=== PATIENT | female | born 1930 | race Caucasian/White ===

== ENCOUNTER 2017-02-24 21:35 | Inpatient (IN) | payer MEDICARE, OTHER ==
[2017-02-24] MEDS ORDERED: Sodium Chloride 0.9% 1,000 ML IV ONE (21:58)
[2017-02-24] MEDS ORDERED: Acetaminophen 325 MG Tab PO ONE (22:17)
--- NOTE | 2017-02-24 22:18 | EDM.PDOC ---
ED HPI GENERAL MEDICAL PROBLEM - General Chief Complaint: Gastrointestinal Problem Stated Complaint: by ambulance Time Seen by Provider: 02/24/17 22:14 Source of Information: Reports: Patient, EMS History Limitations: Reports: No Limitations - History of Present Illness INITIAL COMMENTS - FREE TEXT/NARRATIVE: pt states ate too many cherries ~ 10 yesterday and started diarrhoea but x 1 today. EMS states Pt's spouse called for Pt's diarrhoea but Pt declined coming then called again for pt to be taken here. - Related Data Allergies Allergy/AdvReac Type Severity Reaction Status Date / Time aspirin Allergy Nose Bleeds Verified 02/24/17 21:52 codeine Allergy Airway Verified 02/24/17 21:52 Tightness zolpidem tartrate Allergy Other Verified 02/24/17 21:52 [From Anupama] Home Meds: Home Meds Acetaminophen [Tylenol] 650 mg PO Q6HR PRN 10/01/15 [History] Alendronate Sodium [Fosamax] 70 mg PO BID 10/01/15 [History] Allopurinol [Zyloprim] 150 mg PO DAILY 10/01/15 [History] Calcitriol [Rocaltrol] 0.25 mcg PO DAILY 10/01/15 [History] Cholecalciferol (Vitamin D3) [Cholecalciferol] 500 units PO DAILY 10/01/15 [ History] Cyanocobalamin (Vitamin B-12) [B-12 Dots] 500 mcg PO BEDTIME 10/01/15 [History] Diltiazem HCl [Cardizem Cd] 360 mg PO DAILY 10/01/15 [History] Furosemide [Lasix] 40 mg PO DAILY 10/01/15 [History] Metoprolol Succinate [Toprol XL 50mg] 75 mg PO DAILY 10/01/15 [History] Multivitamin/Iron/Folic Acid [Centrum Complete Multivit] 1 tab PO DAILY [History] Simvastatin [Zocor] 10 mg PO BEDTIME 10/01/15 [History] Spironolactone [Aldactone] 25 mg PO DAILY 10/01/15 [History] PARoxetine [Paxil] 30 mg PO DAILY #30 tablet 11/09/15 [Rx] Pantoprazole [ProTONIX] 40 mg PO ACBREAKFAST #30 tab.cr 11/09/15 [Rx] [place]-3 Fatty Acids/Fish Oil [[place]-3 Fish Oil 1,000 mg Sfgl] 1 each PO BID [History] Warfarin [Coumadin] 5 mg PO .TUESTHURSSUN 06/06/16 [History] Warfarin [Coumadin] 7.5 mg PO .MONWEDFRISAT 06/06/16 [History] Acetaminophen/Diphenhydramine [Tylenol Pm Ex-Strength Caplet] 1 each PO BEDTIME PRN 06/07/16 [History] Docusate Sodium/Sennosides [Senna Plus] 1 tab PO DAILY tablet 06/12/16 [Rx] Levofloxacin 500 mg PO DAILY #10 tablet 06/12/16 [Rx] Past Medical History HEENT History: Reports: Impaired Vision Other HEENT History: wears glasses. 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: Musculoskeletal History: Reports: Arthritis, Osteoarthritis Neurological History: Reports: Headaches, Chronic Psychiatric History: Reports: Anxiety, Depression Endocrine/Metabolic History: Reports: Obesity/BMI 30+ Hematologic History: Reports: None Immunologic History: Reports: None Oncologic (Cancer) History: Reports: None Dermatologic History: Reports: None, Cellulitis, Other (See Below) Other Dermatologic History: sores to lower legs, lower abd,groin and upper arms - Infectious Disease History Infectious Disease History: Reports: Chicken Pox, Measles, Mumps, Shingles Other Infectious Disease History: had "Yellow jaundice" at age 15 - Past Surgical History Head Surgeries/Procedures: Reports: None Cardiovascular Surgical History: Reports: Vascular Surgery GI Surgical History: Reports: Appendectomy, Cholecystectomy, EGD Other GI Surgeries/Procedures: hemorrhoidectomy Musculoskeletal Surgical History: Reports: Hip Replacement, Knee Replacement Social & Family History - Family History Family Medical History: Noncontributory HEENT: Reports: None Cardiac: Reports: None Respiratory: Reports: None GI: Reports: Diverticulitis Musculoskeletal: Reports: RA Neurological: Reports: Seizure Psychiatric: Reports: None Immunologic: Reports: None Dermatologic: Reports: None Oncologic: Reports: None - Tobacco Use Smoking Status *Q: Never Smoker Second Hand Smoke Exposure: No - Caffeine Use Caffeine Use: Reports: Coffee, Tea - Alcohol Use Days Per Week of Alcohol Use: 2 Number of Drinks Per Day: 4 Total Drinks Per Week: 8 - Recreational Drug Use Recreational Drug Use: No - Living Situation & Occupation Living situation: Reports: , Alone Occupation: Retired ED ROS GENERAL - Review of Systems Review Of Systems: ROS reveals no pertinent complaints other than HPI. ED EXAM, GI/ABD - Physical Exam Exam: See Below Exam Limited By: No Limitations General Appearance: Alert, WD/WN, No Apparent Distress Ears: Hearing Grossly Normal Throat/Mouth: Normal Voice, No Airway Compromise Head: Atraumatic Neck: Non-Tender, Full Range of Motion Respiratory/Chest: No Respiratory Distress, No Accessory Muscle Use, Rhonchi, Wheezing Cardiovascular: Regular Rate, Rhythm GI/Abdominal: Soft, Non-Tender, Hyperactive Bowel Sounds. No: Tenderness, Distention, Guarding, Rebound, Rigidity Neurological: Alert, Oriented, Normal Cognition, No Motor/Sensory Deficits Psychiatric: Normal Affect, Normal Mood Skin Exam: Warm, Dry Lymphatic: No Adenopathy Course - Vital Signs Last Recorded V/S: Last Vital Signs Temp 39 C H 02/24/17 23:06 Pulse 87 02/24/17 21:48 Resp 14 02/24/17 21:48 BP 157/81 H 02/24/17 21:48 Pulse Ox 93 L 02/24/17 21:48 - Orders/Labs/Meds Orders: Active Orders 24 hr Category Date Time Status CULTURE BLOOD [BC] Stat Lab 02/24/17 22:10 Received CULTURE BLOOD [BC] Stat Lab 02/24/17 22:15 Results Sodium Chloride 0.9% [Normal Saline] 1,000 ml Med 02/24/17 21:58 Active IV .BOLUS cefTRIAXone [Rocephin] 1 gm Med 02/24/17 23:28 Active Sodium Chloride 0.9% [Normal Saline] 50 ml IV ONETIME Medication Orders Sodium Chloride (Normal Saline) 1,000 mls @ 500 mls/hr IV .BOLUS ONE Stop: 02/24/17 23:57 Last Admin: 02/24/17 22:16 Dose: 500 mls/hr Ceftriaxone Sodium 1 gm/ (Sodium Chloride) 50 mls @ 100 mls/hr IV ONETIME ONE Stop: 02/24/17 23:57 Labs: Laboratory Tests 02/24/17 02/24/17 02/24/17 Range/Units 22:10 22:10 22:10 WBC 20.9 H (5.0-10.0) 10^3/uL RBC 4.12 L (4.2-5.4) 10^6/uL Hgb 13.9 (12.0-16.0) g/dL Hct 41.1 (37.0-47.0) % MCV 99.8 (80-100) fL MCH 33.7 (27.0-34.0) pg MCHC 33.8 (33.0-35.0) g/dL Plt Count 176 (150-450) 10^3/uL Neut % (Auto) 89.6 H (42.2-75.2) % Lymph % (Auto) 4.3 L (20.5-50.1) % Yell % (Auto) 6.0 (2-8) % Eos % (Auto) 0.0 L (1.0-3.0) % Baso % (Auto) 0.1 (0.0-1.0) % PT (9.0-12.0) SEC INR (0.9-1.2) Sodium 137 (135-145) mmol/L Potassium 3.8 (3.6-5.0) mmol/L Chloride 98 L (101-111) mmol/L Carbon Dioxide 27.0 (21.0-31.0) mmol/L Anion Gap 15.8 BUN 27 H (7-18) mg/dL Creatinine 1.9 H (0.6-1.3) mg/dL Est Cr Clr Drug Dosing 20.26 mL/min Estimated GFR (MDRD) 25 BUN/Creatinine Ratio 14.21 Glucose 154 H (74-105) mg/dL Lactic Acid 2.2 (0.5-2.2) mmol/L Calcium 9.7 (8.4-10.2) mg/dl Total Bilirubin 1.6 H (0.2-1.0) mg/dL AST 26 (10-42) IU/L ALT 14 (10-60) IU/L Alkaline Phosphatase 60 (42-121) IU/L B-Natriuretic Peptide 694 H (0-100) pg/ml Total Protein 7.3 (6.7-8.2) g/dl Albumin 3.8 (3.2-5.5) g/dl Globulin 3.5 Albumin/Globulin Ratio 1.09 02/24/17 Range/Units 22:10 WBC (5.0-10.0) 10^3/uL RBC (4.2-5.4) 10^6/uL Hgb (12.0-16.0) g/dL Hct (37.0-47.0) % MCV (80-100) fL MCH (27.0-34.0) pg MCHC (33.0-35.0) g/dL Plt Count (150-450) 10^3/uL Neut % (Auto) (42.2-75.2) % Lymph % (Auto) (20.5-50.1) % Yell % (Auto) (2-8) % Eos % (Auto) (1.0-3.0) % Baso % (Auto) (0.0-1.0) % PT 26.4 H (9.0-12.0) SEC INR 2.6 H (0.9-1.2) Sodium (135-145) mmol/L Potassium (3.6-5.0) mmol/L Chloride (101-111) mmol/L Carbon Dioxide (21.0-31.0) mmol/L Anion Gap BUN (7-18) mg/dL Creatinine (0.6-1.3) mg/dL Est Cr Clr Drug Dosing mL/min Estimated GFR (MDRD) BUN/Creatinine Ratio Glucose (74-105) mg/dL Lactic Acid (0.5-2.2) mmol/L Calcium (8.4-10.2) mg/dl Total Bilirubin (0.2-1.0) mg/dL AST (10-42) IU/L ALT (10-60) IU/L Alkaline Phosphatase (42-121) IU/L B-Natriuretic Peptide (0-100) pg/ml Total Protein (6.7-8.2) g/dl Albumin (3.2-5.5) g/dl Globulin Albumin/Globulin Ratio Meds: Medications Generic Name Dose Route Start Last Admin Trade Name Freq PRN Reason Stop Dose Admin Sodium Chloride 1,000 mls @ 500 mls/hr 02/24/17 21:58 02/24/17 22:16 Normal Saline IV 02/24/17 23:57 500 mls/hr .BOLUS ONE Administration Ceftriaxone Sodium 1 gm/ 50 mls @ 100 mls/hr 02/24/17 23:28 Sodium Chloride IV 02/24/17 23:57 ONETIME ONE Discontinued Medications Generic Name Dose Route Start Last Admin Trade Name Albino PRN Reason Stop Dose Admin Acetaminophen 325 mg 02/24/17 22:17 02/24/17 22:21 Tylenol PO 02/24/17 22:18 325 mg NOW ONE Administration - Re-Assessments/Exams Free Text/Narrative Re-Assessment/Exam: 02/24/17 23:[address] Mac who kindly admitted Pt. Departure - Departure Time of Disposition: 23:32 Disposition: Admitted As Inpatient 68 Condition: Good Clinical Impression: Diarrhea, Dehydration syndrome Pneumonia Qualifiers: Pneumonia type: due to unspecified organism Laterality: bilateral Lung location : lower lobe of lung Qualified Code(s): J18.9 - Pneumonia, unspecified organism - Discharge Information Forms: ED Department Discharge - My Orders Last 24 Hours: My Active Orders 02/24/17 21:58 Sodium Chloride 0.9% [Normal Saline] 1,000 ml IV .BOLUS 02/24/17 22:10 CULTURE BLOOD [BC] Stat 02/24/17 22:15 CULTURE BLOOD [BC] Stat 02/24/17 23:28 cefTRIAXone [Rocephin] 1 gm Sodium Chloride 0.9% [Normal Saline] 50 ml IV ONETIME - Assessment/Plan Last 24 Hours: My Active Orders 02/24/17 21:58 Sodium Chloride 0.9% [Normal Saline] 1,000 ml IV .BOLUS 02/24/17 22:10 CULTURE BLOOD [BC] Stat 02/24/17 22:15 CULTURE BLOOD [BC] Stat 02/24/17 23:28 cefTRIAXone [Rocephin] 1 gm Sodium Chloride 0.9% [Normal Saline] 50 ml IV ONETIME
[2017-02-24] MEDS ORDERED: cefTRIAXone 1 GM in Sodium Chloride 0.9% 50 ML IV ONE (23:28)
[2017-02-25] MEDS ORDERED: Ondansetron 4 MG/2 ML SDV IVPUSH PRN (00:17)
[2017-02-25] MEDS ORDERED: Morphine 2 MG/ML Syringe IVPUSH PRN (00:17)
--- NOTE | 2017-02-25 00:31 | PCM.HP ---
H&P History of Present Illness - General Date of Service: 02/24/17 Admit Problem/Dx: Admission Diagnosis/Problem Admission Diagnosis/Problem Cellulitis Source of Information: Patient History Limitations: Reports: No Limitations - History of Present Illness Initial Comments - Free Text/Narative: 87-year-old female with a past medical history of atrial fibrillation, heart failure, hypertension, COPD, GERD, chronic renal insufficiency, urinary incontinence, anxiety, obesity present to the emergency room for having 3 episodes of diarrhea since yesterday. However she said she had some sweats and chills 2 days ago but declined any other symptoms. She thinks that she had diarrhea because she ate too much cherries. Her called the ambulance today but she declined to come to the emergency room however tonight he calls embolus again and she came to the emergency room. In the emergency room her temperature was 103.1 Fahrenheit. Patient denies cough, shortness breath, chest pain, headache, upper respiratory symptoms, abdominal pain, dysuria, urinary frequency, or any other symptoms or concerns. However patient admits that she picks on her skin and scratches it. She also admitted that she has inner thighs wounds that causes pain. In the emergency room she was found with a lot of stool in her brief period. Her white cells were 20,000 with left chest. Creatinine 1.9. Her creatinine baseline is about 1.5. BNP 694. Her BNP baseline is around 300-400. Lactic acid is 2.2. Total bilirubin 1.6. Medial and 27. Sodium 137. Potassium 3.8. Carbon dioxide 27. Chest x-ray shows bilateral atelectasis versus infiltrate versus pulmonary edema according to radiology report. - Related Data Allergies/Adverse Reactions: Allergies Allergy/AdvReac Type Severity Reaction Status Date / Time aspirin Allergy Nose Bleeds Verified 02/25/17 00:18 codeine Allergy Airway Verified 02/25/17 00:18 Tightness zolpidem tartrate Allergy Other Verified 02/25/17 00:18 [From Anupama] Home Medications: Home Meds Acetaminophen [Tylenol] 650 mg PO Q6HR PRN 10/01/15 [History] Alendronate Sodium [Fosamax] 70 mg PO BID 10/01/15 [History] Allopurinol [Zyloprim] 150 mg PO DAILY 10/01/15 [History] Calcitriol [Rocaltrol] 0.25 mcg PO DAILY 10/01/15 [History] Cholecalciferol (Vitamin D3) [Cholecalciferol] 500 units PO DAILY 10/01/15 [ History] Cyanocobalamin (Vitamin B-12) [B-12 Dots] 500 mcg PO BEDTIME 10/01/15 [History] Diltiazem HCl [Cardizem Cd] 360 mg PO DAILY 10/01/15 [History] Furosemide [Lasix] 40 mg PO DAILY 10/01/15 [History] Metoprolol Succinate [Toprol XL 50mg] 75 mg PO DAILY 10/01/15 [History] Multivitamin/Iron/Folic Acid [Centrum Complete Multivit] 1 tab PO DAILY [History] Simvastatin [Zocor] 10 mg PO BEDTIME 10/01/15 [History] Spironolactone [Aldactone] 25 mg PO DAILY 10/01/15 [History] PARoxetine [Paxil] 30 mg PO DAILY #30 tablet 11/09/15 [Rx] Pantoprazole [ProTONIX] 40 mg PO ACBREAKFAST #30 tab.cr 11/09/15 [Rx] [place]-3 Fatty Acids/Fish Oil [[place]-3 Fish Oil 1,000 mg Sfgl] 1 each PO BID [History] Warfarin [Coumadin] 5 mg PO .TUESTHURSSUN 06/06/16 [History] Warfarin [Coumadin] 7.5 mg PO .MONWEDFRISAT 06/06/16 [History] Acetaminophen/Diphenhydramine [Tylenol Pm Ex-Strength Caplet] 1 each PO BEDTIME PRN 06/07/16 [History] Docusate Sodium/Sennosides [Senna Plus] 1 tab PO DAILY tablet 06/12/16 [Rx] Levofloxacin 500 mg PO DAILY #10 tablet 06/12/16 [Rx] Past Medical History HEENT History: Reports: Impaired Vision Other HEENT History: wears glasses. 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: Musculoskeletal History: Reports: Arthritis, Osteoarthritis Neurological History: Reports: Headaches, Chronic Psychiatric History: Reports: Anxiety, Depression Endocrine/Metabolic History: Reports: Obesity/BMI 30+ Hematologic History: Reports: None Immunologic History: Reports: None Oncologic (Cancer) History: Reports: None Dermatologic History: Reports: None, Cellulitis, Other (See Below) Other Dermatologic History: sores to lower legs, lower abd,groin and upper arms - Infectious Disease History Infectious Disease History: Reports: Chicken Pox, Measles, Mumps, Shingles Other Infectious Disease History: had "Yellow jaundice" at age 15 - Past Surgical History Head Surgeries/Procedures: Reports: None Cardiovascular Surgical History: Reports: Vascular Surgery GI Surgical History: Reports: Appendectomy, Cholecystectomy, EGD Other GI Surgeries/Procedures: hemorrhoidectomy Musculoskeletal Surgical History: Reports: Hip Replacement, Knee Replacement Social & Family History - Family History Family Medical History: Noncontributory HEENT: Reports: None Cardiac: Reports: None Respiratory: Reports: None GI: Reports: Diverticulitis Musculoskeletal: Reports: RA Neurological: Reports: Seizure Psychiatric: Reports: None Immunologic: Reports: None Dermatologic: Reports: None Oncologic: Reports: None - Tobacco Use Smoking Status *Q: Never Smoker Second Hand Smoke Exposure: No - Caffeine Use Caffeine Use: Reports: Coffee, Tea - Alcohol Use Days Per Week of Alcohol Use: 2 Number of Drinks Per Day: 4 Total Drinks Per Week: 8 - Recreational Drug Use Recreational Drug Use: No - Living Situation & Occupation Living situation: Reports: , Alone Occupation: Retired H&P Review of Systems - Review of Systems: Review Of Systems: See Below General: Reports: Weakness. Denies: Night Sweats HEENT: Reports: No Symptoms Pulmonary: Reports: No Symptoms Cardiovascular: Reports: No Symptoms Gastrointestinal: Denies: Abdominal Pain, Constipation, Difficulty Swallowing, Distension, Hematemesis, Hematochezia, Melena, Nausea, Vomiting Genitourinary: Reports: No Symptoms Musculoskeletal: Reports: No Symptoms Skin: Denies: Jaundice Psychiatric: Reports: No Symptoms Neurological: Reports: No Symptoms Hematologic/Lymphatic: Reports: No Symptoms Exam - Exam Exam: See Below - Vital Signs Vital Signs: Last Vital Signs Temp 39 C H 02/24/17 23:06 Pulse 87 02/24/17 21:48 Resp 14 02/24/17 21:48 BP 157/81 H 02/24/17 21:48 Pulse Ox 93 L 02/24/17 21:48 Weight: 131.542 kg - Exam General: Alert, Oriented, Cooperative. No: Moderate Distress, Severe Distress, Sedated, Lethargic, Obtunded HEENT: Conjunctiva Clear, EACs Clear, EOMI, Hearing Intact, Mucosa Moist & [place] , Nares Patent, Normal Nasal Septum, Posterior Pharynx Clear, Pupils Equal, Pupils Reactive, TMs Clear Neck: Supple, Trachea Midline, +2 Carotid Pulse wo Bruit Lungs: Clear to Auscultation, Normal Respiratory Effort, Crackles (Mild in bases ). No: Rhonchi, Stridor, Wheezing Cardiovascular: Regular Rate, Regular Rhythm Abdomen: Normal Bowel Sounds, Soft. No: Organomegaly, Peritoneal Signs, Distention, Guarding, Rigidity, Rebound, Tenderness, McBurney's Sign, Son's Sign (Female) Exam: Deferred Rectal (Female) Exam: Deferred Back Exam: Full Range of Motion. No: CVA Tenderness (L), CVA Tenderness (R), Decreased Range of Motion Extremities: Normal Pulses. No: Clubbing, Cyanosis, Calf Tenderness, Edema Skin: Other (There are erythematous skin on the lower back. Inner thighs skin is mottled, red, has open wounds. Lower and upper extremities has itching grimm. ) Neurological: Normal Tone. No: Focal Deficit Neuro Extensive - Mental Status: Alert, Oriented x3, Normal Mood/Affect Neuro Extensive - Motor, Sensory, Reflexes: CN II-XII Intact Psychiatric: Alert, Normal Affect - Patient Data Result Diagrams: 02/24/17 22:10 02/24/17 22:10 *Q Meaningful Use (ADM) - VTE *Q VTE Criteria *Q: - Stroke *Q Stroke Criteria *Q: - AMI *Q AMI Criteria *Q: - Problem List (1) Cellulitis SNOMED Code(s): 338603339 ICD Code: L03.90 - CELLULITIS, UNSPECIFIED Status: Acute Priority: High Current Visit: Yes (2) Acute on chronic kidney failure SNOMED Code(s): 292505807 ICD Code: N17.9 - ACUTE KIDNEY FAILURE, UNSPECIFIED; N18.9 - CHRONIC KIDNEY DISEASE, UNSPECIFIED Status: Acute Current Visit: Yes (3) Pulmonary edema SNOMED Code(s): 21286007 ICD Code: J81.1 - CHRONIC PULMONARY EDEMA Status: Acute Priority: Medium Current Visit: Yes (4) Sepsis SNOMED Code(s): 46168658 ICD Code: A41.9 - SEPSIS, UNSPECIFIED ORGANISM Status: Acute Priority: High Current Visit: Yes (5) Chronic congestive heart failure SNOMED Code(s): 06534210 ICD Code: I50.9 - HEART FAILURE, UNSPECIFIED Status: Chronic Current Visit: Yes (6) Essential hypertension SNOMED Code(s): 50642360 ICD Code: I10 - ESSENTIAL (PRIMARY) HYPERTENSION Status: Chronic Current Visit: Yes (7) COPD (chronic obstructive pulmonary disease) SNOMED Code(s): 50472529 ICD Code: J44.9 - CHRONIC OBSTRUCTIVE PULMONARY DISEASE, UNSPECIFIED Status : Chronic Current Visit: Yes Problem List Initiated/Reviewed/Updated: Yes Orders Last 24hrs: Active Orders 24 hr Category Date Time Status Patient Status [ADT] Routine ADT 02/25/17 00:17 Ordered Height and Weight [RC] DAILY Care 02/25/17 00:17 Ordered Intake and Output [RC] Q6H Care 02/25/17 00:19 Ordered Oxygen Therapy [RC] PRN Care 02/25/17 00:17 Ordered RT Aerosol Therapy [RC] ASDIRECTED Care 02/25/17 00:21 Ordered Up ad Safia [RC] ASDIRECTED Care 02/25/17 00:17 Ordered VTE/DVT Education [RC] PER UNIT ROUTINE Care 02/25/17 00:17 Ordered Vital Signs [RC] Q4H Care 02/25/17 00:17 Ordered OT Evaluation and Treatment [CONS] Routine Cons 02/26/17 07:00 Ordered PT Evaluation and Treatment [CONS] Routine Cons 02/26/17 07:00 Ordered 2 Gram Sodium Diet [DIET] Diet 02/25/17 Breakfast Ordered BASIC METABOLIC PANEL,BMP [CHEM] AM Lab 02/25/17 05:11 Ordered CBC WITH AUTO DIFF [HEME] AM Lab 02/25/17 05:11 Ordered CREATINE KINASE,CK [CHEM] AM Lab 02/25/17 05:11 Ordered CULTURE URINE [RM] Stat Lab 02/25/17 00:17 Uncollected MAGNESIUM [CHEM] AM Lab 02/25/17 05:11 Ordered UA W/MICROSCOPIC [URIN] AM Lab 02/25/17 05:11 Uncollected Acetaminophen [Tylenol] Med 02/25/17 00:17 Ordered 650 mg PO Q4H PRN Albuterol/Ipratropium [DuoNeb 3.0-0.5 MG/3 ML] Med 02/25/17 00:30 Ordered 3 ml NEB Q6H Morphine Med 02/25/17 00:17 Ordered 1 mg IVPUSH Q4H PRN Ondansetron [Zofran] Med 02/25/17 00:17 Ordered 4 mg IVPUSH Q6H PRN Saline Lock Insert [OM.PC] Routine Oth 02/25/17 00:17 Ordered Resuscitation Status Routine Resus Stat 02/25/17 00:17 Ordered Assessment/Plan Comment:: Sepsis most likely from cellulitis WBC on admission 1000. Her temp in the emergency room was 103.1 Fahrenheit She received 1 L of IV fluid as bolus in the emergency room. I did recommend farther IV fluid due to history of congestive heart failure and having pulmonary edema on chest x-ray. She received 1 dose of Rocephin in the emergency room -Start Zosyn -Check WBC and CRP in the morning -Awaiting blood cultures results Cellulitis of bilateral thigh Zosyn PT consult for wound care Pulmonary edema, mild Most likely chronic continue her Lasix Watch Clinically for fluid overload and respiration chronic congestive heart failure Continue Lasix, spiral lactone, metoprolol Patient is not on MADALYN inhibitor or ARBs. We will leave that up to the primary care provider History of atrial fibrillation Continue was diltiazem orally COPD No exacerbation DuoNeb every 6 hours Essential hypertension Continue his metoprolol History of osteoporosis Continue with calcitriol and alendronate Patient wants to be DNR/DNI She is on warfarin for atrial fibrillation so she does not need additional pharmaceutical DVT prophylaxis
[2017-02-25] MEDS ORDERED: Acetaminophen 500 MG Tab PO PRN (01:14)
[2017-02-25] MEDS ORDERED: diphenhydrAMINE 25 MG Tab PO PRN (01:15)
[2017-02-25] MEDS: Albuterol/Ipratropium 3.0-0.5 MG/3 ML Neb Soln NEB SCH ×4 (01:35→17:56)
[2017-02-25] MEDS: Piperacillin/Tazobactam 3.375 GM in Sodium Chloride 0.9% 100 ML IV SCH ×4 (01:49→18:43)
[2017-02-25] MEDS: Pantoprazole 40 MG Tab.CR PO SCH (05:56)
[2017-02-25] MEDS: Sodium Chloride 0.9% 10 ML Syringe FLUSH PRN ×3 (06:00→18:43)
[2017-02-25] MEDS: Potassium Chloride 10 MEQ Tab.ER PO SCH (08:33)
[2017-02-25] MEDS: PARoxetine 20 MG Tab PO SCH (08:33)
[2017-02-25] MEDS: Multivitamins with Iron Tab.Chew PO SCH (08:33)
[2017-02-25] MEDS: Spironolactone 25 MG Tab PO SCH (08:33)
[2017-02-25] MEDS: Allopurinol 300 MG Tab PO SCH (08:35)
[2017-02-25] MEDS: Calcitriol 0.25 MCG Cap PO SCH (08:35)
[2017-02-25] MEDS: Diltiazem 180 MG Cap.CD PO SCH (08:35)
[2017-02-25] MEDS: Metoprolol Succinate 50 MG Tab.ER PO SCH (08:36)
[2017-02-25] MEDS: Furosemide 40 MG Tab PO SCH ×2 (08:36→14:35)
[2017-02-25] MEDS: Cholecalciferol (Vitamin D3) 400 Unit Tab PO SCH (08:37)
[2017-02-25] MEDS: FATTY ACIDS PO SCH ×2 (10:10→20:48)
[2017-02-25] MEDS: [UNRECOGNIZED DRUG - OTHER] PO SCH ×2 (10:10→20:48)
[2017-02-25] MEDS: FISH OIL PO SCH ×2 (10:10→20:48)
[2017-02-25] MEDS: OMEGA PO SCH ×2 (10:10→20:48)
[2017-02-25] MEDS ORDERED: Albuterol/Ipratropium 3.0-0.5 MG/3 ML Neb Soln NEB SCH (13:00)
--- NOTE | 2017-02-25 13:39 | PCM.PN ---
- General Info Date of Service: 02/25/17 Admission Dx/Problem (Free Text): Admission Diagnosis/Problem Admission Diagnosis/Problem Cellulitis Subjective Update: Patient states that she is feeling better today. She still complains of the thigh tenderness. She denies diarrhea since admission. She denies fever, chills , nausea, vomiting, abdominal pain, urinary symptoms, unilateral weakness/ numbness/tingling, or any other symptoms or concerns. - Patient Data Vitals - most recent: Last Vital Signs Temp 38.1 C 02/25/17 11:00 Pulse 79 02/25/17 11:00 Resp 20 02/25/17 11:00 BP 127/54 L 02/25/17 11:00 Pulse Ox 92 L 02/25/17 11:00 Weight - most recent: 131.542 kg I&O - last 24 hours: Intake & Output 02/24/17 02/25/17 02/25/17 22:59 06:59 14:59 Intake Total 1206 300 Balance 1206 300 Lab Results last 24 hrs: Laboratory Results - last 24 hr 02/25/17 02/25/17 02/25/17 Range/Units 06:05 06:05 06:05 WBC 21.9 H (5.0-10.0) 10^3/uL RBC 3.92 L (4.2-5.4) 10^6/uL Hgb 13.1 (12.0-16.0) g/dL Hct 39.3 (37.0-47.0) % MCV 100.3 H (80-100) fL MCH 33.4 (27.0-34.0) pg MCHC 33.3 (33.0-35.0) g/dL Plt Count 153 (150-450) 10^3/uL Neut % (Auto) 90.0 H (42.2-75.2) % Lymph % (Auto) 4.9 L (20.5-50.1) % [place] % (Auto) 5.1 (2-8) % Eos % (Auto) 0.0 L (1.0-3.0) % Baso % (Auto) 0.0 (0.0-1.0) % PT 21.7 H (9.0-12.0) SEC INR 2.2 H (0.9-1.2) Sodium 138 (135-145) mmol/L Potassium 3.6 (3.6-5.0) mmol/L Chloride 99 L (101-111) mmol/L Carbon Dioxide 26.0 (21.0-31.0) mmol/L Anion Gap 16.6 BUN 29 H (7-18) mg/dL Creatinine 1.9 H (0.6-1.3) mg/dL Est Cr Clr Drug Dosing 20.26 mL/min Estimated GFR (MDRD) 25 Glucose 138 H (74-105) mg/dL Lactic Acid (0.5-2.2) mmol/L Calcium 8.9 (8.4-10.2) mg/dl Magnesium 1.8 (1.8-2.5) mg/dL Creatine Kinase 104 (26-174) IU/L C-Reactive Protein (0.0-1.3) mg/dL Urine Color (YELLOW) Urine Appearance (CLEAR) Urine pH (5.0-9.0) Ur Specific [place] (1.005-1.030) Urine Protein (NEGATIVE) Urine Glucose (UA) (NEGATIVE) Urine Ketones (NEGATIVE) Urine Occult Blood (NEGATIVE) Urine Nitrite (NEGATIVE) Urine Bilirubin (NEGATIVE) Urine Urobilinogen (0.2-1.0) mg/dL Ur Leukocyte Esterase (NEGATIVE) Urine RBC /HPF Urine WBC (0-5/HPF) /HPF Ur Epithelial Cells /HPF Urine Bacteria (0-FEW/HPF) /HPF Urine Mucus /LPF 02/25/17 02/25/17 02/25/17 Range/Units 06:05 06:05 06:45 WBC (5.0-10.0) 10^3/uL RBC (4.2-5.4) 10^6/uL Hgb (12.0-16.0) g/dL Hct (37.0-47.0) % MCV (80-100) fL MCH (27.0-34.0) pg MCHC (33.0-35.0) g/dL Plt Count (150-450) 10^3/uL Neut % (Auto) (42.2-75.2) % Lymph % (Auto) (20.5-50.1) % [place] % (Auto) (2-8) % Eos % (Auto) (1.0-3.0) % Baso % (Auto) (0.0-1.0) % PT (9.0-12.0) SEC INR (0.9-1.2) Sodium (135-145) mmol/L Potassium (3.6-5.0) mmol/L Chloride (101-111) mmol/L Carbon Dioxide (21.0-31.0) mmol/L Anion Gap BUN (7-18) mg/dL Creatinine (0.6-1.3) mg/dL Est Cr Clr Drug Dosing mL/min Estimated GFR (MDRD) Glucose (74-105) mg/dL Lactic Acid 1.2 (0.5-2.2) mmol/L Calcium (8.4-10.2) mg/dl Magnesium (1.8-2.5) mg/dL Creatine Kinase (26-174) IU/L C-Reactive Protein 18.7 H (0.0-1.3) mg/dL Urine Color Straw (YELLOW) Urine Appearance Cloudy (CLEAR) Urine pH 5.5 (5.0-9.0) Ur Specific [place] 1.010 (1.005-1.030) Urine Protein Negative (NEGATIVE) Urine Glucose (UA) Negative (NEGATIVE) Urine Ketones Negative (NEGATIVE) Urine Occult Blood Moderate H (NEGATIVE) Urine Nitrite Negative (NEGATIVE) Urine Bilirubin Negative (NEGATIVE) Urine Urobilinogen 0.2 (0.2-1.0) mg/dL Ur Leukocyte Esterase Small H (NEGATIVE) Urine RBC 50-75 H /HPF Urine WBC 5-10 H (0-5/HPF) /HPF Ur Epithelial Cells Rare /HPF Urine Bacteria Moderate H (0-FEW/HPF) /HPF Urine Mucus Not seen /LPF Med Orders - Current: Current Medications Acetaminophen (Tylenol) 650 mg PO Q4H PRN PRN Reason: Pain (Mild 1-3)/fever Acetaminophen (Tylenol Extra Strength) 500 mg PO BEDTIME PRN PRN Reason: Insomnia Albuterol/Ipratropium (Duoneb 3.0-0.5 Mg/3 Ml) 3 ml NEB Q6HRRT [facility] Allopurinol (Zyloprim) 150 mg PO DAILY [facility] Last Admin: 02/25/17 08:35 Dose: 150 mg Calcitriol (Rocaltrol) 0.25 mcg PO DAILY [facility] Last Admin: 02/25/17 08:35 Dose: 0.25 mcg Cholecalciferol (Vitamin D3) 800 units PO DAILY [facility] Last Admin: 02/25/17 08:37 Dose: 800 units Cyanocobalamin (Vitamin B12) 500 mcg PO BEDTIME [facility] Diltiazem HCl (Cardizem Cd) 360 mg PO DAILY [facility] Last Admin: 02/25/17 08:35 Dose: 360 mg Diphenhydramine HCl (Benadryl) 25 mg PO BEDTIME PRN PRN Reason: Insomnia Furosemide (Lasix) 40 mg PO DAILY [facility] Last Admin: 02/25/17 08:36 Dose: 40 mg Furosemide (Lasix) 80 mg PO 1400 [facility] Piperacillin Sod/Tazobactam (Sod 3.375 gm/ Sodium Chloride) 100 mls @ 200 mls/ hr IV Q6H [facility] Last Admin: 02/25/17 12:42 Dose: 200 mls/hr Metoprolol Succinate (Toprol Xl) 75 mg PO DAILY [facility] Last Admin: 02/25/17 08:36 Dose: 75 mg Multivitamins/Iron (Child Chew Iron) 1 tab PO DAILY [facility] Last Admin: 02/25/17 08:33 Dose: 1 tab Non-Formulary Medication (Alendronate Sodium [Fosamax]) 70 mg PO WEEKLY [facility] Non-Formulary Medication ([place]-3 Fatty Acids/Fish Oil [[place]-3 Fish Oil 1,000 Mg Sfgl]) 1 each PO BID [facility] Last Admin: 02/25/17 10:10 Dose: Not Given Ondansetron HCl (Zofran) 4 mg IVPUSH Q6H PRN PRN Reason: Nausea/Vomiting Pantoprazole Sodium (Protonix) 40 mg PO ACBREAKFAST [facility] Last Admin: 02/25/17 05:56 Dose: 40 mg Paroxetine HCl (Paxil) 30 mg PO DAILY [facility] Last Admin: 02/25/17 08:33 Dose: 30 mg Potassium Chloride (Klor-Con 10) 10 meq PO DAILY [facility] Last Admin: 02/25/17 08:33 Dose: 10 meq Simvastatin (Zocor) 10 mg PO BEDTIME [facility] Sodium Chloride (Saline Flush) 10 ml FLUSH ASDIRECTED PRN PRN Reason: Keep Vein Open Last Admin: 02/25/17 06:33 Dose: 10 ml Spironolactone (Aldactone) 25 mg PO DAILY [facility] Last Admin: 02/25/17 08:33 Dose: 25 mg Warfarin Sodium (Coumadin) 7.5 mg PO MoWeFrSa@1400 [facility] Warfarin Sodium (Coumadin) 5 mg PO SuTuTh@1400 [facility] Discontinued Medications Acetaminophen (Tylenol) 325 mg PO NOW ONE Stop: 02/24/17 22:18 Last Admin: 02/24/17 22:21 Dose: 325 mg Albuterol/Ipratropium (Duoneb 3.0-0.5 Mg/3 Ml) 3 ml NEB Q6H [facility] Last Admin: 02/25/17 05:56 Dose: 3 ml Albuterol/Ipratropium (Duoneb 3.0-0.5 Mg/3 Ml) 3 ml NEB DAILY@0100,0700,1300 [facility] Furosemide (Lasix) 80 mg PO DAILY [facility] Sodium Chloride (Normal Saline) 1,000 mls @ 500 mls/hr IV .BOLUS ONE Stop: 02/24/17 23:57 Last Infusion: 02/25/17 04:05 Dose: Infused Ceftriaxone Sodium 1 gm/ (Sodium Chloride) 50 mls @ 100 mls/hr IV ONETIME ONE Stop: 02/24/17 23:57 Last Admin: 02/24/17 23:38 Dose: 100 mls/hr Morphine Sulfate (Morphine) 1 mg IVPUSH Q4H PRN PRN Reason: Pain (severe 7-10) Stop: 02/25/17 00:39 - Exam General: alert, oriented, cooperative. No: no acute distress, moderate distress , severe distress, sedated, lethargic, obtunded HEENT: Pupils equal, Pupils reactive, EOMI, Mucous membr. moist/pink Neck: supple, trachea midline, no JVD Lungs: Clear to auscultation, Normal respiratory effort Cardiovascular: Regular Rate, Regular Rhythm Abdomen: bowel sounds present, soft, no tenderness, no distension. No: rigidity , guarding Back Exam: Full Range of Motion Extremities: no edema, normal pulses, no tenderness/swelling, no clubbing, no cyanosis Skin: other (Lower back Erythema improved.) Neurological: no new focal deficit Psy/Mental Status: alert, normal affect, normal mood - Problem List & Annotations (1) Cellulitis SNOMED Code(s): 574599841 Code(s): L03.90 - CELLULITIS, UNSPECIFIED Status: Acute Priority: High Current Visit: Yes (2) Acute on chronic kidney failure SNOMED Code(s): 743789339 Code(s): N17.9 - ACUTE KIDNEY FAILURE, UNSPECIFIED; N18.9 - CHRONIC KIDNEY DISEASE, UNSPECIFIED Status: Acute Current Visit: Yes (3) Pulmonary edema SNOMED Code(s): 69933410 Code(s): J81.1 - CHRONIC PULMONARY EDEMA Status: Acute Priority: Medium Current Visit: Yes (4) Sepsis SNOMED Code(s): 31732604 Code(s): A41.9 - SEPSIS, UNSPECIFIED ORGANISM Status: Acute Priority: High Current Visit: Yes (5) Chronic congestive heart failure SNOMED Code(s): 77457206 Code(s): I50.9 - HEART FAILURE, UNSPECIFIED Status: Chronic Current Visit : Yes (6) Essential hypertension SNOMED Code(s): 91591804 Code(s): I10 - ESSENTIAL (PRIMARY) HYPERTENSION Status: Chronic Current Visit: Yes (7) COPD (chronic obstructive pulmonary disease) SNOMED Code(s): 02839117 Code(s): J44.9 - CHRONIC OBSTRUCTIVE PULMONARY DISEASE, UNSPECIFIED Status : Chronic Current Visit: Yes (8) Diarrhea SNOMED Code(s): 43781651 Code(s): R19.7 - DIARRHEA, UNSPECIFIED Status: Acute Current Visit: Yes - Problem List Review Problem List Initiated/Reviewed/Updated: Yes - My Orders Last 24 Hours: My Active Orders 02/25/17 00:26 Consult to Pharmacy [CONS] Routine 02/25/17 00:30 Piperacillin/Tazobactam [Zosyn] 3.375 gm Sodium Chloride 0.9% [Normal Saline] 100 ml IV Q6H 02/25/17 00:45 Alendronate Sodium [Fosamax] 70 mg PO WEEKLY 02/25/17 01:14 Acetaminophen [Tylenol Extra Strength] 500 mg PO BEDTIME PRN 02/25/17 01:15 diphenhydrAMINE [Benadryl] 25 mg PO BEDTIME PRN 02/25/17 06:00 Pantoprazole [ProTONIX] 40 mg PO ACBREAKFAST 02/25/17 09:00 Allopurinol [Zyloprim] 150 mg PO DAILY Calcitriol [Rocaltrol] 0.25 mcg PO DAILY Cholecalciferol (Vitamin D3) [Vitamin D3] 800 units PO DAILY Diltiazem [Cardizem CD] 360 mg PO DAILY Furosemide [Lasix] 40 mg PO DAILY Metoprolol Succinate [Toprol XL] 75 mg PO DAILY Multivitamins with Iron [Child Chew Iron] 1 tab PO DAILY [place]-3 Fatty Acids/Fish Oil [[place]-3 Fish Oil 1,000 mg Sfgl] 1 each PO BID PARoxetine [Paxil] 30 mg PO DAILY Potassium Chloride [Klor-Con 10] 10 meq PO DAILY Spironolactone [Aldactone] 25 mg PO DAILY 02/25/17 13:00 Albuterol/Ipratropium [DuoNeb 3.0-0.5 MG/3 ML] 3 ml NEB Q6HRRT 02/25/17 14:00 Furosemide [Lasix] 80 mg PO 1400 Warfarin [Coumadin] 5 mg PO SuTuTh@1400 02/25/17 21:00 Cyanocobalamin (Vitamin B12) [Vitamin B12] 500 mcg PO BEDTIME Simvastatin [Zocor] 10 mg PO BEDTIME 02/26/17 05:11 B-TYPE NATRIURETIC PEPTIDE,BNP [CHEM] AM BASIC METABOLIC PANEL,BMP [CHEM] AM C-REACTIVE PROTEIN [CHEM] AM CBC WITH AUTO DIFF [HEME] AM INR,PT,PROTHROMBIN TIME [COAG] DAILY 02/26/17 14:00 Warfarin [Coumadin] 7.5 mg PO MoWeFrSa@1400 02/27/17 05:11 INR,PT,PROTHROMBIN TIME [COAG] DAILY 02/28/17 05:11 INR,PT,PROTHROMBIN TIME [COAG] DAILY - Plan Plan:: Sepsis most likely from cellulitis WBC on admission 20,000. Her temp in the emergency room was 103.1 Fahrenheit She received 1 L of IV fluid as bolus in the emergency room. I did recommend farther IV fluid due to history of congestive heart failure and having pulmonary edema on chest x-ray. She received 1 dose of Rocephin in the emergency room -Continue Zosyn -WBC are slightly higher today at 21.9 -CRP is 18.7. -Awaiting blood cultures results Cellulitis of bilateral thigh -Continue Zosyn PT consult for wound care Pulmonary edema, mild Most likely chronic continue her Lasix Watch Clinically for fluid overload and respiration Diarrhea, -resolved chronic congestive heart failure Continue Lasix, spiral lactone, metoprolol Patient is not on MADALYN inhibitor or ARBs. We will leave that up to the primary care provider History of atrial fibrillation Continue was diltiazem orally Continuing Coumadin Chronic anticoagulation For atrial fibrillation -INR is therapeutic. Pharmacy is dosing warfarin COPD No exacerbation DuoNeb every 6 hours Essential hypertension Continue his metoprolol History of osteoporosis Continue with calcitriol and alendronate Patient wants to be DNR/DNI She is on warfarin for atrial fibrillation so she does not need additional pharmaceutical DVT prophylaxis I discussed with patient and that she needs to try to get out of her chair more often and sleep in bed at home instead of sitting in chair. However will I warned them about the risk of fall and I recommended [facility] home or at least home health. Patient declined prison and home health at this time. She states that her daughter is helps her and she will have someone to come to her home regularly and help her
[2017-02-25] MEDS ORDERED: Furosemide 40 MG Tab PO SCH (14:00)
[2017-02-25] MEDS ORDERED: Warfarin 5 MG Tab PO SCH (14:00)
[2017-02-25] MEDS: Simvastatin 10 MG Tab PO SCH (20:49)
[2017-02-25] MEDS: Cyanocobalamin (Vitamin B12) 100 MCG Tab PO SCH (20:49)
[2017-02-25] MEDS: DIPHENHYDRAMINE PO PRN (20:51)
[2017-02-25] MEDS: ACETAMINOPHEN PO PRN (20:51)
[2017-02-26] MEDS: Piperacillin/Tazobactam 3.375 GM in Sodium Chloride 0.9% 100 ML IV SCH ×4 (00:14→18:22)
[2017-02-26] MEDS: Albuterol/Ipratropium 3.0-0.5 MG/3 ML Neb Soln NEB SCH ×3 (00:18→13:07)
[2017-02-26] MEDS: Pantoprazole 40 MG Tab.CR PO SCH (06:00)
--- NOTE | 2017-02-26 09:17 | PCM.PN ---
- General Info Date of Service: 02/26/17 Admission Dx/Problem (Free Text): Admission Diagnosis/Problem Admission Diagnosis/Problem Cellulitis Subjective Update: Patient states that she is feeling better today. She denies thigh pain. She denies diarrhea since admission. She denies fever, chills, nausea, vomiting, abdominal pain, urinary symptoms, unilateral weakness/numbness/tingling, or any other symptoms or concerns. - Patient Data Vitals - most recent: Last Vital Signs Temp 37.5 C 02/26/17 07:28 Pulse 94 02/26/17 07:28 Resp 20 02/26/17 07:28 BP 126/51 L 02/26/17 07:28 Pulse Ox 96 02/26/17 07:28 Weight - most recent: 131.769 kg I&O - last 24 hours: Intake & Output 02/25/17 02/26/17 02/26/17 22:59 06:59 14:59 Intake Total 567 415 Balance 567 415 Lab Results last 24 hrs: Laboratory Results - last 24 hr 02/25/17 02/26/17 02/26/17 Range/Units 06:05 06:07 06:07 WBC 13.4 H (5.0-10.0) 10^3/uL RBC 3.82 L (4.2-5.4) 10^6/uL Hgb 12.7 (12.0-16.0) g/dL Hct 38.7 (37.0-47.0) % MCV 101.3 H (80-100) fL MCH 33.2 (27.0-34.0) pg MCHC 32.8 L (33.0-35.0) g/dL Plt Count 146 L (150-450) 10^3/uL Neut % (Auto) 85.5 H (42.2-75.2) % Lymph % (Auto) 7.3 L (20.5-50.1) % [place] % (Auto) 6.9 (2-8) % Eos % (Auto) 0.2 L (1.0-3.0) % Baso % (Auto) 0.1 (0.0-1.0) % PT (9.0-12.0) SEC INR (0.9-1.2) Sodium 138 (135-145) mmol/L Potassium 3.8 (3.6-5.0) mmol/L Chloride 98 L (101-111) mmol/L Carbon Dioxide 28.0 (21.0-31.0) mmol/L Anion Gap 15.8 BUN 26 H (7-18) mg/dL Creatinine 1.9 H (0.6-1.3) mg/dL Est Cr Clr Drug Dosing 20.26 mL/min Estimated GFR (MDRD) 25 Glucose 115 H (74-105) mg/dL Calcium 9.0 (8.4-10.2) mg/dl C-Reactive Protein 18.7 H (0.0-1.3) mg/dL B-Natriuretic Peptide 383 H (0-100) pg/ml 02/26/17 02/26/17 Range/Units 06:07 06:12 WBC (5.0-10.0) 10^3/uL RBC (4.2-5.4) 10^6/uL Hgb (12.0-16.0) g/dL Hct (37.0-47.0) % MCV (80-100) fL MCH (27.0-34.0) pg MCHC (33.0-35.0) g/dL Plt Count (150-450) 10^3/uL Neut % (Auto) (42.2-75.2) % Lymph % (Auto) (20.5-50.1) % [place] % (Auto) (2-8) % Eos % (Auto) (1.0-3.0) % Baso % (Auto) (0.0-1.0) % PT 15.8 H (9.0-12.0) SEC INR 1.6 H (0.9-1.2) Sodium (135-145) mmol/L Potassium (3.6-5.0) mmol/L Chloride (101-111) mmol/L Carbon Dioxide (21.0-31.0) mmol/L Anion Gap BUN (7-18) mg/dL Creatinine (0.6-1.3) mg/dL Est Cr Clr Drug Dosing mL/min Estimated GFR (MDRD) Glucose (74-105) mg/dL Calcium (8.4-10.2) mg/dl C-Reactive Protein 19.7 H (0.0-1.3) mg/dL B-Natriuretic Peptide (0-100) pg/ml Med Orders - Current: Current Medications Acetaminophen (Tylenol) 650 mg PO Q4H PRN PRN Reason: Pain (Mild 1-3)/fever Albuterol/Ipratropium (Duoneb 3.0-0.5 Mg/3 Ml) 3 ml NEB Q6HRRT [facility] Last Admin: 02/26/17 07:05 Dose: 3 ml Allopurinol (Zyloprim) 150 mg PO DAILY [facility] Last Admin: 02/25/17 08:35 Dose: 150 mg Calcitriol (Rocaltrol) 0.25 mcg PO DAILY [facility] Last Admin: 02/25/17 08:35 Dose: 0.25 mcg Cholecalciferol (Vitamin D3) 800 units PO DAILY [facility] Last Admin: 02/25/17 08:37 Dose: 800 units Cyanocobalamin (Vitamin B12) 500 mcg PO BEDTIME [facility] Last Admin: 02/25/17 20:49 Dose: 500 mcg Diltiazem HCl (Cardizem Cd) 360 mg PO DAILY [facility] Last Admin: 02/25/17 08:35 Dose: 360 mg Furosemide (Lasix) 40 mg PO DAILY [facility] Last Admin: 02/25/17 08:36 Dose: 40 mg Furosemide (Lasix) 80 mg PO 1400 [facility] Last Admin: 02/25/17 14:35 Dose: 80 mg Piperacillin Sod/Tazobactam (Sod 3.375 gm/ Sodium Chloride) 100 mls @ 200 mls/ hr IV Q6H [facility] Last Infusion: 02/26/17 06:41 Dose: Infused Metoprolol Succinate (Toprol Xl) 75 mg PO DAILY [facility] Last Admin: 02/25/17 08:36 Dose: 75 mg Multivitamins/Iron (Child Chew Iron) 1 tab PO DAILY [facility] Last Admin: 02/25/17 08:33 Dose: 1 tab Non-Formulary Medication (Alendronate Sodium [Fosamax]) 70 mg PO WEEKLY [facility] Non-Formulary Medication ([place]-3 Fatty Acids/Fish Oil [[place]-3 Fish Oil 1,000 Mg Sfgl]) 1 each PO BID [facility] Last Admin: 02/25/17 20:48 Dose: Not Given Ondansetron HCl (Zofran) 4 mg IVPUSH Q6H PRN PRN Reason: Nausea/Vomiting Pantoprazole Sodium (Protonix) 40 mg PO ACBREAKFAST [facility] Last Admin: 02/26/17 06:00 Dose: 40 mg Paroxetine HCl (Paxil) 30 mg PO DAILY [facility] Last Admin: 02/25/17 08:33 Dose: 30 mg Acetaminophen/Diphenhydramine ( Tylenol Pm) 500 Mg/25 Mg Own Med 1 each PO BEDTIME PRN PRN Reason: Insomnia Last Admin: 02/25/17 20:51 Dose: 1 each Potassium Chloride (Klor-Con 10) 10 meq PO DAILY [facility] Last Admin: 02/25/17 08:33 Dose: 10 meq Simvastatin (Zocor) 10 mg PO BEDTIME [facility] Last Admin: 02/25/17 20:49 Dose: 10 mg Sodium Chloride (Saline Flush) 10 ml FLUSH ASDIRECTED PRN PRN Reason: Keep Vein Open Last Admin: 02/25/17 18:43 Dose: 10 ml Spironolactone (Aldactone) 25 mg PO DAILY [facility] Last Admin: 02/25/17 08:33 Dose: 25 mg Warfarin Sodium (Coumadin) 7.5 mg PO MoWeFrSa@1400 [facility] Warfarin Sodium (Coumadin) 5 mg PO SuTuTh@1400 [facility] Last Admin: 02/25/17 14:35 Dose: 5 mg Discontinued Medications Acetaminophen (Tylenol) 325 mg PO NOW ONE Stop: 02/24/17 22:18 Last Admin: 02/24/17 22:21 Dose: 325 mg Acetaminophen (Tylenol Extra Strength) 500 mg PO BEDTIME PRN PRN Reason: Insomnia Albuterol/Ipratropium (Duoneb 3.0-0.5 Mg/3 Ml) 3 ml NEB Q6H [facility] Last Admin: 02/25/17 05:56 Dose: 3 ml Albuterol/Ipratropium (Duoneb 3.0-0.5 Mg/3 Ml) 3 ml NEB DAILY@0100,0700,1300 [facility] Diphenhydramine HCl (Benadryl) 25 mg PO BEDTIME PRN PRN Reason: Insomnia Furosemide (Lasix) 80 mg PO DAILY [facility] Sodium Chloride (Normal Saline) 1,000 mls @ 500 mls/hr IV .BOLUS ONE Stop: 02/24/17 23:57 Last Infusion: 02/25/17 04:05 Dose: Infused Ceftriaxone Sodium 1 gm/ (Sodium Chloride) 50 mls @ 100 mls/hr IV ONETIME ONE Stop: 02/24/17 23:57 Last Admin: 02/24/17 23:38 Dose: 100 mls/hr Morphine Sulfate (Morphine) 1 mg IVPUSH Q4H PRN PRN Reason: Pain (severe 7-10) Stop: 02/25/17 00:39 - Exam General: alert, oriented, cooperative, no acute distress. No: moderate distress , severe distress, sedated, lethargic, obtunded HEENT: Pupils equal, Pupils reactive, EOMI, Mucous membr. moist/pink Neck: supple, trachea midline, no JVD Lungs: Clear to auscultation, Normal respiratory effort, Crackles (Mild in bases but improving). No: Stridor, Wheezing Cardiovascular: Regular Rate, Regular Rhythm Abdomen: bowel sounds present, soft, no tenderness, no distension Extremities: no edema, normal pulses, no tenderness/swelling, no clubbing, no cyanosis, no calf tenderness Skin: other (Lower back erythema almost resolved. Thighs skin redness is improving wounds are healing appropriately) Neurological: no new focal deficit Psy/Mental Status: alert, normal affect, normal mood - Problem List & Annotations (1) Cellulitis SNOMED Code(s): 217005360 Code(s): L03.90 - CELLULITIS, UNSPECIFIED Status: Acute Priority: High Current Visit: Yes (2) Acute on chronic kidney failure SNOMED Code(s): 426359704 Code(s): N17.9 - ACUTE KIDNEY FAILURE, UNSPECIFIED; N18.9 - CHRONIC KIDNEY DISEASE, UNSPECIFIED Status: Acute Current Visit: Yes (3) Pulmonary edema SNOMED Code(s): 08005246 Code(s): J81.1 - CHRONIC PULMONARY EDEMA Status: Acute Priority: Medium Current Visit: Yes (4) Sepsis SNOMED Code(s): 89321149 Code(s): A41.9 - SEPSIS, UNSPECIFIED ORGANISM Status: Acute Priority: High Current Visit: Yes (5) Chronic congestive heart failure SNOMED Code(s): 19575223 Code(s): I50.9 - HEART FAILURE, UNSPECIFIED Status: Chronic Current Visit : Yes (6) Essential hypertension SNOMED Code(s): 98484595 Code(s): I10 - ESSENTIAL (PRIMARY) HYPERTENSION Status: Chronic Current Visit: Yes (7) COPD (chronic obstructive pulmonary disease) SNOMED Code(s): 70263314 Code(s): J44.9 - CHRONIC OBSTRUCTIVE PULMONARY DISEASE, UNSPECIFIED Status : Chronic Current Visit: Yes (8) Diarrhea SNOMED Code(s): 64148584 Code(s): R19.7 - DIARRHEA, UNSPECIFIED Status: Acute Current Visit: Yes - Problem List Review Problem List Initiated/Reviewed/Updated: Yes - My Orders Last 24 Hours: My Active Orders 02/25/17 09:00 Allopurinol [Zyloprim] 150 mg PO DAILY Calcitriol [Rocaltrol] 0.25 mcg PO DAILY Cholecalciferol (Vitamin D3) [Vitamin D3] 800 units PO DAILY Diltiazem [Cardizem CD] 360 mg PO DAILY Furosemide [Lasix] 40 mg PO DAILY Metoprolol Succinate [Toprol XL] 75 mg PO DAILY Multivitamins with Iron [Child Chew Iron] 1 tab PO DAILY [place]-3 Fatty Acids/Fish Oil [[place]-3 Fish Oil 1,000 mg Sfgl] 1 each PO BID PARoxetine [Paxil] 30 mg PO DAILY Potassium Chloride [Klor-Con 10] 10 meq PO DAILY Spironolactone [Aldactone] 25 mg PO DAILY 02/25/17 13:00 Albuterol/Ipratropium [DuoNeb 3.0-0.5 MG/3 ML] 3 ml NEB Q6HRRT 02/25/17 14:00 Furosemide [Lasix] 80 mg PO 1400 Warfarin [Coumadin] 5 mg PO SuTuTh@1400 02/25/17 16:04 Wound Care [RC] DAILY 02/25/17 17:36 Patient's Own Medication [Ptom] 1 each PO BEDTIME PRN 02/25/17 21:00 Cyanocobalamin (Vitamin B12) [Vitamin B12] 500 mcg PO BEDTIME Simvastatin [Zocor] 10 mg PO BEDTIME 02/26/17 14:00 Warfarin [Coumadin] 7.5 mg PO MoWeFrSa@1400 02/27/17 05:11 INR,PT,PROTHROMBIN TIME [COAG] DAILY 02/28/17 05:11 INR,PT,PROTHROMBIN TIME [COAG] DAILY - Plan Plan:: Sepsis most likely from cellulitis WBC on admission 20,000. Her temp in the emergency room was 103.1 Fahrenheit She received 1 L of IV fluid as bolus in the emergency room. I did not recommend farther IV fluid due to history of congestive heart failure and having pulmonary edema on chest x-ray. She received 1 dose of Rocephin in the emergency room -Continue Zosyn -WBC are down to 13,000 -CRP is 19.7. However patient is clinically better -Awaiting blood cultures results Cellulitis of bilateral thigh -Continue Zosyn PT consult for wound care Pulmonary edema, mild Most likely chronic continue her Lasix Watch Clinically for fluid overload and respiration Possible UTI Awaiting urine cultures Diarrhea, -resolved chronic congestive heart failure Continue Lasix, spiral lactone, metoprolol Patient is not on MADALYN inhibitor or ARBs. We will leave that up to the primary care provider History of atrial fibrillation Continue was diltiazem orally Continuing Coumadin Chronic anticoagulation For atrial fibrillation -INR is subtherapeutic. Pharmacy is dosing warfarin. Adjust warfarin per pharmacy recommendation COPD No exacerbation DuoNeb every 6 hours Essential hypertension Continue his metoprolol History of osteoporosis Continue with calcitriol and alendronate Patient wants to be DNR/DNI She is on warfarin for atrial fibrillation so she does not need additional pharmaceutical DVT prophylaxis I discussed with patient and that she needs to try to get out of her chair more often and sleep in bed at home instead of sitting in chair. However I warned them about the risk of fall and I recommended senior living home or at least home health. Patient declined longterm and home health at this time. She states that her daughter is helps her and she will have someone to come to her home regularly and help her. However today I readdressed longterm temporarily for therapy and patient states she will talk to her daughters about that and let us know.
[2017-02-26] MEDS: Cholecalciferol (Vitamin D3) 400 Unit Tab PO SCH (09:29)
[2017-02-26] MEDS: Metoprolol Succinate 50 MG Tab.ER PO SCH (09:29)
[2017-02-26] MEDS: Calcitriol 0.25 MCG Cap PO SCH (09:30)
[2017-02-26] MEDS: Furosemide 40 MG Tab PO SCH ×2 (09:30→13:22)
[2017-02-26] MEDS: Spironolactone 25 MG Tab PO SCH (09:30)
[2017-02-26] MEDS: Allopurinol 300 MG Tab PO SCH (09:30)
[2017-02-26] MEDS: PARoxetine 20 MG Tab PO SCH (09:30)
[2017-02-26] MEDS: Multivitamins with Iron Tab.Chew PO SCH (09:30)
[2017-02-26] MEDS: Diltiazem 180 MG Cap.CD PO SCH (09:30)
[2017-02-26] MEDS: Potassium Chloride 10 MEQ Tab.ER PO SCH (09:30)
[2017-02-26] MEDS: FISH OIL PO SCH ×2 (09:31→20:35)
[2017-02-26] MEDS: FATTY ACIDS PO SCH ×2 (09:31→20:35)
[2017-02-26] MEDS: OMEGA PO SCH ×2 (09:31→20:35)
[2017-02-26] MEDS: [UNRECOGNIZED DRUG - OTHER] PO SCH ×2 (09:31→20:35)
[2017-02-26] MEDS: Acetaminophen 325 MG Tab PO PRN (13:21)
[2017-02-26] MEDS ORDERED: Warfarin 2.5 MG Tab PO SCH (14:00)
[2017-02-26] MEDS ORDERED: Albuterol/Ipratropium 3.0-0.5 MG/3 ML Neb Soln NEB PRN (16:21)
[2017-02-26] MEDS: DIPHENHYDRAMINE PO PRN (20:36)
[2017-02-26] MEDS: ACETAMINOPHEN PO PRN (20:36)
[2017-02-26] MEDS: Simvastatin 10 MG Tab PO SCH (20:37)
[2017-02-26] MEDS: Cyanocobalamin (Vitamin B12) 100 MCG Tab PO SCH (20:37)
[2017-02-27] MEDS: Piperacillin/Tazobactam 3.375 GM in Sodium Chloride 0.9% 100 ML IV SCH ×5 (00:05→23:52)
[2017-02-27] MEDS: Pantoprazole 40 MG Tab.CR PO SCH (05:57)
--- NOTE | 2017-02-27 09:28 | PCM.PN ---
- General Info Date of Service: 02/27/17 Subjective Update: Patient states that she is feeling better today. She had elevated temp at 101.1 Fahrenheit last night but patient said she was feeling okay. She denies thigh pain. She denies diarrhea since admission. She denies fever, chills, nausea, vomiting, abdominal pain, urinary symptoms, unilateral weakness/numbness/ tingling, or any other symptoms or concerns. - Patient Data Vitals - most recent: Last Vital Signs Temp 37.3 C 02/27/17 08:20 Pulse 80 02/27/17 08:20 Resp 20 02/27/17 08:20 BP 136/61 02/27/17 08:20 Pulse Ox 93 L 02/27/17 08:20 Weight - most recent: 133.016 kg I&O - last 24 hours: Intake & Output 02/26/17 02/27/17 02/27/17 22:59 06:59 14:59 Intake Total 438 520 Balance 438 520 Lab Results last 24 hrs: Laboratory Results - last 24 hr 02/27/17 Range/Units 06:35 PT 18.2 H (9.0-12.0) SEC INR 1.8 H (0.9-1.2) Joon Results last 24 hrs: Microbiology 02/25/17 06:45 Urine Culture - Final Urine, Voided Staphylococcus Aureus Med Orders - Current: Current Medications Acetaminophen (Tylenol) 650 mg PO Q4H PRN PRN Reason: Pain (Mild 1-3)/fever Last Admin: 02/26/17 13:21 Dose: 650 mg Albuterol/Ipratropium (Duoneb 3.0-0.5 Mg/3 Ml) 3 ml NEB Q6HRRT PRN PRN Reason: Shortness breath, wheezing Alendronate Sodium (Fosamax) 70 mg PO Fr@0600 [facility] Allopurinol (Zyloprim) 150 mg PO DAILY [facility] Last Admin: 02/26/17 09:30 Dose: 150 mg Calcitriol (Rocaltrol) 0.25 mcg PO DAILY [facility] Last Admin: 02/26/17 09:30 Dose: 0.25 mcg Cholecalciferol (Vitamin D3) 800 units PO DAILY [facility] Last Admin: 02/26/17 09:29 Dose: 800 units Cyanocobalamin (Vitamin B12) 500 mcg PO BEDTIME [facility] Last Admin: 02/26/17 20:37 Dose: 500 mcg Diltiazem HCl (Cardizem Cd) 360 mg PO DAILY [facility] Last Admin: 02/26/17 09:30 Dose: 360 mg Furosemide (Lasix) 40 mg PO DAILY [facility] Last Admin: 02/26/17 09:30 Dose: 40 mg Furosemide (Lasix) 80 mg PO 1400 [facility] Last Admin: 02/26/17 13:22 Dose: 80 mg Piperacillin Sod/Tazobactam (Sod 3.375 gm/ Sodium Chloride) 100 mls @ 200 mls/ hr IV Q6H [facility] Last Infusion: 02/27/17 06:38 Dose: Infused Metoprolol Succinate (Toprol Xl) 75 mg PO DAILY [facility] Last Admin: 02/26/17 09:29 Dose: 75 mg Multivitamins/Iron (Child Chew Iron) 1 tab PO DAILY [facility] Last Admin: 02/26/17 09:30 Dose: 1 tab Non-Formulary Medication ([place]-3 Fatty Acids/Fish Oil [[place]-3 Fish Oil 1,000 Mg Sfgl]) 1 each PO BID [facility] Last Admin: 02/26/17 20:35 Dose: 1 each Ondansetron HCl (Zofran) 4 mg IVPUSH Q6H PRN PRN Reason: Nausea/Vomiting Pantoprazole Sodium (Protonix) 40 mg PO ACBREAKFAST [facility] Last Admin: 02/27/17 05:57 Dose: 40 mg Paroxetine HCl (Paxil) 30 mg PO DAILY [facility] Last Admin: 02/26/17 09:30 Dose: 30 mg Acetaminophen/Diphenhydramine ( Tylenol Pm) 500 Mg/25 Mg Own Med 1 each PO BEDTIME PRN PRN Reason: Insomnia Last Admin: 02/26/17 20:36 Dose: 1 each Potassium Chloride (Klor-Con 10) 10 meq PO DAILY [facility] Last Admin: 02/26/17 09:30 Dose: 10 meq Simvastatin (Zocor) 10 mg PO BEDTIME [facility] Last Admin: 02/26/17 20:37 Dose: 10 mg Sodium Chloride (Saline Flush) 10 ml FLUSH ASDIRECTED PRN PRN Reason: Keep Vein Open Last Admin: 02/25/17 18:43 Dose: 10 ml Spironolactone (Aldactone) 25 mg PO DAILY [facility] Last Admin: 02/26/17 09:30 Dose: 25 mg Warfarin Sodium (Coumadin) 7.5 mg PO MoWeFrSa@1400 [facility] Last Admin: 02/26/17 13:07 Dose: 7.5 mg Warfarin Sodium (Coumadin) 5 mg PO SuTuTh@1400 [facility] Last Admin: 02/25/17 14:35 Dose: 5 mg Warfarin Sodium (Pharmacy To Dose - Warfarin) 0 dose PO ASDIRECTED [facility] Discontinued Medications Acetaminophen (Tylenol) 325 mg PO NOW ONE Stop: 02/24/17 22:18 Last Admin: 02/24/17 22:21 Dose: 325 mg Acetaminophen (Tylenol Extra Strength) 500 mg PO BEDTIME PRN PRN Reason: Insomnia Albuterol/Ipratropium (Duoneb 3.0-0.5 Mg/3 Ml) 3 ml NEB Q6H [facility] Last Admin: 02/25/17 05:56 Dose: 3 ml Albuterol/Ipratropium (Duoneb 3.0-0.5 Mg/3 Ml) 3 ml NEB DAILY@0100,0700,1300 [facility] Albuterol/Ipratropium (Duoneb 3.0-0.5 Mg/3 Ml) 3 ml NEB Q6HRRT [facility] Last Admin: 02/26/17 13:07 Dose: 3 ml Diphenhydramine HCl (Benadryl) 25 mg PO BEDTIME PRN PRN Reason: Insomnia Furosemide (Lasix) 80 mg PO DAILY [facility] Sodium Chloride (Normal Saline) 1,000 mls @ 500 mls/hr IV .BOLUS ONE Stop: 02/24/17 23:57 Last Infusion: 02/25/17 04:05 Dose: Infused Ceftriaxone Sodium 1 gm/ (Sodium Chloride) 50 mls @ 100 mls/hr IV ONETIME ONE Stop: 02/24/17 23:57 Last Admin: 02/24/17 23:38 Dose: 100 mls/hr Morphine Sulfate (Morphine) 1 mg IVPUSH Q4H PRN PRN Reason: Pain (severe 7-10) Stop: 02/25/17 00:39 - Exam General: alert, oriented, cooperative, no acute distress. No: moderate distress , severe distress, sedated, lethargic, obtunded HEENT: Pupils equal, Pupils reactive, EOMI, Mucous membr. moist/pink Neck: supple, trachea midline, no JVD Lungs: Clear to auscultation, Normal respiratory effort, Decreased breath sounds , Wheezing (Sporadic). No: Crackles, Rales, Rhonchi, Rub, Stridor Cardiovascular: Regular Rate, Regular Rhythm Abdomen: bowel sounds present, soft, no tenderness, no distension. No: rigidity , rebound, guarding, tenderness, distension (Female) Exam: Deferred Back Exam: Normal Inspection, Full Range of Motion. No: CVA Tenderness (L), CVA Tenderness (R) Extremities: normal pulses, no tenderness/swelling. No: no clubbing, no cyanosis, no calf tenderness Skin: warm, dry, other (Her back erythema almost resolved.) Neurological: no new focal deficit Psy/Mental Status: alert, normal affect, normal mood - Problem List & Annotations (1) Cellulitis SNOMED Code(s): 290382764 Code(s): L03.90 - CELLULITIS, UNSPECIFIED Status: Acute Priority: High Current Visit: Yes (2) Acute on chronic kidney failure SNOMED Code(s): 389039491 Code(s): N17.9 - ACUTE KIDNEY FAILURE, UNSPECIFIED; N18.9 - CHRONIC KIDNEY DISEASE, UNSPECIFIED Status: Acute Current Visit: Yes (3) Pulmonary edema SNOMED Code(s): 75158315 Code(s): J81.1 - CHRONIC PULMONARY EDEMA Status: Acute Priority: Medium Current Visit: Yes (4) Sepsis SNOMED Code(s): 15617641 Code(s): A41.9 - SEPSIS, UNSPECIFIED ORGANISM Status: Acute Priority: High Current Visit: Yes (5) Chronic congestive heart failure SNOMED Code(s): 21746803 Code(s): I50.9 - HEART FAILURE, UNSPECIFIED Status: Chronic Current Visit : Yes (6) Essential hypertension SNOMED Code(s): 61512313 Code(s): I10 - ESSENTIAL (PRIMARY) HYPERTENSION Status: Chronic Current Visit: Yes (7) COPD (chronic obstructive pulmonary disease) SNOMED Code(s): 13310534 Code(s): J44.9 - CHRONIC OBSTRUCTIVE PULMONARY DISEASE, UNSPECIFIED Status : Chronic Current Visit: Yes (8) Diarrhea SNOMED Code(s): 26132374 Code(s): R19.7 - DIARRHEA, UNSPECIFIED Status: Acute Current Visit: Yes - Problem List Review Problem List Initiated/Reviewed/Updated: Yes - My Orders Last 24 Hours: My Active Orders 02/26/17 14:00 Warfarin [Coumadin] 7.5 mg PO MoWeFrSa@1400 02/26/17 15:15 Warfarin Pharmacy to Dose [Pharmacy to Dose - Warfarin] 0 dose PO ASDIRECTED 02/26/17 16:21 Albuterol/Ipratropium [DuoNeb 3.0-0.5 MG/3 ML] 3 ml NEB Q6HRRT PRN 02/28/17 05:11 B-TYPE NATRIURETIC PEPTIDE,BNP [CHEM] AM BASIC METABOLIC PANEL,BMP [CHEM] AM CBC WITH AUTO DIFF [HEME] AM CRP [C-REACTIVE PROTEIN] [CHEM] AM INR,PT,PROTHROMBIN TIME [COAG] DAILY 03/02/17 06:00 Alendronate [Fosamax] 70 mg PO Fr@0600 - Plan Plan:: Sepsis most likely from cellulitis WBC on admission 20,000. Her temp in the emergency room was 103.1 Fahrenheit. Last night her temp was 101.1 Fahrenheit She received 1 L of IV fluid as bolus in the emergency room. I did not recommend farther IV fluid due to history of congestive heart failure and having pulmonary edema on chest x-ray. She received 1 dose of Rocephin in the emergency room -Continue Zosyn Repeat WBC and CRP tomorrow -Awaiting blood cultures final results. Negative to date, 2 days -Urine culture grew MSSA Cellulitis of bilateral thigh -Continue Zosyn Physical therapy consult for wound care Pulmonary edema, mild Most likely chronic continue her Lasix Watch Clinically for fluid overload and respiration Possible UTI Awaiting urine cultures Diarrhea, -resolved chronic congestive heart failure Continue Lasix, spiral lactone, metoprolol Patient is not on MADALYN inhibitor or ARBs. We will leave that up to the primary care provider History of atrial fibrillation Continue was diltiazem orally Continuing Coumadin Chronic anticoagulation For atrial fibrillation -INR is subtherapeutic. Pharmacy is dosing warfarin. Adjust warfarin per pharmacy recommendation COPD No exacerbation DuoNeb every 8 hours Essential hypertension Continue his metoprolol History of osteoporosis Continue with calcitriol and alendronate Patient wants to be DNR/DNI She is on warfarin for atrial fibrillation so she does not need additional pharmaceutical DVT prophylaxis On admission I discussed with patient and that she needs to try to get out of her chair more often and sleep in bed at home instead of sitting in chair. However I warned them about the risk of fall and I recommended prison home or at least home health. Patient declined [facility] and home health at this time. She states that her daughters are helping her and she will have someone to come to her home regularly and help her. Yesterday I readdressed [facility] temporarily for therapy and patient states she will talk to her daughters about that and let us know. Today patient said that she will do home health but not the [facility] and she is okay to stay in swing bed if needed until she gets stronger.
[2017-02-27] MEDS: PARoxetine 20 MG Tab PO SCH (09:48)
[2017-02-27] MEDS: Cholecalciferol (Vitamin D3) 400 Unit Tab PO SCH (09:48)
[2017-02-27] MEDS: Calcitriol 0.25 MCG Cap PO SCH (09:48)
[2017-02-27] MEDS: Allopurinol 300 MG Tab PO SCH (09:49)
[2017-02-27] MEDS: Potassium Chloride 10 MEQ Tab.ER PO SCH (09:49)
[2017-02-27] MEDS: Diltiazem 180 MG Cap.CD PO SCH (09:49)
[2017-02-27] MEDS: Metoprolol Succinate 50 MG Tab.ER PO SCH (09:49)
[2017-02-27] MEDS: Spironolactone 25 MG Tab PO SCH (09:49)
[2017-02-27] MEDS: [UNRECOGNIZED DRUG - OTHER] PO SCH ×2 (09:50→20:34)
[2017-02-27] MEDS: Multivitamins with Iron Tab.Chew PO SCH (09:50)
[2017-02-27] MEDS: Furosemide 40 MG Tab PO SCH ×2 (09:50→13:09)
[2017-02-27] MEDS: FISH OIL PO SCH ×2 (09:50→20:34)
[2017-02-27] MEDS: OMEGA PO SCH ×2 (09:50→20:34)
[2017-02-27] MEDS: FATTY ACIDS PO SCH ×2 (09:50→20:34)
[2017-02-27] MEDS: Sodium Chloride 0.9% 10 ML Syringe FLUSH PRN ×3 (13:10→23:52)
[2017-02-27] MEDS ORDERED: Warfarin 2.5 MG Tab PO ONE (14:00)
[2017-02-27] MEDS: Albuterol/Ipratropium 3.0-0.5 MG/3 ML Neb Soln NEB SCH (15:05)
[2017-02-27] MEDS: Acetaminophen 325 MG Tab PO PRN (18:26)
[2017-02-27] MEDS: Simvastatin 10 MG Tab PO SCH (20:34)
[2017-02-27] MEDS: Cyanocobalamin (Vitamin B12) 100 MCG Tab PO SCH (20:35)
[2017-02-27] MEDS: ACETAMINOPHEN PO PRN (20:38)
[2017-02-27] MEDS: DIPHENHYDRAMINE PO PRN (20:38)
[2017-02-28] MEDS: Albuterol/Ipratropium 3.0-0.5 MG/3 ML Neb Soln NEB SCH ×4 (00:12→23:53)
[2017-02-28] MEDS: Pantoprazole 40 MG Tab.CR PO SCH (05:48)
[2017-02-28] MEDS: Piperacillin/Tazobactam 3.375 GM in Sodium Chloride 0.9% 100 ML IV SCH ×4 (06:06→23:46)
[2017-02-28] MEDS: Sodium Chloride 0.9% 10 ML Syringe FLUSH PRN ×3 (06:06→23:46)
[2017-02-28] MEDS: Acetaminophen 325 MG Tab PO PRN (06:12)
[2017-02-28] MEDS: Calcitriol 0.25 MCG Cap PO SCH (09:38)
[2017-02-28] MEDS: Metoprolol Succinate 50 MG Tab.ER PO SCH (09:38)
[2017-02-28] MEDS: Cholecalciferol (Vitamin D3) 400 Unit Tab PO SCH (09:41)
[2017-02-28] MEDS: Allopurinol 300 MG Tab PO SCH (09:42)
[2017-02-28] MEDS: Multivitamins with Iron Tab.Chew PO SCH (09:43)
[2017-02-28] MEDS: Potassium Chloride 10 MEQ Tab.ER PO SCH ×2 (09:44→21:29)
[2017-02-28] MEDS: Spironolactone 25 MG Tab PO SCH (09:45)
[2017-02-28] MEDS: PARoxetine 20 MG Tab PO SCH (09:45)
[2017-02-28] MEDS: Furosemide 40 MG Tab PO SCH (09:45)
[2017-02-28] MEDS: Diltiazem 180 MG Cap.CD PO SCH (09:46)
[2017-02-28] MEDS: OMEGA PO SCH ×2 (09:47→21:29)
[2017-02-28] MEDS: FATTY ACIDS PO SCH ×2 (09:47→21:29)
[2017-02-28] MEDS: [UNRECOGNIZED DRUG - OTHER] PO SCH ×2 (09:47→21:29)
[2017-02-28] MEDS: FISH OIL PO SCH ×2 (09:47→21:29)
--- NOTE | 2017-02-28 10:24 | PCM.PN ---
- General Info Date of Service: 02/28/17 Admission Dx/Problem (Free Text): Admission Diagnosis/Problem Admission Diagnosis/Problem Cellulitis Subjective Update: No new complaints today Pt denies SOB No fever Functional Status: Reports: tolerating diet - Review of Systems General: Reports: Appetite. Denies: Fever, Fatigue HEENT: Denies: headaches Pulmonary: Reports: cough Cardiovascular: Denies: Chest Pain Gastrointestinal: Denies: Abdominal pain, Vomiting Musculoskeletal: Denies: shoulder pain, leg pain Skin: Reports: no symptoms Neurological: Reports: No Symptoms Psychiatric: Reports: no symptoms - Patient Data Vitals - most recent: Last Vital Signs Temp 36.4 C 02/28/17 07:48 Pulse 78 02/28/17 09:38 Resp 20 02/28/17 07:48 BP 131/46 L 02/28/17 09:38 Pulse Ox 95 02/28/17 07:48 Weight - most recent: 131.542 kg I&O - last 24 hours: Intake & Output 02/27/17 02/28/17 02/28/17 22:59 06:59 14:59 Intake Total 708 275 Output Total 700 500 Balance 8 -225 Lab Results last 24 hrs: Laboratory Results - last 24 hr 02/28/17 02/28/17 02/28/17 Range/Units 06:15 06:15 06:15 WBC 8.9 (5.0-10.0) 10^3/uL RBC 3.93 L (4.2-5.4) 10^6/uL Hgb 12.9 (12.0-16.0) g/dL Hct 39.3 (37.0-47.0) % MCV 100.0 (80-100) fL MCH 32.8 (27.0-34.0) pg MCHC 32.8 L (33.0-35.0) g/dL Plt Count 213 (150-450) 10^3/uL Neut % (Auto) 70.0 (42.2-75.2) % Lymph % (Auto) 17.2 L (20.5-50.1) % [place] % (Auto) 9.2 H (2-8) % Eos % (Auto) 3.4 H (1.0-3.0) % Baso % (Auto) 0.2 (0.0-1.0) % PT 20.3 H (9.0-12.0) SEC INR 2.0 H (0.9-1.2) Sodium (135-145) mmol/L Potassium (3.6-5.0) mmol/L Chloride (101-111) mmol/L Carbon Dioxide (21.0-31.0) mmol/L Anion Gap BUN (7-18) mg/dL Creatinine (0.6-1.3) mg/dL Est Cr Clr Drug Dosing mL/min Estimated GFR (MDRD) Glucose (74-105) mg/dL Calcium (8.4-10.2) mg/dl C-Reactive Protein 10.7 H (0.0-1.3) mg/dL B-Natriuretic Peptide (0-100) pg/ml 02/28/17 Range/Units 06:15 WBC (5.0-10.0) 10^3/uL RBC (4.2-5.4) 10^6/uL Hgb (12.0-16.0) g/dL Hct (37.0-47.0) % MCV (80-100) fL MCH (27.0-34.0) pg MCHC (33.0-35.0) g/dL Plt Count (150-450) 10^3/uL Neut % (Auto) (42.2-75.2) % Lymph % (Auto) (20.5-50.1) % [place] % (Auto) (2-8) % Eos % (Auto) (1.0-3.0) % Baso % (Auto) (0.0-1.0) % PT (9.0-12.0) SEC INR (0.9-1.2) Sodium 138 (135-145) mmol/L Potassium 3.2 L (3.6-5.0) mmol/L Chloride 99 L (101-111) mmol/L Carbon Dioxide 28.0 (21.0-31.0) mmol/L Anion Gap 14.2 BUN 19 H (7-18) mg/dL Creatinine 1.7 H (0.6-1.3) mg/dL Est Cr Clr Drug Dosing 22.65 mL/min Estimated GFR (MDRD) 29 Glucose 93 (74-105) mg/dL Calcium 8.8 (8.4-10.2) mg/dl C-Reactive Protein (0.0-1.3) mg/dL B-Natriuretic Peptide 411 H (0-100) pg/ml Joon Results last 24 hrs: Microbiology 02/25/17 06:45 Urine Culture - Final Urine, Voided Staphylococcus Aureus Med Orders - Current: Current Medications Acetaminophen (Tylenol) 650 mg PO Q4H PRN PRN Reason: Pain (Mild 1-3)/fever Last Admin: 02/28/17 06:12 Dose: 650 mg Albuterol/Ipratropium (Duoneb 3.0-0.5 Mg/3 Ml) 3 ml NEB Q8HRRT [facility] Last Admin: 02/28/17 07:39 Dose: 3 ml Alendronate Sodium (Fosamax) 70 mg PO Fr@0600 [facility] Allopurinol (Zyloprim) 150 mg PO DAILY [facility] Last Admin: 02/28/17 09:42 Dose: 150 mg Calcitriol (Rocaltrol) 0.25 mcg PO DAILY [facility] Last Admin: 02/28/17 09:38 Dose: 0.25 mcg Cholecalciferol (Vitamin D3) 800 units PO DAILY [facility] Last Admin: 02/28/17 09:41 Dose: 800 units Cyanocobalamin (Vitamin B12) 500 mcg PO BEDTIME [facility] Last Admin: 02/27/17 20:35 Dose: 500 mcg Diltiazem HCl (Cardizem Cd) 360 mg PO DAILY [facility] Last Admin: 02/28/17 09:46 Dose: 360 mg Furosemide (Lasix) 40 mg PO DAILY [facility] Last Admin: 02/28/17 09:45 Dose: 40 mg Furosemide (Lasix) 80 mg PO 1400 [facility] Last Admin: 02/27/17 13:09 Dose: 80 mg Piperacillin Sod/Tazobactam (Sod 3.375 gm/ Sodium Chloride) 100 mls @ 200 mls/ hr IV Q6H [facility] Last Infusion: 02/28/17 06:41 Dose: Infused Metoprolol Succinate (Toprol Xl) 75 mg PO DAILY [facility] Last Admin: 02/28/17 09:38 Dose: 75 mg Multivitamins/Iron (Child Chew Iron) 1 tab PO DAILY [facility] Last Admin: 02/28/17 09:43 Dose: 1 tab Non-Formulary Medication ([place]-3 Fatty Acids/Fish Oil [[place]-3 Fish Oil 1,000 Mg Sfgl]) 1 each PO BID [facility] Last Admin: 02/28/17 09:47 Dose: 1 each Ondansetron HCl (Zofran) 4 mg IVPUSH Q6H PRN PRN Reason: Nausea/Vomiting Pantoprazole Sodium (Protonix) 40 mg PO ACBREAKFAST [facility] Last Admin: 02/28/17 05:48 Dose: 40 mg Paroxetine HCl (Paxil) 30 mg PO DAILY [facility] Last Admin: 02/28/17 09:45 Dose: 30 mg Acetaminophen/Diphenhydramine ( Tylenol Pm) 500 Mg/25 Mg Own Med 1 each PO BEDTIME PRN PRN Reason: Insomnia Last Admin: 02/27/17 20:38 Dose: 1 each Potassium Chloride (Klor-Con 10) 10 meq PO DAILY [facility] Last Admin: 02/28/17 09:44 Dose: 10 meq Simvastatin (Zocor) 10 mg PO BEDTIME [facility] Last Admin: 02/27/17 20:34 Dose: 10 mg Sodium Chloride (Saline Flush) 10 ml FLUSH ASDIRECTED PRN PRN Reason: Keep Vein Open Last Admin: 02/28/17 06:39 Dose: 10 ml Spironolactone (Aldactone) 25 mg PO DAILY [facility] Last Admin: 02/28/17 09:45 Dose: 25 mg Warfarin Sodium (Pharmacy To Dose - Warfarin) 0 dose PO ASDIRECTED [facility] Warfarin Sodium (Coumadin) 7.5 mg PO ONETIME ONE Stop: 02/28/17 14:01 Discontinued Medications Acetaminophen (Tylenol) 325 mg PO NOW ONE Stop: 02/24/17 22:18 Last Admin: 02/24/17 22:21 Dose: 325 mg Acetaminophen (Tylenol Extra Strength) 500 mg PO BEDTIME PRN PRN Reason: Insomnia Albuterol/Ipratropium (Duoneb 3.0-0.5 Mg/3 Ml) 3 ml NEB Q6H [facility] Last Admin: 02/25/17 05:56 Dose: 3 ml Albuterol/Ipratropium (Duoneb 3.0-0.5 Mg/3 Ml) 3 ml NEB DAILY@0100,0700,1300 [facility] Albuterol/Ipratropium (Duoneb 3.0-0.5 Mg/3 Ml) 3 ml NEB Q6HRRT [facility] Last Admin: 02/26/17 13:07 Dose: 3 ml Albuterol/Ipratropium (Duoneb 3.0-0.5 Mg/3 Ml) 3 ml NEB Q6HRRT PRN PRN Reason: Shortness breath, wheezing Diphenhydramine HCl (Benadryl) 25 mg PO BEDTIME PRN PRN Reason: Insomnia Furosemide (Lasix) 80 mg PO DAILY [facility] Sodium Chloride (Normal Saline) 1,000 mls @ 500 mls/hr IV .BOLUS ONE Stop: 02/24/17 23:57 Last Infusion: 02/25/17 04:05 Dose: Infused Ceftriaxone Sodium 1 gm/ (Sodium Chloride) 50 mls @ 100 mls/hr IV ONETIME ONE Stop: 02/24/17 23:57 Last Admin: 02/24/17 23:38 Dose: 100 mls/hr Morphine Sulfate (Morphine) 1 mg IVPUSH Q4H PRN PRN Reason: Pain (severe 7-10) Stop: 02/25/17 00:39 Warfarin Sodium (Coumadin) 7.5 mg PO MoWeFrSa@1400 [facility] Last Admin: 02/26/17 13:07 Dose: 7.5 mg Warfarin Sodium (Coumadin) 5 mg PO SuTuTh@1400 [facility] Last Admin: 02/25/17 14:35 Dose: 5 mg Warfarin Sodium (Coumadin) 7.5 mg PO ONETIME ONE Stop: 02/27/17 14:01 Last Admin: 02/27/17 13:10 Dose: 7.5 mg - Exam General: cooperative Neck: supple Lungs: Clear to auscultation Cardiovascular: Regular Rate, Regular Rhythm Back Exam: Full Range of Motion Extremities: Normal Range of Motion Skin: warm - Problem List Review Problem List Initiated/Reviewed/Updated: Yes - Plan Plan:: Sepsis most likely from cellulitis WBC on admission 20,000. Her temp in the emergency room was 103.1 Fahrenheit. Last night her temp was 101.1 Fahrenheit She received 1 L of IV fluid as bolus in the emergency room. She received 1 dose of Rocephin in the emergency room -Continue Zosyn -Urine culture grew MSSA Blood culture neg so far Cellulitis of bilateral thigh/decubitus ulcer -Continue Zosyn Physical therapy consult for wound care Pulmonary edema/CHF, mild Most likely chronic Appears a little fluid overload. CXR seems congested. Possible UTI Awaiting urine cultures Diarrhea, -resolved History of atrial fibrillation Continue was diltiazem orally Continuing Coumadin Chronic anticoagulation For atrial fibrillation -INR is supratherapeutic. Pharmacy is dosing warfarin. Adjust warfarin per pharmacy recommendation COPD No exacerbation DuoNeb every 8 hours Essential hypertension Continue his metoprolol History of osteoporosis Continue with calcitriol and alendronate Hypokalemia Correct with supplemental oxygen Plan Obtain BMP Correct K Increase lasix to 60 mg scheduled potassium chloride
[2017-02-28] MEDS: Furosemide 80 MG Tab PO SCH (13:18)
[2017-02-28] MEDS ORDERED: Warfarin 2.5 MG Tab PO ONE (14:00)
[2017-02-28] MEDS: Cyanocobalamin (Vitamin B12) 100 MCG Tab PO SCH (21:28)
[2017-02-28] MEDS: Simvastatin 10 MG Tab PO SCH (21:29)
[2017-02-28] MEDS: ACETAMINOPHEN PO PRN (21:29)
[2017-02-28] MEDS: DIPHENHYDRAMINE PO PRN (21:29)
[2017-03-01] MEDS: Sodium Chloride 0.9% 10 ML Syringe FLUSH PRN ×7 (00:22→18:37)
[2017-03-01] MEDS: Pantoprazole 40 MG Tab.CR PO SCH (05:47)
[2017-03-01] MEDS: Piperacillin/Tazobactam 3.375 GM in Sodium Chloride 0.9% 100 ML IV SCH ×3 (06:03→18:37)
[2017-03-01] MEDS: Acetaminophen 325 MG Tab PO PRN (06:10)
[2017-03-01] MEDS: Albuterol/Ipratropium 3.0-0.5 MG/3 ML Neb Soln NEB SCH ×2 (07:48→15:47)
[2017-03-01] MEDS: Calcitriol 0.25 MCG Cap PO SCH (08:23)
[2017-03-01] MEDS: Furosemide 80 MG Tab PO SCH ×2 (08:23→13:44)
[2017-03-01] MEDS: Multivitamins with Iron Tab.Chew PO SCH (08:23)
[2017-03-01] MEDS: Spironolactone 25 MG Tab PO SCH (08:23)
[2017-03-01] MEDS: Diltiazem 180 MG Cap.CD PO SCH (08:24)
[2017-03-01] MEDS: PARoxetine 20 MG Tab PO SCH (08:24)
[2017-03-01] MEDS: Allopurinol 300 MG Tab PO SCH (08:25)
[2017-03-01] MEDS: Metoprolol Succinate 50 MG Tab.ER PO SCH (08:26)
[2017-03-01] MEDS: Cholecalciferol (Vitamin D3) 400 Unit Tab PO SCH (08:26)
[2017-03-01] MEDS: [UNRECOGNIZED DRUG - OTHER] PO SCH ×2 (08:27→21:35)
[2017-03-01] MEDS: FATTY ACIDS PO SCH ×2 (08:27→21:35)
[2017-03-01] MEDS: OMEGA PO SCH ×2 (08:27→21:35)
[2017-03-01] MEDS: FISH OIL PO SCH ×2 (08:27→21:35)
--- NOTE | 2017-03-01 10:11 | PCM.PN ---
- General Info Date of Service: 03/01/17 Admission Dx/Problem (Free Text): Admission Diagnosis/Problem Admission Diagnosis/Problem Cellulitis Subjective Update: Patient has been having fever Symptoms are worse at night and better during the day Denies feeling short of breath Denies cough Appetite has been good - Review of Systems General: Reports: No Symptoms HEENT: Reports: No Symptoms Pulmonary: Reports: No Symptoms Cardiovascular: Reports: No Symptoms Gastrointestinal: Reports: No Symptoms Genitourinary: Reports: No Symptoms Musculoskeletal: Reports: No Symptoms Skin: Reports: No Symptoms Neurological: Reports: No Symptoms Psychiatric: Reports: No Symptoms Systems Review Comment:: Except as noted above - Patient Data Vitals - most recent: Last Vital Signs Temp 36.9 C 03/01/17 07:54 Pulse 71 03/01/17 08:26 Resp 20 03/01/17 07:54 BP 129/57 L 03/01/17 08:26 Pulse Ox 96 03/01/17 07:54 Weight - most recent: 131.088 kg I&O - last 24 hours: Intake & Output 02/28/17 03/01/17 03/01/17 22:59 06:59 14:59 Intake Total 200 351 Output Total 850 400 Balance -650 -49 Lab Results last 24 hrs: Laboratory Results - last 24 hr 03/01/17 Range/Units 06:20 PT 24.0 H (9.0-12.0) SEC INR 2.4 H (0.9-1.2) Med Orders - Current: Current Medications Acetaminophen (Tylenol) 650 mg PO Q4H PRN PRN Reason: Pain (Mild 1-3)/fever Last Admin: 03/01/17 06:10 Dose: 650 mg Albuterol/Ipratropium (Duoneb 3.0-0.5 Mg/3 Ml) 3 ml NEB Q8HRRT [facility] Last Admin: 03/01/17 07:48 Dose: 3 ml Alendronate Sodium (Fosamax) 70 mg PO Fr@0600 [facility] Allopurinol (Zyloprim) 150 mg PO DAILY [facility] Last Admin: 03/01/17 08:25 Dose: 150 mg Calcitriol (Rocaltrol) 0.25 mcg PO DAILY [facility] Last Admin: 03/01/17 08:23 Dose: 0.25 mcg Cholecalciferol (Vitamin D3) 800 units PO DAILY [facility] Last Admin: 03/01/17 08:26 Dose: 800 units Cyanocobalamin (Vitamin B12) 500 mcg PO BEDTIME [facility] Last Admin: 02/28/17 21:28 Dose: 500 mcg Diltiazem HCl (Cardizem Cd) 360 mg PO DAILY [facility] Last Admin: 03/01/17 08:24 Dose: 360 mg Furosemide (Lasix) 80 mg PO BIDDIURETIC [facility] Last Admin: 03/01/17 08:23 Dose: 80 mg Piperacillin Sod/Tazobactam (Sod 3.375 gm/ Sodium Chloride) 100 mls @ 200 mls/ hr IV Q6H [facility] Last Infusion: 03/01/17 06:47 Dose: Infused Metoprolol Succinate (Toprol Xl) 75 mg PO DAILY [facility] Last Admin: 03/01/17 08:26 Dose: 75 mg Multivitamins/Iron (Child Chew Iron) 1 tab PO DAILY [facility] Last Admin: 03/01/17 08:23 Dose: 1 tab Non-Formulary Medication (Lissie-3 Fatty Acids/Fish Oil [Lissie-3 Fish Oil 1,000 Mg Sfgl]) 1 each PO BID [facility] Last Admin: 03/01/17 08:27 Dose: 1 each Ondansetron HCl (Zofran) 4 mg IVPUSH Q6H PRN PRN Reason: Nausea/Vomiting Pantoprazole Sodium (Protonix) 40 mg PO ACBREAKFAST [facility] Last Admin: 03/01/17 05:47 Dose: 40 mg Paroxetine HCl (Paxil) 30 mg PO DAILY [facility] Last Admin: 03/01/17 08:24 Dose: 30 mg Acetaminophen/Diphenhydramine ( Tylenol Pm) 500 Mg/25 Mg Own Med 1 each PO BEDTIME PRN PRN Reason: Insomnia Last Admin: 02/28/17 21:29 Dose: 1 each Potassium Chloride (Klor-Con 10) 40 meq PO BEDTIME [facility] Last Admin: 02/28/17 21:29 Dose: 40 meq Simvastatin (Zocor) 10 mg PO BEDTIME [facility] Last Admin: 02/28/17 21:29 Dose: 10 mg Sodium Chloride (Saline Flush) 10 ml FLUSH ASDIRECTED PRN PRN Reason: Keep Vein Open Last Admin: 03/01/17 08:28 Dose: 10 ml Spironolactone (Aldactone) 25 mg PO DAILY [facility] Last Admin: 03/01/17 08:23 Dose: 25 mg Warfarin Sodium (Pharmacy To Dose - Warfarin) 0 dose PO ASDIRECTED [facility] Warfarin Sodium (Coumadin) 5 mg PO ONETIME ONE Stop: 03/01/17 14:01 Discontinued Medications Acetaminophen (Tylenol) 325 mg PO NOW ONE Stop: 02/24/17 22:18 Last Admin: 02/24/17 22:21 Dose: 325 mg Acetaminophen (Tylenol Extra Strength) 500 mg PO BEDTIME PRN PRN Reason: Insomnia Albuterol/Ipratropium (Duoneb 3.0-0.5 Mg/3 Ml) 3 ml NEB Q6H [facility] Last Admin: 02/25/17 05:56 Dose: 3 ml Albuterol/Ipratropium (Duoneb 3.0-0.5 Mg/3 Ml) 3 ml NEB DAILY@0100,0700,1300 [facility] Albuterol/Ipratropium (Duoneb 3.0-0.5 Mg/3 Ml) 3 ml NEB Q6HRRT [facility] Last Admin: 02/26/17 13:07 Dose: 3 ml Albuterol/Ipratropium (Duoneb 3.0-0.5 Mg/3 Ml) 3 ml NEB Q6HRRT PRN PRN Reason: Shortness breath, wheezing Diphenhydramine HCl (Benadryl) 25 mg PO BEDTIME PRN PRN Reason: Insomnia Furosemide (Lasix) 40 mg PO DAILY [facility] Last Admin: 02/28/17 09:45 Dose: 40 mg Furosemide (Lasix) 80 mg PO DAILY [facility] Furosemide (Lasix) 80 mg PO 1400 [facility] Last Admin: 02/27/17 13:09 Dose: 80 mg Sodium Chloride (Normal Saline) 1,000 mls @ 500 mls/hr IV .BOLUS ONE Stop: 02/24/17 23:57 Last Infusion: 02/25/17 04:05 Dose: Infused Ceftriaxone Sodium 1 gm/ (Sodium Chloride) 50 mls @ 100 mls/hr IV ONETIME ONE Stop: 02/24/17 23:57 Last Admin: 02/24/17 23:38 Dose: 100 mls/hr Morphine Sulfate (Morphine) 1 mg IVPUSH Q4H PRN PRN Reason: Pain (severe 7-10) Stop: 02/25/17 00:39 Potassium Chloride (Klor-Con 10) 10 meq PO DAILY [facility] Last Admin: 02/28/17 09:44 Dose: 10 meq Warfarin Sodium (Coumadin) 7.5 mg PO MoWeFrSa@1400 [facility] Last Admin: 02/26/17 13:07 Dose: 7.5 mg Warfarin Sodium (Coumadin) 5 mg PO SuTuTh@1400 [facility] Last Admin: 02/25/17 14:35 Dose: 5 mg Warfarin Sodium (Coumadin) 7.5 mg PO ONETIME ONE Stop: 02/27/17 14:01 Last Admin: 02/27/17 13:10 Dose: 7.5 mg Warfarin Sodium (Coumadin) 7.5 mg PO ONETIME ONE Stop: 02/28/17 14:01 Last Admin: 02/28/17 13:18 Dose: 7.5 mg - Exam General: alert, oriented, no acute distress HEENT: Pupils equal, Pupils reactive, EOMI, Mucous membr. moist/pink Lungs: Decreased Breath Sounds Cardiovascular: Regular Rate, Regular Rhythm, No Murmurs GI/Abdominal Exam: Normal Bowel Sounds, Soft, Non-Tender, No Organomegaly, No Distention, No Abnormal Bruit, No Mass, Pelvis Stable Extremities: Normal Inspection, Normal Range of Motion, Non-Tender, No Pedal Edema, Normal Capillary Refill Psy/Mental Status: alert - Problem List Review Problem List Initiated/Reviewed/Updated: Yes - My Orders Last 24 Hours: My Active Orders 02/28/17 13:59 Wound Care [RC] DAILY 02/28/17 14:00 Furosemide [Lasix] 80 mg PO BIDDIURETIC 02/28/17 21:00 Potassium Chloride [Klor-Con 10] 40 meq PO BEDTIME 02/28/17 Lunch Regular Diet [DIET] 03/01/17 14:00 Warfarin [Coumadin] 5 mg PO ONETIME ONE - Plan Plan:: Sepsis most likely from cellulitis WBC on admission 20,000. Her temp in the emergency room was 103.1 Fahrenheit. Last night her temp was 101.1 Fahrenheit She received 1 L of IV fluid as bolus in the emergency room. She received 1 dose of Rocephin in the emergency room -Continue Zosyn -Urine culture grew MSSA Blood culture neg so far Patient continues to have fever. I would not discharge yet Cellulitis of bilateral thigh/decubitus ulcer -Continue Zosyn Physical therapy consult for wound care Pulmonary edema/CHF, mild Most likely chronic Appears a little fluid overload. CXR seems congested. Possible UTI Urine culture grew Staphylococcus aureus less than 10,000 colonies Diarrhea, -resolved History of atrial fibrillation Continue was diltiazem orally Continuing Coumadin Chronic anticoagulation For atrial fibrillation INR is therapeutic Pharmacy is dosing warfarin. 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
[2017-03-01] MEDS ORDERED: Warfarin 5 MG Tab PO ONE (14:00)
[2017-03-01] MEDS: Cyanocobalamin (Vitamin B12) 100 MCG Tab PO SCH (21:34)
[2017-03-01] MEDS: Potassium Chloride 10 MEQ Tab.ER PO SCH (21:35)
[2017-03-01] MEDS: Simvastatin 10 MG Tab PO SCH (21:35)
[2017-03-01] MEDS: ACETAMINOPHEN PO PRN (21:40)
[2017-03-01] MEDS: DIPHENHYDRAMINE PO PRN (21:40)
[2017-03-02] MEDS: Albuterol/Ipratropium 3.0-0.5 MG/3 ML Neb Soln NEB SCH ×3 (00:07→16:11)
[2017-03-02] MEDS: Piperacillin/Tazobactam 3.375 GM in Sodium Chloride 0.9% 100 ML IV SCH ×3 (00:07→12:07)
[2017-03-02] MEDS: Pantoprazole 40 MG Tab.CR PO SCH (06:07)
[2017-03-02] MEDS: Diltiazem 180 MG Cap.CD PO SCH (09:08)
[2017-03-02] MEDS: Spironolactone 25 MG Tab PO SCH (09:08)
[2017-03-02] MEDS: Furosemide 80 MG Tab PO SCH ×2 (09:08→16:11)
[2017-03-02] MEDS: Multivitamins with Iron Tab.Chew PO SCH (09:09)
[2017-03-02] MEDS: PARoxetine 20 MG Tab PO SCH (09:09)
[2017-03-02] MEDS: Calcitriol 0.25 MCG Cap PO SCH (09:10)
[2017-03-02] MEDS: Metoprolol Succinate 50 MG Tab.ER PO SCH (09:11)
[2017-03-02] MEDS: Allopurinol 300 MG Tab PO SCH (09:12)
[2017-03-02] MEDS: Cholecalciferol (Vitamin D3) 400 Unit Tab PO SCH (09:12)
[2017-03-02] MEDS: FISH OIL PO SCH (09:17)
[2017-03-02] MEDS: FATTY ACIDS PO SCH (09:17)
[2017-03-02] MEDS: OMEGA PO SCH (09:17)
[2017-03-02] MEDS: [UNRECOGNIZED DRUG - OTHER] PO SCH (09:17)
[2017-03-02] MEDS ORDERED: Potassium Chloride 10 MEQ Tab.ER PO ONE (09:27)
[2017-03-02] MEDS: Acetaminophen 325 MG Tab PO PRN (09:37)
[2017-03-02 11:31] VITALS: BP 111/47
--- NOTE | 2017-03-02 11:47 | PCM.DCSUM1 ---
Discharge Summary - Hospital Course Free Text/Narrative:: Plan Plan:: Sepsis most likely from cellulitis of the perianal area WBC on admission 20,000. Her temp in the emergency room was 103.1 Fahrenheit. She received 1 dose of Rocephin in the emergency room and changed to Zosyn Repeat WBC Blood culture was negative -Urine culture grew MSSA Her fever subsided a white cell count came back to normal. The patient will be discharged on oral Augmentin Cellulitis of bilateral thigh Was treated with intravenous Zosyn but will be discharged on oral Augmentin Pulmonary edema, mild Most likely chronic continue her Lasix Possible UTI Awaiting urine cultures Urine culture grew Staphylococcus aureus less than 10,000 colonies Diarrhea, -resolved chronic congestive heart failure Continue Lasix, spiral lactone, metoprolol History of atrial fibrillation Continue was diltiazem orally Continuing Coumadin Chronic anticoagulation INR is therapeutic at discharge COPD No exacerbation Essential hypertension Continue his metoprolol History of osteoporosis Continue with calcitriol and alendronate Brief History: The patient was admitted with sepsis secondary to cellulitis of the perianal and thigh area. She was treated with intravenous Zosyn. Blood cultures came back negative. Patient has been switched to oral Augmentin. - Discharge Data Discharge Date: 03/02/17 Discharge Disposition: Home, Self-Care 01 Condition: Good - Patient Summary/Data Consults: Consultations 02/25/17 00:26 Consult to Pharmacy [CONS] Routine - Patient Instructions Diet: Heart Healthy Diet, Usual Diet as Tolerated Fluid Restriction: 2000 mL Activity: As Tolerated Showering/Bathing: May Shower Notify Provider of: Fever, Nausea and/or Vomiting Other/Special Instructions: f/up with PMD in one week. BMP in one week - Discharge Plan Prescriptions/Med Rec: Amoxicillin/Clavulanate K [Augmentin 875 MG/125 MG] 1 tab PO Q12HR #20 tablet Home Medications: Home Meds Acetaminophen [Tylenol] 650 mg PO Q6HR PRN 10/01/15 [History] Alendronate Sodium [Fosamax] 70 mg PO WEEKLY 10/01/15 [History] Allopurinol [Zyloprim] 150 mg PO DAILY 10/01/15 [History] Calcitriol [Rocaltrol] 0.25 mcg PO DAILY 10/01/15 [History] Cholecalciferol (Vitamin D3) [Cholecalciferol] 1,000 units PO DAILY 10/01/15 [ History] Cyanocobalamin (Vitamin B-12) [B-12 Dots] 500 mcg PO BEDTIME 10/01/15 [History] Diltiazem HCl [Cardizem Cd] 360 mg PO DAILY 10/01/15 [History] Furosemide [Lasix] 40 mg PO DAILY 10/01/15 [History] Metoprolol Succinate [Toprol XL 50mg] 75 mg PO DAILY 10/01/15 [History] Multivitamin/Iron/Folic Acid [Centrum Complete Multivit] 1 tab PO DAILY [History] Simvastatin [Zocor] 10 mg PO BEDTIME 10/01/15 [History] Spironolactone [Aldactone] 25 mg PO DAILY 10/01/15 [History] PARoxetine [Paxil] 30 mg PO DAILY #30 tablet 11/09/15 [Rx] Pantoprazole [ProTONIX] 40 mg PO ACBREAKFAST #30 tab.cr 11/09/15 [Rx] Eyota-3 Fatty Acids/Fish Oil [Eyota-3 Fish Oil 1,000 mg Sfgl] 1 each PO BID [History] Warfarin [Coumadin] 5 mg PO .TUESTHURSSUN 06/06/16 [History] Warfarin [Coumadin] 7.5 mg PO .MONWEDFRISAT 06/06/16 [History] Acetaminophen/Diphenhydramine [Tylenol Pm Ex-Strength Caplet] 2 each PO BEDTIME PRN 06/07/16 [History] Furosemide [Lasix] 80 mg PO DAILY 02/25/17 [History] Potassium Chloride [Klor-Con 10] 10 meq PO DAILY 02/25/17 [History] Amoxicillin/Clavulanate K [Augmentin 875 MG/125 MG] 1 tab PO Q12HR #20 tablet [Rx] Patient Handouts: Amoxicillin; Clavulanic Acid tablets, How to Prevent Pressure Injuries, Cellulitis, Adult, [id number] - General Info Date of Service: 03/02/17 Admission Dx/Problem (Free Text: Admission Diagnosis/Problem Admission Diagnosis/Problem Cellulitis - Review of Systems General: Reports: No Symptoms HEENT: Reports: No Symptoms Pulmonary: Reports: No Symptoms Cardiovascular: Reports: No Symptoms Gastrointestinal: Reports: No Symptoms Genitourinary: Reports: No Symptoms Musculoskeletal: Reports: No Symptoms Skin: Reports: No Symptoms Neurological: Reports: No Symptoms Psychiatric: Reports: No Symptoms - Patient Data Vitals - Most Recent: Last Vital Signs Temp 37.3 C 03/02/17 11:00 Pulse 68 03/02/17 11:00 Resp 18 03/02/17 11:00 BP 111/47 L 03/02/17 11:00 Pulse Ox 95 03/02/17 11:00 Weight - Most Recent: 131.088 kg I&O - Last 24 hours: Intake & Output 03/01/17 03/02/17 03/02/17 22:59 06:59 14:59 Intake Total 897 500 Output Total 800 700 Balance 97 -200 Lab Results - Last 24 hrs: Laboratory Results - last 24 hr 03/02/17 03/02/17 03/02/17 Range/Units 06:05 06:05 06:05 PT 24.7 H (9.0-12.0) SEC INR 2.5 H (0.9-1.2) Sodium 139 (135-145) mmol/L Potassium 3.4 L (3.6-5.0) mmol/L Chloride 100 L (101-111) mmol/L Carbon Dioxide 26.0 (21.0-31.0) mmol/L Anion Gap 16.4 BUN 15 (7-18) mg/dL Creatinine 1.5 H (0.6-1.3) mg/dL Est Cr Clr Drug Dosing 25.67 mL/min Estimated GFR (MDRD) 33 Glucose 94 (74-105) mg/dL Calcium 8.9 (8.4-10.2) mg/dl C-Reactive Protein 7.3 H (0.0-1.3) mg/dL Med Orders - Current: Current Medications Acetaminophen (Tylenol) 650 mg PO Q4H PRN PRN Reason: Pain (Mild 1-3)/fever Last Admin: 03/02/17 09:37 Dose: 650 mg Albuterol/Ipratropium (Duoneb 3.0-0.5 Mg/3 Ml) 3 ml NEB Q8HRRT [facility] Last Admin: 03/02/17 09:05 Dose: 3 ml Alendronate Sodium (Fosamax) 70 mg PO Fr@0600 [facility] Last Admin: 03/02/17 05:31 Dose: 70 mg Allopurinol (Zyloprim) 150 mg PO DAILY [facility] Last Admin: 03/02/17 09:12 Dose: 150 mg Calcitriol (Rocaltrol) 0.25 mcg PO DAILY [facility] Last Admin: 03/02/17 09:10 Dose: 0.25 mcg Cholecalciferol (Vitamin D3) 800 units PO DAILY [facility] Last Admin: 03/02/17 09:12 Dose: 800 units Cyanocobalamin (Vitamin B12) 500 mcg PO BEDTIME [facility] Last Admin: 03/01/17 21:34 Dose: 500 mcg Diltiazem HCl (Cardizem Cd) 360 mg PO DAILY [facility] Last Admin: 03/02/17 09:08 Dose: 360 mg Furosemide (Lasix) 80 mg PO BIDDIURETIC [facility] Last Admin: 03/02/17 09:08 Dose: 80 mg Piperacillin Sod/Tazobactam (Sod 3.375 gm/ Sodium Chloride) 100 mls @ 200 mls/ hr IV Q6H [facility] Last Infusion: 03/02/17 06:41 Dose: Infused Metoprolol Succinate (Toprol Xl) 75 mg PO DAILY [facility] Last Admin: 03/02/17 09:11 Dose: 75 mg Multivitamins/Iron (Child Chew Iron) 1 tab PO DAILY [facility] Last Admin: 03/02/17 09:09 Dose: 1 tab Non-Formulary Medication (Eyota-3 Fatty Acids/Fish Oil [Eyota-3 Fish Oil 1,000 Mg Sfgl]) 1 each PO BID [facility] Last Admin: 03/02/17 09:17 Dose: 1 each Ondansetron HCl (Zofran) 4 mg IVPUSH Q6H PRN PRN Reason: Nausea/Vomiting Pantoprazole Sodium (Protonix) 40 mg PO ACBREAKFAST [facility] Last Admin: 03/02/17 06:07 Dose: 40 mg Paroxetine HCl (Paxil) 30 mg PO DAILY [facility] Last Admin: 03/02/17 09:09 Dose: 30 mg Acetaminophen/Diphenhydramine ( Tylenol Pm) 500 Mg/25 Mg Own Med 1 each PO BEDTIME PRN PRN Reason: Insomnia Last Admin: 03/01/17 21:40 Dose: 1 each Potassium Chloride (Klor-Con 10) 40 meq PO BEDTIME [facility] Last Admin: 03/01/17 21:35 Dose: 40 meq Simvastatin (Zocor) 10 mg PO BEDTIME [facility] Last Admin: 03/01/17 21:35 Dose: 10 mg Sodium Chloride (Saline Flush) 10 ml FLUSH ASDIRECTED PRN PRN Reason: Keep Vein Open Last Admin: 03/01/17 18:37 Dose: 10 ml Spironolactone (Aldactone) 25 mg PO DAILY [facility] Last Admin: 03/02/17 09:08 Dose: 25 mg Warfarin Sodium (Pharmacy To Dose - Warfarin) 0 dose PO ASDIRECTED [facility] Warfarin Sodium (Coumadin) 7.5 mg PO FrSa@1400 [facility] Warfarin Sodium (Coumadin) 5 mg PO Jimenez@1400 [facility] Stop: 03/04/17 14:01 Discontinued Medications Acetaminophen (Tylenol) 325 mg PO NOW ONE Stop: 02/24/17 22:18 Last Admin: 02/24/17 22:21 Dose: 325 mg Acetaminophen (Tylenol Extra Strength) 500 mg PO BEDTIME PRN PRN Reason: Insomnia Albuterol/Ipratropium (Duoneb 3.0-0.5 Mg/3 Ml) 3 ml NEB Q6H [facility] Last Admin: 02/25/17 05:56 Dose: 3 ml Albuterol/Ipratropium (Duoneb 3.0-0.5 Mg/3 Ml) 3 ml NEB DAILY@0100,0700,1300 [facility] Albuterol/Ipratropium (Duoneb 3.0-0.5 Mg/3 Ml) 3 ml NEB Q6HRRT [facility] Last Admin: 02/26/17 13:07 Dose: 3 ml Albuterol/Ipratropium (Duoneb 3.0-0.5 Mg/3 Ml) 3 ml NEB Q6HRRT PRN PRN Reason: Shortness breath, wheezing Diphenhydramine HCl (Benadryl) 25 mg PO BEDTIME PRN PRN Reason: Insomnia Furosemide (Lasix) 40 mg PO DAILY [facility] Last Admin: 02/28/17 09:45 Dose: 40 mg Furosemide (Lasix) 80 mg PO DAILY [facility] Furosemide (Lasix) 80 mg PO 1400 [facility] Last Admin: 02/27/17 13:09 Dose: 80 mg Sodium Chloride (Normal Saline) 1,000 mls @ 500 mls/hr IV .BOLUS ONE Stop: 02/24/17 23:57 Last Infusion: 02/25/17 04:05 Dose: Infused Ceftriaxone Sodium 1 gm/ (Sodium Chloride) 50 mls @ 100 mls/hr IV ONETIME ONE Stop: 02/24/17 23:57 Last Admin: 02/24/17 23:38 Dose: 100 mls/hr Morphine Sulfate (Morphine) 1 mg IVPUSH Q4H PRN PRN Reason: Pain (severe 7-10) Stop: 02/25/17 00:39 Potassium Chloride (Klor-Con 10) 10 meq PO DAILY [facility] Last Admin: 02/28/17 09:44 Dose: 10 meq Potassium Chloride (Klor-Con 10) 40 meq PO ONETIME ONE Stop: 03/02/17 09:28 Last Admin: 03/02/17 09:42 Dose: 40 meq Warfarin Sodium (Coumadin) 7.5 mg PO MoWeFrSa@1400 [facility] Last Admin: 02/26/17 13:07 Dose: 7.5 mg Warfarin Sodium (Coumadin) 5 mg PO SuTuTh@1400 [facility] Last Admin: 02/25/17 14:35 Dose: 5 mg Warfarin Sodium (Coumadin) 7.5 mg PO ONETIME ONE Stop: 02/27/17 14:01 Last Admin: 02/27/17 13:10 Dose: 7.5 mg Warfarin Sodium (Coumadin) 7.5 mg PO ONETIME ONE Stop: 02/28/17 14:01 Last Admin: 02/28/17 13:18 Dose: 7.5 mg Warfarin Sodium (Coumadin) 5 mg PO ONETIME ONE Stop: 03/01/17 14:01 Last Admin: 03/01/17 13:44 Dose: 5 mg - Exam Quality Assessment: Reports: supplemental oxygen General: Reports: alert, oriented, cooperative Lungs: Reports: Clear to Auscultation Cardiovascular: Reports: Regular Rate Extremities: Normal Range of Motion, Non-Tender Physical Findings Comments:: Patient has erythema around the perianal area. Likely due to pressure ulcer " *Q Meaningful Use (DIS) - VTE *Q VTE Criteria *Q: - Stroke *Q Stroke Criteria *Q: - AMI *Q AMI Criteria *Q:
[2017-03-02] MEDS: Sodium Chloride 0.9% 10 ML Syringe FLUSH PRN (12:06)
[2017-03-02] MEDS ORDERED: Warfarin 2.5 MG Tab PO SCH (14:00)
[2017-03-04] MEDS ORDERED: Warfarin 5 MG Tab PO SCH (14:00)
== END 2017-03-02 14:30 | disposition home or self-care (01) | DRG 872 ==
LOC: DL.ED 21:35 → UNDOADMIN 23:48 → DL.MS 23:48
PROVIDERS: ADMIT Family Medicine; ATTEND Family Medicine
DX: A41.9 Sepsis, unspecified organism (principal); E86.0 Dehydration; J18.9 Pneumonia, unspecified organism; L03.116 Cellulitis of left lower limb; L03.115 Cellulitis of right lower limb; L03.315 Cellulitis of perineum; J81.1 Chronic pulmonary edema; N39.0 Urinary tract infection, site not specified; I13.0 Hypertensive heart and chronic kidney disease with heart failure and stage 1 through stage 4 chronic kidney disease, or unspecified chronic kidney disease; N17.9 Acute kidney failure, unspecified; B95.61 Methicillin susceptible Staphylococcus aureus infection as the cause of diseases classified elsewhere; R19.7 Diarrhea, unspecified; I48.91 Unspecified atrial fibrillation; Z79.01 Long term (current) use of anticoagulants; J44.9 Chronic obstructive pulmonary disease, unspecified; M19.90 Unspecified osteoarthritis, unspecified site; N18.9 Chronic kidney disease, unspecified; K21.9 Gastro-esophageal reflux disease without esophagitis; I50.9 Heart failure, unspecified
CPT/HCPCS: 36415; 71010; 80053; 83605; 83880; 85025; 85610; 87040 ×2; 96361; 96365; 99285; A9270; J0696; J7030; J7050; 80048; 81001; 82550; 83735; 86140; 87086; 87088; 87186; 94060; 94640; 97110-GP; 97116-GP; 97162-GP; 97166-GO; 97530-GO; 99284; J2543

== ENCOUNTER 2017-10-11 22:07 | Emergency (ER) | payer MEDICARE, OTHER ==
[2017-10-12] MEDS: Furosemide 40 MG/4 ML VIAL IVPUSH ONE (00:16)
[2017-10-12 00:18] VITALS: BP 147/56
[2017-10-12] MEDS: Levofloxacin/Dextrose 5%-Water 500 MG in Premix Bag 1 BAG IV ONE (00:19)
--- NOTE | 2017-10-12 02:26 | EDM.PDOC ---
ED HPI GENERAL MEDICAL PROBLEM - General Chief Complaint: General Stated Complaint: BY AMBULANCE Time Seen by Provider: 10/11/17 22:55 Source of Information: Reports: Patient, EMS History Limitations: Reports: No Limitations - History of Present Illness INITIAL COMMENTS - FREE TEXT/NARRATIVE: Ed via EMS with c/o of general weakness after 2 day hx of diarrhea and vomiting. Reports weak while going to bathroom and got down to knees but could not get up. No fall or LOC. patient reports, lives at home with spouse, Home health aid comes in 3 times per week, Sleeps in recliner and lying flat uncomfortable. usually up and walks to BR about 3 times per day with walker. Vomited yeserday, today 2-3 loose stools. Denied fever, chills, or cough. No chest pain, - Related Data Allergies Allergy/AdvReac Type Severity Reaction Status Date / Time aspirin Allergy Nose Bleeds Verified 10/11/17 22:13 codeine Allergy Airway Verified 10/11/17 22:13 Tightness zolpidem tartrate Allergy Other Verified 10/11/17 22:13 [From Anupama] Home Meds: Home Meds Acetaminophen [Tylenol] 650 mg PO Q6HR PRN 10/01/15 [History] Alendronate Sodium [Fosamax] 70 mg PO WEEKLY 10/01/15 [History] Allopurinol [Zyloprim] 150 mg PO DAILY 10/01/15 [History] Calcitriol [Rocaltrol] 0.25 mcg PO DAILY 10/01/15 [History] Cholecalciferol (Vitamin D3) [Cholecalciferol] 1,000 units PO DAILY 10/01/15 [ History] Cyanocobalamin (Vitamin B-12) [B-12 Dots] 500 mcg PO BEDTIME 10/01/15 [History] Diltiazem HCl [Cardizem Cd] 360 mg PO DAILY 10/01/15 [History] Furosemide [Lasix] 40 mg PO DAILY 10/01/15 [History] Metoprolol Succinate [Toprol XL 50mg] 75 mg PO DAILY 10/01/15 [History] Multivitamin/Iron/Folic Acid [Centrum Complete Multivit] 1 tab PO DAILY [History] Simvastatin [Zocor] 10 mg PO BEDTIME 10/01/15 [History] Spironolactone [Aldactone] 25 mg PO DAILY 10/01/15 [History] PARoxetine [Paxil] 30 mg PO DAILY #30 tablet 11/09/15 [Rx] Pantoprazole [ProTONIX] 40 mg PO ACBREAKFAST #30 tab.cr 11/09/15 [Rx] [place]-3 Fatty Acids/Fish Oil [[place]-3 Fish Oil 1,000 mg Sfgl] 1 each PO BID [History] Warfarin [Coumadin] 5 mg PO .TUESTHURSSUN 06/06/16 [History] Warfarin [Coumadin] 7.5 mg PO .MONWEDFRISAT 06/06/16 [History] Acetaminophen/Diphenhydramine [Tylenol Pm Ex-Strength Caplet] 1 each PO BEDTIME PRN 06/07/16 [History] Furosemide [Lasix] 80 mg PO DAILY 02/25/17 [History] Potassium Chloride [Klor-Con 10] 10 meq PO DAILY 02/25/17 [History] Past Medical History HEENT History: Reports: Impaired Vision Other HEENT History: wears glasses. Cardiovascular History: Reports: Afib, Heart Failure, High Cholesterol, Hypertension, SOB on Exertion Respiratory History: Reports: COPD Gastrointestinal History: Reports: Diverticulosis, GERD, Hemorrhoids Genitourinary History: Reports: Chronic Renal Insuffiency, Urinary Incontinence [employer] History: Reports: Musculoskeletal History: Reports: Arthritis, Osteoarthritis Neurological History: Reports: Headaches, Chronic Psychiatric History: Reports: Anxiety, Depression Endocrine/Metabolic History: Reports: Obesity/BMI 30+ Hematologic History: Reports: None Immunologic History: Reports: None Oncologic (Cancer) History: Reports: None Dermatologic History: Reports: None, Cellulitis, Other (See Below) Other Dermatologic History: sores to lower legs, lower abd,groin and upper arms - Infectious Disease History Infectious Disease History: Reports: Chicken Pox, Measles, Mumps, Shingles Other Infectious Disease History: had "Yellow jaundice" at age 15 - Past Surgical History Head Surgeries/Procedures: Reports: None Cardiovascular Surgical History: Reports: Vascular Surgery GI Surgical History: Reports: Appendectomy, Cholecystectomy, EGD Other GI Surgeries/Procedures: hemorrhoidectomy Musculoskeletal Surgical History: Reports: Hip Replacement, Knee Replacement Social & Family History - Family History Family Medical History: Noncontributory HEENT: Reports: None Cardiac: Reports: None Respiratory: Reports: None GI: Reports: Diverticulitis Musculoskeletal: Reports: RA Neurological: Reports: Seizure Psychiatric: Reports: None Immunologic: Reports: None Dermatologic: Reports: None Oncologic: Reports: None - Tobacco Use Smoking Status *Q: Never Smoker Second Hand Smoke Exposure: No - Caffeine Use Caffeine Use: Reports: Coffee, Tea - Alcohol Use Days Per Week of Alcohol Use: 2 Number of Drinks Per Day: 4 Total Drinks Per Week: 8 - Recreational Drug Use Recreational Drug Use: No - Living Situation & Occupation Living situation: Reports: , Alone Occupation: Retired ED ROS GENERAL - Review of Systems Review Of Systems: See Below Constitutional: Reports: Malaise, Weakness. Denies: Fever, Chills HEENT: Reports: No Symptoms, Glasses Respiratory: Reports: No Symptoms Cardiovascular: Denies: Chest Pain, Edema Endocrine: Reports: No Symptoms, Other GI/Abdominal: Reports: Diarrhea, Decreased Appetite, Vomiting : Reports: No Symptoms Musculoskeletal: Reports: No Symptoms Skin: Reports: No Symptoms Neurological: Reports: Difficulty Walking, Weakness. Denies: Headache, Tremors ED EXAM, GENERAL - Physical Exam Exam: See Below Exam Limited By: No Limitations General Appearance: Alert, No Apparent Distress, Obese Eye Exam: Bilateral Eye: EOMI, PERRL (4) Ears: Normal External Exam, Normal TMs Nose: Normal Inspection Throat/Mouth: Normal Inspection, Normal Lips, Normal Voice. No: Normal Oropharynx (mucus membranes dry) Head: Atraumatic, Normocephalic Neck: Normal Inspection, Full Range of Motion Respiratory/Chest: No Respiratory Distress, Rhonchi (right mid, intermittent) Cardiovascular: Normal Peripheral Pulses, Other (slightly irregular) GI/Abdominal: Normal Bowel Sounds, Soft, Non-Tender Back Exam: Normal Inspection, Full Range of Motion, Other (generalized stiffness ) Extremities: Normal Inspection. No: Joint Swelling, Leg Pain, Limited Range of Motion Neurological: Alert, Oriented, Normal Cognition, Other (variable word finding difficulty. At times looses word in conversation and substitutes appropriately , Appears, strained during occurence and repats multiple times. ). No: Sensory/ Motor Deficit Skin Exam: Warm, Dry, Intact, Normal Color Course - Vital Signs Last Recorded V/S: Last Vital Signs Temp 99.2 F 10/12/17 00:17 Pulse 78 10/12/17 00:17 Resp 20 10/12/17 00:17 BP 147/56 H 10/12/17 00:17 Pulse Ox 94 L 10/12/17 00:17 - Orders/Labs/Meds Orders: Active Orders 24 hr Category Date Time Status EKG 12 Lead [EKG Documentation Completion] [RC] STAT Care 10/11/17 23:45 Active CULTURE BLOOD [BC] Stat Lab 10/11/17 22:27 Received CULTURE BLOOD [BC] Stat Lab 10/11/17 22:33 Received Blood Culture x2 Reflex Set [OM.PC] Stat Oth 10/11/17 22:20 Ordered Labs: Laboratory Tests 10/11/17 10/11/17 10/11/17 Range/Units 22:27 22:27 22:27 WBC 19.8 H (5.0-10.0) 10^3/uL RBC 4.28 (4.2-5.4) 10^6/uL Hgb 14.2 (12.0-16.0) g/dL Hct 42.8 (37.0-47.0) % MCV 100.0 (80-100) fL MCH 33.2 (27.0-34.0) pg MCHC 33.2 (33.0-35.0) g/dL Plt Count 214 (150-450) 10^3/uL Neut % (Auto) 86.1 H (42.2-75.2) % Lymph % (Auto) 8.0 L (20.5-50.1) % Curry % (Auto) 5.7 (2-8) % Eos % (Auto) 0.0 L (1.0-3.0) % Baso % (Auto) 0.2 (0.0-1.0) % PT (9.0-12.0) SEC INR (0.9-1.2) Sodium 134 L (135-145) mmol/L Potassium 4.0 (3.6-5.0) mmol/L Chloride 95 L (101-111) mmol/L Carbon Dioxide 23.0 (21.0-31.0) mmol/L Anion Gap 20.0 BUN 29 H (7-18) mg/dL Creatinine 2.2 H (0.6-1.3) mg/dL Est Cr Clr Drug Dosing 17.50 mL/min Estimated GFR (MDRD) 21 BUN/Creatinine Ratio 13.18 Glucose 159 H (74-105) mg/dL Lactic Acid 5.4 H (0.5-2.2) mmol/L Calcium 9.6 (8.4-10.2) mg/dl Magnesium 1.9 (1.8-2.5) mg/dL Total Bilirubin 1.1 H (0.2-1.0) mg/dL AST 38 (10-42) IU/L ALT 17 (10-60) IU/L Alkaline Phosphatase 67 (42-121) IU/L Troponin I 0.07 H* (0.00-0.02) ng/ml B-Natriuretic Peptide (0-100) pg/ml Total Protein 8.0 (6.7-8.2) g/dl Albumin 3.8 (3.2-5.5) g/dl Globulin 4.2 Albumin/Globulin Ratio 0.90 Amylase 72 (28-100) U/L Lipase 11 L (22-51) U/L Urine Color (YELLOW) Urine Appearance (CLEAR) Urine pH (5.0-9.0) Ur Specific [place] (1.005-1.030) Urine Protein (NEGATIVE) Urine Glucose (UA) (NEGATIVE) Urine Ketones (NEGATIVE) Urine Occult Blood (NEGATIVE) Urine Nitrite (NEGATIVE) Urine Bilirubin (NEGATIVE) Urine Urobilinogen (0.2-1.0) mg/dL Ur Leukocyte Esterase (NEGATIVE) Urine RBC /HPF Urine WBC (0-5/HPF) /HPF Ur Epithelial Cells /HPF Urine Bacteria (0-FEW/HPF) /HPF 10/11/17 10/11/17 10/11/17 Range/Units 22:27 22:27 22:40 WBC (5.0-10.0) 10^3/uL RBC (4.2-5.4) 10^6/uL Hgb (12.0-16.0) g/dL Hct (37.0-47.0) % MCV (80-100) fL MCH (27.0-34.0) pg MCHC (33.0-35.0) g/dL Plt Count (150-450) 10^3/uL Neut % (Auto) (42.2-75.2) % Lymph % (Auto) (20.5-50.1) % Curry % (Auto) (2-8) % Eos % (Auto) (1.0-3.0) % Baso % (Auto) (0.0-1.0) % PT 27.9 H (9.0-12.0) SEC INR 2.8 H (0.9-1.2) Sodium (135-145) mmol/L Potassium (3.6-5.0) mmol/L Chloride (101-111) mmol/L Carbon Dioxide (21.0-31.0) mmol/L Anion Gap BUN (7-18) mg/dL Creatinine (0.6-1.3) mg/dL Est Cr Clr Drug Dosing mL/min Estimated GFR (MDRD) BUN/Creatinine Ratio Glucose (74-105) mg/dL Lactic Acid (0.5-2.2) mmol/L Calcium (8.4-10.2) mg/dl Magnesium (1.8-2.5) mg/dL Total Bilirubin (0.2-1.0) mg/dL AST (10-42) IU/L ALT (10-60) IU/L Alkaline Phosphatase (42-121) IU/L Troponin I (0.00-0.02) ng/ml B-Natriuretic Peptide 1130 H (0-100) pg/ml Total Protein (6.7-8.2) g/dl Albumin (3.2-5.5) g/dl Globulin Albumin/Globulin Ratio Amylase (28-100) U/L Lipase (22-51) U/L Urine Color Red (YELLOW) Urine Appearance Cloudy (CLEAR) Urine pH 6.5 (5.0-9.0) Ur Specific [place] 1.015 (1.005-1.030) Urine Protein 100 H (NEGATIVE) Urine Glucose (UA) Negative (NEGATIVE) Urine Ketones Negative (NEGATIVE) Urine Occult Blood Large H (NEGATIVE) Urine Nitrite Negative (NEGATIVE) Urine Bilirubin Small H (NEGATIVE) Urine Urobilinogen 1.0 (0.2-1.0) mg/dL Ur Leukocyte Esterase Trace H (NEGATIVE) Urine RBC >100 H /HPF Urine WBC 5-10 H (0-5/HPF) /HPF Ur Epithelial Cells Rare /HPF Urine Bacteria Rare (0-FEW/HPF) /HPF Meds: Medications Discontinued Medications Generic Name Dose Route Start Last Admin Trade Name Freq PRN Reason Stop Dose Admin Furosemide 40 mg 10/12/17 00:00 10/12/17 00:16 Lasix IVPUSH 10/12/17 00:01 40 mg NOW ONE Administration Levofloxacin/Dextrose 500 mg/ 100 mls @ 100 mls/hr 10/12/17 00:01 10/12/17 00 :19 Premix IV 10/12/17 01:00 100 mls/hr ONETIME ONE Administration - Radiology Interpretation Free Text/Narrative:: Head CT. 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 - Re-Assessments/Exams Free Text/Narrative Re-Assessment/Exam: 10/12/17 05:33 Patient request DNR, DNI. Patient stated she does not wish to go through any type of procedures at this time. Extremity strength equal. Roll with assistance of 3, Patient is able to sit upright without assistance but unable to maintain sitting position. Jessica area and abdominal fold excoriated, incontinent soft seedy yellow stool. TC consult Dr. Snyder accepting of patient in transfer for further evaluation. jaw and right foot tremor noted intermittently, increased intensity with stress. Departure - Departure Time of Disposition: 01:00 Disposition: DC/Tfer to Acute Hospital 02 Condition: Undetermined Clinical Impression: CHF, Congestive heart failure, CVA, Cerebrovascular accident - Discharge Information Referrals: PCP,Unobtain [Primary Care Provider] - Forms: ED Department Discharge - My Orders Last 24 Hours: My Active Orders 10/11/17 22:20 Blood Culture x2 Reflex Set [OM.PC] Stat 10/11/17 22:27 CULTURE BLOOD [BC] Stat 10/11/17 22:33 CULTURE BLOOD [BC] Stat 10/11/17 23:45 EKG 12 Lead [EKG Documentation Completion] [RC] STAT - Assessment/Plan Last 24 Hours: My Active Orders 10/11/17 22:20 Blood Culture x2 Reflex Set [OM.PC] Stat 10/11/17 22:27 CULTURE BLOOD [BC] Stat 10/11/17 22:33 CULTURE BLOOD [BC] Stat 10/11/17 23:45 EKG 12 Lead [EKG Documentation Completion] [RC] STAT
== END 2017-10-12 00:48 ==
LOC: DL.ED 22:07
DX: I63.9 Cerebral infarction, unspecified (principal); I13.0 Hypertensive heart and chronic kidney disease with heart failure and stage 1 through stage 4 chronic kidney disease, or unspecified chronic kidney disease; I50.9 Heart failure, unspecified; N18.9 Chronic kidney disease, unspecified; Z88.6 Allergy status to analgesic agent; Z88.5 Allergy status to narcotic agent; Z88.8 Allergy status to other drugs, medicaments and biological substances; Z79.899 Other long term (current) drug therapy
CPT/HCPCS: 36415; 70450; 71045; 80053; 81001; 82150; 82272; 83605; 83690; 83735; 83880; 84484; 85025; 85610; 87040; 93005; 93010; 96365; 96375; 99285; J1940; J1956; 87077

== ENCOUNTER 2019-01-05 12:35 | Inpatient (IN) | payer MEDICARE, OTHER, MEDICAID ==
[2019-01-05 15:00] LABS: ANION GAP 23.8; CHLORIDE,CL 85 mmol/L (101-111); SODIUM,NA 129 mmol/L (135-145)
[2019-01-05] MEDS ORDERED: Ondansetron 4 MG/2 ML SDV IV ONE (16:01)
[2019-01-05] MEDS: Acetaminophen 325 MG Tab PO PRN (17:48)
[2019-01-05] MEDS: Azithromycin 250 MG Tab PO SCH (17:48)
[2019-01-05] MEDS: Albuterol/Ipratropium 3.0-0.5 MG/3 ML Neb Soln NEB SCH (17:49)
[2019-01-05] MEDS: Sodium Chloride 0.9% 1,000 ML IV SCH (17:49)
[2019-01-05] MEDS: cefTRIAXone 1 GM Vial IV SCH (17:49)
[2019-01-05] MEDS ORDERED: Nystatin Topical Powder 30 GM Bottle TOP ONE (18:15)
--- NOTE | 2019-01-05 19:32 | EDM.PDOC ---
Scribed by Rianna Acosta 01/05/19 193 for Linda Pelaez NP ED HPI GENERAL MEDICAL PROBLEM - General Chief Complaint: Lower Extremity Injury/Pain Stated Complaint: UNKNOWN-AMBULANCE Time Seen by Provider: 01/05/19 13:20 Source of Information: Reports: Patient, EMS, EMS Notes Reviewed, RN, RN Notes Reviewed History Limitations: Reports: No Limitations - History of Present Illness INITIAL COMMENTS - FREE TEXT/NARRATIVE: Patient presents to ER by [facility]. She fell in the bathroom this a.m. She tripped and fall on right side. She did not hit her head. She has been short of breath which is chronic in nature. She has the feeling of being constipated with nausea 4 to 5 days. She does wear an Attends and is also feeling weak. Onset: Gradual Duration: Getting Worse Location: Reports: Generalized Quality: Reports: Ache Severity: Moderate Improves with: Reports: None Worsens with: Reports: None Associated Symptoms: Reports: No Other Symptoms Left Lower Leg Pain Score (Numeric/FACES): 7 - Related Data Allergies Allergy/AdvReac Type Severity Reaction Status Date / Time aspirin Allergy Nose Bleeds Verified 01/05/19 13:15 codeine Allergy Airway Verified 01/05/19 13:15 Tightness oxycodone Allergy Confusion Verified 01/05/19 18:06 zolpidem tartrate Allergy Other Verified 01/05/19 13:15 [From Anupama] Home Meds: Home Meds Acetaminophen [Tylenol] 650 mg PO Q6HR PRN 10/01/15 [History] Alendronate Sodium [Fosamax] 70 mg PO WEEKLY 10/01/15 [History] Allopurinol [Zyloprim] 300 mg PO DAILY 10/01/15 [History] Calcitriol [Rocaltrol] 0.25 mcg PO .5DAYS/WK 10/01/15 [History] Diltiazem HCl [Cardizem Cd] 360 mg PO DAILY 10/01/15 [History] Simvastatin [Zocor] 10 mg PO BEDTIME 10/01/15 [History] Spironolactone [Aldactone] 25 mg PO DAILY 10/01/15 [History] PARoxetine [Paxil] 30 mg PO DAILY #30 tablet 11/09/15 [Rx] Pantoprazole [ProTONIX] 40 mg PO ACBREAKFAST #30 tab.cr 11/09/15 [Rx] Warfarin [Coumadin] 5 mg PO .6DAYS 06/06/16 [History] Acetaminophen/Diphenhydramine [Tylenol Pm Ex-Strength Caplet] 1 each PO BEDTIME PRN 06/07/16 [History] Furosemide [Lasix] 80 mg PO 1400 02/25/17 [History] Potassium Chloride [Klor-Con 10] 10 meq PO DAILY 02/25/17 [History] Furosemide [Lasix] 40 mg PO 0800 01/05/19 [History] Metoprolol Succinate [Toprol XL 50mg] 75 mg PO DAILY 01/05/19 [History] Warfarin [Coumadin] 2.5 mg PO .WED 01/05/19 [History] Past Medical History HEENT History: Reports: Impaired Vision Other HEENT History: wears glasses. 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: Reports: Musculoskeletal History: Reports: Arthritis, Osteoarthritis Neurological History: Reports: Headaches, Chronic Psychiatric History: Reports: Anxiety, Depression Endocrine/Metabolic History: Reports: Obesity/BMI 30+ Hematologic History: Reports: None Immunologic History: Reports: None Oncologic (Cancer) History: Reports: None Dermatologic History: Reports: None, Cellulitis, Other (See Below) Other Dermatologic History: sores to lower legs, lower abd,groin and upper arms - Infectious Disease History Infectious Disease History: Reports: Chicken Pox, Measles, Mumps, Shingles Other Infectious Disease History: had "Yellow jaundice" at age 15 - Past Surgical History Head Surgeries/Procedures: Reports: None Cardiovascular Surgical History: Reports: Vascular Surgery GI Surgical History: Reports: Appendectomy, Cholecystectomy, EGD Other GI Surgeries/Procedures: hemorrhoidectomy Musculoskeletal Surgical History: Reports: Hip Replacement, Knee Replacement Social & Family History - Family History Family Medical History: Noncontributory HEENT: Reports: None Cardiac: Reports: None Respiratory: Reports: None GI: Reports: Diverticulitis Musculoskeletal: Reports: RA Neurological: Reports: Seizure Psychiatric: Reports: None Immunologic: Reports: None Dermatologic: Reports: None Oncologic: Reports: None - Caffeine Use Caffeine Use: Reports: Coffee, Tea - Living Situation & Occupation Living situation: Reports: , Alone Occupation: Retired Review of Systems - Review of Systems Review Of Systems: ROS reveals no pertinent complaints other than HPI. ED EXAM, GENERAL - Physical Exam Exam: See Below Exam Limited By: No Limitations General Appearance: Obese Head: Atraumatic, Normocephalic Respiratory/Chest: No Respiratory Distress, Lungs Clear, Normal Breath Sounds, No Accessory Muscle Use, Chest Non-Tender, Other (congested cough) Cardiovascular: Normal Peripheral Pulses, Regular Rate, Rhythm, No Edema, No Gallop, No JVD, No Murmur, No Rub GI/Abdominal: Normal Bowel Sounds, Soft, Non-Tender, No Organomegaly, No Distention, No Abnormal Bruit, No Mass Extremities: Other (No hip pain. Pain in arthritic knees. ) Neurological: Alert, Oriented, CN II-XII Intact, Normal Cognition, Normal Gait, Normal Reflexes, No Motor/Sensory Deficits Skin Exam: Warm, Dry, Normal Color, Other (3 small abrasions to left foot. Perineal yeast rash) Course - Vital Signs Last Recorded V/S: Last Vital Signs Temp 36.8 C 01/05/19 16:09 Pulse 68 01/05/19 16:09 Resp 28 H 01/05/19 16:09 BP 109/54 L 01/05/19 16:09 Pulse Ox 99 01/05/19 16:09 - Orders/Labs/Meds Orders: Active Orders 24 hr Category Date Time Status Ankle Min 3V Lt [CR] Urgent Exams 01/05/19 12:40 Taken Chest 1V Frontal [CR] Urgent Exams 01/05/19 15:09 Taken Foot 2V Lt [CR] Urgent Exams 01/05/19 12:40 Taken CULTURE BLOOD [BC] Stat Lab 01/05/19 17:37 Received CULTURE BLOOD [BC] Stat Lab 01/05/19 17:42 Results Blood Culture x2 Reflex Set [OM.PC] Stat Oth 01/05/19 17:07 Ordered Medication Orders Acetaminophen (Tylenol) 650 mg PO Q4H PRN PRN Reason: Pain (Mild 1-3)/fever Last Admin: 01/05/19 17:48 Dose: 650 mg Albuterol/Ipratropium (Duoneb 3.0-0.5 Mg/3 Ml) 3 ml NEB Q6HRRT [facility] Last Admin: 01/05/19 17:49 Dose: 3 ml Azithromycin (Zithromax) 500 mg PO DAILY [facility] Last Admin: 01/05/19 17:48 Dose: 500 mg Ceftriaxone Sodium (Rocephin) 1 gm IV Q24H [facility] Last Admin: 01/05/19 17:49 Dose: 1 gm Diltiazem HCl (Cardizem Cd) 360 mg PO DAILY [facility] Sodium Chloride (Normal Saline) 1,000 mls @ 125 mls/hr IV ASDIRECTED [facility] Last Admin: 01/05/19 17:49 Dose: 125 mls/hr Metoprolol Succinate (Toprol Xl) 75 mg PO DAILY [facility] Multivitamins/Minerals (Vitamins And Minerals) 1 tab PO DAILY [facility] Nystatin (Nystop) 0 gm TOP BID [facility] Pantoprazole Sodium (Protonix) 40 mg PO ACBREAKFAST [facility] Paroxetine HCl (Paxil) 30 mg PO DAILY [facility] Warfarin Sodium (Pharmacy To Dose - Warfarin) 1 dose .XX ASDIRECTED [facility] Labs: Laboratory Tests 01/05/19 01/05/19 01/05/19 Range/Units 14:20 14:20 14:20 WBC 18.5 H (5.0-10.0) 10^3/uL RBC 5.25 (4.2-5.4) 10^6/uL Hgb 17.1 H D (12.0-16.0) g/dL Hct 48.7 H (37.0-47.0) % MCV 92.8 D (80-100) fL MCH 32.6 (27.0-34.0) pg MCHC 35.1 H (33.0-35.0) g/dL Plt Count 264 (150-450) 10^3/uL Neut % (Auto) 80.4 H (42.2-75.2) % Lymph % (Auto) 10.3 L (20.5-50.1) % [place] % (Auto) 9.2 H (2-8) % Eos % (Auto) 0.0 L (1.0-3.0) % Baso % (Auto) 0.1 (0.0-1.0) % PT 37.0 H D (9.0-12.0) SEC INR 3.9 H (0.9-1.2) Sodium 129 L (135-145) mmol/L Potassium 3.8 (3.6-5.0) mmol/L Chloride 85 L (101-111) mmol/L Carbon Dioxide 24.0 (21.0-31.0) mmol/L Anion Gap 23.8 BUN 94 H D (7-18) mg/dL Creatinine 3.5 H D (0.6-1.3) mg/dL Est Cr Clr Drug Dosing TNP Estimated GFR (MDRD) 12 BUN/Creatinine Ratio 26.85 Glucose 152 H (74-105) mg/dL Calcium 10.3 H (8.4-10.2) mg/dl Total Bilirubin 1.5 H (0.2-1.0) mg/dL AST 29 (10-42) IU/L ALT 14 (10-60) IU/L Alkaline Phosphatase 82 (42-121) IU/L B-Natriuretic Peptide 334 H (0-100) pg/ml Total Protein 8.3 H (6.7-8.2) g/dl Albumin 4.3 (3.2-5.5) g/dl Globulin 4.0 Albumin/Globulin Ratio 1.08 Urine Color (YELLOW) Urine Appearance (CLEAR) Urine pH (5.0-9.0) Ur Specific [place] (1.005-1.030) Urine Protein (NEGATIVE) Urine Glucose (UA) (NEGATIVE) Urine Ketones (NEGATIVE) Urine Occult Blood (NEGATIVE) Urine Nitrite (NEGATIVE) Urine Bilirubin (NEGATIVE) Urine Urobilinogen (0.2-1.0) mg/dL Ur Leukocyte Esterase (NEGATIVE) Urine RBC /HPF Urine WBC (0-5/HPF) /HPF Ur Epithelial Cells (NOT SEEN) /HPF Amorphous Sediment (NOT SEEN) /HPF Urine Bacteria (0-FEW/HPF) /HPF Hyaline Casts (NOT SEEN) /LPF Urine Mucus (NOT SEEN) /LPF 01/05/19 Range/Units 14:58 WBC (5.0-10.0) 10^3/uL RBC (4.2-5.4) 10^6/uL Hgb (12.0-16.0) g/dL Hct (37.0-47.0) % MCV (80-100) fL MCH (27.0-34.0) pg MCHC (33.0-35.0) g/dL Plt Count (150-450) 10^3/uL Neut % (Auto) (42.2-75.2) % Lymph % (Auto) (20.5-50.1) % [place] % (Auto) (2-8) % Eos % (Auto) (1.0-3.0) % Baso % (Auto) (0.0-1.0) % PT (9.0-12.0) SEC INR (0.9-1.2) Sodium (135-145) mmol/L Potassium (3.6-5.0) mmol/L Chloride (101-111) mmol/L Carbon Dioxide (21.0-31.0) mmol/L Anion Gap BUN (7-18) mg/dL Creatinine (0.6-1.3) mg/dL Est Cr Clr Drug Dosing Estimated GFR (MDRD) BUN/Creatinine Ratio Glucose (74-105) mg/dL Calcium (8.4-10.2) mg/dl Total Bilirubin (0.2-1.0) mg/dL AST (10-42) IU/L ALT (10-60) IU/L Alkaline Phosphatase (42-121) IU/L B-Natriuretic Peptide (0-100) pg/ml Total Protein (6.7-8.2) g/dl Albumin (3.2-5.5) g/dl Globulin Albumin/Globulin Ratio Urine Color Yellow (YELLOW) Urine Appearance Clear (CLEAR) Urine pH 7.0 (5.0-9.0) Ur Specific [place] 1.010 (1.005-1.030) Urine Protein Negative (NEGATIVE) Urine Glucose (UA) Negative (NEGATIVE) Urine Ketones Negative (NEGATIVE) Urine Occult Blood Trace-intact H (NEGATIVE) Urine Nitrite Negative (NEGATIVE) Urine Bilirubin Negative (NEGATIVE) Urine Urobilinogen 0.2 (0.2-1.0) mg/dL Ur Leukocyte Esterase Negative (NEGATIVE) Urine RBC 0-5 /HPF Urine WBC Not seen (0-5/HPF) /HPF Ur Epithelial Cells Few (NOT SEEN) /HPF Amorphous Sediment Few (NOT SEEN) /HPF Urine Bacteria Few (0-FEW/HPF) /HPF Hyaline Casts Rare H (NOT SEEN) /LPF Urine Mucus Few H (NOT SEEN) /LPF Meds: Medications Generic Name Dose Route Start Last Admin Trade Name Freq PRN Reason Stop Dose Admin Acetaminophen 650 mg 01/05/19 17:08 01/05/19 17:48 Tylenol PO 650 mg Q4H PRN Administration Pain (Mild 1-3)/fever Albuterol/Ipratropium 3 ml 01/05/19 18:00 01/05/19 17:49 Duoneb 3.0-0.5 Mg/3 Ml NEB 3 ml Q6HRRT [facility] Administration Azithromycin 500 mg 01/05/19 17:15 01/05/19 17:48 Zithromax PO 500 mg DAILY [facility] Administration Ceftriaxone Sodium 1 gm 01/05/19 18:00 01/05/19 17:49 Rocephin IV 1 gm Q24H [facility] Administration Diltiazem HCl 360 mg 01/06/19 09:00 Cardizem Cd PO DAILY [facility] Sodium Chloride 1,000 mls @ 125 mls/hr 01/05/19 17:15 01/05/19 17:49 Normal Saline IV 125 mls/hr ASDIRECTED [facility] Administration Metoprolol Succinate 75 mg 01/06/19 09:00 Toprol Xl PO DAILY [facility] Multivitamins/Minerals 1 tab 01/06/19 09:00 Vitamins And Minerals PO DAILY [facility] Nystatin 0 gm 01/05/19 21:00 Nystop TOP BID [facility] Pantoprazole Sodium 40 mg 01/06/19 06:00 Protonix PO ACBREAKFAST [facility] Paroxetine HCl 30 mg 01/06/19 09:00 Paxil PO DAILY [facility] Warfarin Sodium 1 dose 01/05/19 17:45 Pharmacy To Dose - Warfarin .XX ASDIRECTED [facility] Discontinued Medications Generic Name Dose Route Start Last Admin Trade Name Albino PRN Reason Stop Dose Admin Cyanocobalamin 500 mcg 01/05/19 21:00 Vitamin B12 PO BEDTIME [facility] Nystatin 0 gm 01/05/19 18:15 01/05/19 18:38 Nystop TOP 01/05/19 18:16 1 applic ONETIME ONE Administration Ondansetron HCl 4 mg 01/05/19 16:01 01/05/19 16:11 Zofran IV 01/05/19 16:02 4 mg ONETIME ONE Administration Warfarin Sodium 5 mg 01/07/19 14:00 Coumadin PO [email or web address]@1400 [facility] Warfarin Sodium 7.5 mg 01/06/19 14:00 Coumadin PO MoWeFrSa@1400 [facility] - Radiology Interpretation Free Text/Narrative:: X-ray left foot: Alignment is normal. There is no fracture or evidence of stress insufficiency. The plantar arch is normal. There is enthesopathy at the calcaneal attachment of the Achilles tendon and plantar fascia. There are Monckeberg type vascular calcifications. See rad report. - Re-Assessments/Exams Free Text/Narrative Re-Assessment/Exam: 01/05/19 14:08 Added CBC, CMP and BNP due to shortness of breath. 01/05/19 16:00 WBC 18.5. H&H elevated. Neutrophils 80.4. Sodium 129. Creatinine 3.5. Last creatinine 2.2 on 10/11/17. Bilirubin 1.5 increased BNP 334. 01/05/19 19:29 Chest Xray neg; but concerns for leukocytosis and SOB. Departure - Departure Time of Disposition: 16:02 (Dr. Gaffney) Disposition: Admitted As Inpatient 68 Condition: Poor Clinical Impression: Hyponatremia, Leukocytosis, Cardiomegaly Renal failure Qualifiers: Renal failure chronicity: acute on chronic - Discharge Information *PRESCRIPTION DRUG MONITORING PROGRAM REVIEWED*: Not Applicable *COPY OF PRESCRIPTION DRUG MONITORING REPORT IN PATIENT MICHAEL: Not Applicable - My Orders Last 24 Hours: My Active Orders 01/05/19 12:40 Ankle Min 3V Lt [CR] Urgent Foot 2V Lt [CR] Urgent 01/05/19 15:09 Chest 1V Frontal [CR] Urgent - Assessment/Plan Last 24 Hours: My Active Orders 01/05/19 12:40 Ankle Min 3V Lt [CR] Urgent Foot 2V Lt [CR] Urgent 01/05/19 15:09 Chest 1V Frontal [CR] Urgent I have read and agree with the documentation that has been completed regarding this visit. By signing this record, I attest that the documentation was completed in my physical presence and is an accurate record of the encounter.
--- NOTE | 2019-01-05 20:44 | HP ---
CHIEF COMPLAINT: History of fall and generalized weakness. HISTORY OF PRESENT ILLNESS: The patient is an 88-year-old lady with multiple medical problems, was admitted through the emergency room because the patient fell at her own apartment and was not able to get up and so she called the ambulance and she was brought in to the emergency room. According to the patient, for the last 4 days she has been constipated but had a good bowel movement yesterday, but she mentioned she is just feeling weak and has a poor appetite and has been taking her medication regularly. She denies though any chest pain, orthopnea, PND, fever, chills, diarrhea, dysuria, nor any other complaints, but she mentioned that she has been coughing up some phlegm which is thick for the last 1 to 2 days. In the emergency room, she was worked up and she had an x-ray of the left foot, which came back negative for any fracture, but her blood workup was remarkable for 18,000 of leukocyte with left shift and creatinine and BUN were elevated and sodium and chloride were low. Because of this and history of fall and generalized weakness and leukocytosis, she was then admitted for further evaluation and management. PAST MEDICAL HISTORY: Remarkable for: 1. Paroxysmal atrial fibrillation. 2. COPD. 3. Morbid obesity. 4. Essential hypertension. 5. Hypokalemia. 6. Pedal edema. 7. Hyperuricemia. 8. Mood disorder. 9. Chronic kidney disease. 10.Gout. 11.CVA. HOME MEDICATIONS: 1. Allopurinol. 2. Diltiazem. 3. Calcitriol. 4. Warfarin. 5. Fosamax. 6. Lasix. 7. Metoprolol. 8. Protonix. 9. Paxil. 10.Simvastatin. 11.Spironolactone. 12.Potassium chloride. 13.Tylenol. 14.Tylenol PM. ALLERGIES: Ambien, aspirin, codeine, and oxycodone. FAMILY HISTORY: Noncontributory. SOCIAL HISTORY: Patient is , lives with her in their apartment. She is a nonsmoker, nonalcohol drinker. REVIEW OF SYSTEMS: As in HPI, the rest of the review of systems is negative. PHYSICAL EXAMINATION: General: The patient is alert and oriented, not in any acute distress, SHEENT: Skin turgor diminished. Mucous membranes dry. No JVD. No lymphadenopathy. Heart: Regular rate and rhythm. Normal S1 and S2. No gallops. No rubs. Lungs: Coarse breath sounds bilaterally, but no significant crackles, no wheezing. Abdomen: Obese, soft, nontender. Bowel sounds positive. Extremities: Negative for any significant pedal edema. No calf tenderness. LABORATORY DATA: CBC: WBC is 18.5, hemoglobin is 17.1, hematocrit is 48.7, platelet is 264, neutrophils is 80.4. Comp panel; sodium is 129, chloride of 85, BUN is 94, creatinine is 3.5, glucose is 152, calcium is 10.3, total bilirubin of 1.5. The rest of the panel unremarkable. BNP is 334. Urinalysis is unremarkable. Chest x-ray showed cardiomegaly, but no infiltrates or signs of vascular congestion. ADMITTING DIAGNOSES: 1. History of fall with contusion of the left foot. 2. Generalized weakness, most likely secondary to dehydration and hyponatremia and hypochloremia. 3. Leukocytosis with suspected pneumonia. 4. Paroxysmal atrial fibrillation. 5. Acute renal failure on chronic renal failure, most likely secondary to dehydration. 6. Dehydration. 7. History of gout. 8. History of cerebrovascular accident. TREATMENT PLAN: The patient is going to be admitted to General Medicine floor. She will be empirically started on IV antibiotics with Rocephin and Zithromax, and she will be given IV fluids for rehydration and this will be done cautiously and her diuretics will be held, and we will resume her Coumadin, diltiazem, and metoprolol, and the rest of the management as necessary. The patient is DNR/DNI as discussed with the patient and the family. [facility] /[id number]
[2019-01-05] MEDS ORDERED: Cyanocobalamin (Vitamin B12) 1,000 MCG Tab PO SCH (21:00)
[2019-01-05] MEDS: Nystatin Topical Powder 30 GM Bottle TOP SCH (21:55)
[2019-01-06] MEDS: Albuterol/Ipratropium 3.0-0.5 MG/3 ML Neb Soln NEB SCH ×4 (01:10→17:10)
[2019-01-06] MEDS: Acetaminophen 325 MG Tab PO PRN ×4 (01:16→21:27)
[2019-01-06] MEDS: Sodium Chloride 0.9% 1,000 ML IV SCH (01:56)
[2019-01-06] MEDS: Pantoprazole 40 MG Tab.CR PO SCH (05:54)
[2019-01-06 07:22] LABS: ANION GAP 18.9
[2019-01-06] MEDS ORDERED: Sodium Chloride 1 GM Tab PO ONE (08:03)
[2019-01-06] MEDS ORDERED: Potassium Chloride 10 MEQ Tab.ER PO ONE (08:18)
[2019-01-06] MEDS: Azithromycin 250 MG Tab PO SCH (08:36)
[2019-01-06] MEDS: PARoxetine 20 MG Tab PO SCH (08:37)
[2019-01-06] MEDS: Multivitamins, Therapeutic with Minerals Tab PO SCH (08:37)
[2019-01-06] MEDS: Metoprolol Succinate 50 MG Tab.ER PO SCH (08:40)
[2019-01-06] MEDS: Diltiazem 180 MG Cap.CD PO SCH (08:41)
[2019-01-06] MEDS: Nystatin Topical Powder 30 GM Bottle TOP SCH ×2 (08:44→21:27)
[2019-01-06] MEDS: Sodium Chloride 0.9% with KCl 1,000 ML IV SCH ×2 (08:45→23:14)
[2019-01-06] MEDS ORDERED: Warfarin 2.5 MG Tab PO SCH (14:00)
[2019-01-06] MEDS: cefTRIAXone 1 GM Vial IV SCH (17:10)
[2019-01-07] MEDS: Albuterol/Ipratropium 3.0-0.5 MG/3 ML Neb Soln NEB SCH ×4 (01:46→17:39)
[2019-01-07] MEDS: Pantoprazole 40 MG Tab.CR PO SCH (06:01)
[2019-01-07 06:53] LABS: ANION GAP 19.1
--- NOTE | 2019-01-07 07:30 | PN ---
DATE: 01/06/2019 SUBJECTIVE: The patient this morning is still complaining of feeling weak but slightly better than yesterday. So far, the patient has not had any significant cough or phlegm production and patient denies any chest pain or worsening of shortness of breath, abdominal pain nor any other complaints. LABORATORY DATA: Lab workup this morning, CBC; WBC is 14.5 (improving), hemoglobin is 15, hematocrit 42.8, platelet is 228. Chem-6; sodium is 128, potassium is 2.9, chloride is 89, and BUN is 91, creatinine is 3.1, glucose is 122 and the rest of the panel is unremarkable. OBJECTIVE: Vital Signs: Blood pressure is 113/66, pulse of 67, respirations 20, and temperature of 98.1. Heart: Regular rate and rhythm. Normal S1 and S2. No gallops. No rubs. Lungs: Have coarse breath sounds, but no significant crackles, no wheezing and breath sounds equal. Abdomen: Obese, soft, nontender. Bowel sounds positive. Extremities: Negative for any pedal edema. No calf tenderness. PLAN: We will continue with her present management. I am going to give potassium supplementation and we will also check magnesium and we will limit her free water intake to 800 mL a day and we will continue to monitor sodium and chloride. [facility] /[id number]
[2019-01-07] MEDS: PARoxetine 20 MG Tab PO SCH (10:10)
[2019-01-07] MEDS: Diltiazem 180 MG Cap.CD PO SCH (10:12)
[2019-01-07] MEDS: Multivitamins, Therapeutic with Minerals Tab PO SCH (10:12)
[2019-01-07] MEDS: Azithromycin 250 MG Tab PO SCH (10:13)
[2019-01-07] MEDS: Metoprolol Succinate 50 MG Tab.ER PO SCH (10:15)
[2019-01-07] MEDS: Nystatin Topical Powder 30 GM Bottle TOP SCH ×2 (10:17→20:59)
--- NOTE | 2019-01-07 11:42 | PCM.PN ---
- General Info Date of Service: 01/07/19 Subjective Update: The patient indicates that she feels weak. Weakness is generalized. Had a fall at home and was not able to get up by herself. Denies having any significant pain at this point. Denies shortness of breath. Denies significant cough. No fever documented overnight - Review of Systems General: Reports: Weakness, Malaise HEENT: Reports: No Symptoms Pulmonary: Reports: No Symptoms Cardiovascular: Reports: No Symptoms Gastrointestinal: Reports: No Symptoms Musculoskeletal: Reports: No Symptoms - Patient Data Vitals - Most Recent: Last Vital Signs Temp 37.1 C 01/07/19 07:00 Pulse 61 01/07/19 10:15 Resp 15 01/07/19 07:00 BP 126/47 L 01/07/19 10:15 Pulse Ox 94 L 01/07/19 07:22 Weight - Most Recent: 118.104 kg I&O - Last 24 Hours: Intake & Output 01/06/19 01/07/19 01/07/19 22:59 06:59 14:59 Intake Total 240 350 Output Total 400 400 Balance -160 -50 Lab Results Last 24 Hours: Laboratory Results - last 24 hr 01/07/19 01/07/19 01/07/19 Range/Units 06:13 06:13 06:13 WBC 12.5 H (5.0-10.0) 10^3/uL RBC 4.60 (4.2-5.4) 10^6/uL Hgb 15.0 (12.0-16.0) g/dL Hct 44.4 (37.0-47.0) % MCV 96.5 D (80-100) fL MCH 32.6 (27.0-34.0) pg MCHC 33.8 (33.0-35.0) g/dL Plt Count 221 (150-450) 10^3/uL Neut % (Auto) 77.8 H (42.2-75.2) % Lymph % (Auto) 12.8 L (20.5-50.1) % [place] % (Auto) 8.8 H (2-8) % Eos % (Auto) 0.4 L (1.0-3.0) % Baso % (Auto) 0.2 (0.0-1.0) % PT 20.4 H D (9.0-12.0) SEC INR 2.1 H (0.9-1.2) Sodium 135 (135-145) mmol/L Potassium 4.1 (3.6-5.0) mmol/L Chloride 97 L (101-111) mmol/L Carbon Dioxide 23.0 (21.0-31.0) mmol/L Anion Gap 19.1 BUN 78 H (7-18) mg/dL Creatinine 2.5 H (0.6-1.3) mg/dL Est Cr Clr Drug Dosing 14.54 mL/min Estimated GFR (MDRD) 18 Glucose 130 H (74-105) mg/dL Calcium 9.2 (8.4-10.2) mg/dl Joon Results Last 24 Hours: Microbiology 01/05/19 17:42 Aerobic Blood Culture - Preliminary Blood - Venous - Lab Draw NO GROWTH AFTER 1 DAY Anaerobic Blood Culture - Final 01/05/19 17:37 Aerobic Blood Culture - Preliminary Blood - Venous NO GROWTH AFTER 1 DAY Anaerobic Blood Culture - Preliminary NO GROWTH AFTER 1 DAY Med Orders - Current: Current Medications Acetaminophen (Tylenol) 650 mg PO Q4H PRN PRN Reason: Pain (Mild 1-3)/fever Last Admin: 01/06/19 21:27 Dose: 650 mg Albuterol/Ipratropium (Duoneb 3.0-0.5 Mg/3 Ml) 3 ml NEB Q6HRRT [facility] Last Admin: 01/07/19 07:20 Dose: 3 ml Azithromycin (Zithromax) 500 mg PO DAILY [facility] Last Admin: 01/07/19 10:13 Dose: 500 mg Ceftriaxone Sodium (Rocephin) 1 gm IV Q24H [facility] Last Admin: 01/06/19 17:10 Dose: 1 gm Diltiazem HCl (Cardizem Cd) 360 mg PO DAILY [facility] Last Admin: 01/07/19 10:12 Dose: 360 mg Potassium Chloride/Sodium Chloride (Normal Saline With 40 Meq Kcl) 1,000 mls @ 75 mls/hr IV ASDIRECTED [facility] Last Admin: 01/06/19 23:14 Dose: 75 mls/hr Metoprolol Succinate (Toprol Xl) 75 mg PO DAILY [facility] Last Admin: 01/07/19 10:15 Dose: 75 mg Multivitamins/Minerals (Vitamins And Minerals) 1 tab PO DAILY [facility] Last Admin: 01/07/19 10:12 Dose: 1 tab Nystatin (Nystop) 0 gm TOP BID [facility] Last Admin: 01/07/19 10:17 Dose: 1 applic Pantoprazole Sodium (Protonix) 40 mg PO ACBREAKFAST [facility] Last Admin: 01/07/19 06:01 Dose: 40 mg Paroxetine HCl (Paxil) 30 mg PO DAILY [facility] Last Admin: 01/07/19 10:10 Dose: 30 mg Warfarin Sodium (Pharmacy To Dose - Warfarin) 1 dose .XX ASDIRECTED [facility] Warfarin Sodium (Coumadin) 3 mg PO ONETIME ONE Stop: 01/07/19 14:01 Discontinued Medications Cyanocobalamin (Vitamin B12) 500 mcg PO BEDTIME [facility] Sodium Chloride (Normal Saline) 1,000 mls @ 75 mls/hr IV ASDIRECTED [facility] Last Infusion: 01/06/19 07:34 Dose: 75 mls/hr Nystatin (Nystop) 0 gm TOP ONETIME ONE Stop: 01/05/19 18:16 Last Admin: 01/05/19 18:38 Dose: 1 applic Ondansetron HCl (Zofran) 4 mg IV ONETIME ONE Stop: 01/05/19 16:02 Last Admin: 01/05/19 16:11 Dose: 4 mg Potassium Chloride (Klor-Con 10) 40 meq PO ONETIME ONE Stop: 01/06/19 08:19 Last Admin: 01/06/19 08:36 Dose: 40 meq Sodium Chloride (Sodium Chloride) 1 gm PO ONETIME ONE Stop: 01/06/19 08:04 Last Admin: 01/06/19 08:36 Dose: 1 gm Warfarin Sodium (Coumadin) 5 mg PO SuTuTh@1400 [facility] Warfarin Sodium (Coumadin) 7.5 mg PO MoWeFrSa@1400 [facility] - Exam General: Alert, Oriented, Cooperative Lungs: Clear to Auscultation, Normal Respiratory Effort Cardiovascular: Regular Rate, Regular Rhythm GI/Abdominal Exam: Normal Bowel Sounds, Soft, Non-Tender, No Organomegaly, No Distention, No Abnormal Bruit, No Mass, Pelvis Stable Extremities: Normal Inspection, Normal Range of Motion, Non-Tender, No Pedal Edema, Normal Capillary Refill - Problem List Review Problem List Initiated/Reviewed/Updated: Yes - Plan Plan:: Assessment/plan: #. Generalized weakness/fall The patient fell at home and was not able to it up by herself Has had previous admissions similar to this. Does know one placement in halfway facility Consult physical therapy Consult occupational therapy Encourage increased ambulation #. Acute on chronic renal failure Serum creatinine went up to 3.5 Gradually coming down Intravenous hydration Avoid nephrotoxic agents Obtain repeat basic metabolic panel #. Chronic anticoagulation/paroxysmal atrial fibrillation INR is therapeutic at 2.1 #. COPD Patient denies shortness of breath at this point #. Possible pneumonia Chest x-ray was said to have suggested pneumonia On intravenous antibiotics Continue the same
[2019-01-07] MEDS ORDERED: Acetaminophen 325 MG Tab PO PRN (11:52)
[2019-01-07] MEDS: Sodium Chloride 0.9% with KCl 1,000 ML IV SCH (12:10)
[2019-01-07] MEDS: Acetaminophen 500 MG Tab PO SCH ×2 (13:29→20:58)
[2019-01-07] MEDS ORDERED: Warfarin 5 MG Tab PO SCH (14:00)
[2019-01-07] MEDS: cefTRIAXone 1 GM Vial IV SCH (17:39)
[2019-01-08] MEDS: Albuterol/Ipratropium 3.0-0.5 MG/3 ML Neb Soln NEB SCH ×4 (00:51→17:35)
[2019-01-08] MEDS: Sodium Chloride 0.9% with KCl 1,000 ML IV SCH (01:34)
[2019-01-08] MEDS: Pantoprazole 40 MG Tab.CR PO SCH (06:27)
[2019-01-08 09:54] LABS: ANION GAP 14.9
[2019-01-08] MEDS: Diltiazem 180 MG Cap.CD PO SCH (10:10)
[2019-01-08] MEDS: Nystatin Topical Powder 30 GM Bottle TOP SCH ×2 (10:10→21:22)
[2019-01-08] MEDS: PARoxetine 20 MG Tab PO SCH (10:11)
[2019-01-08] MEDS: Metoprolol Succinate 50 MG Tab.ER PO SCH (10:14)
[2019-01-08] MEDS: Acetaminophen 500 MG Tab PO SCH ×2 (10:16→21:23)
[2019-01-08] MEDS: Multivitamins, Therapeutic with Minerals Tab PO SCH (10:16)
[2019-01-08] MEDS: Azithromycin 250 MG Tab PO SCH (10:17)
--- NOTE | 2019-01-08 10:57 | PCM.PN ---
- General Info Date of Service: 01/08/19 - Review of Systems General: Reports: Weakness, Malaise Pulmonary: Reports: Shortness of Breath Cardiovascular: Reports: Dyspnea on Exertion Gastrointestinal: Reports: No Symptoms Musculoskeletal: Reports: Leg Pain - Patient Data Vitals - Most Recent: Last Vital Signs Temp 36.5 C 01/08/19 07:00 Pulse 68 01/08/19 10:14 Resp 20 01/08/19 07:00 BP 150/68 H 01/08/19 10:14 Pulse Ox 97 01/08/19 07:00 Weight - Most Recent: 121.926 kg I&O - Last 24 Hours: Intake & Output 01/07/19 01/08/19 01/08/19 22:59 06:59 14:59 Intake Total 275 900 878 Output Total 300 Balance 275 900 578 Lab Results Last 24 Hours: Laboratory Results - last 24 hr 01/08/19 01/08/19 01/08/19 Range/Units 06:17 06:17 06:17 WBC 9.5 (5.0-10.0) 10^3/uL RBC 4.08 L (4.2-5.4) 10^6/uL Hgb 13.3 D (12.0-16.0) g/dL Hct 40.3 (37.0-47.0) % MCV 98.8 (80-100) fL MCH 32.6 (27.0-34.0) pg MCHC 33.0 (33.0-35.0) g/dL Plt Count 168 (150-450) 10^3/uL PT 16.2 H (9.0-12.0) SEC INR 1.6 H (0.9-1.2) Sodium 134 L (135-145) mmol/L Potassium 4.9 (3.6-5.0) mmol/L Chloride 102 (101-111) mmol/L Carbon Dioxide 22.0 (21.0-31.0) mmol/L Anion Gap 14.9 BUN 60 H (7-18) mg/dL Creatinine 1.8 H (0.6-1.3) mg/dL Est Cr Clr Drug Dosing 20.19 mL/min Estimated GFR (MDRD) 27 Glucose 102 (74-105) mg/dL Calcium 8.4 (8.4-10.2) mg/dl B-Natriuretic Peptide (0-100) pg/ml 01/08/19 Range/Units 06:17 WBC (5.0-10.0) 10^3/uL RBC (4.2-5.4) 10^6/uL Hgb (12.0-16.0) g/dL Hct (37.0-47.0) % MCV (80-100) fL MCH (27.0-34.0) pg MCHC (33.0-35.0) g/dL Plt Count (150-450) 10^3/uL PT (9.0-12.0) SEC INR (0.9-1.2) Sodium (135-145) mmol/L Potassium (3.6-5.0) mmol/L Chloride (101-111) mmol/L Carbon Dioxide (21.0-31.0) mmol/L Anion Gap BUN (7-18) mg/dL Creatinine (0.6-1.3) mg/dL Est Cr Clr Drug Dosing mL/min Estimated GFR (MDRD) Glucose (74-105) mg/dL Calcium (8.4-10.2) mg/dl B-Natriuretic Peptide 335 H (0-100) pg/ml Joon Results Last 24 Hours: Microbiology 01/05/19 17:42 Aerobic Blood Culture - Preliminary Blood - Venous - Lab Draw NO GROWTH AFTER 2 DAYS Anaerobic Blood Culture - Final 01/05/19 17:37 Aerobic Blood Culture - Preliminary Blood - Venous NO GROWTH AFTER 2 DAYS Anaerobic Blood Culture - Preliminary NO GROWTH AFTER 2 DAYS Med Orders - Current: Current Medications Acetaminophen (Tylenol) 650 mg PO Q6HR PRN PRN Reason: Pain (Mild 1-3)/fever Acetaminophen (Tylenol Extra Strength) 1,000 mg PO Q12HR [facility] Last Admin: 01/08/19 10:16 Dose: 1,000 mg Albuterol/Ipratropium (Duoneb 3.0-0.5 Mg/3 Ml) 3 ml NEB Q6HRRT [facility] Last Admin: 01/08/19 07:31 Dose: 3 ml Azithromycin (Zithromax) 500 mg PO DAILY [facility] Last Admin: 01/08/19 10:17 Dose: 500 mg Ceftriaxone Sodium (Rocephin) 1 gm IV Q24H [facility] Last Admin: 01/07/19 17:39 Dose: 1 gm Diltiazem HCl (Cardizem Cd) 360 mg PO DAILY [facility] Last Admin: 01/08/19 10:10 Dose: 360 mg Metoprolol Succinate (Toprol Xl) 75 mg PO DAILY [facility] Last Admin: 01/08/19 10:14 Dose: 75 mg Multivitamins/Minerals (Vitamins And Minerals) 1 tab PO DAILY [facility] Last Admin: 01/08/19 10:16 Dose: 1 tab Nystatin (Nystop) 0 gm TOP BID [facility] Last Admin: 01/08/19 10:10 Dose: 1 applic Pantoprazole Sodium (Protonix) 40 mg PO ACBREAKFAST [facility] Last Admin: 01/08/19 06:27 Dose: Not Given Paroxetine HCl (Paxil) 30 mg PO DAILY [facility] Last Admin: 01/08/19 10:11 Dose: 30 mg Warfarin Sodium (Pharmacy To Dose - Warfarin) 1 dose .XX ASDIRECTED [facility] Warfarin Sodium (Coumadin) 5 mg PO ONETIME ONE Stop: 01/08/19 14:01 Discontinued Medications Acetaminophen (Tylenol) 650 mg PO Q4H PRN PRN Reason: Pain (Mild 1-3)/fever Last Admin: 01/06/19 21:27 Dose: 650 mg Cyanocobalamin (Vitamin B12) 500 mcg PO BEDTIME [facility] Sodium Chloride (Normal Saline) 1,000 mls @ 75 mls/hr IV ASDIRECTED [facility] Last Infusion: 01/06/19 07:34 Dose: 75 mls/hr Potassium Chloride/Sodium Chloride (Normal Saline With 40 Meq Kcl) 1,000 mls @ 75 mls/hr IV ASDIRECTED [facility] Last Admin: 01/08/19 01:34 Dose: 75 mls/hr Nystatin (Nystop) 0 gm TOP ONETIME ONE Stop: 01/05/19 18:16 Last Admin: 01/05/19 18:38 Dose: 1 applic Ondansetron HCl (Zofran) 4 mg IV ONETIME ONE Stop: 01/05/19 16:02 Last Admin: 01/05/19 16:11 Dose: 4 mg Potassium Chloride (Klor-Con 10) 40 meq PO ONETIME ONE Stop: 01/06/19 08:19 Last Admin: 01/06/19 08:36 Dose: 40 meq Sodium Chloride (Sodium Chloride) 1 gm PO ONETIME ONE Stop: 01/06/19 08:04 Last Admin: 01/06/19 08:36 Dose: 1 gm Warfarin Sodium (Coumadin) 5 mg PO SuTuTh@1400 [facility] Warfarin Sodium (Coumadin) 7.5 mg PO MoWeFrSa@1400 [facility] Warfarin Sodium (Coumadin) 3 mg PO ONETIME ONE Stop: 01/07/19 14:01 Last Admin: 01/07/19 13:33 Dose: 3 mg - Exam General: Alert, Oriented Neck: Supple Lungs: Decreased Breath Sounds Cardiovascular: Regular Rate, Regular Rhythm Extremities: Normal Inspection, Normal Range of Motion, Non-Tender, No Pedal Edema, Normal Capillary Refill - Problem List Review Problem List Initiated/Reviewed/Updated: Yes - My Orders Last 24 Hours: My Active Orders 01/07/19 11:43 OT Evaluation and Treatment [CONS] Routine 01/07/19 11:52 Acetaminophen [Tylenol] 650 mg PO Q6HR PRN 01/07/19 12:00 Acetaminophen [Tylenol Extra Strength] 1,000 mg PO Q12HR 01/08/19 14:00 Furosemide [Lasix] 80 mg PO 1400 Warfarin [Coumadin] 5 mg PO ONETIME ONE 01/09/19 08:00 Furosemide [Lasix] 40 mg PO 0800 - Plan Plan:: Assessment/plan: #. Generalized weakness/fall The patient fell at home and was not able to it up by herself Has had previous admissions similar to this. Does know one placement in [place] [facility] Continue physical therapy for another day #. Acute on chronic renal failure Serum creatinine went up to 3.5 Renal function has improved Restart patient on Lasix #. Chronic anticoagulation/paroxysmal atrial fibrillation INR is subtherapeutic Adjust Coumadin #. COPD does have shortness of breath especially with activity #. Possible pneumonia Chest x-ray was said to have suggested pneumonia On intravenous antibiotics Continue the same
[2019-01-08] MEDS ORDERED: Furosemide 80 MG Tab PO SCH (14:00)
[2019-01-08] MEDS ORDERED: Warfarin 5 MG Tab PO ONE (14:00)
[2019-01-08] MEDS: cefTRIAXone 1 GM Vial IV SCH (17:33)
[2019-01-09] MEDS: Albuterol/Ipratropium 3.0-0.5 MG/3 ML Neb Soln NEB SCH ×2 (02:52→06:34)
[2019-01-09] MEDS: Pantoprazole 40 MG Tab.CR PO SCH (05:41)
[2019-01-09] MEDS ORDERED: Furosemide 40 MG Tab PO SCH (08:00)
[2019-01-09 08:32] VITALS: BP 130/58
[2019-01-09] MEDS: Azithromycin 250 MG Tab PO SCH (09:50)
[2019-01-09] MEDS: Acetaminophen 500 MG Tab PO SCH (09:50)
[2019-01-09] MEDS: Metoprolol Succinate 50 MG Tab.ER PO SCH (09:52)
[2019-01-09] MEDS: Multivitamins, Therapeutic with Minerals Tab PO SCH (09:52)
[2019-01-09] MEDS: PARoxetine 20 MG Tab PO SCH (09:52)
[2019-01-09] MEDS: Nystatin Topical Powder 30 GM Bottle TOP SCH (10:03)
[2019-01-09] MEDS: Diltiazem 180 MG Cap.CD PO SCH (10:03)
--- NOTE | 2019-01-09 11:35 | PCM.DCSUM1 ---
Discharge Summary - Hospital Course Free Text/Narrative:: Patient was admitted for weakness/fall and acute renal on chronic renal failure. Cr was up to 3.5. She was given IVF. Cr came down to 1.8. PT/OT worked with patient. She was started on Azithromycin and ceftriaxone for possible pneumonia. Patient was restarted on her home doses of Lasix on the day before discharge. She was discharged home to follow up with her PCP. Diagnosis: Stroke: No - Discharge Data Discharge Date: 01/09/19 Discharge Disposition: Home, Self-Care 01 Condition: Good - Patient Summary/Data Consults: Consultations 01/06/19 08:07 Consult to Physical Therapy [PT Evaluation and Treatment] [CONS] Routine 01/07/19 11:43 OT Evaluation and Treatment [CONS] Routine - Patient Instructions Diet: Heart Healthy Diet, Low Sodium, Renal Diet Fluid Restriction: 1500 mL - Discharge Plan *PRESCRIPTION DRUG MONITORING PROGRAM REVIEWED*: Not Applicable *COPY OF PRESCRIPTION DRUG MONITORING REPORT IN PATIENT MICHAEL: Not Applicable Prescriptions/Med Rec: Azithromycin [Zithromax] 250 mg PO DAILY #3 tablet Home Medications: Home Meds Acetaminophen [Tylenol] 650 mg PO Q6HR PRN 10/01/15 [History] Alendronate Sodium [Fosamax] 70 mg PO WEEKLY 10/01/15 [History] Allopurinol [Zyloprim] 300 mg PO DAILY 10/01/15 [History] Calcitriol [Rocaltrol] 0.25 mcg PO .5DAYS/WK 10/01/15 [History] Diltiazem HCl [Cardizem Cd] 360 mg PO DAILY 10/01/15 [History] Simvastatin [Zocor] 10 mg PO BEDTIME 10/01/15 [History] Spironolactone [Aldactone] 25 mg PO DAILY 10/01/15 [History] PARoxetine [Paxil] 30 mg PO DAILY #30 tablet 11/09/15 [Rx] Pantoprazole [ProTONIX] 40 mg PO ACBREAKFAST #30 tab.cr 11/09/15 [Rx] Warfarin [Coumadin] 5 mg PO .6DAYS 06/06/16 [History] Acetaminophen/Diphenhydramine [Tylenol Pm Ex-Strength Caplet] 1 each PO BEDTIME PRN 06/07/16 [History] Furosemide [Lasix] 80 mg PO 1400 02/25/17 [History] Potassium Chloride [Klor-Con 10] 10 meq PO DAILY 02/25/17 [History] Furosemide [Lasix] 40 mg PO 0800 01/05/19 [History] Metoprolol Succinate [Toprol XL 50mg] 75 mg PO DAILY 01/05/19 [History] Warfarin [Coumadin] 2.5 mg PO .WED 01/05/19 [History] Azithromycin [Zithromax] 250 mg PO DAILY #3 tablet 01/09/19 [Rx] Patient Handouts: Acute Kidney Injury, Adult, Dehydration, Adult, [id number] , Azithromycin tablets Referrals: Florencia Vizcarra PA [Physician Program Supervisor] - - Discharge Summary/Plan Comment DC Time >30 min.: Yes - General Info Date of Service: 01/09/19 Admission Dx/Problem (Free Text: Weakness Subjective Update: The patient indicates that she feels weak. Weakness is generalized. Had a fall at home and was not able to get up by herself. Denies having any significant pain at this point. Denies shortness of breath. Denies significant cough. No fever documented overnight - Review of Systems General: Reports: No Symptoms HEENT: Reports: No Symptoms Pulmonary: Reports: No Symptoms Cardiovascular: Reports: No Symptoms Gastrointestinal: Reports: No Symptoms Genitourinary: Reports: No Symptoms Musculoskeletal: Reports: No Symptoms Skin: Reports: No Symptoms Neurological: Reports: No Symptoms Psychiatric: Reports: No Symptoms - Patient Data Vitals - Most Recent: Last Vital Signs Temp 97.8 F 01/09/19 08:31 Pulse 78 01/09/19 09:52 Resp 20 01/09/19 08:31 BP 130/58 L 01/09/19 09:52 Pulse Ox 95 01/09/19 08:31 Weight - Most Recent: 269 lb 12.8 oz I&O - Last 24 hours: Intake & Output 01/08/19 01/09/19 01/09/19 22:59 06:59 14:59 Intake Total 350 50 450 Output Total 200 Balance 350 -150 450 Lab Results - Last 24 hrs: Laboratory Results - last 24 hr 01/09/19 Range/Units 06:25 PT 16.0 H (9.0-12.0) SEC INR 1.6 H (0.9-1.2) MIKO Results - Last 24 hrs: Microbiology 01/05/19 17:42 Aerobic Blood Culture - Preliminary Blood - Venous - Lab Draw NO GROWTH AFTER 3 DAYS Anaerobic Blood Culture - Final 01/05/19 17:37 Aerobic Blood Culture - Preliminary Blood - Venous NO GROWTH AFTER 3 DAYS Anaerobic Blood Culture - Preliminary NO GROWTH AFTER 3 DAYS Med Orders - Current: Current Medications Acetaminophen (Tylenol) 650 mg PO Q6HR PRN PRN Reason: Pain (Mild 1-3)/fever Acetaminophen (Tylenol Extra Strength) 1,000 mg PO Q12HR [facility] Last Admin: 01/09/19 09:50 Dose: 1,000 mg Albuterol/Ipratropium (Duoneb 3.0-0.5 Mg/3 Ml) 3 ml NEB Q6HRRT [facility] Last Admin: 01/09/19 06:34 Dose: 3 ml Azithromycin (Zithromax) 500 mg PO DAILY [facility] Last Admin: 01/09/19 09:50 Dose: 500 mg Ceftriaxone Sodium (Rocephin) 1 gm IV Q24H [facility] Last Admin: 01/08/19 17:33 Dose: 1 gm Diltiazem HCl (Cardizem Cd) 360 mg PO DAILY [facility] Last Admin: 01/09/19 10:03 Dose: 360 mg Furosemide (Lasix) 40 mg PO 0800 [facility] Last Admin: 01/09/19 09:51 Dose: 40 mg Furosemide (Lasix) 80 mg PO 1400 [facility] Last Admin: 01/08/19 14:13 Dose: 80 mg Metoprolol Succinate (Toprol Xl) 75 mg PO DAILY [facility] Last Admin: 01/09/19 09:52 Dose: 75 mg Multivitamins/Minerals (Vitamins And Minerals) 1 tab PO DAILY [facility] Last Admin: 01/09/19 09:52 Dose: 1 tab Nystatin (Nystop) 0 gm TOP BID [facility] Last Admin: 01/09/19 10:03 Dose: 1 applic Pantoprazole Sodium (Protonix) 40 mg PO ACBREAKFAST [facility] Last Admin: 01/09/19 05:41 Dose: 40 mg Paroxetine HCl (Paxil) 30 mg PO DAILY [facility] Last Admin: 01/09/19 09:52 Dose: 30 mg Warfarin Sodium (Pharmacy To Dose - Warfarin) 1 dose .XX ASDIRECTED [facility] Warfarin Sodium (Coumadin) 5 mg PO ONETIME ONE Stop: 01/09/19 14:01 Discontinued Medications Acetaminophen (Tylenol) 650 mg PO Q4H PRN PRN Reason: Pain (Mild 1-3)/fever Last Admin: 01/06/19 21:27 Dose: 650 mg Cyanocobalamin (Vitamin B12) 500 mcg PO BEDTIME [facility] Sodium Chloride (Normal Saline) 1,000 mls @ 75 mls/hr IV ASDIRECTED [facility] Last Infusion: 01/06/19 07:34 Dose: 75 mls/hr Potassium Chloride/Sodium Chloride (Normal Saline With 40 Meq Kcl) 1,000 mls @ 75 mls/hr IV ASDIRECTED [facility] Last Admin: 01/08/19 01:34 Dose: 75 mls/hr Nystatin (Nystop) 0 gm TOP ONETIME ONE Stop: 01/05/19 18:16 Last Admin: 01/05/19 18:38 Dose: 1 applic Ondansetron HCl (Zofran) 4 mg IV ONETIME ONE Stop: 01/05/19 16:02 Last Admin: 01/05/19 16:11 Dose: 4 mg Potassium Chloride (Klor-Con 10) 40 meq PO ONETIME ONE Stop: 01/06/19 08:19 Last Admin: 01/06/19 08:36 Dose: 40 meq Sodium Chloride (Sodium Chloride) 1 gm PO ONETIME ONE Stop: 01/06/19 08:04 Last Admin: 01/06/19 08:36 Dose: 1 gm Warfarin Sodium (Coumadin) 5 mg PO SuTuTh@1400 [facility] Warfarin Sodium (Coumadin) 7.5 mg PO MoWeFrSa@1400 [facility] Warfarin Sodium (Coumadin) 3 mg PO ONETIME ONE Stop: 01/07/19 14:01 Last Admin: 01/07/19 13:33 Dose: 3 mg Warfarin Sodium (Coumadin) 5 mg PO ONETIME ONE Stop: 01/08/19 14:01 Last Admin: 01/08/19 14:12 Dose: 5 mg - Exam General: Reports: Alert, Oriented HEENT: Reports: Pupils Equal, Pupils Reactive, EOMI, Mucous Membr. Moist/[place] Neck: Reports: Supple Lungs: Reports: Clear to Auscultation, Normal Respiratory Effort Cardiovascular: Reports: Regular Rate, Regular Rhythm GI/Abdominal Exam: Normal Bowel Sounds, Soft, Non-Tender, No Distention Extremities: Normal Inspection, Non-Tender, No Pedal Edema Skin: Reports: Warm, Dry, Intact Neurological: Reports: No New Focal Deficit Psy/Mental Status: Reports: Alert, Normal Affect, Normal Mood
[2019-01-09] MEDS ORDERED: Warfarin 5 MG Tab PO ONE (14:00)
== END 2019-01-09 15:30 | disposition home or self-care (01) | DRG 682 ==
LOC: DL.ED 12:35 → DL.MS 16:06 → UNDOADMIN 16:06 → DL.MS 17:08 → EEVIPCON 17:08
PROVIDERS: ADMIT Internal Medicine; ATTEND Internal Medicine
DX: N17.9 Acute kidney failure, unspecified (principal); J18.9 Pneumonia, unspecified organism; J44.0 Chronic obstructive pulmonary disease with (acute) lower respiratory infection; E87.1 Hypo-osmolality and hyponatremia; Z68.41 Body mass index [BMI] 40.0-44.9, adult; Z66 Do not resuscitate; H54.7 Unspecified visual loss; I48.0 Paroxysmal atrial fibrillation; E66.01 Morbid (severe) obesity due to excess calories; I10 Essential (primary) hypertension; I12.9 Hypertensive chronic kidney disease with stage 1 through stage 4 chronic kidney disease, or unspecified chronic kidney disease; I48.91 Unspecified atrial fibrillation; M10.9 Gout, unspecified; F39 Unspecified mood [affective] disorder; E86.0 Dehydration; E87.8 Other disorders of electrolyte and fluid balance, not elsewhere classified; I50.9 Heart failure, unspecified; E78.00 Pure hypercholesterolemia, unspecified; I13.0 Hypertensive heart and chronic kidney disease with heart failure and stage 1 through stage 4 chronic kidney disease, or unspecified chronic kidney disease; J44.9 Chronic obstructive pulmonary disease, unspecified; G89.29 Other chronic pain; K21.9 Gastro-esophageal reflux disease without esophagitis; R32 Unspecified urinary incontinence; N18.9 Chronic kidney disease, unspecified; M19.90 Unspecified osteoarthritis, unspecified site; R51 Headache; F41.9 Anxiety disorder, unspecified; Z86.73 Personal history of transient ischemic attack (TIA), and cerebral infarction without residual deficits; F32.9 Major depressive disorder, single episode, unspecified; E66.9 Obesity, unspecified; Z88.6 Allergy status to analgesic agent; Z88.5 Allergy status to narcotic agent; Z88.8 Allergy status to other drugs, medicaments and biological substances; Z79.899 Other long term (current) drug therapy; Z79.01 Long term (current) use of anticoagulants; Z90.49 Acquired absence of other specified parts of digestive tract; Z96.649 Presence of unspecified artificial hip joint; Z96.659 Presence of unspecified artificial knee joint; D72.829 Elevated white blood cell count, unspecified; R06.02 Shortness of breath; I51.7 Cardiomegaly; M79.605 Pain in left leg; K59.00 Constipation, unspecified; R11.0 Nausea; R53.1 Weakness; W01.0XXA Fall on same level from slipping, tripping and stumbling without subsequent striking against object, initial encounter
CPT/HCPCS: 36415; 71045; 73610; 73620; 80053; 81001; 83880; 85025; 85610; 96374; 99285; J2405; 80048; 83735; 85027; 87040; 94010; 94640; 94667; 97161-GP; 97165-GO; A9270-GY; J0696; J3480; J7030; J7620-GY

== ENCOUNTER 2020-10-01 14:21 | Emergency (ER) | payer MEDICARE, OTHER, MEDICAID ==
[2020-10-01 14:56] VITALS: BP 118/53; PULSE 62
--- NOTE | 2020-10-01 15:10 | EDM.PDOC ---
ED HPI GENERAL MEDICAL PROBLEM - General Chief Complaint: Respiratory Problem Stated Complaint: AMBULANCE Time Seen by Provider: 10/01/20 15:09 Source of Information: Reports: Patient, EMS, EMS Notes Reviewed, RN, RN Notes Reviewed History Limitations: Reports: No Limitations - History of Present Illness INITIAL COMMENTS - FREE TEXT/NARRATIVE: Patient is an 89-year-old female who presents to ER per [place] [facility] with complaint of increased shortness of breath. Patient states the increase shortness of breath has been with activity over the past week and worse [place]. Patient lives at [facility]. States she has an inhaler she uses which she states does help. Denies using a nebulizer. Patient states she is unsure of any health problems. States she uses a walker or a wheelchair to get around at the [facility]. Patient denies any pain, chest pain, fever, chills, nausea, vomiting, diarrhea, leg edema. States she wears her RADHA hose on a daily basis and has had not had any excess swelling. Onset: Gradual - Related Data Allergies Allergy/AdvReac Type Severity Reaction Status Date / Time aspirin Allergy Nose Bleeds Verified 10/01/20 14:51 codeine Allergy Airway Verified 10/01/20 14:51 Tightness oxycodone Allergy Confusion Verified 10/01/20 14:51 zolpidem tartrate Allergy Other Verified 10/01/20 14:51 [From Anupama] Home Meds: Home Meds Acetaminophen [Tylenol] 650 mg PO Q6HR PRN 10/01/15 [History] Alendronate Sodium [Fosamax] 70 mg PO WEEKLY 10/01/15 [History] Allopurinol [Zyloprim] 300 mg PO DAILY 10/01/15 [History] Calcitriol [Rocaltrol] 0.25 mcg PO .5DAYS/WK 10/01/15 [History] Simvastatin [Zocor] 10 mg PO BEDTIME 10/01/15 [History] Spironolactone [Aldactone] 25 mg PO DAILY 10/01/15 [History] dilTIAZem HCL [Cardizem Cd] 360 mg PO DAILY 10/01/15 [History] PARoxetine [Paxil] 30 mg PO DAILY #30 tablet 11/09/15 [Rx] Pantoprazole [ProTONIX] 40 mg PO ACBREAKFAST #30 tab.cr 11/09/15 [Rx] Warfarin [Coumadin] 5 mg PO .SUNMONWEDFRI 06/06/16 [History] Potassium Chloride [Klor-Con 10] 10 meq PO DAILY 02/25/17 [History] Furosemide [Lasix] 40 mg PO BID 01/05/19 [History] Metoprolol Succinate [Toprol XL 50mg] 50 mg PO DAILY 01/05/19 [History] Warfarin [Coumadin] 2.5 mg PO .TUESTHURSSAT 01/05/19 [History] Albuterol Sulfate [Proair Respiclick] 2 puff INH Q4H PRN 10/01/20 [History] Past Medical History HEENT History: Reports: Impaired Vision Other HEENT History: wears glasses. Cardiovascular History: Reports: Afib, Heart Failure, High Cholesterol, Hypertension, SOB on Exertion Respiratory History: Reports: COPD Gastrointestinal History: Reports: Diverticulosis, GERD, Hemorrhoids Genitourinary History: Reports: Chronic Renal Insuffiency, Urinary Incontinence [employer] History: Reports: Musculoskeletal History: Reports: Arthritis, Osteoarthritis Neurological History: Reports: Headaches, Chronic Psychiatric History: Reports: Anxiety, Depression Endocrine/Metabolic History: Reports: Obesity/BMI 30+ Hematologic History: Reports: None Immunologic History: Reports: None Oncologic (Cancer) History: Reports: None Dermatologic History: Reports: None, Cellulitis, Other (See Below) Other Dermatologic History: sores to lower legs, lower abd,groin and upper arms - Infectious Disease History Infectious Disease History: Reports: Chicken Pox, Measles, Mumps, Shingles Other Infectious Disease History: had "Yellow jaundice" at age 15 - Past Surgical History Head Surgeries/Procedures: Reports: None Cardiovascular Surgical History: Reports: Vascular Surgery Other Cardiovascular Surgeries/Procedures: varicose vein stripped years ago bilaterally GI Surgical History: Reports: Appendectomy, Cholecystectomy, EGD Other GI Surgeries/Procedures: hemorrhoidectomy Female Surgical History: Reports: D&C Neurological Surgical History: Reports: None Musculoskeletal Surgical History: Reports: Hip Replacement, Knee Replacement Social & Family History - Family History Family Medical History: No Pertinent Family History HEENT: Reports: None Cardiac: Reports: None Respiratory: Reports: None GI: Reports: Diverticulitis Musculoskeletal: Reports: RA Neurological: Reports: Seizure Psychiatric: Reports: None Immunologic: Reports: None Dermatologic: Reports: None Oncologic: Reports: None - Tobacco Use Tobacco Use Status *Q: Never Tobacco User Second Hand Smoke Exposure: No - Caffeine Use Caffeine Use: Reports: Coffee - Recreational Drug Use Recreational Drug Use: No - Living Situation & Occupation Living situation: Reports: , Alone Occupation: Retired ED ROS GENERAL - Review of Systems Review Of Systems: Comprehensive ROS is negative, except as noted in HPI. ED EXAM, GENERAL - Physical Exam Exam: See Below Exam Limited By: No Limitations General Appearance: Alert, WD/WN, Mild Distress Eye Exam: Bilateral Eye: EOMI, Normal Inspection Ears: Normal External Exam, Hearing Grossly Normal Nose: Normal Inspection Throat/Mouth: Normal Inspection, Normal Voice, No Airway Compromise Head: Atraumatic, Normocephalic Neck: Normal Inspection, Supple, Non-Tender, Full Range of Motion Respiratory/Chest: No Respiratory Distress, No Accessory Muscle Use, Chest Non- Tender, Decreased Breath Sounds, Crackles (bases bilaterally) Cardiovascular: Normal Peripheral Pulses, No Edema, Bradycardia, Systolic Murmur Peripheral Pulses: 2+: Radial (L), Radial (R) GI/Abdominal: Normal Bowel Sounds, Soft, Non-Tender (Female) Exam: Deferred Rectal (Female) Exam: Deferred Back Exam: Normal Inspection, Decreased Range of Motion Extremities: Normal Inspection, Non-Tender, No Pedal Edema, Normal Capillary Refill, Limited Range of Motion Neurological: Alert, Oriented, CN II-XII Intact, Normal Cognition, Normal Gait, Normal Reflexes, No Motor/Sensory Deficits Psychiatric: Normal Affect, Normal Mood Skin Exam: Warm, Dry, Intact, Normal Color, No Rash Lymphatic: No Adenopathy Course - Vital Signs Last Recorded V/S: Last Vital Signs Temp 98.4 F 10/01/20 14:51 Pulse 62 10/01/20 14:51 Resp 14 10/01/20 14:51 BP 118/53 L 10/01/20 14:51 Pulse Ox 89 L 10/01/20 14:51 - Orders/Labs/Meds Orders: Active Orders 24 hr Category Date Time Status UA W/MIKO RFLX IF INDICATED [URIN] Stat Lab 10/01/20 14:49 Ordered Labs: Laboratory Tests 10/01/20 10/01/20 Range/Units 15:03 15:03 WBC 10.7 H (5.0-10.0) 10^3/uL RBC 4.54 (4.2-5.4) 10^6/uL Hgb 15.3 D (12.0-16.0) g/dL Hct 46.0 (37.0-47.0) % MCV 101.3 H (80-100) fL MCH 33.7 (27.0-34.0) pg MCHC 33.3 (33.0-35.0) g/dL Plt Count 195 (150-450) 10^3/uL Neut % (Auto) 76.3 H (42.2-75.2) % Lymph % (Auto) 13.2 L (20.5-50.1) % Jackson % (Auto) 9.2 H (2-8) % Eos % (Auto) 1.0 (1.0-3.0) % Baso % (Auto) 0.3 (0.0-1.0) % Sodium 138 (136-145) mmol/L Potassium 3.8 (3.5-5.1) mmol/L Chloride 97 L (98-107) mmol/L Carbon Dioxide 32 (21-32) mmol/L Anion Gap 12.8 (7-13) mEq/L BUN 19 H (7-18) mg/dL Creatinine 1.66 H (0.55-1.02) mg/dL Est Cr Clr Drug Dosing 21.93 mL/min Estimated GFR (MDRD) 29 BUN/Creatinine Ratio 11.4 (No establ ref range) Glucose 99 (74-99) mg/dL Calcium 9.5 (8.5-10.1) mg/dL Total Bilirubin 1.2 H (0.2-1.0) mg/dL AST 13 L (15-37) U/L ALT 10 L (14-59) U/L Alkaline Phosphatase 68 (46-116) U/L Troponin I 0.108 H* (0.000-0.056) ng/mL B-Natriuretic Peptide 286 H (0-100) pg/ml Total Protein 7.3 (6.4-8.2) g/dL Albumin 3.4 (3.4-5.0) g/dL Globulin 3.9 Albumin/Globulin Ratio 0.9 - Radiology Interpretation Free Text/Narrative:: Chest xray: See rad report - Re-Assessments/Exams Free Text/Narrative Re-Assessment/Exam: 10/01/20 16:27 Discussed patient case with Dr. Law at [facility] who agreed to accept the patient for transfer to [facility] Departure - Departure Time of Disposition: 16:27 Disposition: DC/Tfer to Acute Hospital 02 Condition: Good Clinical Impression: Elevated troponin, NSTEMI (non-ST elevated myocardial infarction) CHF exacerbation Qualifiers: Heart failure type: unspecified Qualified Code(s): I50.9 - Heart failure, unspecified - Discharge Information *PRESCRIPTION DRUG MONITORING PROGRAM REVIEWED*: No *COPY OF PRESCRIPTION DRUG MONITORING REPORT IN PATIENT MICHAEL: No Forms: ED Department Discharge, Interfacility Transfer [facility] Sepsis Event Note (ED) - Evaluation Sepsis Screening Result: No Definite Risk - Focused Exam Vital Signs: Vital Signs Temp Pulse Resp BP Pulse Ox 10/01/20 14:51 98.4 F 62 14 118/53 L 89 L - My Orders Last 24 Hours: My Active Orders 10/01/20 14:49 UA W/MIKO RFLX IF INDICATED [URIN] Stat - Assessment/Plan Last 24 Hours: My Active Orders 10/01/20 14:49 UA W/MIKO RFLX IF INDICATED [URIN] Stat
[2020-10-01 15:29] LABS: ANION GAP 12.8 mEq/L (7-13)
--- NOTE | 2020-10-01 16:51 | CR ---
EXAMINATION: Chest 2V SEX: Female AGE: 89 years CLINICAL HISTORY: 89-year-old female shortness of breath. History of "CHF and COPD". Patient reported on 05 Jan 2019 to have "cardiac enlargement without vascular congestion". Interpretation: Abnormal. 1. Large dependent new subpulmonic pleural fluid accumulation (effusions) both lung bases. 2. Chronic cardiomegaly. No current pulmonary vascular congestion, upper lobe cephalization or alveolar edema. 3. No new lung mass but cannot exclude underlying lower lobe atelectasis or even infiltrate. 4. No pneumothorax, pneumomediastinum or midline shifts. 5. Old healed fracture deformities posterior lateral aspect right fourth rib. CONCLUSION: Bilateral large dependent new PLEURAL EFFUSIONS. CARDIOMEGALY.
== END 2020-10-01 17:03 ==
LOC: DL.ED 14:21
DX: I21.4 Non-ST elevation (NSTEMI) myocardial infarction (principal); I13.0 Hypertensive heart and chronic kidney disease with heart failure and stage 1 through stage 4 chronic kidney disease, or unspecified chronic kidney disease; N18.9 Chronic kidney disease, unspecified; I50.9 Heart failure, unspecified; R79.89 Other specified abnormal findings of blood chemistry; I48.91 Unspecified atrial fibrillation; J44.9 Chronic obstructive pulmonary disease, unspecified; K21.9 Gastro-esophageal reflux disease without esophagitis; M19.90 Unspecified osteoarthritis, unspecified site; E66.9 Obesity, unspecified; Z68.41 Body mass index [BMI] 40.0-44.9, adult; Z88.8 Allergy status to other drugs, medicaments and biological substances; Z88.5 Allergy status to narcotic agent; Z79.899 Other long term (current) drug therapy
CPT/HCPCS: 36415; 71046; 80053; 83880; 84484; 85025; 93005; 99285; 99285-25

== ENCOUNTER 2020-11-02 12:45 | Inpatient (IN) | payer MEDICARE, OTHER, MEDICAID ==
[2020-11-02] MEDS ORDERED: Acetaminophen 325 MG Tab PO PRN (14:29)
[2020-11-02] MEDS ORDERED: Warfarin 2.5 MG Tab PO ONE (14:53)
[2020-11-02] MEDS: Furosemide 40 MG/4 ML VIAL IVPUSH SCH (15:07)
[2020-11-02] MEDS ORDERED: Albuterol 6.7 GM Inhaler INH PRN (15:23)
[2020-11-02] MEDS: Calcitriol 0.25 MCG Cap PO SCH (15:24)
--- NOTE | 2020-11-02 16:10 | PCM.HP ---
H&P History of Present Illness - General Date of Service: 11/02/20 Admit Problem/Dx: Admission Diagnosis/Problem Admission Diagnosis/Problem Diastolic congestive heart failure - History of Present Illness Initial Comments - Free Text/Narative: 89F w/ pmh afib on coumadin, gout, CKD3, HT, obesity, diastolic CHF w/ b/l pleural effusions, [facility] 2/2 diastolic CHF exacerbation, d/c on 10/01 p/w dyspnea. Pt was seen in clinic last week w/ same c/o and lasix was increased 40 bid >>> 40/60. She returns today still c/o dyspnea particularly on exertion. There has not been worsening LE edema or weight gain. She has chronic orthopnea. CXR done in clinic shows persistent pulmonary edema although the b/l pleural effusions are decreased. She was referred for an admission by the PCP for IV diuresis. - Related Data Allergies/Adverse Reactions: Allergies Allergy/AdvReac Type Severity Reaction Status Date / Time aspirin Allergy Nose Bleeds Verified 10/01/20 14:51 codeine Allergy Airway Verified 10/01/20 14:51 Tightness oxycodone Allergy Confusion Verified 10/01/20 14:51 zolpidem tartrate Allergy Other Verified 10/01/20 14:51 [From Anupama] Home Medications: Home Meds Acetaminophen [Tylenol] 650 mg PO Q6HR PRN 10/01/15 [History] Alendronate Sodium [Fosamax] 70 mg PO WEEKLY 10/01/15 [History] Simvastatin [Zocor] 10 mg PO BEDTIME 10/01/15 [History] Spironolactone [Aldactone] 25 mg PO DAILY 10/01/15 [History] dilTIAZem HCL [Cardizem Cd] 360 mg PO DAILY 10/01/15 [History] PARoxetine [Paxil] 30 mg PO DAILY #30 tablet 11/09/15 [Rx] Pantoprazole [ProTONIX] 40 mg PO ACBREAKFAST #30 tab.cr 11/09/15 [Rx] Warfarin [Coumadin] 5 mg PO .MON.THUR 06/06/16 [History] Potassium Chloride [Klor-Con 10] 10 meq PO DAILY 02/25/17 [History] Furosemide [Lasix] 40 mg PO DAILY 01/05/19 [History] Metoprolol Succinate [Toprol XL 50mg] 75 mg PO DAILY 01/05/19 [History] Acetaminophen/Diphenhydramine [Tylenol Pm Ex-Strength Caplet] 2 each PO BEDTIME 11/02/20 [History] Albuterol Sulfate [Albuterol Sulfate Hfa] 2 puff INH Q4H PRN 11/02/20 [History] Allopurinol [Zyloprim] 150 mg PO DAILY 11/02/20 [History] Calcitriol 0.5 mcg PO .UR.F 11/02/20 [History] Furosemide [Lasix] 60 mg PO DAILY 11/02/20 [History] Nystatin [Nystop] 60 gm TP 11/02/20 [History] Warfarin Sodium [Jantoven] 2.5 mg PO .11/02/20 [History] Past Medical History HEENT History: Reports: Impaired Vision Other HEENT History: wears glasses. Cardiovascular History: Reports: Afib, Heart Failure, High Cholesterol, Hypertension, SOB on Exertion Respiratory History: Reports: COPD Gastrointestinal History: Reports: Diverticulosis, GERD, Hemorrhoids Genitourinary History: Reports: Chronic Renal Insuffiency, Urinary Incontinence AGING ROOM HAND History: Reports: Musculoskeletal History: Reports: Arthritis, Gout, Osteoarthritis, Osteoporosis Neurological History: Reports: Headaches, Chronic Psychiatric History: Reports: Anxiety, Depression Endocrine/Metabolic History: Reports: Obesity/BMI 30+ Hematologic History: Reports: None Immunologic History: Reports: None Oncologic (Cancer) History: Reports: None Dermatologic History: Reports: Cellulitis, Other (See Below) Other Dermatologic History: sores to lower legs, lower abd,groin and upper arms - Infectious Disease History Infectious Disease History: Reports: Chicken Pox, Measles, Mumps, Shingles Other Infectious Disease History: had "Yellow jaundice" at age 15 - Past Surgical History Head Surgeries/Procedures: Reports: None Cardiovascular Surgical History: Reports: Vascular Surgery Other Cardiovascular Surgeries/Procedures: varicose vein stripped years ago bilaterally GI Surgical History: Reports: Appendectomy, Cholecystectomy, EGD Other GI Surgeries/Procedures: hemorrhoidectomy Female Surgical History: Reports: D&C Neurological Surgical History: Reports: None Musculoskeletal Surgical History: Reports: Hip Replacement, Knee Replacement Social & Family History - Family History Family Medical History: No Pertinent Family History HEENT: Reports: None Cardiac: Reports: None Respiratory: Reports: None GI: Reports: Diverticulitis Musculoskeletal: Reports: RA Neurological: Reports: Seizure Psychiatric: Reports: None Immunologic: Reports: None Dermatologic: Reports: None Oncologic: Reports: None - Caffeine Use Caffeine Use: Reports: Coffee - Recreational Drug Use Recreational Drug Use: No - Living Situation & Occupation Living situation: Reports: , Alone Occupation: Retired H&P Review of Systems - Review of Systems: Review Of Systems: See Below General: Reports: Malaise. Denies: Fever, Chills, Diaphoresis HEENT: Denies: Headaches Pulmonary: Reports: Shortness of Breath. Denies: Wheezing Cardiovascular: Reports: Dyspnea on Exertion, Orthopnea. Denies: Chest Pain, Palpitations Gastrointestinal: Denies: Abdominal Pain, Diarrhea Genitourinary: Denies: Dysuria Musculoskeletal: Denies: Neck Pain Skin: Denies: Jaundice Psychiatric: Denies: Confusion Neurological: Denies: Dizziness Hematologic/Lymphatic: Denies: Easy Bleeding Immunologic: Denies: Anaphylaxis Exam - Exam Exam: See Below - Vital Signs Vital Signs: Last Vital Signs Temp 97.8 F 11/02/20 13:27 Pulse 49 L 11/02/20 13:27 Resp 22 H 11/02/20 13:27 BP 129/43 L 11/02/20 13:27 Pulse Ox 94 L 11/02/20 13:27 Weight: 243 lb 9.6 oz - Exam Quality Assessment: No: Supplemental Oxygen General: Alert, Oriented, Cooperative HEENT: Conjunctiva Clear Neck: Supple Lungs: Decreased Breath Sounds (b/l bases) Cardiovascular: Regular Rate, Regular Rhythm GI/Abdominal Exam: Normal Bowel Sounds, Soft, Non-Tender, No Distention Back Exam: Normal Inspection Extremities: Other (trace LE edema) Skin: Warm, Dry Neurological: Normal Speech Neuro Extensive - Motor, Sensory, Reflexes: No: Tremor Psychiatric: Alert, Normal Affect, Normal Mood - Patient Data Lab Results Last 24 hrs: Laboratory Results - last 24 hr 11/02/20 Range/Units 13:50 SARS-CoV-2 RNA (JENNIFER) Negative (NEGATIVE) Problem List Initiated/Reviewed/Updated: No Orders Last 24hrs: Active Orders 24 hr Category Date Time Status Patient Status [ADT] Routine ADT 11/02/20 13:00 Active Patient Status [ADT] Routine ADT 11/02/20 14:30 Active Oxygen Therapy [RC] .PRN Care 11/02/20 14:30 Active Up With Assistance [RC] ASDIRECTED Care 11/02/20 14:29 Active VTE/DVT Education [RC] PER UNIT ROUTINE Care 11/02/20 14:30 Active Vital Signs [RC] Q4H Care 11/02/20 14:30 Active Heart Healthy Diet [DIET] Diet 11/02/20 Dinner Active BASIC METABOLIC PANEL,BMP [CHEM] AM Lab 11/03/20 05:11 Ordered INR,PT,PROTHROMBIN TIME [COAG] AM Lab 11/03/20 05:11 Ordered Acetaminophen [TylenoL] Med 11/02/20 14:29 Active 650 mg PO Q4H PRN Acetaminophen [Tylenol Extra Strength] Med 11/02/20 21:00 Active 1,000 mg PO BEDTIME Albuterol [Proventil HFA] Med 11/02/20 15:23 Active 0 gm INH Q4H PRN Diltiazem [Cardizem CD] Med 11/03/20 09:00 Active 360 mg PO DAILY Furosemide [Lasix] Med 11/02/20 14:53 Active 40 mg IVPUSH 0600,1400 Metoprolol Succinate [Toprol XL] Med 11/03/20 09:00 Active 75 mg PO DAILY PARoxetine [Paxil] Med 11/03/20 09:00 Active 30 mg PO DAILY Pantoprazole [ProTONIX] Med 11/03/20 06:00 Active 40 mg PO ACBREAKFAST Potassium Chloride [Klor-Con 10] Med 11/03/20 08:00 Active 10 meq PO DAILY@0800 Simvastatin [Zocor] Med 11/02/20 21:00 Active 10 mg PO BEDTIME Spironolactone [Aldactone] Med 11/03/20 09:00 Active 25 mg PO DAILY allopurinoL [Zyloprim] Med 11/03/20 09:00 Active 150 mg PO DAILY calcitrioL [Rocaltrol] Med 11/02/20 15:15 Active 0.5 mcg PO MoTuWeThFr@0900 diphenhydrAMINE [Benadryl] Med 11/02/20 21:00 Active 50 mg PO BEDTIME Resuscitation Status Routine Resus Stat 11/02/20 14:29 Ordered Medication Orders Acetaminophen (Acetaminophen 325 Mg Tab) 650 mg PO Q4H PRN PRN Reason: Pain (Mild 1-3)/fever Acetaminophen (Acetaminophen 500 Mg Tab) 1,000 mg PO BEDTIME YURI Albuterol (Albuterol 6.7 Gm Inhaler) 0 gm INH Q4H PRN PRN Reason: Shortness of Breath Allopurinol (Allopurinol 300 Mg Tab) 150 mg PO DAILY [facility] Calcitriol (Calcitriol 0.25 Mcg Cap) 0.5 mcg PO MoTuWeThFr@0900 [facility] Last Admin: 11/02/20 15:24 Dose: Not Given Documented by: DERICK Diltiazem HCl (Diltiazem 120 Mg Cap.Cd) 360 mg PO DAILY [facility] Diphenhydramine HCl (Diphenhydramine 25 Mg Tab) 50 mg PO BEDTIME [facility] Furosemide (Furosemide 40 Mg/4 Ml Vial) 40 mg IVPUSH 0600,1400 [facility] Last Admin: 11/02/20 15:07 Dose: 40 mg Documented by: DERICK Metoprolol Succinate (Metoprolol Succinate 50 Mg Tab.Er) 75 mg PO DAILY [facility] Pantoprazole Sodium (Pantoprazole 40 Mg Tab.Cr) 40 mg PO ACBREAKFAST [facility] Paroxetine HCl (Paroxetine 20 Mg Tab) 30 mg PO DAILY [facility] Potassium Chloride (Potassium Chloride 10 Meq Tab.Er) 10 meq PO DAILY@0800 [facility] Simvastatin (Simvastatin 10 Mg Tab) 10 mg PO BEDTIME [facility] Spironolactone (Spironolactone 25 Mg Tab) 25 mg PO DAILY [facility] Assessment/Plan Comment:: #dyspnea on exertion 2/2 diastolic CHF exacerbation - pt desaturates w/ ambulation but doesnt become grossly hypoxic - the lowest she drops is 100% >>> 91% on room air but is symptomatic - will initiate gentle diuresis w/ 40 mg lasix IV BID - alternatively symptoms may be an anginal equivalent - pt has made it abundantly clear in the past she does not wish to undergo a cath - will consider long acting nitrate on d/c #afib - c/w cardizem, metoprolol and dose coumadin 2.5 today #gout / CKD3 / HT - c/w home meds PPX - on coumadin Full code
[2020-11-02] MEDS: diphenhydrAMINE 25 MG Tab PO SCH (20:25)
[2020-11-02] MEDS: Simvastatin 10 MG Tab PO SCH (20:25)
[2020-11-02] MEDS: Acetaminophen 500 MG Tab PO SCH (20:25)
[2020-11-02] MEDS: Nystatin Crm 15 GM Tube TOP SCH (20:38)
[2020-11-03] MEDS: Pantoprazole 40 MG Tab.CR PO SCH (05:05)
[2020-11-03 06:19] LABS: ANION GAP 11.5 mEq/L (7-13)
[2020-11-03] MEDS: Furosemide 40 MG/4 ML VIAL IVPUSH SCH ×2 (06:25→13:35)
[2020-11-03] MEDS: Metoprolol Succinate 50 MG Tab.ER PO SCH (09:00)
[2020-11-03] MEDS: PARoxetine 20 MG Tab PO SCH (09:01)
[2020-11-03] MEDS: Diltiazem 120 MG Cap.CD PO SCH (09:02)
[2020-11-03] MEDS: Calcitriol 0.25 MCG Cap PO SCH (09:03)
[2020-11-03] MEDS: Spironolactone 25 MG Tab PO SCH (09:03)
[2020-11-03] MEDS: Allopurinol 300 MG Tab PO SCH (09:03)
[2020-11-03] MEDS: Potassium Chloride 10 MEQ Tab.ER PO SCH (09:04)
[2020-11-03] MEDS: Nystatin Crm 15 GM Tube TOP SCH ×4 (12:47→21:10)
[2020-11-03] MEDS ORDERED: Warfarin 2.5 MG Tab PO ONE (14:00)
--- NOTE | 2020-11-03 21:04 | PCM.PN ---
- General Info Date of Service: 11/03/20 Admission Dx/Problem (Free Text): Clinically unchanged. Still YOUNG and 'uncomfortable. Improved in pm. - Patient Data Vitals - Most Recent: Last Vital Signs Temp 98.3 F 11/03/20 16:00 Pulse 52 L 11/03/20 16:00 Resp 20 11/03/20 16:00 BP 119/47 L 11/03/20 16:00 Pulse Ox 95 11/03/20 16:00 Weight - Most Recent: 240 lb 9.6 oz I&O - Last 24 Hours: Intake & Output 11/03/20 11/03/20 11/03/20 06:59 14:59 22:59 Intake Total 500 468 250 Balance 500 468 250 Lab Results Last 24 Hours: Laboratory Results - last 24 hr 11/03/20 11/03/20 Range/Units 05:48 05:48 PT 22.4 H D (9.0-12.0) SEC INR 2.3 H (0.9-1.2) Sodium 142 (136-145) mmol/L Potassium 3.5 (3.5-5.1) mmol/L Chloride 101 (98-107) mmol/L Carbon Dioxide 33 H (21-32) mmol/L Anion Gap 11.5 (7-13) mEq/L BUN 36 H (7-18) mg/dL Creatinine 1.67 H (0.55-1.02) mg/dL Est Cr Clr Drug Dosing 21.80 mL/min Estimated GFR (MDRD) 29 Glucose 100 H (74-99) mg/dL Calcium 9.4 (8.5-10.1) mg/dL Med Orders - Current: Current Medications Acetaminophen (Acetaminophen 325 Mg Tab) 650 mg PO Q4H PRN PRN Reason: Pain (Mild 1-3)/fever Acetaminophen (Acetaminophen 500 Mg Tab) 1,000 mg PO BEDTIME [facility] Last Admin: 11/02/20 20:25 Dose: 1,000 mg Documented by: Albuterol (Albuterol 6.7 Gm Inhaler) 0 gm INH Q4H PRN PRN Reason: Shortness of Breath Allopurinol (Allopurinol 300 Mg Tab) 150 mg PO DAILY [facility] Last Admin: 11/03/20 09:03 Dose: 150 mg Documented by: Calcitriol (Calcitriol 0.25 Mcg Cap) 0.5 mcg PO MoTuWeThFr@0900 [facility] Last Admin: 11/03/20 09:03 Dose: 0.5 mcg Documented by: Diltiazem HCl (Diltiazem 120 Mg Cap.Cd) 360 mg PO DAILY [facility] Last Admin: 11/03/20 09:02 Dose: 360 mg Documented by: Diphenhydramine HCl (Diphenhydramine 25 Mg Tab) 50 mg PO BEDTIME [facility] Last Admin: 11/02/20 20:25 Dose: 50 mg Documented by: Furosemide (Furosemide 40 Mg/4 Ml Vial) 40 mg IVPUSH 0600,1400 [facility] Last Admin: 11/03/20 13:35 Dose: 40 mg Documented by: Metoprolol Succinate (Metoprolol Succinate 50 Mg Tab.Er) 75 mg PO DAILY [facility] Last Admin: 11/03/20 09:00 Dose: 75 mg Documented by: Nystatin (Nystatin Crm 15 Gm Tube) 0 gm TOP QID [facility] Last Admin: 11/03/20 18:18 Dose: 1 applic Documented by: Pantoprazole Sodium (Pantoprazole 40 Mg Tab.Cr) 40 mg PO ACBREAKFAST [facility] Last Admin: 11/03/20 05:05 Dose: 40 mg Documented by: Paroxetine HCl (Paroxetine 20 Mg Tab) 30 mg PO DAILY [facility] Last Admin: 11/03/20 09:01 Dose: 30 mg Documented by: Potassium Chloride (Potassium Chloride 10 Meq Tab.Er) 10 meq PO DAILY@0800 [facility] Last Admin: 11/03/20 09:04 Dose: 10 meq Documented by: Simvastatin (Simvastatin 10 Mg Tab) 10 mg PO BEDTIME [facility] Last Admin: 11/02/20 20:25 Dose: 10 mg Documented by: Spironolactone (Spironolactone 25 Mg Tab) 25 mg PO DAILY [facility] Last Admin: 11/03/20 09:03 Dose: 25 mg Documented by: Discontinued Medications Warfarin Sodium (Warfarin 2.5 Mg Tab) 2.5 mg PO ONETIME ONE Stop: 11/02/20 14:54 Last Admin: 11/02/20 15:07 Dose: 2.5 mg Documented by: Warfarin Sodium (Warfarin 2.5 Mg Tab) 2.5 mg PO ONETIME ONE Stop: 11/03/20 14:01 Last Admin: 11/03/20 13:35 Dose: 2.5 mg Documented by: - Exam Quality Assessment: No: Supplemental Oxygen (at rest) General: Alert, Oriented, Cooperative HEENT: Pupils Equal Neck: Supple Lungs: Clear to Auscultation, Normal Respiratory Effort, Decreased Breath Sounds Cardiovascular: Regular Rate, Irregular Rhythm GI/Abdominal Exam: Normal Bowel Sounds, Soft, Non-Tender, No Distention Extremities: Other (obese ext, abrasion/skin tear left popliteal space) Skin: Warm Neurological: No New Focal Deficit Psy/Mental Status: Alert, Normal Affect, Normal Mood - Patient Data Lab Results Last 24 hrs: Laboratory Results - last 24 hr 11/03/20 11/03/20 Range/Units 05:48 05:48 PT 22.4 H D (9.0-12.0) SEC INR 2.3 H (0.9-1.2) Sodium 142 (136-145) mmol/L Potassium 3.5 (3.5-5.1) mmol/L Chloride 101 (98-107) mmol/L Carbon Dioxide 33 H (21-32) mmol/L Anion Gap 11.5 (7-13) mEq/L BUN 36 H (7-18) mg/dL Creatinine 1.67 H (0.55-1.02) mg/dL Est Cr Clr Drug Dosing 21.80 mL/min Estimated GFR (MDRD) 29 Glucose 100 H (74-99) mg/dL Calcium 9.4 (8.5-10.1) mg/dL Result Diagrams: 11/03/20 05:48 Sepsis Event Note - Evaluation Sepsis Screening Result: No Definite Risk - Focused Exam Vital Signs: Vital Signs Temp Pulse Resp BP Pulse Ox 11/03/20 16:00 98.3 F 52 L 20 119/47 L 95 11/03/20 12:00 98.2 F 63 20 114/57 L 94 L - Problem List Review Problem List Initiated/Reviewed/Updated: No - My Orders Last 24 Hours: My Active Orders 11/02/20 21:00 Acetaminophen [Tylenol Extra Strength] 1,000 mg PO BEDTIME Nystatin [Nystatin Crm] See Dose Instructions TOP QID Simvastatin [Zocor] 10 mg PO BEDTIME diphenhydrAMINE [Benadryl] 50 mg PO BEDTIME 11/03/20 06:00 Pantoprazole [ProTONIX] 40 mg PO ACBREAKFAST 11/03/20 08:00 Potassium Chloride [Klor-Con 10] 10 meq PO DAILY@0800 11/03/20 09:00 Diltiazem [Cardizem CD] 360 mg PO DAILY Metoprolol Succinate [Toprol XL] 75 mg PO DAILY PARoxetine [Paxil] 30 mg PO DAILY Spironolactone [Aldactone] 25 mg PO DAILY allopurinoL [Zyloprim] 150 mg PO DAILY 11/04/20 05:11 INR,PT,PROTHROMBIN TIME [COAG] AM - Plan Plan:: #dyspnea on exertion 2/2 diastolic CHF exacerbation - c/w lasix 40 mg IV bid - repeat CXR and chem in am #afib - c/w cardizem, metoprolol and dose coumadin 2.5 today #gout / CKD3 / HT - c/w home meds PPX - on coumadin Full code
[2020-11-03] MEDS: diphenhydrAMINE 25 MG Tab PO SCH (21:06)
[2020-11-03] MEDS: Simvastatin 10 MG Tab PO SCH (21:06)
[2020-11-03] MEDS: Acetaminophen 500 MG Tab PO SCH (21:06)
[2020-11-04] MEDS: Pantoprazole 40 MG Tab.CR PO SCH (06:38)
[2020-11-04] MEDS: Furosemide 40 MG/4 ML VIAL IVPUSH SCH ×3 (06:39→14:08)
--- NOTE | 2020-11-04 07:26 | CR ---
PROCEDURE INFORMATION: Exam: XR Chest Exam date and time: 11/04/2020 6:48 AM Age: 89 years old Clinical indication: Cardiovascular condition or disease; Congestive heart failure (chf); Cause unknown; Additional info: F/up chf/effusions TECHNIQUE: Imaging protocol: XR of the chest Views: 1 view. COMPARISON: CR Chest 1V Frontal 01/05/2019 3:16 PM FINDINGS: Limitations: The study is technically limited by the patient's body habitus. Lungs: Poor inspiration. Decreased lung volumes. Bibasilar airspace disease which could be due to pneumonia, aspiration, or atelectasis. No pulmonary vascular congestion or perihilar edema. Pleural spaces: Small bilateral pleural effusions. No pneumothorax. Heart/Mediastinum: The cardiac silhouette is partially silhouetted out but the heart is felt to be enlarged. Bones/joints: Old, healed right 4th rib fracture. IMPRESSION: 1. Bibasilar airspace disease. Consider pneumonia, aspiration, or atelectasis. 2. Small pleural effusions. 3. Cardiomegaly.
[2020-11-04] MEDS ORDERED: Warfarin 5 MG Tab PO ONE (07:38)
[2020-11-04] MEDS: Allopurinol 300 MG Tab PO SCH (09:05)
[2020-11-04] MEDS: Diltiazem 120 MG Cap.CD PO SCH (09:05)
[2020-11-04] MEDS: Calcitriol 0.25 MCG Cap PO SCH (09:05)
[2020-11-04] MEDS: Metoprolol Succinate 50 MG Tab.ER PO SCH (09:06)
[2020-11-04] MEDS: Spironolactone 25 MG Tab PO SCH (09:07)
[2020-11-04] MEDS: PARoxetine 20 MG Tab PO SCH (09:07)
[2020-11-04] MEDS: Potassium Chloride 10 MEQ Tab.ER PO SCH (09:07)
[2020-11-04] MEDS: Nystatin Crm 15 GM Tube TOP SCH ×2 (11:52→13:44)
[2020-11-04 13:11] VITALS: BP 136/59; PULSE 58
--- NOTE | 2020-11-04 13:31 | PCM.DCSUM1 ---
Discharge Summary - Hospital Course Free Text/Narrative:: 89F w/ pmh afib on coumadin, gout, CKD3, HT, obesity, diastolic CHF w/ b/l pleural effusions, recent admit to On license of [facility] for acute hypoxic respiratory failure 2/ diastolic CHF exacerbation, d/c on 10/01 p/w dyspnea. Pt was seen in clinic last week w/ same c/o and lasix was increased 40 bid >>> 40/60. She returns today still c/o dyspnea particularly on exertion. There has not been worsening LE edema or weight gain. She has chronic orthopnea. CXR done in clinic shows persistent pulmonary edema although the b/l pleural effusions are decreased. She was referred for an admission by the PCP for IV diuresis. Pt received lasix 40 IV BID for over two days. Her dyspnea improved. She initially desaturated to 88% w/ ambulation but at conclusion of hospital stay she was >92%. She remains w/ some congestion and pleural effusion but they are decreasing. In her case very aggressive diuresis may not be indicated since she is now minimally symptomatic. Upon discharge her lasix was further increased to 60 mg twice daily. She should follow up with PCP next week to continue to evaluate volume status. - Discharge Data Discharge Date: 11/04/20 Discharge Disposition: Home, Self-Care 01 Condition: Good - Referral to Home Health Primary Care Physician: Florencia Vizcarra NP - Patient Instructions Diet: Low Sodium - Discharge Plan *PRESCRIPTION DRUG MONITORING PROGRAM REVIEWED*: Not Applicable *COPY OF PRESCRIPTION DRUG MONITORING REPORT IN PATIENT MICHAEL: Not Applicable Prescriptions/Med Rec: Furosemide 60 mg PO BID #90 tablet Home Medications: Home Meds Acetaminophen [Tylenol] 650 mg PO Q6HR PRN 10/01/15 [History] Alendronate Sodium [Fosamax] 70 mg PO WEEKLY 10/01/15 [History] Simvastatin [Zocor] 10 mg PO BEDTIME 10/01/15 [History] Spironolactone [Aldactone] 25 mg PO DAILY 10/01/15 [History] dilTIAZem HCL [Cardizem Cd] 360 mg PO DAILY 10/01/15 [History] PARoxetine [Paxil] 30 mg PO DAILY #30 tablet 11/09/15 [Rx] Pantoprazole [ProTONIX] 40 mg PO ACBREAKFAST #30 tab.cr 11/09/15 [Rx] Warfarin [Coumadin] 5 mg PO .06/06/16 [History] Potassium Chloride [Klor-Con 10] 10 meq PO DAILY 02/25/17 [History] Metoprolol Succinate [Toprol XL 50mg] 75 mg PO DAILY 01/05/19 [History] Albuterol Sulfate [Albuterol Sulfate Hfa] 2 puff INH Q4H PRN 11/02/20 [History] Allopurinol [Zyloprim] 150 mg PO DAILY 11/02/20 [History] Calcitriol 0.5 mcg PO ..F 11/02/20 [History] Nystatin [Nystop] 60 gm TP 11/02/20 [History] Warfarin Sodium [Jantoven] 2.5 mg PO .SUN.SA 11/02/20 [History] Furosemide 60 mg PO BID #90 tablet 11/04/20 [Rx] Patient Handouts: Heart Failure, Self Care, [id number] Referrals: Florencia Vizcarra NP [Primary Care Provider] - - Discharge Summary/Plan Comment DC Time >30 min.: Yes (35 min) - Patient Data Vitals - Most Recent: Last Vital Signs Temp 96.8 F L 11/04/20 12:00 Pulse 58 L 11/04/20 12:00 Resp 20 11/04/20 12:00 BP 136/59 L 11/04/20 12:00 Pulse Ox 95 11/04/20 12:00 Weight - Most Recent: 240 lb 9.6 oz I&O - Last 24 hours: Intake & Output 11/03/20 11/04/20 11/04/20 22:59 06:59 14:59 Intake Total 450 200 280 Balance 450 200 280 Lab Results - Last 24 hrs: Laboratory Results - last 24 hr 11/04/20 11/04/20 11/04/20 Range/Units 05:47 05:47 11:30 PT 21.3 H (9.0-12.0) SEC INR 2.1 H (0.9-1.2) Sodium 142 (136-145) mmol/L Potassium 4.0 (3.5-5.1) mmol/L Chloride 103 (98-107) mmol/L Carbon Dioxide 34 H (21-32) mmol/L Anion Gap 9.0 (7-13) mEq/L BUN 32 H (7-18) mg/dL Creatinine 1.59 H (0.55-1.02) mg/dL Est Cr Clr Drug Dosing 22.89 mL/min Estimated GFR (MDRD) 31 Glucose 92 (74-99) mg/dL Calcium 9.4 (8.5-10.1) mg/dL SARS CoV-2 RNA Rapid JENNIFER Negative (NEGATIVE) Med Orders - Current: Current Medications Acetaminophen (Acetaminophen 325 Mg Tab) 650 mg PO Q4H PRN PRN Reason: Pain (Mild 1-3)/fever Acetaminophen (Acetaminophen 500 Mg Tab) 1,000 mg PO BEDTIME [facility] Last Admin: 11/03/20 21:06 Dose: 1,000 mg Documented by: Albuterol (Albuterol 6.7 Gm Inhaler) 0 gm INH Q4H PRN PRN Reason: Shortness of Breath Allopurinol (Allopurinol 300 Mg Tab) 150 mg PO DAILY [facility] Last Admin: 11/04/20 09:05 Dose: 150 mg Documented by: Calcitriol (Calcitriol 0.25 Mcg Cap) 0.5 mcg PO MoTuWeThFr@0900 [facility] Last Admin: 11/04/20 09:05 Dose: 0.5 mcg Documented by: Diltiazem HCl (Diltiazem 120 Mg Cap.Cd) 360 mg PO DAILY [facility] Last Admin: 11/04/20 09:05 Dose: 360 mg Documented by: Diphenhydramine HCl (Diphenhydramine 25 Mg Tab) 50 mg PO BEDTIME [facility] Last Admin: 11/03/20 21:06 Dose: 50 mg Documented by: Furosemide (Furosemide 40 Mg/4 Ml Vial) 40 mg IVPUSH 0600,1400 [facility] Last Admin: 11/04/20 11:53 Dose: 40 mg Documented by: Metoprolol Succinate (Metoprolol Succinate 50 Mg Tab.Er) 75 mg PO DAILY [facility] Last Admin: 11/04/20 09:06 Dose: 75 mg Documented by: Nystatin (Nystatin Crm 15 Gm Tube) 0 gm TOP QID [facility] Last Admin: 11/04/20 11:52 Dose: Not Given Documented by: Pantoprazole Sodium (Pantoprazole 40 Mg Tab.Cr) 40 mg PO ACBREAKFAST [facility] Last Admin: 11/04/20 06:38 Dose: 40 mg Documented by: Paroxetine HCl (Paroxetine 20 Mg Tab) 30 mg PO DAILY [facility] Last Admin: 11/04/20 09:07 Dose: 30 mg Documented by: Potassium Chloride (Potassium Chloride 10 Meq Tab.Er) 10 meq PO DAILY@0800 [facility] Last Admin: 11/04/20 09:07 Dose: 10 meq Documented by: Simvastatin (Simvastatin 10 Mg Tab) 10 mg PO BEDTIME [facility] Last Admin: 11/03/20 21:06 Dose: 10 mg Documented by: Spironolactone (Spironolactone 25 Mg Tab) 25 mg PO DAILY [facility] Last Admin: 11/04/20 09:07 Dose: 25 mg Documented by: Discontinued Medications Warfarin Sodium (Warfarin 2.5 Mg Tab) 2.5 mg PO ONETIME ONE Stop: 11/02/20 14:54 Last Admin: 11/02/20 15:07 Dose: 2.5 mg Documented by: Warfarin Sodium (Warfarin 2.5 Mg Tab) 2.5 mg PO ONETIME ONE Stop: 11/03/20 14:01 Last Admin: 11/03/20 13:35 Dose: 2.5 mg Documented by: Warfarin Sodium (Warfarin 5 Mg Tab) 5 mg PO ONETIME ONE Stop: 11/04/20 07:39 Last Admin: 11/04/20 09:07 Dose: 5 mg Documented by: - Exam Quality Assessment: Denies: Supplemental Oxygen General: Reports: Alert, Oriented, Cooperative HEENT: Reports: Pupils Equal, Pupils Reactive Neck: Reports: Supple Lungs: Reports: Normal Respiratory Effort, Decreased Breath Sounds Cardiovascular: Reports: Regular Rate, Regular Rhythm GI/Abdominal Exam: Normal Bowel Sounds, Soft, Non-Tender, No Distention, Other (obese) Back Exam: Reports: Normal Inspection Extremities: No Pedal Edema Skin: Reports: Warm, Dry Neurological: Reports: No New Focal Deficit Psy/Mental Status: Reports: Alert, Normal Affect, Normal Mood
== END 2020-11-04 13:53 | disposition home or self-care (01) | DRG 291 ==
LOC: UNDOADMOB 13:00 → DL.MS 13:00 → OBSVTOIN 13:07 → INTOOBSV 14:30 → UNDODISIN 11-04 13:53
PROVIDERS: ADMIT Internal Medicine; ATTEND Internal Medicine
DX: I13.0 Hypertensive heart and chronic kidney disease with heart failure and stage 1 through stage 4 chronic kidney disease, or unspecified chronic kidney disease (principal); I50.33 Acute on chronic diastolic (congestive) heart failure; H54.7 Unspecified visual loss; E78.00 Pure hypercholesterolemia, unspecified; I48.91 Unspecified atrial fibrillation; J44.9 Chronic obstructive pulmonary disease, unspecified; K21.9 Gastro-esophageal reflux disease without esophagitis; K57.90 Diverticulosis of intestine, part unspecified, without perforation or abscess without bleeding; F41.9 Anxiety disorder, unspecified; F32.9 Major depressive disorder, single episode, unspecified; E66.9 Obesity, unspecified; M19.90 Unspecified osteoarthritis, unspecified site; M10.9 Gout, unspecified; N18.30 Chronic kidney disease, stage 3 unspecified; Z20.822 Contact with and (suspected) exposure to COVID-19; Z88.6 Allergy status to analgesic agent; Z88.5 Allergy status to narcotic agent; Z88.8 Allergy status to other drugs, medicaments and biological substances; Z79.01 Long term (current) use of anticoagulants; Z79.899 Other long term (current) drug therapy; Z28.82 Immunization not carried out because of caregiver refusal; Z68.38 Body mass index [BMI] 38.0-38.9, adult
CPT/HCPCS: 36415; 71045; 80048; 85610; 99223; 99232; 99239; A9270-GY; J1940; U0002

== ENCOUNTER 2020-11-15 20:32 | Inpatient (IN) | payer MEDICARE, OTHER, MEDICAID ==
--- NOTE | 2020-11-15 21:06 | EDM.PDOC ---
ED HPI GENERAL MEDICAL PROBLEM - General Stated Complaint: AMBULANCE Time Seen by Provider: 11/15/20 20:50 Source of Information: Reports: Patient History Limitations: Reports: No Limitations - History of Present Illness INITIAL COMMENTS - FREE TEXT/NARRATIVE: This 89 yo female patient was brought to the ED by [facility] due to increased shortness of breath over the past week. The patient reports the past 2 days have been much worse. The patient was admitted to [facility] in [place] on 11/02/20 - 11/04/20 due to shortness of breath. During the visit in the hospital, the patient was given 40 mg of IV lasix 2 times per day. On discharge, the patient's home lasix was increased to 60 mg BID. The patient has a history of a. fib, gout, CKD, hypertension, obesity, and diastalic CHF with pleural effusions. The patient currently lives in [facility]. The patient reports she normally can walk from her room to the dining area for dinner, but had to have a ride part of the way yesterday and requested dinner in her room today due to the increased shortness of breath. Onset: Gradual Duration: Day(s):, Constant, Getting Worse Location: Reports: Chest Quality: Reports: Other Severity: Moderate Improves with: Reports: Rest Worsens with: Reports: Movement Context: Reports: Other Associated Symptoms: Reports: No Other Symptoms - Related Data Allergies Allergy/AdvReac Type Severity Reaction Status Date / Time aspirin Allergy Nose Bleeds Verified 10/01/20 14:51 codeine Allergy Airway Verified 10/01/20 14:51 Tightness oxycodone Allergy Confusion Verified 10/01/20 14:51 zolpidem tartrate Allergy Other Verified 10/01/20 14:51 [From Anupama] Home Meds: Home Meds Acetaminophen [Tylenol] 650 mg PO Q6HR PRN 10/01/15 [History] Alendronate Sodium [Fosamax] 70 mg PO WEEKLY 10/01/15 [History] Simvastatin [Zocor] 10 mg PO BEDTIME 10/01/15 [History] Spironolactone [Aldactone] 25 mg PO DAILY 10/01/15 [History] dilTIAZem HCL [Cardizem Cd] 360 mg PO DAILY 10/01/15 [History] PARoxetine [Paxil] 30 mg PO DAILY #30 tablet 11/09/15 [Rx] Pantoprazole [ProTONIX] 40 mg PO ACBREAKFAST #30 tab.cr 11/09/15 [Rx] Warfarin [Coumadin] 5 mg PO .06/06/16 [History] Potassium Chloride [Klor-Con 10] 10 meq PO DAILY 02/25/17 [History] Metoprolol Succinate [Toprol XL 50mg] 75 mg PO DAILY 01/05/19 [History] Albuterol Sulfate [Albuterol Sulfate Hfa] 2 puff INH Q4H PRN 11/02/20 [History] Allopurinol [Zyloprim] 150 mg PO DAILY 11/02/20 [History] Calcitriol 0.5 mcg PO ..F 11/02/20 [History] Nystatin [Nystop] 60 gm TP 11/02/20 [History] Warfarin Sodium [Jantoven] 2.5 mg PO .11/02/20 [History] Furosemide 60 mg PO BID #90 tablet 11/04/20 [Rx] Past Medical History HEENT History: Reports: Impaired Vision Other HEENT History: wears glasses. 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: Musculoskeletal History: Reports: Arthritis, Gout, Osteoarthritis, Osteoporosis Neurological History: Reports: Headaches, Chronic Psychiatric History: Reports: Anxiety, Depression Endocrine/Metabolic History: Reports: Obesity/BMI 30+ Hematologic History: Reports: None Immunologic History: Reports: None Oncologic (Cancer) History: Reports: None Dermatologic History: Reports: Cellulitis, Other (See Below) Other Dermatologic History: sores to lower legs, lower abd,groin and upper arms - Infectious Disease History Infectious Disease History: Reports: Chicken Pox, Measles, Mumps, Shingles Other Infectious Disease History: had "Yellow jaundice" at age 15 - Past Surgical History Head Surgeries/Procedures: Reports: None Cardiovascular Surgical History: Reports: Vascular Surgery Other Cardiovascular Surgeries/Procedures: varicose vein stripped years ago bilaterally GI Surgical History: Reports: Appendectomy, Cholecystectomy, EGD Other GI Surgeries/Procedures: hemorrhoidectomy Female Surgical History: Reports: D&C Neurological Surgical History: Reports: None Musculoskeletal Surgical History: Reports: Hip Replacement, Knee Replacement Social & Family History - Family History Family Medical History: No Pertinent Family History HEENT: Reports: None Cardiac: Reports: None Respiratory: Reports: None GI: Reports: Diverticulitis Musculoskeletal: Reports: RA Neurological: Reports: Seizure Psychiatric: Reports: None Immunologic: Reports: None Dermatologic: Reports: None Oncologic: Reports: None - Caffeine Use Caffeine Use: Reports: Coffee - Living Situation & Occupation Living situation: Reports: , Alone Occupation: Retired ED ROS GENERAL - Review of Systems Review Of Systems: Comprehensive ROS is negative, except as noted in HPI. ED EXAM, GENERAL - Physical Exam Exam: See Below Exam Limited By: No Limitations General Appearance: Alert, WD/WN, Moderate Distress Eye Exam: Bilateral Eye: EOMI, Normal Inspection, PERRL Ears: Normal External Exam, Normal Canal, Hearing Grossly Normal, Normal TMs Nose: Normal Inspection, Normal Mucosa, No Blood Throat/Mouth: Normal Inspection, Normal Lips, Normal Teeth, Normal Gums, Normal Oropharynx, Normal Voice, No Airway Compromise Head: Atraumatic, Normocephalic Neck: Normal Inspection, Supple, Non-Tender, Full Range of Motion Respiratory/Chest: Decreased Breath Sounds (bilateral lower lobes) Cardiovascular: Irregularly Irregular GI/Abdominal: Normal Bowel Sounds, Soft, Non-Tender, No Organomegaly, No Distention, No Abnormal Bruit, No Mass (Female) Exam: Deferred Rectal (Female) Exam: Deferred Back Exam: Normal Inspection, Full Range of Motion, NT Extremities: Normal Inspection, Normal Range of Motion, Non-Tender, Normal Capillary Refill, No Pedal Edema Neurological: Alert, Oriented, CN II-XII Intact, Normal Cognition, Normal Gait, Normal Reflexes, No Motor/Sensory Deficits Psychiatric: Normal Affect, Normal Mood Skin Exam: Warm, Dry, Intact, Normal Color, No Rash Lymphatic: No Adenopathy #1 Interpretation EKG Date: 11/15/20 Time: 21:28 Rhythm: A-Fib [place]: Normal P-Wave: Absent QRS: Normal ST-T: Normal QT: Normal Comparison: No Change Course - Vital Signs Last Recorded V/S: Last Vital Signs Temp 36.1 C 11/15/20 21:02 Pulse 55 L 11/15/20 21:02 Resp 24 H 11/15/20 21:02 BP 133/50 L 11/15/20 21:02 Pulse Ox 96 11/15/20 21:02 - Orders/Labs/Meds Orders: Active Orders 24 hr Category Date Time Status Admission Diagnosis [ADT] Urgent ADT 11/15/20 22:20 Ordered Admission Status [Patient Status] [ADT] Routine ADT 11/15/20 22:20 Ordered EKG Documentation Completion [RC] STAT Care 11/15/20 20:58 Active CULTURE BLOOD [BC] Stat Lab 11/15/20 21:15 Received CULTURE BLOOD [BC] Stat Lab 11/15/20 22:13 Ordered Sanchez [CORONAVIRUS COVID-19 JENNIFER] [MOLEC] Urgent Lab 11/15/20 22:13 Ordered INR,PT,PROTHROMBIN TIME [COAG] Stat Lab 11/15/20 21:15 Received UA RFX MIKO AND CULT IF INDIC [URIN] Urgent Lab 11/15/20 20:58 Ordered cefTRIAXone [Rocephin] 1 gm Med 11/15/20 22:13 Ordered Sodium Chloride 0.9% [Normal Saline] 50 ml IV ONETIME Medication Orders Ceftriaxone Sodium 1 gm/ (Sodium Chloride) 50 mls @ 100 mls/hr IV ONETIME ONE Stop: 11/15/20 22:42 Labs: Laboratory Tests 11/15/20 11/15/20 11/15/20 Range/Units 21:15 21:15 21:15 WBC 8.6 (5.0-10.0) 10^3/uL RBC 4.43 (4.2-5.4) 10^6/uL Hgb 14.7 (12.0-16.0) g/dL Hct 44.5 (37.0-47.0) % MCV 100.5 H (80-100) fL MCH 33.2 (27.0-34.0) pg MCHC 33.0 (33.0-35.0) g/dL Plt Count 215 (150-450) 10^3/uL Neut % (Auto) 68.6 (42.2-75.2) % Lymph % (Auto) 18.8 L (20.5-50.1) % [place] % (Auto) 11.0 H (2-8) % Eos % (Auto) 1.4 (1.0-3.0) % Baso % (Auto) 0.2 (0.0-1.0) % D-Dimer, Quantitative 113 (0-400) ng/mL Sodium 137 (136-145) mmol/L Potassium 3.8 (3.5-5.1) mmol/L Chloride 97 L (98-107) mmol/L Carbon Dioxide 30 (21-32) mmol/L Anion Gap 13.8 H (7-13) mEq/L BUN 40 H (7-18) mg/dL Creatinine 1.75 H (0.55-1.02) mg/dL Est Cr Clr Drug Dosing 17.57 mL/min Estimated GFR (MDRD) 27 BUN/Creatinine Ratio 22.9 (No establ ref range) Glucose 103 H (70-99) mg/dL Lactic Acid (0.4-2.0) mmol/L Calcium 9.6 (8.5-10.1) mg/dL Total Bilirubin 0.8 (0.2-1.0) mg/dL AST 15 (15-37) U/L ALT 16 (14-59) U/L Alkaline Phosphatase 64 (46-116) U/L Troponin I 0.119 H* (0.000-0.056) ng/mL B-Natriuretic Peptide 266 H (0-100) pg/ml Total Protein 6.9 (6.4-8.2) g/dL Albumin 3.2 L (3.4-5.0) g/dL Globulin 3.7 Albumin/Globulin Ratio 0.86 04/05/21 Range/Units 21:15 WBC (5.0-10.0) 10^3/uL RBC (4.2-5.4) 10^6/uL Hgb (12.0-16.0) g/dL Hct (37.0-47.0) % MCV (80-100) fL MCH (27.0-34.0) pg MCHC (33.0-35.0) g/dL Plt Count (150-450) 10^3/uL Neut % (Auto) (42.2-75.2) % Lymph % (Auto) (20.5-50.1) % [place] % (Auto) (2-8) % Eos % (Auto) (1.0-3.0) % Baso % (Auto) (0.0-1.0) % D-Dimer, Quantitative (0-400) ng/mL Sodium (136-145) mmol/L Potassium (3.5-5.1) mmol/L Chloride (98-107) mmol/L Carbon Dioxide (21-32) mmol/L Anion Gap (7-13) mEq/L BUN (7-18) mg/dL Creatinine (0.55-1.02) mg/dL Est Cr Clr Drug Dosing mL/min Estimated GFR (MDRD) BUN/Creatinine Ratio (No establ ref range) Glucose (70-99) mg/dL Lactic Acid 1.2 (0.4-2.0) mmol/L Calcium (8.5-10.1) mg/dL Total Bilirubin (0.2-1.0) mg/dL AST (15-37) U/L ALT (14-59) U/L Alkaline Phosphatase (46-116) U/L Troponin I (0.000-0.056) ng/mL B-Natriuretic Peptide (0-100) pg/ml Total Protein (6.4-8.2) g/dL Albumin (3.4-5.0) g/dL Globulin Albumin/Globulin Ratio Meds: Medications Generic Name Dose Route Start Last Admin Trade Name Freq PRN Reason Stop Dose Admin Ceftriaxone Sodium 1 gm/ 50 mls @ 100 mls/hr 11/15/20 22:13 Sodium Chloride IV 11/15/20 22:42 ONETIME ONE Discontinued Medications Generic Name Dose Route Start Last Admin Trade Name Freq PRN Reason Stop Dose Admin Furosemide 40 mg 11/15/20 22:13 Furosemide 40 Mg/4 Ml Vial IVPUSH 11/15/20 22:14 NOW ONE Departure - Departure Time of Disposition: 22:22 Disposition: Admitted As Inpatient 68 Condition: Fair Clinical Impression: CHF exacerbation Qualifiers: Heart failure type: unspecified Qualified Code(s): I50.9 - Heart failure, unspecified - Discharge Information *PRESCRIPTION DRUG MONITORING PROGRAM REVIEWED*: Not Applicable *COPY OF PRESCRIPTION DRUG MONITORING REPORT IN PATIENT MICHAEL: Not Applicable Care Plan Goals: Discussed the patient's history, examination, lab results, EKG and x-ray results with Dr. Rodriguez. Dr. Rodriguez accepted the patient for continued evaluation and further management as an inpatient at [facility]. Sepsis Event Note (ED) - Focused Exam Vital Signs: Vital Signs Temp Pulse Resp BP Pulse Ox 11/15/20 21:02 36.1 C 55 L 24 H 133/50 L 96 - My Orders Last 24 Hours: My Active Orders 11/15/20 20:58 EKG Documentation Completion [RC] STAT UA RFX MIKO AND CULT IF INDIC [URIN] Urgent 11/15/20 21:15 CULTURE BLOOD [BC] Stat INR,PT,PROTHROMBIN TIME [COAG] Stat 11/15/20 22:13 CULTURE BLOOD [BC] Stat Sanchez [CORONAVIRUS COVID-19 JENNIFER] [MOLEC] Urgent cefTRIAXone [Rocephin] 1 gm Sodium Chloride 0.9% [Normal Saline] 50 ml IV ONETIME 11/15/20 22:20 Admission Diagnosis [ADT] Urgent Admission Status [Patient Status] [ADT] Routine - Assessment/Plan Last 24 Hours: My Active Orders 11/15/20 20:58 EKG Documentation Completion [RC] STAT UA RFX MIKO AND CULT IF INDIC [URIN] Urgent 11/15/20 21:15 CULTURE BLOOD [BC] Stat INR,PT,PROTHROMBIN TIME [COAG] Stat 11/15/20 22:13 CULTURE BLOOD [BC] Stat Sanchez [CORONAVIRUS COVID-19 JENNIFER] [MOLEC] Urgent cefTRIAXone [Rocephin] 1 gm Sodium Chloride 0.9% [Normal Saline] 50 ml IV ONETIME 11/15/20 22:20 Admission Diagnosis [ADT] Urgent Admission Status [Patient Status] [ADT] Routine
[2020-11-15 21:53] LABS: ANION GAP 13.8 mEq/L (7-13)
--- NOTE | 2020-11-15 22:04 | CR ---
PROCEDURE INFORMATION: Exam: XR Chest Exam date and time: 11/15/2020 9:38 PM Age: 89 years old Clinical indication: Shortness of breath; Additional info: Short of breath with movement TECHNIQUE: Imaging protocol: XR of the chest Views: 1 view. Total images: 1 COMPARISON: CR Chest 1V Frontal 11/04/2020 6:48 AM FINDINGS: Lungs: Bilateral lower lobe airspace disease again noted. Pleural spaces: Possible small effusions. Heart/Mediastinum: Borderline cardiomegaly. Bones/joints: Unremarkable. IMPRESSION: Similar appearance of bilateral lower lobe atelectasis and or pneumonia with possible small effusions.
[2020-11-15] MEDS ORDERED: Furosemide 40 MG/4 ML VIAL IVPUSH ONE (22:13)
[2020-11-15] MEDS ORDERED: cefTRIAXone 1 GM in Sodium Chloride 0.9% 50 ML IV ONE (22:13)
[2020-11-15] MEDS ORDERED: Albuterol 0.083% 2.5 MG/3 ML Neb Soln NEB PRN (23:37)
[2020-11-15] MEDS ORDERED: Bisacodyl 5 MG Tab PO PRN (23:37)
[2020-11-15] MEDS ORDERED: Docusate Sodium 100 MG Cap PO PRN (23:37)
--- NOTE | 2020-11-15 23:50 | PCM.HP ---
H&P History of Present Illness - General Date of Service: 11/15/20 Admit Problem/Dx: Admission Diagnosis/Problem Admission Diagnosis/Problem CHF, Congestive heart failure Pt is 89 yo female patient was brought to the ED by EMS due to increased shortness of breath over the past week. The patient reports the past 2 days have been much worse. The patient was admitted to [facility] in [place] on 11/02/20 - 11/04/20 due to shortness of breath. During the visit in the hospital, the patient was given 40 mg of IV lasix 2 times per day. On discharge, the patient's home lasix was increased to 60 mg BID. The patient has a history of a. fib, gout, CKD, hypertension, obesity, and diastalic CHF with pleural effusions. The patient currently lives in [facility]. The patient reports she normally can walk from her room to the dining area for dinner, but had to have a ride part of the way yesterday and requested dinner in her room today due to the increased shortness of breath. Pt denies fever, cough, CP or exposure to COVID. Source of Information: Patient, Other (ER provider ) - Related Data Allergies/Adverse Reactions: Allergies Allergy/AdvReac Type Severity Reaction Status Date / Time aspirin Allergy Nose Bleeds Verified 10/01/20 14:51 codeine Allergy Airway Verified 10/01/20 14:51 Tightness oxycodone Allergy Confusion Verified 10/01/20 14:51 zolpidem tartrate Allergy Other Verified 10/01/20 14:51 [From Ambien] Home Medications: Home Meds Acetaminophen [Tylenol] 650 mg PO Q6HR PRN 10/01/15 [History] Alendronate Sodium [Fosamax] 70 mg PO WEEKLY 10/01/15 [History] Simvastatin [Zocor] 10 mg PO BEDTIME 10/01/15 [History] Spironolactone [Aldactone] 25 mg PO DAILY 10/01/15 [History] dilTIAZem HCL [Cardizem Cd] 360 mg PO DAILY 10/01/15 [History] PARoxetine [Paxil] 30 mg PO DAILY #30 tablet 11/09/15 [Rx] Warfarin [Coumadin] 5 mg PO .MON.THUR 06/06/16 [History] Potassium Chloride [Klor-Con 10] 10 meq PO DAILY 02/25/17 [History] Metoprolol Succinate [Toprol XL 50mg] 75 mg PO DAILY 01/05/19 [History] Albuterol Sulfate [Albuterol Sulfate Hfa] 2 puff INH Q4H PRN 11/02/20 [History] Allopurinol [Zyloprim] 150 mg PO DAILY 11/02/20 [History] Calcitriol 0.5 mcg PO .SUN.UR.F 11/02/20 [History] Nystatin [Nystop] 1 applic TP BID PRN 11/02/20 [History] Warfarin Sodium [Jantoven] 2.5 mg PO .11/02/20 [History] Furosemide 60 mg PO BID #90 tablet 11/04/20 [Rx] Albuterol Sulfate [Albuterol Sulfate HFA] 8.5 gm INH Q4HRRT PRN 11/15/20 [History] Arginine/Ascorbate Sod/Sarah AC [Arginaid Powder] 1 each PO BID 11/15/20 [History] Non-Formulary Medication [NF Drug] 1 applic TOP BID 11/15/20 [History] Pantoprazole [ProTONIX] 20 mg PO DAILY 11/15/20 [History] Past Medical History HEENT History: Reports: Impaired Vision Other HEENT History: wears glasses. 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: Musculoskeletal History: Reports: Arthritis, Gout, Osteoarthritis, Osteoporosis Neurological History: Reports: Headaches, Chronic Psychiatric History: Reports: Anxiety, Depression Endocrine/Metabolic History: Reports: Obesity/BMI 30+ Hematologic History: Reports: None Immunologic History: Reports: None Oncologic (Cancer) History: Reports: None Dermatologic History: Reports: Cellulitis, Other (See Below) Other Dermatologic History: sores to lower legs, lower abd,groin and upper arms - Infectious Disease History Infectious Disease History: Reports: Chicken Pox, Measles, Mumps, Shingles Other Infectious Disease History: had "Yellow jaundice" at age 15 - Past Surgical History Head Surgeries/Procedures: Reports: None Cardiovascular Surgical History: Reports: Vascular Surgery Other Cardiovascular Surgeries/Procedures: varicose vein stripped years ago bilaterally GI Surgical History: Reports: Appendectomy, Cholecystectomy, EGD Other GI Surgeries/Procedures: hemorrhoidectomy Female Surgical History: Reports: D&C Neurological Surgical History: Reports: None Musculoskeletal Surgical History: Reports: Hip Replacement, Knee Replacement Social & Family History - Family History Family Medical History: No Pertinent Family History HEENT: Reports: None Cardiac: Reports: None Respiratory: Reports: None GI: Reports: Diverticulitis Musculoskeletal: Reports: RA Neurological: Reports: Seizure Psychiatric: Reports: None Immunologic: Reports: None Dermatologic: Reports: None Oncologic: Reports: None - Tobacco Use Tobacco Use Status *Q: Never Tobacco User Second Hand Smoke Exposure: No - Caffeine Use Caffeine Use: Reports: None - Recreational Drug Use Recreational Drug Use: No - Living Situation & Occupation Living situation: Reports: , Alone Occupation: Retired H&P Review of Systems - Review of Systems: Review Of Systems: See Below General: Denies: Fever, Chills HEENT: Denies: Dysphasia Pulmonary: Reports: Shortness of Breath Cardiovascular: Denies: Chest Pain Gastrointestinal: Denies: Abdominal Pain Genitourinary: Denies: Frequency Psychiatric: Denies: Confusion Neurological: Denies: Confusion Immunologic: Reports: Other (pt reports thaT SHE CAN NOT TAKE ASPIRIN BECAUSE SHE HAD REACTION TO IT IN THE PAST BUT SHE CANNOT SPECIFY) Exam - Exam Exam: See Below - Vital Signs Vital Signs: Last Vital Signs Temp 96.9 F 11/15/20 21:02 Pulse 55 L 11/15/20 21:02 Resp 24 H 11/15/20 21:02 BP 133/50 L 11/15/20 21:02 Pulse Ox 96 11/15/20 21:02 Weight: 249 lb - Exam Quality Assessment: Supplemental Oxygen General: Alert, Oriented Lungs: Decreased Breath Sounds Cardiovascular: Regular Rate, Regular Rhythm GI/Abdominal Exam: Soft, Non-Tender (Female) Exam: Normal External Exam Rectal (Female) Exam: Deferred Back Exam: Full Range of Motion Extremities: Normal Range of Motion, No Pedal Edema Skin: Intact Neurological: Cranial Nerves Intact Neuro Extensive - Mental Status: Alert, Oriented x3 Neuro Extensive - Motor, Sensory, Reflexes: CN II-XII Intact, Normal Gait Psychiatric: Alert, Normal Affect - Patient Data Lab Results Last 24 hrs: Laboratory Results - last 24 hr 11/15/20 11/15/20 11/15/20 Range/Units 21:15 21:15 21:15 WBC 8.6 (5.0-10.0) 10^3/uL RBC 4.43 (4.2-5.4) 10^6/uL Hgb 14.7 (12.0-16.0) g/dL Hct 44.5 (37.0-47.0) % MCV 100.5 H (80-100) fL MCH 33.2 (27.0-34.0) pg MCHC 33.0 (33.0-35.0) g/dL Plt Count 215 (150-450) 10^3/uL Neut % (Auto) 68.6 (42.2-75.2) % Lymph % (Auto) 18.8 L (20.5-50.1) % [place] % (Auto) 11.0 H (2-8) % Eos % (Auto) 1.4 (1.0-3.0) % Baso % (Auto) 0.2 (0.0-1.0) % PT (9.0-12.0) SEC INR (0.9-1.2) D-Dimer, Quantitative 113 (0-400) ng/mL Sodium 137 (136-145) mmol/L Potassium 3.8 (3.5-5.1) mmol/L Chloride 97 L (98-107) mmol/L Carbon Dioxide 30 (21-32) mmol/L Anion Gap 13.8 H (7-13) mEq/L BUN 40 H (7-18) mg/dL Creatinine 1.75 H (0.55-1.02) mg/dL Est Cr Clr Drug Dosing 17.57 mL/min Estimated GFR (MDRD) 27 BUN/Creatinine Ratio 22.9 (No establ ref range) Glucose 103 H (70-99) mg/dL Lactic Acid (0.4-2.0) mmol/L Calcium 9.6 (8.5-10.1) mg/dL Total Bilirubin 0.8 (0.2-1.0) mg/dL AST 15 (15-37) U/L ALT 16 (14-59) U/L Alkaline Phosphatase 64 (46-116) U/L Troponin I 0.119 H* (0.000-0.056) ng/mL B-Natriuretic Peptide 266 H (0-100) pg/ml Total Protein 6.9 (6.4-8.2) g/dL Albumin 3.2 L (3.4-5.0) g/dL Globulin 3.7 Albumin/Globulin Ratio 0.86 11/15/20 11/15/20 Range/Units 21:15 21:15 WBC (5.0-10.0) 10^3/uL RBC (4.2-5.4) 10^6/uL Hgb (12.0-16.0) g/dL Hct (37.0-47.0) % MCV (80-100) fL MCH (27.0-34.0) pg MCHC (33.0-35.0) g/dL Plt Count (150-450) 10^3/uL Neut % (Auto) (42.2-75.2) % Lymph % (Auto) (20.5-50.1) % [place] % (Auto) (2-8) % Eos % (Auto) (1.0-3.0) % Baso % (Auto) (0.0-1.0) % PT 27.5 H (9.0-12.0) SEC INR 2.8 H (0.9-1.2) D-Dimer, Quantitative (0-400) ng/mL Sodium (136-145) mmol/L Potassium (3.5-5.1) mmol/L Chloride (98-107) mmol/L Carbon Dioxide (21-32) mmol/L Anion Gap (7-13) mEq/L BUN (7-18) mg/dL Creatinine (0.55-1.02) mg/dL Est Cr Clr Drug Dosing mL/min Estimated GFR (MDRD) BUN/Creatinine Ratio (No establ ref range) Glucose (70-99) mg/dL Lactic Acid 1.2 (0.4-2.0) mmol/L Calcium (8.5-10.1) mg/dL Total Bilirubin (0.2-1.0) mg/dL AST (15-37) U/L ALT (14-59) U/L Alkaline Phosphatase (46-116) U/L Troponin I (0.000-0.056) ng/mL B-Natriuretic Peptide (0-100) pg/ml Total Protein (6.4-8.2) g/dL Albumin (3.4-5.0) g/dL Globulin Albumin/Globulin Ratio Result Diagrams: 11/16/20 06:05 11/16/20 06:05 Problem List Initiated/Reviewed/Updated: Yes Orders Last 24hrs: Active Orders 24 hr Category Date Time Status Admission Diagnosis [ADT] Urgent ADT 11/15/20 22:20 Ordered Admission Status [Patient Status] [ADT] Routine ADT 11/15/20 22:20 Active CULTURE BLOOD [BC] Stat Lab 11/15/20 21:15 Received CULTURE BLOOD [BC] Stat Lab 11/15/20 22:24 Received Sanchez [CORONAVIRUS COVID-19 JENNIFER] [MOLEC] Urgent Lab 11/15/20 22:59 Received UA RFX MIKO AND CULT IF INDIC [URIN] Urgent Lab 11/15/20 20:58 Ordered Assessment/Plan Comment:: CHF exacerbation Possible NOSTEMI versus trop Leak Possible Pneumonia Chrnoic A fib on warfarin Obesity ? intolerance to Aspirin Lasix 40 mg IV BID Ceftriaxone Zithromax O2 Nebs re Trop ECG in am
[2020-11-16] MEDS ORDERED: Acetaminophen 325 MG Tab PO PRN (00:19)
[2020-11-16] MEDS ORDERED: Nystatin Topical Powder 30 GM Bottle TOP PRN (00:19)
[2020-11-16] MEDS ORDERED: Albuterol 6.7 GM Inhaler INH PRN (00:19)
[2020-11-16] MEDS ORDERED: Non-Formulary Medication 1 Each (Alendronate Sodium [Fosamax] 70 MG Tablet) PO SCH (00:30)
[2020-11-16] MEDS ORDERED: Warfarin 5 MG Tab PO SCH (00:30)
[2020-11-16] MEDS ORDERED: Warfarin 2.5 MG Tab PO SCH (00:30)
[2020-11-16] MEDS: Azithromycin 500 MG in Sodium Chloride 0.9% 250 ML IV SCH ×2 (00:50→19:48)
[2020-11-16] MEDS: Acetaminophen 325 MG Tab PO PRN ×2 (01:08→21:36)
[2020-11-16] MEDS: diphenhydrAMINE 25 MG Tab PO PRN ×2 (01:09→21:37)
[2020-11-16] MEDS: Pantoprazole 40 MG Tab.CR PO SCH (05:39)
[2020-11-16 06:56] LABS: ANION GAP 11.5 mEq/L (7-13)
[2020-11-16] MEDS: Furosemide 40 MG/4 ML VIAL IVPUSH SCH ×2 (08:38→14:16)
[2020-11-16] MEDS: PARoxetine 20 MG Tab PO SCH (08:41)
[2020-11-16] MEDS: Calcitriol 0.25 MCG Cap PO SCH (08:43)
[2020-11-16] MEDS: Diltiazem 180 MG Cap.CD PO SCH (08:44)
[2020-11-16] MEDS: Metoprolol Succinate 25 MG Tab.ER PO SCH (08:44)
[2020-11-16] MEDS: Potassium Chloride 10 MEQ Tab.ER PO SCH (08:44)
[2020-11-16] MEDS: Spironolactone 25 MG Tab PO SCH (08:44)
[2020-11-16] MEDS ORDERED: Allopurinol 300 MG Tab PO SCH (09:00)
[2020-11-16] MEDS ORDERED: Non-Formulary Medication 1 Each TOP SCH (09:00)
--- NOTE | 2020-11-16 11:05 | PCM.PN ---
- General Info Date of Service: 11/16/20 Admission Dx/Problem (Free Text): Feels mildly better. Functional Status: Reports: Pain Controlled - Review of Systems General: Denies: Fever Pulmonary: Reports: Shortness of Breath (mildly improved) Cardiovascular: Denies: Chest Pain Gastrointestinal: Denies: Abdominal Pain Neurological: Denies: Confusion Psychiatric: Denies: Confusion - Patient Data Vitals - Most Recent: Last Vital Signs Temp 98.2 F 11/16/20 08:00 Pulse 80 11/16/20 08:44 Resp 20 11/16/20 08:00 BP 128/53 L 11/16/20 08:44 Pulse Ox 97 11/16/20 08:00 Weight - Most Recent: 240 lb I&O - Last 24 Hours: Intake & Output 11/15/20 11/16/20 11/16/20 22:59 06:59 14:59 Intake Total 450 Output Total 300 Balance 150 Lab Results Last 24 Hours: Laboratory Results - last 24 hr 11/15/20 11/15/20 11/15/20 Range/Units 21:15 21:15 21:15 WBC 8.6 (5.0-10.0) 10^3/uL RBC 4.43 (4.2-5.4) 10^6/uL Hgb 14.7 (12.0-16.0) g/dL Hct 44.5 (37.0-47.0) % MCV 100.5 H (80-100) fL MCH 33.2 (27.0-34.0) pg MCHC 33.0 (33.0-35.0) g/dL Plt Count 215 (150-450) 10^3/uL Neut % (Auto) 68.6 (42.2-75.2) % Lymph % (Auto) 18.8 L (20.5-50.1) % [place] % (Auto) 11.0 H (2-8) % Eos % (Auto) 1.4 (1.0-3.0) % Baso % (Auto) 0.2 (0.0-1.0) % PT (9.0-12.0) SEC INR (0.9-1.2) D-Dimer, Quantitative 113 (0-400) ng/mL Sodium 137 (136-145) mmol/L Potassium 3.8 (3.5-5.1) mmol/L Chloride 97 L (98-107) mmol/L Carbon Dioxide 30 (21-32) mmol/L Anion Gap 13.8 H (7-13) mEq/L BUN 40 H (7-18) mg/dL Creatinine 1.75 H (0.55-1.02) mg/dL Est Cr Clr Drug Dosing 17.57 mL/min Estimated GFR (MDRD) 27 BUN/Creatinine Ratio 22.9 (No establ ref range) Glucose 103 H (70-99) mg/dL Lactic Acid (0.4-2.0) mmol/L Calcium 9.6 (8.5-10.1) mg/dL Total Bilirubin 0.8 (0.2-1.0) mg/dL AST 15 (15-37) U/L ALT 16 (14-59) U/L Alkaline Phosphatase 64 (46-116) U/L Troponin I 0.119 H* (0.000-0.056) ng/mL B-Natriuretic Peptide 266 H (0-100) pg/ml Total Protein 6.9 (6.4-8.2) g/dL Albumin 3.2 L (3.4-5.0) g/dL Globulin 3.7 Albumin/Globulin Ratio 0.86 Urine Color (YELLOW) Urine Appearance (CLEAR) Urine pH (5.0-9.0) Ur Specific [place] (1.005-1.030) Urine Protein (NEGATIVE) Urine Glucose (UA) (NEGATIVE) Urine Ketones (NEGATIVE) Urine Occult Blood (NEGATIVE) Urine Nitrite (NEGATIVE) Urine Bilirubin (NEGATIVE) Urine Urobilinogen (0.2-1.0) mg/dL Ur Leukocyte Esterase (NEGATIVE) Urine RBC /HPF Urine WBC (0-5/HPF) /HPF Ur Epithelial Cells (NOT SEEN) /HPF Amorphous Sediment (NOT SEEN) /HPF Urine Bacteria (0-FEW/HPF) /HPF Urine Mucus (NOT SEEN) /LPF SARS-CoV-2 RNA (JENNIFER) (NEGATIVE) 11/15/20 11/15/20 11/15/20 Range/Units 21:15 21:15 22:59 WBC (5.0-10.0) 10^3/uL RBC (4.2-5.4) 10^6/uL Hgb (12.0-16.0) g/dL Hct (37.0-47.0) % MCV (80-100) fL MCH (27.0-34.0) pg MCHC (33.0-35.0) g/dL Plt Count (150-450) 10^3/uL Neut % (Auto) (42.2-75.2) % Lymph % (Auto) (20.5-50.1) % [place] % (Auto) (2-8) % Eos % (Auto) (1.0-3.0) % Baso % (Auto) (0.0-1.0) % PT 27.5 H (9.0-12.0) SEC INR 2.8 H (0.9-1.2) D-Dimer, Quantitative (0-400) ng/mL Sodium (136-145) mmol/L Potassium (3.5-5.1) mmol/L Chloride (98-107) mmol/L Carbon Dioxide (21-32) mmol/L Anion Gap (7-13) mEq/L BUN (7-18) mg/dL Creatinine (0.55-1.02) mg/dL Est Cr Clr Drug Dosing mL/min Estimated GFR (MDRD) BUN/Creatinine Ratio (No establ ref range) Glucose (70-99) mg/dL Lactic Acid 1.2 (0.4-2.0) mmol/L Calcium (8.5-10.1) mg/dL Total Bilirubin (0.2-1.0) mg/dL AST (15-37) U/L ALT (14-59) U/L Alkaline Phosphatase (46-116) U/L Troponin I (0.000-0.056) ng/mL B-Natriuretic Peptide (0-100) pg/ml Total Protein (6.4-8.2) g/dL Albumin (3.4-5.0) g/dL Globulin Albumin/Globulin Ratio Urine Color (YELLOW) Urine Appearance (CLEAR) Urine pH (5.0-9.0) Ur Specific [place] (1.005-1.030) Urine Protein (NEGATIVE) Urine Glucose (UA) (NEGATIVE) Urine Ketones (NEGATIVE) Urine Occult Blood (NEGATIVE) Urine Nitrite (NEGATIVE) Urine Bilirubin (NEGATIVE) Urine Urobilinogen (0.2-1.0) mg/dL Ur Leukocyte Esterase (NEGATIVE) Urine RBC /HPF Urine WBC (0-5/HPF) /HPF Ur Epithelial Cells (NOT SEEN) /HPF Amorphous Sediment (NOT SEEN) /HPF Urine Bacteria (0-FEW/HPF) /HPF Urine Mucus (NOT SEEN) /LPF SARS-CoV-2 RNA (JENNIFER) Negative (NEGATIVE) 11/16/20 11/16/20 11/16/20 Range/Units 05:35 06:05 06:05 WBC (5.0-10.0) 10^3/uL RBC (4.2-5.4) 10^6/uL Hgb (12.0-16.0) g/dL Hct (37.0-47.0) % MCV (80-100) fL MCH (27.0-34.0) pg MCHC (33.0-35.0) g/dL Plt Count (150-450) 10^3/uL Neut % (Auto) (42.2-75.2) % Lymph % (Auto) (20.5-50.1) % [place] % (Auto) (2-8) % Eos % (Auto) (1.0-3.0) % Baso % (Auto) (0.0-1.0) % PT 25.5 H (9.0-12.0) SEC INR 2.6 H (0.9-1.2) D-Dimer, Quantitative (0-400) ng/mL Sodium (136-145) mmol/L Potassium (3.5-5.1) mmol/L Chloride (98-107) mmol/L Carbon Dioxide (21-32) mmol/L Anion Gap (7-13) mEq/L BUN (7-18) mg/dL Creatinine (0.55-1.02) mg/dL Est Cr Clr Drug Dosing mL/min Estimated GFR (MDRD) BUN/Creatinine Ratio (No establ ref range) Glucose (70-99) mg/dL Lactic Acid (0.4-2.0) mmol/L Calcium (8.5-10.1) mg/dL Total Bilirubin (0.2-1.0) mg/dL AST (15-37) U/L ALT (14-59) U/L Alkaline Phosphatase (46-116) U/L Troponin I 0.110 H* (0.000-0.056) ng/mL B-Natriuretic Peptide (0-100) pg/ml Total Protein (6.4-8.2) g/dL Albumin (3.4-5.0) g/dL Globulin Albumin/Globulin Ratio Urine Color Yellow (YELLOW) Urine Appearance Slightly cloudy (CLEAR) Urine pH 7.0 (5.0-9.0) Ur Specific [place] 1.015 (1.005-1.030) Urine Protein Negative (NEGATIVE) Urine Glucose (UA) Negative (NEGATIVE) Urine Ketones Negative (NEGATIVE) Urine Occult Blood Trace-intact H (NEGATIVE) Urine Nitrite Negative (NEGATIVE) Urine Bilirubin Negative (NEGATIVE) Urine Urobilinogen 0.2 (0.2-1.0) mg/dL Ur Leukocyte Esterase Moderate H (NEGATIVE) Urine RBC 0-5 /HPF Urine WBC 30-40 H (0-5/HPF) /HPF Ur Epithelial Cells Occasional (NOT SEEN) /HPF Amorphous Sediment Occasional (NOT SEEN) /HPF Urine Bacteria Few (0-FEW/HPF) /HPF Urine Mucus Not seen (NOT SEEN) /LPF SARS-CoV-2 RNA (JENNIFER) (NEGATIVE) 11/16/20 11/16/20 Range/Units 06:05 06:05 WBC 7.6 (5.0-10.0) 10^3/uL RBC 4.46 (4.2-5.4) 10^6/uL Hgb 14.8 (12.0-16.0) g/dL Hct 45.2 (37.0-47.0) % MCV 101.3 H (80-100) fL MCH 33.2 (27.0-34.0) pg MCHC 32.7 L (33.0-35.0) g/dL Plt Count 210 (150-450) 10^3/uL Neut % (Auto) (42.2-75.2) % Lymph % (Auto) (20.5-50.1) % [place] % (Auto) (2-8) % Eos % (Auto) (1.0-3.0) % Baso % (Auto) (0.0-1.0) % PT (9.0-12.0) SEC INR (0.9-1.2) D-Dimer, Quantitative (0-400) ng/mL Sodium 139 (136-145) mmol/L Potassium 3.5 (3.5-5.1) mmol/L Chloride 100 (98-107) mmol/L Carbon Dioxide 31 (21-32) mmol/L Anion Gap 11.5 (7-13) mEq/L BUN 37 H (7-18) mg/dL Creatinine 1.75 H (0.55-1.02) mg/dL Est Cr Clr Drug Dosing 17.57 mL/min Estimated GFR (MDRD) 27 BUN/Creatinine Ratio (No establ ref range) Glucose 96 (70-99) mg/dL Lactic Acid (0.4-2.0) mmol/L Calcium 9.1 (8.5-10.1) mg/dL Total Bilirubin (0.2-1.0) mg/dL AST (15-37) U/L ALT (14-59) U/L Alkaline Phosphatase (46-116) U/L Troponin I (0.000-0.056) ng/mL B-Natriuretic Peptide (0-100) pg/ml Total Protein (6.4-8.2) g/dL Albumin (3.4-5.0) g/dL Globulin Albumin/Globulin Ratio Urine Color (YELLOW) Urine Appearance (CLEAR) Urine pH (5.0-9.0) Ur Specific [place] (1.005-1.030) Urine Protein (NEGATIVE) Urine Glucose (UA) (NEGATIVE) Urine Ketones (NEGATIVE) Urine Occult Blood (NEGATIVE) Urine Nitrite (NEGATIVE) Urine Bilirubin (NEGATIVE) Urine Urobilinogen (0.2-1.0) mg/dL Ur Leukocyte Esterase (NEGATIVE) Urine RBC /HPF Urine WBC (0-5/HPF) /HPF Ur Epithelial Cells (NOT SEEN) /HPF Amorphous Sediment (NOT SEEN) /HPF Urine Bacteria (0-FEW/HPF) /HPF Urine Mucus (NOT SEEN) /LPF SARS-CoV-2 RNA (JENNIFER) (NEGATIVE) Med Orders - Current: Current Medications Acetaminophen (Acetaminophen 325 Mg Tab) 650 mg PO Q4H PRN PRN Reason: Pain (Mild 1-3)/fever Last Admin: 11/16/20 01:08 Dose: 650 mg Documented by: Albuterol (Albuterol 0.083% 2.5 Mg/3 Ml Neb Soln) 2.5 mg NEB Q2H PRN PRN Reason: shortness of breath/wheezing Albuterol (Albuterol 6.7 Gm Inhaler) 0 gm INH Q4H PRN PRN Reason: Shortness of Breath Allopurinol (Allopurinol 100 Mg Tab) 50 mg PO Q48H [facility] Bisacodyl (Bisacodyl 5 Mg Tab) 5 mg PO DAILY PRN PRN Reason: Constipation Calcitriol (Calcitriol 0.25 Mcg Cap) 0.5 mcg PO [id number] [facility] Last Admin: 11/16/20 08:43 Dose: 0.5 mcg Documented by: Diltiazem HCl (Diltiazem 180 Mg Cap.Cd) 360 mg PO DAILY [facility] Last Admin: 11/16/20 08:44 Dose: 360 mg Documented by: Diphenhydramine HCl (Diphenhydramine 25 Mg Tab) 25 mg PO BEDTIME PRN PRN Reason: Insomnia Last Admin: 11/16/20 01:09 Dose: 25 mg Documented by: Docusate Sodium (Docusate Sodium 100 Mg Cap) 100 mg PO BID PRN PRN Reason: Constipation Furosemide (Furosemide 40 Mg/4 Ml Vial) 40 mg IVPUSH BIDDIURETIC [facility] Last Admin: 11/16/20 08:38 Dose: 40 mg Documented by: Ceftriaxone Sodium 1 gm/ (Sodium Chloride) 50 mls @ 100 mls/hr IV Q24H [facility] Azithromycin 500 mg/ Sodium (Chloride) 250 mls @ 250 mls/hr IV DAILY@1999 [facility] Last Infusion: 11/16/20 03:17 Dose: Infused Documented by: Metoprolol Succinate (Metoprolol Succinate 25 Mg Tab.Er) 75 mg PO DAILY [facility] Last Admin: 11/16/20 08:44 Dose: 75 mg Documented by: Non-Formulary Medication (Non-Formulary Medication 1 Each) 0 each TOP BID [facility] Nystatin (Nystatin Topical Powder 30 Gm Bottle) 0 gm TOP BID PRN PRN Reason: skin breakdown Last Admin: 11/16/20 01:12 Dose: 1 applic Documented by: Ondansetron HCl (Ondansetron 4 Mg/2 Ml Sdv) 4 mg IVPUSH Q4H PRN PRN Reason: Nausea/Vomiting Pantoprazole Sodium (Pantoprazole 40 Mg Tab.Cr) 40 mg PO ACBREAKFAST [facility] Last Admin: 11/16/20 05:39 Dose: 40 mg Documented by: Paroxetine HCl (Paroxetine 20 Mg Tab) 30 mg PO DAILY [facility] Last Admin: 11/16/20 08:41 Dose: 30 mg Documented by: Potassium Chloride (Potassium Chloride 10 Meq Tab.Er) 10 meq PO DAILY [facility] Last Admin: 11/16/20 08:44 Dose: 10 meq Documented by: Simvastatin (Simvastatin 10 Mg Tab) 10 mg PO BEDTIME [facility] Spironolactone (Spironolactone 25 Mg Tab) 25 mg PO DAILY [facility] Last Admin: 11/16/20 08:44 Dose: 25 mg Documented by: Warfarin Sodium (Pharmacy To Dose - Warfarin) 1 dose .XX ASDIRECTED [facility] Warfarin Sodium (Warfarin 2.5 Mg Tab) 2.5 mg PO ONETIME ONE Stop: 11/16/20 14:01 Discontinued Medications Allopurinol (Allopurinol 300 Mg Tab) 150 mg PO DAILY [facility] Last Admin: 11/16/20 08:43 Dose: 150 mg Documented by: Furosemide (Furosemide 40 Mg/4 Ml Vial) 40 mg IVPUSH NOW ONE Stop: 11/15/20 22:14 Last Admin: 11/15/20 22:36 Dose: 40 mg Documented by: Ceftriaxone Sodium 1 gm/ (Sodium Chloride) 50 mls @ 100 mls/hr IV ONETIME ONE Stop: 11/15/20 22:42 Last Admin: 11/15/20 22:38 Dose: 100 mls/hr Documented by: Warfarin Sodium (Warfarin 5 Mg Tab) 5 mg PO . [facility] Warfarin Sodium (Warfarin 2.5 Mg Tab) 2.5 mg PO . [facility] - Exam Quality Assessment: Supplemental Oxygen General: Alert, Oriented, Mild Distress Lungs: Clear to Auscultation Cardiovascular: Irregular Rhythm GI/Abdominal Exam: Soft Back Exam: Full Range of Motion Extremities: Normal Inspection, No Pedal Edema Skin: Intact Neurological: No New Focal Deficit Psy/Mental Status: Normal Affect - Patient Data Lab Results Last 24 hrs: Laboratory Results - last 24 hr 11/15/20 11/15/20 11/15/20 Range/Units 21:15 21:15 21:15 WBC 8.6 (5.0-10.0) 10^3/uL RBC 4.43 (4.2-5.4) 10^6/uL Hgb 14.7 (12.0-16.0) g/dL Hct 44.5 (37.0-47.0) % MCV 100.5 H (80-100) fL MCH 33.2 (27.0-34.0) pg MCHC 33.0 (33.0-35.0) g/dL Plt Count 215 (150-450) 10^3/uL Neut % (Auto) 68.6 (42.2-75.2) % Lymph % (Auto) 18.8 L (20.5-50.1) % [place] % (Auto) 11.0 H (2-8) % Eos % (Auto) 1.4 (1.0-3.0) % Baso % (Auto) 0.2 (0.0-1.0) % PT (9.0-12.0) SEC INR (0.9-1.2) D-Dimer, Quantitative 113 (0-400) ng/mL Sodium 137 (136-145) mmol/L Potassium 3.8 (3.5-5.1) mmol/L Chloride 97 L (98-107) mmol/L Carbon Dioxide 30 (21-32) mmol/L Anion Gap 13.8 H (7-13) mEq/L BUN 40 H (7-18) mg/dL Creatinine 1.75 H (0.55-1.02) mg/dL Est Cr Clr Drug Dosing 17.57 mL/min Estimated GFR (MDRD) 27 BUN/Creatinine Ratio 22.9 (No establ ref range) Glucose 103 H (70-99) mg/dL Lactic Acid (0.4-2.0) mmol/L Calcium 9.6 (8.5-10.1) mg/dL Total Bilirubin 0.8 (0.2-1.0) mg/dL AST 15 (15-37) U/L ALT 16 (14-59) U/L Alkaline Phosphatase 64 (46-116) U/L Troponin I 0.119 H* (0.000-0.056) ng/mL B-Natriuretic Peptide 266 H (0-100) pg/ml Total Protein 6.9 (6.4-8.2) g/dL Albumin 3.2 L (3.4-5.0) g/dL Globulin 3.7 Albumin/Globulin Ratio 0.86 Urine Color (YELLOW) Urine Appearance (CLEAR) Urine pH (5.0-9.0) Ur Specific [place] (1.005-1.030) Urine Protein (NEGATIVE) Urine Glucose (UA) (NEGATIVE) Urine Ketones (NEGATIVE) Urine Occult Blood (NEGATIVE) Urine Nitrite (NEGATIVE) Urine Bilirubin (NEGATIVE) Urine Urobilinogen (0.2-1.0) mg/dL Ur Leukocyte Esterase (NEGATIVE) Urine RBC /HPF Urine WBC (0-5/HPF) /HPF Ur Epithelial Cells (NOT SEEN) /HPF Amorphous Sediment (NOT SEEN) /HPF Urine Bacteria (0-FEW/HPF) /HPF Urine Mucus (NOT SEEN) /LPF SARS-CoV-2 RNA (JENNIFER) (NEGATIVE) 11/15/20 11/15/20 11/15/20 Range/Units 21:15 21:15 22:59 WBC (5.0-10.0) 10^3/uL RBC (4.2-5.4) 10^6/uL Hgb (12.0-16.0) g/dL Hct (37.0-47.0) % MCV (80-100) fL MCH (27.0-34.0) pg MCHC (33.0-35.0) g/dL Plt Count (150-450) 10^3/uL Neut % (Auto) (42.2-75.2) % Lymph % (Auto) (20.5-50.1) % [place] % (Auto) (2-8) % Eos % (Auto) (1.0-3.0) % Baso % (Auto) (0.0-1.0) % PT 27.5 H (9.0-12.0) SEC INR 2.8 H (0.9-1.2) D-Dimer, Quantitative (0-400) ng/mL Sodium (136-145) mmol/L Potassium (3.5-5.1) mmol/L Chloride (98-107) mmol/L Carbon Dioxide (21-32) mmol/L Anion Gap (7-13) mEq/L BUN (7-18) mg/dL Creatinine (0.55-1.02) mg/dL Est Cr Clr Drug Dosing mL/min Estimated GFR (MDRD) BUN/Creatinine Ratio (No establ ref range) Glucose (70-99) mg/dL Lactic Acid 1.2 (0.4-2.0) mmol/L Calcium (8.5-10.1) mg/dL Total Bilirubin (0.2-1.0) mg/dL AST (15-37) U/L ALT (14-59) U/L Alkaline Phosphatase (46-116) U/L Troponin I (0.000-0.056) ng/mL B-Natriuretic Peptide (0-100) pg/ml Total Protein (6.4-8.2) g/dL Albumin (3.4-5.0) g/dL Globulin Albumin/Globulin Ratio Urine Color (YELLOW) Urine Appearance (CLEAR) Urine pH (5.0-9.0) Ur Specific [place] (1.005-1.030) Urine Protein (NEGATIVE) Urine Glucose (UA) (NEGATIVE) Urine Ketones (NEGATIVE) Urine Occult Blood (NEGATIVE) Urine Nitrite (NEGATIVE) Urine Bilirubin (NEGATIVE) Urine Urobilinogen (0.2-1.0) mg/dL Ur Leukocyte Esterase (NEGATIVE) Urine RBC /HPF Urine WBC (0-5/HPF) /HPF Ur Epithelial Cells (NOT SEEN) /HPF Amorphous Sediment (NOT SEEN) /HPF Urine Bacteria (0-FEW/HPF) /HPF Urine Mucus (NOT SEEN) /LPF SARS-CoV-2 RNA (JENNIFER) Negative (NEGATIVE) 11/16/20 11/16/20 11/16/20 Range/Units 05:35 06:05 06:05 WBC (5.0-10.0) 10^3/uL RBC (4.2-5.4) 10^6/uL Hgb (12.0-16.0) g/dL Hct (37.0-47.0) % MCV (80-100) fL MCH (27.0-34.0) pg MCHC (33.0-35.0) g/dL Plt Count (150-450) 10^3/uL Neut % (Auto) (42.2-75.2) % Lymph % (Auto) (20.5-50.1) % [place] % (Auto) (2-8) % Eos % (Auto) (1.0-3.0) % Baso % (Auto) (0.0-1.0) % PT 25.5 H (9.0-12.0) SEC INR 2.6 H (0.9-1.2) D-Dimer, Quantitative (0-400) ng/mL Sodium (136-145) mmol/L Potassium (3.5-5.1) mmol/L Chloride (98-107) mmol/L Carbon Dioxide (21-32) mmol/L Anion Gap (7-13) mEq/L BUN (7-18) mg/dL Creatinine (0.55-1.02) mg/dL Est Cr Clr Drug Dosing mL/min Estimated GFR (MDRD) BUN/Creatinine Ratio (No establ ref range) Glucose (70-99) mg/dL Lactic Acid (0.4-2.0) mmol/L Calcium (8.5-10.1) mg/dL Total Bilirubin (0.2-1.0) mg/dL AST (15-37) U/L ALT (14-59) U/L Alkaline Phosphatase (46-116) U/L Troponin I 0.110 H* (0.000-0.056) ng/mL B-Natriuretic Peptide (0-100) pg/ml Total Protein (6.4-8.2) g/dL Albumin (3.4-5.0) g/dL Globulin Albumin/Globulin Ratio Urine Color Yellow (YELLOW) Urine Appearance Slightly cloudy (CLEAR) Urine pH 7.0 (5.0-9.0) Ur Specific [place] 1.015 (1.005-1.030) Urine Protein Negative (NEGATIVE) Urine Glucose (UA) Negative (NEGATIVE) Urine Ketones Negative (NEGATIVE) Urine Occult Blood Trace-intact H (NEGATIVE) Urine Nitrite Negative (NEGATIVE) Urine Bilirubin Negative (NEGATIVE) Urine Urobilinogen 0.2 (0.2-1.0) mg/dL Ur Leukocyte Esterase Moderate H (NEGATIVE) Urine RBC 0-5 /HPF Urine WBC 30-40 H (0-5/HPF) /HPF Ur Epithelial Cells Occasional (NOT SEEN) /HPF Amorphous Sediment Occasional (NOT SEEN) /HPF Urine Bacteria Few (0-FEW/HPF) /HPF Urine Mucus Not seen (NOT SEEN) /LPF SARS-CoV-2 RNA (JENNIFER) (NEGATIVE) 11/16/20 11/16/20 Range/Units 06:05 06:05 WBC 7.6 (5.0-10.0) 10^3/uL RBC 4.46 (4.2-5.4) 10^6/uL Hgb 14.8 (12.0-16.0) g/dL Hct 45.2 (37.0-47.0) % MCV 101.3 H (80-100) fL MCH 33.2 (27.0-34.0) pg MCHC 32.7 L (33.0-35.0) g/dL Plt Count 210 (150-450) 10^3/uL Neut % (Auto) (42.2-75.2) % Lymph % (Auto) (20.5-50.1) % [place] % (Auto) (2-8) % Eos % (Auto) (1.0-3.0) % Baso % (Auto) (0.0-1.0) % PT (9.0-12.0) SEC INR (0.9-1.2) D-Dimer, Quantitative (0-400) ng/mL Sodium 139 (136-145) mmol/L Potassium 3.5 (3.5-5.1) mmol/L Chloride 100 (98-107) mmol/L Carbon Dioxide 31 (21-32) mmol/L Anion Gap 11.5 (7-13) mEq/L BUN 37 H (7-18) mg/dL Creatinine 1.75 H (0.55-1.02) mg/dL Est Cr Clr Drug Dosing 17.57 mL/min Estimated GFR (MDRD) 27 BUN/Creatinine Ratio (No establ ref range) Glucose 96 (70-99) mg/dL Lactic Acid (0.4-2.0) mmol/L Calcium 9.1 (8.5-10.1) mg/dL Total Bilirubin (0.2-1.0) mg/dL AST (15-37) U/L ALT (14-59) U/L Alkaline Phosphatase (46-116) U/L Troponin I (0.000-0.056) ng/mL B-Natriuretic Peptide (0-100) pg/ml Total Protein (6.4-8.2) g/dL Albumin (3.4-5.0) g/dL Globulin Albumin/Globulin Ratio Urine Color (YELLOW) Urine Appearance (CLEAR) Urine pH (5.0-9.0) Ur Specific [place] (1.005-1.030) Urine Protein (NEGATIVE) Urine Glucose (UA) (NEGATIVE) Urine Ketones (NEGATIVE) Urine Occult Blood (NEGATIVE) Urine Nitrite (NEGATIVE) Urine Bilirubin (NEGATIVE) Urine Urobilinogen (0.2-1.0) mg/dL Ur Leukocyte Esterase (NEGATIVE) Urine RBC /HPF Urine WBC (0-5/HPF) /HPF Ur Epithelial Cells (NOT SEEN) /HPF Amorphous Sediment (NOT SEEN) /HPF Urine Bacteria (0-FEW/HPF) /HPF Urine Mucus (NOT SEEN) /LPF SARS-CoV-2 RNA (JENNIFER) (NEGATIVE) Result Diagrams: 11/16/20 06:05 11/16/20 06:05 Sepsis Event Note - Evaluation Sepsis Screening Result: No Definite Risk - Focused Exam Vital Signs: Vital Signs Temp Pulse Pulse Resp BP BP Pulse Ox 11/16/20 08:44 80 128/53 L 11/16/20 08:00 98.2 F 80 20 128/53 L 97 11/16/20 05:00 98 F 60 20 124/53 L 100 11/15/20 23:38 97.9 F 59 L 20 127/60 97 - Problem List Review Problem List Initiated/Reviewed/Updated: Yes - My Orders Last 24 Hours: My Active Orders 11/15/20 23:37 Height and Weight [RC] 0600 PT Evaluation and Treatment [CONS] Routine Acetaminophen [TylenoL] 650 mg PO Q4H PRN Albuterol [Proventil Neb Soln] 2.5 mg NEB Q2H PRN Docusate Sodium [Colace] 100 mg PO BID PRN Ondansetron [Zofran] 4 mg IVPUSH Q4H PRN bisacodyL [Dulcolax] 5 mg PO DAILY PRN Resuscitation Status Routine 11/15/20 23:38 Cardiac Monitoring [RC] 08,20 Intake and Output [RC] 06,14,22 Oxygen Therapy [RC] PRN VTE/DVT Education [RC] 08,20 Vital Signs [RC] 04,08,12,16,20,00 11/15/20 23:41 RT Aerosol Therapy [RC] ASDIRECTED 11/15/20 23:45 Azithromycin [Zithromax] 500 mg Sodium Chloride 0.9% [Normal Saline (AdvBag)] 250 ml IV DAILY@199911/16/20 00:19 EKG 12 Lead [EKG Documentation Completion] [RC] 0800 Albuterol [Proventil HFA] 0 gm INH Q4H PRN Nystatin [Nystop] 0 gm TOP BID PRN 11/16/20 00:21 RT Post Treatment Assessment [RC] Click to Edit RT Pre-Treatment Assessment [RC] Click to Edit 11/16/20 00:25 diphenhydrAMINE [Benadryl] 25 mg PO BEDTIME PRN 11/16/20 00:30 Pharmacy to Dose - Warfarin 1 dose .XX ASDIRECTED 11/16/20 06:00 Pantoprazole [ProTONIX] 40 mg PO ACBREAKFAST 11/16/20 08:00 Furosemide [Lasix] 40 mg IVPUSH BIDDIURETIC 11/16/20 09:00 Diltiazem [Cardizem CD] 360 mg PO DAILY Metoprolol Succinate [Toprol XL] 75 mg PO DAILY Non-Formulary Medication [NF Drug] 0 each TOP BID PARoxetine [Paxil] 30 mg PO DAILY Potassium Chloride [Klor-Con 10] 10 meq PO DAILY Spironolactone [Aldactone] 25 mg PO DAILY calcitrioL [Rocaltrol] 0.5 mcg PO [id number] 11/16/20 14:00 Warfarin [Coumadin] 2.5 mg PO ONETIME ONE 11/16/20 21:00 Simvastatin [Zocor] 10 mg PO BEDTIME cefTRIAXone [Rocephin] 1 gm Sodium Chloride 0.9% [Normal Saline] 50 ml IV Q24H 11/17/20 05:00 BASIC METABOLIC PANEL,BMP [CHEM] DAILY INR,PT,PROTHROMBIN TIME [COAG] DAILY 11/17/20 23:44 CBC W/O DIFF,HEMOGRAM [HEME] DAILY 11/18/20 05:00 BASIC METABOLIC PANEL,BMP [CHEM] DAILY INR,PT,PROTHROMBIN TIME [COAG] DAILY 11/18/20 09:00 allopurinoL [Zyloprim] 50 mg PO Q48H 11/18/20 23:44 CBC W/O DIFF,HEMOGRAM [HEME] DAILY 11/19/20 05:00 BASIC METABOLIC PANEL,BMP [CHEM] DAILY INR,PT,PROTHROMBIN TIME [COAG] DAILY 11/19/20 23:44 CBC W/O DIFF,HEMOGRAM [HEME] DAILY 11/20/20 05:00 BASIC METABOLIC PANEL,BMP [CHEM] DAILY INR,PT,PROTHROMBIN TIME [COAG] DAILY 11/20/20 23:44 CBC W/O DIFF,HEMOGRAM [HEME] DAILY 11/21/20 05:00 BASIC METABOLIC PANEL,BMP [CHEM] DAILY INR,PT,PROTHROMBIN TIME [COAG] DAILY 11/21/20 23:44 CBC W/O DIFF,HEMOGRAM [HEME] DAILY - Plan Plan:: Pt is 89 yo female patient was brought to the ED by EMS due to increased shortness of breath over the past week. The patient reports the past 2 days have been much worse. The patient was admitted to [facility] in [place] on 11/02/20 - 11/04/20 due to shortness of breath. During the visit in the hospital, the patient was given 40 mg of IV Lasix 2 times per day. On discharge, the patient's home Lasix was increased to 60 mg BID. The patient has a history of a. fib, gout, CKD, hypertension, obesity, and diastolic CHF with pleural effusions. The patient currently lives in [facility]. The patient reports she normally can walk from her room to the dining area for dinner, but had to have a ride part of the way yesterday and requested dinner in her room today due to the increased shortness of breath. Pt denies fever, cough, CP or exposure to COVID. Pt Possible Acute CHF exacerbation: Possible NOSTEMI versus trop Leak: her Trop has been at the same level on previous visits. Now is trending down. The report of her last echo from Oct 02 2020 showed LVH with EF 65-70%. EKG today showed A fib with possible old inferior and ant FL. Possible Pneumonia Chronic A fib on warfarin ? Intolerance to Aspirin: nose bleed? Pt has not taking aspirin for long time. Obesity Lasix 40 mg IV BID Ceftriaxone Zithromax O2 Nebs Continue with home medications Metoprolol, Zocor, Aldactone and Diltiazem. Pt was offered to be transferred to see cardiology but she would rather to stay her and to see cardiology as outpt.
[2020-11-16] MEDS ORDERED: Warfarin 2.5 MG Tab PO ONE (14:00)
[2020-11-16] MEDS: Simvastatin 10 MG Tab PO SCH (20:55)
[2020-11-16] MEDS: cefTRIAXone 1 GM in Sodium Chloride 0.9% 50 ML IV SCH (22:31)
[2020-11-17] MEDS: Pantoprazole 40 MG Tab.CR PO SCH (05:44)
[2020-11-17 07:14] LABS: ANION GAP 11.5 mEq/L (7-13)
[2020-11-17] MEDS: Metoprolol Succinate 25 MG Tab.ER PO SCH (08:38)
[2020-11-17] MEDS: Furosemide 40 MG/4 ML VIAL IVPUSH SCH ×2 (08:38→14:20)
[2020-11-17] MEDS: Spironolactone 25 MG Tab PO SCH (08:39)
[2020-11-17] MEDS: Diltiazem 180 MG Cap.CD PO SCH (08:39)
[2020-11-17] MEDS: PARoxetine 20 MG Tab PO SCH (08:39)
[2020-11-17] MEDS: Potassium Chloride 10 MEQ Tab.ER PO SCH (08:39)
[2020-11-17] MEDS: Calcitriol 0.25 MCG Cap PO SCH (08:39)
--- NOTE | 2020-11-17 09:00 | PCM.PN ---
- General Info Date of Service: 11/17/20 Admission Dx/Problem (Free Text): Feels about 70% better ?. Functional Status: Reports: Tolerating Diet - Review of Systems General: Denies: Fever Pulmonary: Reports: Shortness of Breath Cardiovascular: Denies: Chest Pain Gastrointestinal: Denies: Abdominal Pain Neurological: Denies: Confusion Psychiatric: Denies: Confusion - Patient Data Vitals - Most Recent: Last Vital Signs Temp 97.7 F 11/17/20 08:00 Pulse 65 11/17/20 08:38 Resp 20 11/17/20 08:00 BP 146/61 H 11/17/20 08:38 Pulse Ox 90 L 11/17/20 08:00 Weight - Most Recent: 238 lb 9.6 oz I&O - Last 24 Hours: Intake & Output 11/16/20 11/17/20 11/17/20 22:59 06:59 14:59 Intake Total 525 150 Output Total 200 Balance 525 -50 Lab Results Last 24 Hours: Laboratory Results - last 24 hr 11/17/20 11/17/20 11/17/20 Range/Units 06:05 06:05 06:05 WBC 9.9 (5.0-10.0) 10^3/uL RBC 4.86 (4.2-5.4) 10^6/uL Hgb 16.1 H (12.0-16.0) g/dL Hct 49.5 H (37.0-47.0) % MCV 101.9 H (80-100) fL MCH 33.1 (27.0-34.0) pg MCHC 32.5 L (33.0-35.0) g/dL Plt Count 221 (150-450) 10^3/uL PT 23.9 H (9.0-12.0) SEC INR 2.4 H (0.9-1.2) Sodium 140 (136-145) mmol/L Potassium 3.5 (3.5-5.1) mmol/L Chloride 100 (98-107) mmol/L Carbon Dioxide 32 (21-32) mmol/L Anion Gap 11.5 (7-13) mEq/L BUN 29 H (7-18) mg/dL Creatinine 1.59 H (0.55-1.02) mg/dL Est Cr Clr Drug Dosing 19.34 mL/min Estimated GFR (MDRD) 31 Glucose 98 (70-99) mg/dL Calcium 9.2 (8.5-10.1) mg/dL Joon Results Last 24 Hours: Microbiology 11/16/20 05:35 Urine Culture - Preliminary Urine, Voided 11/15/20 22:24 Aerobic Blood Culture - Preliminary Blood - Arm, Left NO GROWTH AFTER 1 DAY Anaerobic Blood Culture - Preliminary NO GROWTH AFTER 1 DAY 11/15/20 21:15 Aerobic Blood Culture - Preliminary Blood - Arm, Right NO GROWTH AFTER 1 DAY Anaerobic Blood Culture - Preliminary NO GROWTH AFTER 1 DAY Med Orders - Current: Current Medications Acetaminophen (Acetaminophen 325 Mg Tab) 650 mg PO Q4H PRN PRN Reason: Pain (Mild 1-3)/fever Last Admin: 11/16/20 21:36 Dose: 650 mg Documented by: Albuterol (Albuterol 0.083% 2.5 Mg/3 Ml Neb Soln) 2.5 mg NEB Q2H PRN PRN Reason: shortness of breath/wheezing Albuterol (Albuterol 6.7 Gm Inhaler) 0 gm INH Q4H PRN PRN Reason: Shortness of Breath Allopurinol (Allopurinol 100 Mg Tab) 50 mg PO Q48H YURI Bisacodyl (Bisacodyl 5 Mg Tab) 5 mg PO DAILY PRN PRN Reason: Constipation Calcitriol (Calcitriol 0.25 Mcg Cap) 0.5 mcg PO MoTuWeThFr@0900 [facility] Last Admin: 11/17/20 08:39 Dose: 0.5 mcg Documented by: Diltiazem HCl (Diltiazem 180 Mg Cap.Cd) 360 mg PO DAILY [facility] Last Admin: 11/17/20 08:39 Dose: 360 mg Documented by: Diphenhydramine HCl (Diphenhydramine 25 Mg Tab) 25 mg PO BEDTIME PRN PRN Reason: Insomnia Last Admin: 11/16/20 21:37 Dose: 25 mg Documented by: Docusate Sodium (Docusate Sodium 100 Mg Cap) 100 mg PO BID PRN PRN Reason: Constipation Furosemide (Furosemide 40 Mg/4 Ml Vial) 40 mg IVPUSH BIDDIURETIC [facility] Last Admin: 11/17/20 08:38 Dose: 40 mg Documented by: Ceftriaxone Sodium 1 gm/ (Sodium Chloride) 50 mls @ 100 mls/hr IV Q24H [facility] Last Infusion: 11/16/20 23:23 Dose: Infused Documented by: Azithromycin 500 mg/ Sodium (Chloride) 250 mls @ 250 mls/hr IV DAILY@1999 [facility] Last Infusion: 11/16/20 22:30 Dose: Infused Documented by: Metoprolol Succinate (Metoprolol Succinate 25 Mg Tab.Er) 75 mg PO DAILY [facility] Last Admin: 11/17/20 08:38 Dose: 75 mg Documented by: Nystatin (Nystatin Topical Powder 30 Gm Bottle) 0 gm TOP BID PRN PRN Reason: skin breakdown Last Admin: 11/16/20 01:12 Dose: 1 applic Documented by: Ondansetron HCl (Ondansetron 4 Mg/2 Ml Sdv) 4 mg IVPUSH Q4H PRN PRN Reason: Nausea/Vomiting Pantoprazole Sodium (Pantoprazole 40 Mg Tab.Cr) 40 mg PO ACBREAKFAST [facility] Last Admin: 11/17/20 05:44 Dose: 40 mg Documented by: Paroxetine HCl (Paroxetine 20 Mg Tab) 30 mg PO DAILY [facility] Last Admin: 11/17/20 08:39 Dose: 30 mg Documented by: Potassium Chloride (Potassium Chloride 10 Meq Tab.Er) 10 meq PO DAILY [facility] Last Admin: 11/17/20 08:39 Dose: 10 meq Documented by: Simvastatin (Simvastatin 10 Mg Tab) 10 mg PO BEDTIME [facility] Last Admin: 11/16/20 20:55 Dose: 10 mg Documented by: Sodium Chloride (Sodium Chloride 0.9% 10 Ml Syringe) 10 ml FLUSH ASDIRECTED PRN PRN Reason: IV Use Spironolactone (Spironolactone 25 Mg Tab) 25 mg PO DAILY [facility] Last Admin: 11/17/20 08:39 Dose: 25 mg Documented by: Warfarin Sodium (Pharmacy To Dose - Warfarin) 1 dose .XX ASDIRECTED [facility] Warfarin Sodium (Warfarin 2.5 Mg Tab) 2.5 mg PO ONETIME ONE Stop: 11/17/20 14:01 Discontinued Medications Allopurinol (Allopurinol 300 Mg Tab) 150 mg PO DAILY [facility] Last Admin: 11/16/20 08:43 Dose: 150 mg Documented by: Furosemide (Furosemide 40 Mg/4 Ml Vial) 40 mg IVPUSH NOW ONE Stop: 11/15/20 22:14 Last Admin: 11/15/20 22:36 Dose: 40 mg Documented by: Ceftriaxone Sodium 1 gm/ (Sodium Chloride) 50 mls @ 100 mls/hr IV ONETIME ONE Stop: 11/15/20 22:42 Last Admin: 11/15/20 22:38 Dose: 100 mls/hr Documented by: Non-Formulary Medication (Non-Formulary Medication 1 Each) 0 each TOP BID [facility] Last Admin: 11/16/20 16:37 Dose: Not Given Documented by: Warfarin Sodium (Warfarin 5 Mg Tab) 5 mg PO .MON.UR [facility] Warfarin Sodium (Warfarin 2.5 Mg Tab) 2.5 mg PO .SUN..[facility] Warfarin Sodium (Warfarin 2.5 Mg Tab) 2.5 mg PO ONETIME ONE Stop: 11/16/20 14:01 Last Admin: 11/16/20 14:16 Dose: 2.5 mg Documented by: - Exam Quality Assessment: Supplemental Oxygen General: Alert, Oriented, Mild Distress Lungs: Clear to Auscultation Cardiovascular: Irregular Rhythm GI/Abdominal Exam: Soft Extremities: No Pedal Edema Skin: Intact Neurological: No New Focal Deficit Psy/Mental Status: Normal Affect - Patient Data Lab Results Last 24 hrs: Laboratory Results - last 24 hr 11/17/20 11/17/20 11/17/20 Range/Units 06:05 06:05 06:05 WBC 9.9 (5.0-10.0) 10^3/uL RBC 4.86 (4.2-5.4) 10^6/uL Hgb 16.1 H (12.0-16.0) g/dL Hct 49.5 H (37.0-47.0) % MCV 101.9 H (80-100) fL MCH 33.1 (27.0-34.0) pg MCHC 32.5 L (33.0-35.0) g/dL Plt Count 221 (150-450) 10^3/uL PT 23.9 H (9.0-12.0) SEC INR 2.4 H (0.9-1.2) Sodium 140 (136-145) mmol/L Potassium 3.5 (3.5-5.1) mmol/L Chloride 100 (98-107) mmol/L Carbon Dioxide 32 (21-32) mmol/L Anion Gap 11.5 (7-13) mEq/L BUN 29 H (7-18) mg/dL Creatinine 1.59 H (0.55-1.02) mg/dL Est Cr Clr Drug Dosing 19.34 mL/min Estimated GFR (MDRD) 31 Glucose 98 (70-99) mg/dL Calcium 9.2 (8.5-10.1) mg/dL Result Diagrams: 11/17/20 06:05 11/17/20 06:05 Joon Results Last 24 hrs: Microbiology 11/16/20 05:35 Urine Culture - Preliminary Urine, Voided 11/15/20 22:24 Aerobic Blood Culture - Preliminary Blood - Arm, Left NO GROWTH AFTER 1 DAY Anaerobic Blood Culture - Preliminary NO GROWTH AFTER 1 DAY 11/15/20 21:15 Aerobic Blood Culture - Preliminary Blood - Arm, Right NO GROWTH AFTER 1 DAY Anaerobic Blood Culture - Preliminary NO GROWTH AFTER 1 DAY Sepsis Event Note - Evaluation Sepsis Screening Result: No Definite Risk - Focused Exam Vital Signs: Vital Signs Temp Pulse Pulse Resp BP BP Pulse Ox 11/17/20 08:38 65 146/61 H 11/17/20 08:00 97.7 F 65 20 146/61 H 90 L 11/17/20 05:30 97.8 F 57 L 20 131/58 L 98 11/16/20 22:56 11/16/20 22:55 98 F 49 L 20 107/44 L 95 Pulse Ox 11/17/20 08:38 11/17/20 08:00 11/17/20 05:30 11/16/20 22:56 95 11/16/20 22:55 - Problem List Review Problem List Initiated/Reviewed/Updated: Yes - My Orders Last 24 Hours: My Active Orders 11/16/20 08:00 Furosemide [Lasix] 40 mg IVPUSH BIDDIURETIC 11/16/20 09:00 Diltiazem [Cardizem CD] 360 mg PO DAILY Metoprolol Succinate [Toprol XL] 75 mg PO DAILY PARoxetine [Paxil] 30 mg PO DAILY Potassium Chloride [Klor-Con 10] 10 meq PO DAILY Spironolactone [Aldactone] 25 mg PO DAILY calcitrioL [Rocaltrol] 0.5 mcg PO MoTuWeThFr@0900 11/16/20 21:00 Simvastatin [Zocor] 10 mg PO BEDTIME cefTRIAXone [Rocephin] 1 gm Sodium Chloride 0.9% [Normal Saline] 50 ml IV Q24H 11/16/20 22:29 Sodium Chloride 0.9% [Saline Flush] 10 ml FLUSH ASDIRECTED PRN 11/17/20 14:00 Warfarin [Coumadin] 2.5 mg PO ONETIME ONE 11/18/20 05:00 BASIC METABOLIC PANEL,BMP [CHEM] DAILY INR,PT,PROTHROMBIN TIME [COAG] DAILY 11/18/20 09:00 allopurinoL [Zyloprim] 50 mg PO Q48H 11/18/20 23:44 CBC W/O DIFF,HEMOGRAM [HEME] DAILY 11/19/20 05:00 BASIC METABOLIC PANEL,BMP [CHEM] DAILY INR,PT,PROTHROMBIN TIME [COAG] DAILY 11/19/20 23:44 CBC W/O DIFF,HEMOGRAM [HEME] DAILY 11/20/20 05:00 BASIC METABOLIC PANEL,BMP [CHEM] DAILY INR,PT,PROTHROMBIN TIME [COAG] DAILY 11/20/20 23:44 CBC W/O DIFF,HEMOGRAM [HEME] DAILY 11/21/20 05:00 BASIC METABOLIC PANEL,BMP [CHEM] DAILY INR,PT,PROTHROMBIN TIME [COAG] DAILY 11/21/20 23:44 CBC W/O DIFF,HEMOGRAM [HEME] DAILY - Plan Plan:: Pt is 89 yo female patient was brought to the ED by EMS due to increased shortness of breath over the past week. The patient reports the past 2 days have been much worse. The patient was admitted to [facility] in [place] on 11/02/20 - 11/04/20 due to shortness of breath. During the visit in the hospital, the patient was given 40 mg of IV Lasix 2 times per day. On discharge, the patient's home Lasix was increased to 60 mg BID. The patient has a history of a. fib, gout, CKD, hypertension, obesity, and diastolic CHF with pleural effusions. The patient currently lives in [facility]. The patient reports she normally can walk from her room to the dining area for dinner, but had to have a ride part of the way yesterday and requested dinner in her room today due to the increased shortness of breath. Pt denies fever, cough, CP or exposure to COVID. Pt Possible Acute CHF exacerbation: Possible Pneumonia Mild trop Leak: her Trop has been at the same level on previous visits. Now is trending down. The report of her last echo from Oct 02 2020 showed LVH with EF 65-70%. EKG today showed A fib with possible old inferior and ant [place]. Chronic A fib on warfarin ? Intolerance to Aspirin: nose bleed? Pt has not taking aspirin for long time. Obesity CXR in AM , increase ambulation. Lasix 40 mg IV BID Ceftriaxone Zithromax O2 Nebs Continue with home medications Metoprolol, Zocor, Aldactone and Diltiazem. Pt was offered to be transferred to see cardiology but she would rather to stay her and to see cardiology as outpt.
[2020-11-17] MEDS ORDERED: Warfarin 2.5 MG Tab PO ONE (14:00)
[2020-11-17] MEDS: Azithromycin 500 MG in Sodium Chloride 0.9% 250 ML IV SCH (20:29)
[2020-11-17] MEDS: Simvastatin 10 MG Tab PO SCH (20:31)
[2020-11-17] MEDS: Acetaminophen 325 MG Tab PO PRN (22:21)
[2020-11-17] MEDS: diphenhydrAMINE 25 MG Tab PO PRN (22:22)
[2020-11-17] MEDS: cefTRIAXone 1 GM in Sodium Chloride 0.9% 50 ML IV SCH (22:35)
[2020-11-18] MEDS: PANTOPRAZOLE 20 MG PO SCH (06:00)
[2020-11-18 06:51] LABS: ANION GAP 9.6 mEq/L (7-13)
[2020-11-18] MEDS: Potassium Chloride 10 MEQ Tab.ER PO SCH (08:14)
[2020-11-18] MEDS: PARoxetine 20 MG Tab PO SCH (08:14)
[2020-11-18] MEDS: Metoprolol Succinate 25 MG Tab.ER PO SCH (08:15)
[2020-11-18] MEDS: Calcitriol 0.25 MCG Cap PO SCH (08:15)
[2020-11-18] MEDS: Spironolactone 25 MG Tab PO SCH (08:15)
[2020-11-18] MEDS: Diltiazem 180 MG Cap.CD PO SCH (08:16)
[2020-11-18] MEDS: Allopurinol 100 MG Tab PO SCH (08:16)
[2020-11-18] MEDS: Furosemide 40 MG/4 ML VIAL IVPUSH SCH ×2 (09:33→14:21)
[2020-11-18] MEDS: Metolazone 2.5 MG Tab PO SCH ×2 (09:33→14:26)
--- NOTE | 2020-11-18 09:52 | PCM.PN ---
- General Info Date of Service: 11/18/20 Functional Status: Reports: Tolerating Diet - Review of Systems General: Denies: Fever Pulmonary: Reports: Shortness of Breath. Denies: Cough Cardiovascular: Denies: Chest Pain Neurological: Denies: Confusion Psychiatric: Denies: Confusion - Patient Data Vitals - Most Recent: Last Vital Signs Temp 97.6 F 11/18/20 07:55 Pulse 64 11/18/20 08:15 Resp 20 11/18/20 07:55 BP 139/57 L 11/18/20 08:15 Pulse Ox 97 11/18/20 07:55 Weight - Most Recent: 242 lb I&O - Last 24 Hours: Intake & Output 11/17/20 11/18/20 11/18/20 22:59 06:59 14:59 Intake Total 300 500 Output Total 100 100 Balance 200 400 Lab Results Last 24 Hours: Laboratory Results - last 24 hr 11/18/20 11/18/20 11/18/20 Range/Units 06:00 06:00 06:00 WBC 7.7 (5.0-10.0) 10^3/uL RBC 4.39 (4.2-5.4) 10^6/uL Hgb 14.6 D (12.0-16.0) g/dL Hct 44.4 (37.0-47.0) % MCV 101.1 H (80-100) fL MCH 33.3 (27.0-34.0) pg MCHC 32.9 L (33.0-35.0) g/dL Plt Count 191 (150-450) 10^3/uL PT 23.4 H (9.0-12.0) SEC INR 2.4 H (0.9-1.2) Sodium 138 (136-145) mmol/L Potassium 3.6 (3.5-5.1) mmol/L Chloride 100 (98-107) mmol/L Carbon Dioxide 32 (21-32) mmol/L Anion Gap 9.6 (7-13) mEq/L BUN 28 H (7-18) mg/dL Creatinine 1.46 H (0.55-1.02) mg/dL Est Cr Clr Drug Dosing 21.07 mL/min Estimated GFR (MDRD) 34 Glucose 94 (70-99) mg/dL Calcium 8.9 (8.5-10.1) mg/dL Troponin I 0.117 H* (0.000-0.056) ng/mL Joon Results Last 24 Hours: Microbiology 11/16/20 05:35 Urine Culture - Final Urine, Voided 11/15/20 22:24 Aerobic Blood Culture - Preliminary Blood - Arm, Left NO GROWTH AFTER 2 DAYS Anaerobic Blood Culture - Preliminary NO GROWTH AFTER 2 DAYS 11/15/20 21:15 Aerobic Blood Culture - Preliminary Blood - Arm, Right NO GROWTH AFTER 2 DAYS Anaerobic Blood Culture - Preliminary NO GROWTH AFTER 2 DAYS Med Orders - Current: Current Medications Acetaminophen (Acetaminophen 325 Mg Tab) 650 mg PO Q4H PRN PRN Reason: Pain (Mild 1-3)/fever Last Admin: 11/17/20 22:21 Dose: 650 mg Documented by: Albuterol (Albuterol 0.083% 2.5 Mg/3 Ml Neb Soln) 2.5 mg NEB Q2H PRN PRN Reason: shortness of breath/wheezing Albuterol (Albuterol 6.7 Gm Inhaler) 0 gm INH Q4H PRN PRN Reason: Shortness of Breath Allopurinol (Allopurinol 100 Mg Tab) 50 mg PO Q48H [facility] Last Admin: 11/18/20 08:16 Dose: 50 mg Documented by: Bisacodyl (Bisacodyl 5 Mg Tab) 5 mg PO DAILY PRN PRN Reason: Constipation Calcitriol (Calcitriol 0.25 Mcg Cap) 0.5 mcg PO MoTuWeThFr@0900 [facility] Last Admin: 11/18/20 08:15 Dose: 0.5 mcg Documented by: Diltiazem HCl (Diltiazem 180 Mg Cap.Cd) 360 mg PO DAILY [facility] Last Admin: 11/18/20 08:16 Dose: 360 mg Documented by: Diphenhydramine HCl (Diphenhydramine 25 Mg Tab) 25 mg PO BEDTIME PRN PRN Reason: Insomnia Last Admin: 11/17/20 22:22 Dose: 25 mg Documented by: Docusate Sodium (Docusate Sodium 100 Mg Cap) 100 mg PO BID PRN PRN Reason: Constipation Furosemide (Furosemide 40 Mg/4 Ml Vial) 80 mg IVPUSH BIDDIURETIC [facility] Last Admin: 11/18/20 09:33 Dose: 80 mg Documented by: Ceftriaxone Sodium 1 gm/ (Sodium Chloride) 50 mls @ 100 mls/hr IV Q24H [facility] Last Admin: 11/17/20 22:35 Dose: 100 mls/hr Documented by: Azithromycin 500 mg/ Sodium (Chloride) 250 mls @ 250 mls/hr IV DAILY@1999 [facility] Last Admin: 11/17/20 20:29 Dose: 125 mls/hr Documented by: Metolazone (Metolazone 2.5 Mg Tab) 2.5 mg PO BIDDIURETIC [facility] Last Admin: 11/18/20 09:33 Dose: 2.5 mg Documented by: Metoprolol Succinate (Metoprolol Succinate 25 Mg Tab.Er) 75 mg PO DAILY [facility] Last Admin: 11/18/20 08:15 Dose: 75 mg Documented by: Nystatin (Nystatin Topical Powder 30 Gm Bottle) 0 gm TOP BID PRN PRN Reason: skin breakdown Last Admin: 11/16/20 01:12 Dose: 1 applic Documented by: Ondansetron HCl (Ondansetron 4 Mg/2 Ml Sdv) 4 mg IVPUSH Q4H PRN PRN Reason: Nausea/Vomiting Paroxetine HCl (Paroxetine 20 Mg Tab) 30 mg PO DAILY [facility] Last Admin: 11/18/20 08:14 Dose: 30 mg Documented by: Pantoprazole 20 Mg Tab.Cr Pt Own Med* * 0 each PO ACBREAKFAST [facility] Last Admin: 11/18/20 06:00 Dose: 1 each Documented by: Potassium Chloride (Potassium Chloride 10 Meq Tab.Er) 10 meq PO DAILY [facility] Last Admin: 11/18/20 08:14 Dose: 10 meq Documented by: Simvastatin (Simvastatin 10 Mg Tab) 10 mg PO BEDTIME [facility] Last Admin: 11/17/20 20:31 Dose: 10 mg Documented by: Sodium Chloride (Sodium Chloride 0.9% 10 Ml Syringe) 10 ml FLUSH ASDIRECTED PRN PRN Reason: IV Use Spironolactone (Spironolactone 25 Mg Tab) 25 mg PO DAILY [facility] Last Admin: 11/18/20 08:15 Dose: 25 mg Documented by: Warfarin Sodium (Pharmacy To Dose - Warfarin) 1 dose .XX ASDIRECTED [facility] Discontinued Medications Allopurinol (Allopurinol 300 Mg Tab) 150 mg PO DAILY [facility] Last Admin: 11/16/20 08:43 Dose: 150 mg Documented by: Furosemide (Furosemide 40 Mg/4 Ml Vial) 40 mg IVPUSH NOW ONE Stop: 11/15/20 22:14 Last Admin: 11/15/20 22:36 Dose: 40 mg Documented by: Furosemide (Furosemide 40 Mg/4 Ml Vial) 40 mg IVPUSH BIDDIURETIC [facility] Last Admin: 11/17/20 14:20 Dose: 40 mg Documented by: Ceftriaxone Sodium 1 gm/ (Sodium Chloride) 50 mls @ 100 mls/hr IV ONETIME ONE Stop: 11/15/20 22:42 Last Admin: 11/15/20 22:38 Dose: 100 mls/hr Documented by: Non-Formulary Medication (Non-Formulary Medication 1 Each) 0 each TOP BID [facility] Last Admin: 11/16/20 16:37 Dose: Not Given Documented by: Pantoprazole Sodium (Pantoprazole 40 Mg Tab.Cr) 40 mg PO ACBREAKFAST [facility] Last Admin: 11/17/20 05:44 Dose: 40 mg Documented by: Warfarin Sodium (Warfarin 5 Mg Tab) 5 mg PO .MON.UR [facility] Warfarin Sodium (Warfarin 2.5 Mg Tab) 2.5 mg PO .SUN..SUN.S[facility] Warfarin Sodium (Warfarin 2.5 Mg Tab) 2.5 mg PO ONETIME ONE Stop: 11/16/20 14:01 Last Admin: 11/16/20 14:16 Dose: 2.5 mg Documented by: Warfarin Sodium (Warfarin 2.5 Mg Tab) 2.5 mg PO ONETIME ONE Stop: 11/17/20 14:01 Last Admin: 11/17/20 14:19 Dose: 2.5 mg Documented by: - Exam Quality Assessment: Supplemental Oxygen General: Alert, Oriented, Cooperative Lungs: Decreased Breath Sounds. No: Wheezing Cardiovascular: Irregular Rhythm Extremities: No: Pedal Edema Skin: Intact Neurological: No New Focal Deficit Psy/Mental Status: Normal Affect - Patient Data Lab Results Last 24 hrs: Laboratory Results - last 24 hr 11/18/20 11/18/20 11/18/20 Range/Units 06:00 06:00 06:00 WBC 7.7 (5.0-10.0) 10^3/uL RBC 4.39 (4.2-5.4) 10^6/uL Hgb 14.6 D (12.0-16.0) g/dL Hct 44.4 (37.0-47.0) % MCV 101.1 H (80-100) fL MCH 33.3 (27.0-34.0) pg MCHC 32.9 L (33.0-35.0) g/dL Plt Count 191 (150-450) 10^3/uL PT 23.4 H (9.0-12.0) SEC INR 2.4 H (0.9-1.2) Sodium 138 (136-145) mmol/L Potassium 3.6 (3.5-5.1) mmol/L Chloride 100 (98-107) mmol/L Carbon Dioxide 32 (21-32) mmol/L Anion Gap 9.6 (7-13) mEq/L BUN 28 H (7-18) mg/dL Creatinine 1.46 H (0.55-1.02) mg/dL Est Cr Clr Drug Dosing 21.07 mL/min Estimated GFR (MDRD) 34 Glucose 94 (70-99) mg/dL Calcium 8.9 (8.5-10.1) mg/dL Troponin I 0.117 H* (0.000-0.056) ng/mL Result Diagrams: 11/18/20 06:00 11/18/20 06:00 Joon Results Last 24 hrs: Microbiology 11/16/20 05:35 Urine Culture - Final Urine, Voided 11/15/20 22:24 Aerobic Blood Culture - Preliminary Blood - Arm, Left NO GROWTH AFTER 2 DAYS Anaerobic Blood Culture - Preliminary NO GROWTH AFTER 2 DAYS 11/15/20 21:15 Aerobic Blood Culture - Preliminary Blood - Arm, Right NO GROWTH AFTER 2 DAYS Anaerobic Blood Culture - Preliminary NO GROWTH AFTER 2 DAYS Sepsis Event Note - Evaluation Sepsis Screening Result: No Definite Risk - Focused Exam Vital Signs: Vital Signs Temp Pulse Pulse Resp BP BP Pulse Ox 11/18/20 08:15 64 139/57 L 11/18/20 07:55 97.6 F 64 20 139/57 L 97 11/18/20 04:00 97.9 F 65 20 146/60 H 92 L 11/17/20 23:55 63 22 H 124/51 L 98 - Problem List Review Problem List Initiated/Reviewed/Updated: Yes - My Orders Last 24 Hours: My Active Orders 11/18/20 Chest 1V Frontal [CR] Routine 11/18/20 06:00 Patient's Own Medication [Ptom] 0 each PO ACBREAKFAST 11/18/20 09:00 Furosemide [Lasix] 80 mg IVPUSH BIDDIURETIC allopurinoL [Zyloprim] 50 mg PO Q48H metOLazone [Zaroxolyn] 2.5 mg PO BIDDIURETIC 11/19/20 05:00 BASIC METABOLIC PANEL,BMP [CHEM] DAILY INR,PT,PROTHROMBIN TIME [COAG] DAILY 11/19/20 23:44 CBC W/O DIFF,HEMOGRAM [HEME] DAILY 11/20/20 05:00 BASIC METABOLIC PANEL,BMP [CHEM] DAILY INR,PT,PROTHROMBIN TIME [COAG] DAILY 11/20/20 23:44 CBC W/O DIFF,HEMOGRAM [HEME] DAILY 11/21/20 05:00 BASIC METABOLIC PANEL,BMP [CHEM] DAILY INR,PT,PROTHROMBIN TIME [COAG] DAILY 11/21/20 23:44 CBC W/O DIFF,HEMOGRAM [HEME] DAILY - Plan Plan:: Pt is 89 yo female patient was brought to the ED by EMS due to increased shortness of breath over the past week. The patient reports the past 2 days have been much worse. The patient was admitted to [facility] in [place] on 11/02/20 - 11/04/20 due to shortness of breath. During the visit in the hospital, the patient was given 40 mg of IV Lasix 2 times per day. On discharge, the patient's home Lasix was increased to 60 mg BID. The patient has a history of a. fib, gout, CKD, hypertension, obesity, and diastolic CHF with pleural effusions. The patient currently lives in [facility]. The patient reports she normally can walk from her room to the dining area for dinner, but had to have a ride part of the way yesterday and requested dinner in her room today due to the increased shortness of breath. Pt denies fever, cough, CP or exposure to COVID. Pt Possible Acute CHF exacerbation: Possible Pneumonia Mild trop Leak: her Trop has been at the same level on previous visits. Now is trending down. The report of her last echo from Oct 02 2020 showed LVH with EF 65-70%. EKG today showed A fib with possible old inferior and ant [place]. Chronic A fib on warfarin ? Intolerance to Aspirin: nose bleed? Pt has not taking aspirin for long time. Obesity CXR: seems to be about the same . awaiting report Increase Lasix to 80 mg IV BID and Metolazone. Ceftriaxone Zithromax O2 Nebs increase ambulation. Continue with home medications Metoprolol, Zocor, Aldactone and Diltiazem. Pt was offered to be transferred to see cardiology but she would rather to stay her and to see cardiology as outpt.
--- NOTE | 2020-11-18 12:49 | CR ---
EXAMINATION: Chest 1V Frontal SEX: Female AGE: 89 years CLINICAL HISTORY: 89-year-old female with shortness of breath and CHF. Underlying pneumonia? "Cardiomegaly and bilateral new pleural effusions" reported on 15 November 2020 exam. INTERPRETATION: Abnormal. No appreciable improvement radiographically since 15 November 2020 exam. 1. Cardiomegaly. 2. Bilateral large dependent subpulmonic pleural effusions. 3. Underlying lower lobe atelectasis or pneumonic infiltrate a differential consideration. Unenhanced CT chest may help. 4. No lung mass or hilar lymphadenopathy. 5. No pneumothorax or pneumomediastinum.
[2020-11-18] MEDS ORDERED: Warfarin 5 MG Tab PO ONE (14:00)
[2020-11-18] MEDS ORDERED: Metolazone 2.5 MG Tab PO ONE (17:52)
--- NOTE | 2020-11-18 17:57 | PCM.SN.2 ---
- Free Text/Narrative Note: UOP is not well documented ( incontinent). Pt reports feeling better . POX 96 % on 3 L. to inset a Lucero Switch to Lasix drip Extra dose of Zaroxolyn Decrease Cardizim from 360 mg to 180 mg ( due to bradycardia and CHF)
[2020-11-18] MEDS ORDERED: Furosemide 100 MG in Sodium Chloride 0.9% 90 ML IV SCH (18:00)
[2020-11-18] MEDS: Azithromycin 500 MG in Sodium Chloride 0.9% 250 ML IV SCH (20:44)
[2020-11-18] MEDS: Acetaminophen 325 MG Tab PO PRN (21:31)
[2020-11-18] MEDS: diphenhydrAMINE 25 MG Tab PO PRN (21:32)
[2020-11-18] MEDS: Simvastatin 10 MG Tab PO SCH (21:32)
[2020-11-18] MEDS: Furosemide 100 MG in Sodium Chloride 0.9% 90 ML IV SCH (22:05)
[2020-11-18] MEDS: cefTRIAXone 1 GM in Sodium Chloride 0.9% 50 ML IV SCH (22:51)
[2020-11-19] MEDS: PANTOPRAZOLE 20 MG PO SCH (06:00)
[2020-11-19 07:03] LABS: ANION GAP 12.5 mEq/L (7-13)
[2020-11-19] MEDS ORDERED: Metolazone 2.5 MG Tab PO SCH (07:30)
[2020-11-19] MEDS: Ondansetron 4 MG/2 ML SDV IVPUSH PRN (07:57)
[2020-11-19] MEDS: Sodium Chloride 0.9% 10 ML Syringe FLUSH PRN ×3 (07:58→21:10)
[2020-11-19] MEDS ORDERED: Diltiazem 180 MG Cap.CD PO SCH (09:00)
[2020-11-19] MEDS: Potassium Chloride 10 MEQ Tab.ER PO SCH (09:19)
[2020-11-19] MEDS: Calcitriol 0.25 MCG Cap PO SCH (09:19)
[2020-11-19] MEDS: Metoprolol Succinate 25 MG Tab.ER PO SCH (09:22)
[2020-11-19] MEDS: Spironolactone 25 MG Tab PO SCH (09:22)
[2020-11-19] MEDS: PARoxetine 20 MG Tab PO SCH (09:22)
[2020-11-19] MEDS: Furosemide 100 MG in Sodium Chloride 0.9% 90 ML IV SCH (10:26)
--- NOTE | 2020-11-19 10:35 | PCM.PN ---
- General Info Date of Service: 11/19/20 Subjective Update: Feeling better, less SOB. Functional Status: Reports: Tolerating Diet - Review of Systems General: Denies: Fever Pulmonary: Reports: Shortness of Breath (improved) Cardiovascular: Denies: Chest Pain Genitourinary: Reports: Other (garcia) Neurological: Denies: Confusion Psychiatric: Denies: Confusion - Patient Data Vitals - Most Recent: Last Vital Signs Temp 97.4 F 11/19/20 07:35 Pulse 66 11/19/20 09:22 Resp 20 11/19/20 07:35 BP 113/66 11/19/20 09:22 Pulse Ox 93 L 11/19/20 07:35 Weight - Most Recent: 237 lb 12.8 oz I&O - Last 24 Hours: Intake & Output 11/18/20 11/19/20 11/19/20 22:59 06:59 14:59 Intake Total 120 200 Output Total 950 1700 Balance -830 -1700 200 Lab Results Last 24 Hours: Laboratory Results - last 24 hr 11/19/20 11/19/20 11/19/20 Range/Units 06:06 06:06 06:06 WBC 10.8 H (5.0-10.0) 10^3/uL RBC 4.93 (4.2-5.4) 10^6/uL Hgb 16.2 H D (12.0-16.0) g/dL Hct 49.2 H (37.0-47.0) % MCV 99.8 (80-100) fL MCH 32.9 (27.0-34.0) pg MCHC 32.9 L (33.0-35.0) g/dL Plt Count 224 (150-450) 10^3/uL PT 23.2 H (9.0-12.0) SEC INR 2.3 H (0.9-1.2) Sodium 138 (136-145) mmol/L Potassium 3.5 (3.5-5.1) mmol/L Chloride 97 L (98-107) mmol/L Carbon Dioxide 32 (21-32) mmol/L Anion Gap 12.5 (7-13) mEq/L BUN 27 H (7-18) mg/dL Creatinine 1.62 H (0.55-1.02) mg/dL Est Cr Clr Drug Dosing 18.98 mL/min Estimated GFR (MDRD) 30 Glucose 109 H (70-99) mg/dL Calcium 9.7 (8.5-10.1) mg/dL Joon Results Last 24 Hours: Microbiology 11/15/20 22:24 Aerobic Blood Culture - Preliminary Blood - Arm, Left NO GROWTH AFTER 3 DAYS Anaerobic Blood Culture - Preliminary NO GROWTH AFTER 3 DAYS 11/15/20 21:15 Aerobic Blood Culture - Preliminary Blood - Arm, Right NO GROWTH AFTER 3 DAYS Anaerobic Blood Culture - Preliminary NO GROWTH AFTER 3 DAYS 11/16/20 05:35 Urine Culture - Final Urine, Voided Med Orders - Current: Current Medications Acetaminophen (Acetaminophen 325 Mg Tab) 650 mg PO Q4H PRN PRN Reason: Pain (Mild 1-3)/fever Last Admin: 11/18/20 21:31 Dose: 650 mg Documented by: Albuterol (Albuterol 0.083% 2.5 Mg/3 Ml Neb Soln) 2.5 mg NEB Q2H PRN PRN Reason: shortness of breath/wheezing Albuterol (Albuterol 6.7 Gm Inhaler) 0 gm INH Q4H PRN PRN Reason: Shortness of Breath Allopurinol (Allopurinol 100 Mg Tab) 50 mg PO Q48H [facility] Last Admin: 11/18/20 08:16 Dose: 50 mg Documented by: Bisacodyl (Bisacodyl 5 Mg Tab) 5 mg PO DAILY PRN PRN Reason: Constipation Calcitriol (Calcitriol 0.25 Mcg Cap) 0.5 mcg PO MoTuWeThFr@0900 [facility] Last Admin: 11/19/20 09:19 Dose: 0.5 mcg Documented by: Diphenhydramine HCl (Diphenhydramine 25 Mg Tab) 25 mg PO BEDTIME PRN PRN Reason: Insomnia Last Admin: 11/18/20 21:32 Dose: 25 mg Documented by: Docusate Sodium (Docusate Sodium 100 Mg Cap) 100 mg PO BID PRN PRN Reason: Constipation Ceftriaxone Sodium 1 gm/ (Sodium Chloride) 50 mls @ 100 mls/hr IV Q24H [facility] Last Admin: 11/18/20 22:51 Dose: 100 mls/hr Documented by: Azithromycin 500 mg/ Sodium (Chloride) 250 mls @ 250 mls/hr IV DAILY@2000 [facility] Last Admin: 11/18/20 20:44 Dose: 125 mls/hr Documented by: Furosemide 100 mg/ Sodium (Chloride) 100 mls @ 5 mls/hr IV CONTINUOUS [facility] Last Admin: 11/19/20 10:26 Dose: 5 mg/hr, 5 mls/hr Documented by: Metolazone (Metolazone 2.5 Mg Tab) 2.5 mg PO DAILY [facility] Metoprolol Succinate (Metoprolol Succinate 25 Mg Tab.Er) 75 mg PO DAILY [facility] Last Admin: 11/19/20 09:22 Dose: 75 mg Documented by: Nystatin (Nystatin Topical Powder 30 Gm Bottle) 0 gm TOP BID PRN PRN Reason: skin breakdown Last Admin: 11/16/20 01:12 Dose: 1 applic Documented by: Ondansetron HCl (Ondansetron 4 Mg/2 Ml Sdv) 4 mg IVPUSH Q4H PRN PRN Reason: Nausea/Vomiting Last Admin: 11/19/20 07:57 Dose: 4 mg Documented by: Paroxetine HCl (Paroxetine 20 Mg Tab) 30 mg PO DAILY [facility] Last Admin: 11/19/20 09:22 Dose: 30 mg Documented by: Pantoprazole 20 Mg Tab.Cr Pt Own Med* * 0 each PO ACBREAKFAST [facility] Last Admin: 11/19/20 06:00 Dose: 1 each Documented by: Potassium Chloride (Potassium Chloride 10 Meq Tab.Er) 10 meq PO DAILY [facility] Last Admin: 11/19/20 09:19 Dose: 10 meq Documented by: Simvastatin (Simvastatin 10 Mg Tab) 10 mg PO BEDTIME [facility] Last Admin: 11/18/20 21:32 Dose: 10 mg Documented by: Sodium Chloride (Sodium Chloride 0.9% 10 Ml Syringe) 10 ml FLUSH ASDIRECTED PRN PRN Reason: IV Use Last Admin: 11/19/20 07:58 Dose: 10 ml Documented by: Spironolactone (Spironolactone 25 Mg Tab) 25 mg PO DAILY [facility] Last Admin: 11/19/20 09:22 Dose: 25 mg Documented by: Warfarin Sodium (Pharmacy To Dose - Warfarin) 1 dose .XX ASDIRECTED [facility] Warfarin Sodium (Warfarin 2.5 Mg Tab) 2.5 mg PO ONETIME ONE Stop: 11/19/20 14:01 Discontinued Medications Allopurinol (Allopurinol 300 Mg Tab) 150 mg PO DAILY [facility] Last Admin: 11/16/20 08:43 Dose: 150 mg Documented by: Diltiazem HCl (Diltiazem 180 Mg Cap.Cd) 360 mg PO DAILY [facility] Last Admin: 11/18/20 08:16 Dose: 360 mg Documented by: Diltiazem HCl (Diltiazem 180 Mg Cap.Cd) 180 mg PO DAILY [facility] Furosemide (Furosemide 40 Mg/4 Ml Vial) 40 mg IVPUSH NOW ONE Stop: 11/15/20 22:14 Last Admin: 11/15/20 22:36 Dose: 40 mg Documented by: Furosemide (Furosemide 40 Mg/4 Ml Vial) 40 mg IVPUSH BIDDIURETIC [facility] Last Admin: 11/17/20 14:20 Dose: 40 mg Documented by: Furosemide (Furosemide 40 Mg/4 Ml Vial) 80 mg IVPUSH BIDDIURETIC [facility] Last Admin: 11/18/20 14:21 Dose: 80 mg Documented by: Ceftriaxone Sodium 1 gm/ (Sodium Chloride) 50 mls @ 100 mls/hr IV ONETIME ONE Stop: 11/15/20 22:42 Last Admin: 11/15/20 22:38 Dose: 100 mls/hr Documented by: Furosemide 100 mg/ Sodium (Chloride) 100 mls @ 10 mls/hr IV CONTINUOUS [facility] Last Infusion: 11/18/20 22:05 Dose: 5 mg/hr, 5 mls/hr Documented by: Metolazone (Metolazone 2.5 Mg Tab) 2.5 mg PO BIDDIURETIC [facility] Last Admin: 11/18/20 14:26 Dose: 2.5 mg Documented by: Metolazone (Metolazone 2.5 Mg Tab) 2.5 mg PO BID@0730,1330 [facility] Last Admin: 11/19/20 09:20 Dose: 2.5 mg Documented by: Metolazone (Metolazone 2.5 Mg Tab) 2.5 mg PO ONETIME ONE Stop: 11/18/20 17:53 Last Admin: 11/18/20 18:47 Dose: 2.5 mg Documented by: Non-Formulary Medication (Non-Formulary Medication 1 Each) 0 each TOP BID [facility] Last Admin: 11/16/20 16:37 Dose: Not Given Documented by: Pantoprazole Sodium (Pantoprazole 40 Mg Tab.Cr) 40 mg PO ACBREAKFAST [facility] Last Admin: 11/17/20 05:44 Dose: 40 mg Documented by: Warfarin Sodium (Warfarin 5 Mg Tab) 5 mg PO . [facility] Warfarin Sodium (Warfarin 2.5 Mg Tab) 2.5 mg PO .SUN.. [facility] Warfarin Sodium (Warfarin 2.5 Mg Tab) 2.5 mg PO ONETIME ONE Stop: 11/16/20 14:01 Last Admin: 11/16/20 14:16 Dose: 2.5 mg Documented by: Warfarin Sodium (Warfarin 2.5 Mg Tab) 2.5 mg PO ONETIME ONE Stop: 11/17/20 14:01 Last Admin: 11/17/20 14:19 Dose: 2.5 mg Documented by: Warfarin Sodium (Warfarin 5 Mg Tab) 5 mg PO ONETIME ONE Stop: 11/18/20 14:01 Last Admin: 11/18/20 14:26 Dose: 5 mg Documented by: - Patient Data Lab Results Last 24 hrs: Laboratory Results - last 24 hr 11/19/20 11/19/20 11/19/20 Range/Units 06:06 06:06 06:06 WBC 10.8 H (5.0-10.0) 10^3/uL RBC 4.93 (4.2-5.4) 10^6/uL Hgb 16.2 H D (12.0-16.0) g/dL Hct 49.2 H (37.0-47.0) % MCV 99.8 (80-100) fL MCH 32.9 (27.0-34.0) pg MCHC 32.9 L (33.0-35.0) g/dL Plt Count 224 (150-450) 10^3/uL PT 23.2 H (9.0-12.0) SEC INR 2.3 H (0.9-1.2) Sodium 138 (136-145) mmol/L Potassium 3.5 (3.5-5.1) mmol/L Chloride 97 L (98-107) mmol/L Carbon Dioxide 32 (21-32) mmol/L Anion Gap 12.5 (7-13) mEq/L BUN 27 H (7-18) mg/dL Creatinine 1.62 H (0.55-1.02) mg/dL Est Cr Clr Drug Dosing 18.98 mL/min Estimated GFR (MDRD) 30 Glucose 109 H (70-99) mg/dL Calcium 9.7 (8.5-10.1) mg/dL Result Diagrams: 11/19/20 06:06 11/19/20 06:06 Joon Results Last 24 hrs: Microbiology 11/15/20 22:24 Aerobic Blood Culture - Preliminary Blood - Arm, Left NO GROWTH AFTER 3 DAYS Anaerobic Blood Culture - Preliminary NO GROWTH AFTER 3 DAYS 11/15/20 21:15 Aerobic Blood Culture - Preliminary Blood - Arm, Right NO GROWTH AFTER 3 DAYS Anaerobic Blood Culture - Preliminary NO GROWTH AFTER 3 DAYS 11/16/20 05:35 Urine Culture - Final Urine, Voided Sepsis Event Note - Evaluation Sepsis Screening Result: No Definite Risk - Focused Exam Vital Signs: Vital Signs Temp Pulse Pulse Resp BP BP Pulse Ox 11/19/20 09:22 66 113/66 11/19/20 07:35 97.4 F 77 20 146/63 H 93 L 11/19/20 05:00 141/57 H 11/19/20 04:28 119/44 L 11/19/20 04:00 97.2 F 60 16 119/44 L 98 11/19/20 03:00 133/64 11/19/20 01:00 114/48 L 11/19/20 00:00 98.4 F 66 19 119/49 L 98 11/18/20 23:00 117/47 L - Problem List Review Problem List Initiated/Reviewed/Updated: Yes - My Orders Last 24 Hours: My Active Orders 11/18/20 14:32 Supplement (Dietary) [Dietary Supplements] [RC] BIDAC 11/18/20 17:48 Urinary Catheter Assessment [RC] 11/18/20 18:00 Garcia Catheter Insertion [Insert Urinary Catheter] [OM.PC] Q24H 11/18/20 22:15 Sodium Chloride 0.9% [Normal Saline] 90 ml Furosemide [Lasix] 100 mg IV 5 mg/hr 11/19/20 14:00 Warfarin [Coumadin] 2.5 mg PO ONETIME ONE 11/19/20 18:00 Garcia Catheter Insertion [Insert Urinary Catheter] [OM.PC] Q24H 11/20/20 05:00 BASIC METABOLIC PANEL,BMP [CHEM] DAILY INR,PT,PROTHROMBIN TIME [COAG] DAILY 11/20/20 09:00 metOLazone [Zaroxolyn] 2.5 mg PO DAILY 11/20/20 18:00 Garcia Catheter Insertion [Insert Urinary Catheter] [OM.PC] Q24H 11/20/20 23:44 CBC W/O DIFF,HEMOGRAM [HEME] DAILY 11/21/20 05:00 BASIC METABOLIC PANEL,BMP [CHEM] DAILY INR,PT,PROTHROMBIN TIME [COAG] DAILY 11/21/20 18:00 Garcia Catheter Insertion [Insert Urinary Catheter] [OM.PC] Q24H 11/21/20 23:44 CBC W/O DIFF,HEMOGRAM [HEME] DAILY 11/22/20 18:00 Garcia Catheter Insertion [Insert Urinary Catheter] [OM.PC] Q24H 11/23/20 18:00 Garcia Catheter Insertion [Insert Urinary Catheter] [OM.PC] Q24H - Plan Plan:: Pt is 89 yo female patient was brought to the ED by EMS due to increased shortness of breath over the past week. The patient reports the past 2 days have been much worse. The patient was admitted to [facility] in [place] on 11/02/20 - 11/04/20 due to shortness of breath. During the visit in the hospital, the patient was given 40 mg of IV Lasix 2 times per day. On discharge, the patient's home Lasix was increased to 60 mg BID. The patient has a history of a. fib, gout, CKD, hypertension, obesity, and diastolic CHF with pleural effusions. The patient currently lives in [facility]. The patient reports she normally can walk from her room to the dining area for dinner, but had to have a ride part of the way yesterday and requested dinner in her room today due to the increased shortness of breath. Pt denies fever, cough, CP or exposure to COVID. Pt Acute CHF exacerbation: Possible Pneumonia Mild trop Leak: her Trop has been at the same level on previous visits. Now is trending down. The report of her last echo from Oct 02 2020 showed LVH with EF 65-70%. EKG today showed A fib with possible old inferior and ant RI. Chronic A fib on warfarin ? Intolerance to Aspirin: nose bleed? Pt has not taking aspirin for long time. Obesity CXR: seems to be about the same . awaiting report only mild response Lasix to 80 mg IV BID and Metolazone, but good response to Lasix drip at 5 mg/hr. Decrease Metolazone to 2.5 mg daily. Pt is on Spironolactone. Stop Diltiazem due to bradycardia and CHF. Ceftriaxone Zithromax taper O2 Nebs increase ambulation. Continue with home medications Metoprolol, Zocor, Aldactone and Diltiazem.
[2020-11-19] MEDS: Furosemide 40 MG/4 ML VIAL IVPUSH SCH (10:55)
[2020-11-19] MEDS ORDERED: Warfarin 2.5 MG Tab PO ONE (14:00)
[2020-11-19] MEDS: Azithromycin 500 MG in Sodium Chloride 0.9% 250 ML IV SCH (20:01)
[2020-11-19] MEDS: Simvastatin 10 MG Tab PO SCH (20:25)
[2020-11-19] MEDS: diphenhydrAMINE 25 MG Tab PO PRN (20:26)
[2020-11-19] MEDS: Acetaminophen 325 MG Tab PO PRN (20:26)
[2020-11-19] MEDS: cefTRIAXone 1 GM in Sodium Chloride 0.9% 50 ML IV SCH (21:13)
[2020-11-20] MEDS: PANTOPRAZOLE 20 MG PO SCH (05:52)
[2020-11-20 06:57] LABS: ANION GAP 10.6 mEq/L (7-13)
[2020-11-20] MEDS: Ondansetron 4 MG/2 ML SDV IVPUSH PRN ×2 (07:40→13:02)
[2020-11-20] MEDS: Furosemide 100 MG in Sodium Chloride 0.9% 90 ML IV SCH (07:52)
[2020-11-20] MEDS: Spironolactone 25 MG Tab PO SCH (08:58)
[2020-11-20] MEDS: PARoxetine 20 MG Tab PO SCH (08:59)
[2020-11-20] MEDS: Potassium Chloride 10 MEQ Tab.ER PO SCH (08:59)
[2020-11-20] MEDS: Metolazone 2.5 MG Tab PO SCH (09:00)
[2020-11-20] MEDS: Metoprolol Succinate 25 MG Tab.ER PO SCH (09:00)
[2020-11-20] MEDS: Allopurinol 100 MG Tab PO SCH (09:01)
--- NOTE | 2020-11-20 09:12 | PCM.PN ---
- General Info Date of Service: 11/20/20 Admission Dx/Problem (Free Text): Feels about 70% better ?. Subjective Update: Feeling better, less SOB. Functional Status: Reports: Tolerating Diet, Ambulating (to bath room) - Review of Systems General: Reports: Fatigue. Denies: Fever, Weakness Pulmonary: Reports: Shortness of Breath (mildly improved) Cardiovascular: Denies: Chest Pain Neurological: Denies: Confusion Psychiatric: Denies: Confusion - Patient Data Vitals - Most Recent: Last Vital Signs Temp 98.2 F 11/20/20 08:00 Pulse 66 11/20/20 09:00 Resp 18 11/20/20 08:00 BP 115/63 11/20/20 09:00 Pulse Ox 95 11/20/20 08:00 Weight - Most Recent: 236 lb 6.4 oz I&O - Last 24 Hours: Intake & Output 11/19/20 11/20/20 11/20/20 22:59 06:59 14:59 Intake Total 840 200 200 Output Total 775 700 Balance 65 -500 200 Lab Results Last 24 Hours: Laboratory Results - last 24 hr 11/20/20 11/20/20 11/20/20 Range/Units 06:02 06:02 06:02 WBC 11.4 H (5.0-10.0) 10^3/uL RBC 4.60 (4.2-5.4) 10^6/uL Hgb 15.2 (12.0-16.0) g/dL Hct 46.3 (37.0-47.0) % MCV 100.7 H (80-100) fL MCH 33.0 (27.0-34.0) pg MCHC 32.8 L (33.0-35.0) g/dL Plt Count 180 (150-450) 10^3/uL PT 22.7 H (9.0-12.0) SEC INR 2.3 H (0.9-1.2) Sodium 137 (136-145) mmol/L Potassium 3.6 (3.5-5.1) mmol/L Chloride 96 L (98-107) mmol/L Carbon Dioxide 34 H (21-32) mmol/L Anion Gap 10.6 (7-13) mEq/L BUN 31 H (7-18) mg/dL Creatinine 1.55 H (0.55-1.02) mg/dL Est Cr Clr Drug Dosing 19.84 mL/min Estimated GFR (MDRD) 32 Glucose 112 H (70-99) mg/dL Calcium 10.0 (8.5-10.1) mg/dL Joon Results Last 24 Hours: Microbiology 11/15/20 22:24 Aerobic Blood Culture - Preliminary Blood - Arm, Left NO GROWTH AFTER 4 DAYS Anaerobic Blood Culture - Preliminary NO GROWTH AFTER 4 DAYS 11/15/20 21:15 Aerobic Blood Culture - Preliminary Blood - Arm, Right NO GROWTH AFTER 4 DAYS Anaerobic Blood Culture - Preliminary NO GROWTH AFTER 4 DAYS Med Orders - Current: Current Medications Acetaminophen (Acetaminophen 325 Mg Tab) 650 mg PO Q4H PRN PRN Reason: Pain (Mild 1-3)/fever Last Admin: 11/19/20 20:26 Dose: 650 mg Documented by: Albuterol (Albuterol 0.083% 2.5 Mg/3 Ml Neb Soln) 2.5 mg NEB Q2H PRN PRN Reason: shortness of breath/wheezing Albuterol (Albuterol 6.7 Gm Inhaler) 0 gm INH Q4H PRN PRN Reason: Shortness of Breath Allopurinol (Allopurinol 100 Mg Tab) 50 mg PO Q48H [facility] Last Admin: 11/20/20 09:01 Dose: 50 mg Documented by: Bisacodyl (Bisacodyl 5 Mg Tab) 5 mg PO DAILY PRN PRN Reason: Constipation Calcitriol (Calcitriol 0.25 Mcg Cap) 0.5 mcg PO MoTuWeThFr@0900 [facility] Last Admin: 11/19/20 09:19 Dose: 0.5 mcg Documented by: Diphenhydramine HCl (Diphenhydramine 25 Mg Tab) 25 mg PO BEDTIME PRN PRN Reason: Insomnia Last Admin: 11/19/20 20:26 Dose: 25 mg Documented by: Docusate Sodium (Docusate Sodium 100 Mg Cap) 100 mg PO BID PRN PRN Reason: Constipation Ceftriaxone Sodium 1 gm/ (Sodium Chloride) 50 mls @ 100 mls/hr IV Q24H [facility] Last Admin: 11/19/20 21:13 Dose: 100 mls/hr Documented by: Azithromycin 500 mg/ Sodium (Chloride) 250 mls @ 250 mls/hr IV DAILY@2000 [facility] Last Admin: 11/19/20 20:01 Dose: 125 mls/hr Documented by: Furosemide 100 mg/ Sodium (Chloride) 100 mls @ 5 mls/hr IV CONTINUOUS [facility] Last Admin: 11/20/20 07:52 Dose: 5 mg/hr, 5 mls/hr Documented by: Metolazone (Metolazone 2.5 Mg Tab) 2.5 mg PO DAILY [facility] Last Admin: 11/20/20 09:00 Dose: 2.5 mg Documented by: Metoprolol Succinate (Metoprolol Succinate 25 Mg Tab.Er) 75 mg PO DAILY [facility] Last Admin: 11/20/20 09:00 Dose: 75 mg Documented by: Nystatin (Nystatin Topical Powder 30 Gm Bottle) 0 gm TOP BID PRN PRN Reason: skin breakdown Last Admin: 11/16/20 01:12 Dose: 1 applic Documented by: Ondansetron HCl (Ondansetron 4 Mg/2 Ml Sdv) 4 mg IVPUSH Q4H PRN PRN Reason: Nausea/Vomiting Last Admin: 11/20/20 07:40 Dose: 4 mg Documented by: Paroxetine HCl (Paroxetine 20 Mg Tab) 30 mg PO DAILY [facility] Last Admin: 11/20/20 08:59 Dose: 30 mg Documented by: Pantoprazole 20 Mg Tab.Cr Pt Own Med* * 0 each PO ACBREAKFAST [facility] Last Admin: 11/20/20 05:52 Dose: 1 each Documented by: Potassium Chloride (Potassium Chloride 10 Meq Tab.Er) 10 meq PO DAILY [facility] Last Admin: 11/20/20 08:59 Dose: 10 meq Documented by: Simvastatin (Simvastatin 10 Mg Tab) 10 mg PO BEDTIME [facility] Last Admin: 11/19/20 20:25 Dose: 10 mg Documented by: Sodium Chloride (Sodium Chloride 0.9% 10 Ml Syringe) 10 ml FLUSH ASDIRECTED PRN PRN Reason: IV Use Last Admin: 11/19/20 21:10 Dose: 10 ml Documented by: Spironolactone (Spironolactone 25 Mg Tab) 25 mg PO DAILY [facility] Last Admin: 11/20/20 08:58 Dose: 25 mg Documented by: Warfarin Sodium (Pharmacy To Dose - Warfarin) 1 dose .XX ASDIRECTED [facility] Warfarin Sodium (Warfarin 2.5 Mg Tab) 2.5 mg PO ONETIME ONE Stop: 11/20/20 14:01 Discontinued Medications Allopurinol (Allopurinol 300 Mg Tab) 150 mg PO DAILY [facility] Last Admin: 11/16/20 08:43 Dose: 150 mg Documented by: Diltiazem HCl (Diltiazem 180 Mg Cap.Cd) 360 mg PO DAILY [facility] Last Admin: 11/18/20 08:16 Dose: 360 mg Documented by: Diltiazem HCl (Diltiazem 180 Mg Cap.Cd) 180 mg PO DAILY [facility] Furosemide (Furosemide 40 Mg/4 Ml Vial) 40 mg IVPUSH NOW ONE Stop: 11/15/20 22:14 Last Admin: 11/15/20 22:36 Dose: 40 mg Documented by: Furosemide (Furosemide 40 Mg/4 Ml Vial) 40 mg IVPUSH BIDDIURETIC [facility] Last Admin: 11/19/20 10:55 Dose: Not Given Documented by: Furosemide (Furosemide 40 Mg/4 Ml Vial) 80 mg IVPUSH BIDDIURETIC [facility] Last Admin: 11/18/20 14:21 Dose: 80 mg Documented by: Ceftriaxone Sodium 1 gm/ (Sodium Chloride) 50 mls @ 100 mls/hr IV ONETIME ONE Stop: 11/15/20 22:42 Last Admin: 11/15/20 22:38 Dose: 100 mls/hr Documented by: Furosemide 100 mg/ Sodium (Chloride) 100 mls @ 10 mls/hr IV CONTINUOUS [facility] Last Infusion: 11/18/20 22:05 Dose: 5 mg/hr, 5 mls/hr Documented by: Metolazone (Metolazone 2.5 Mg Tab) 2.5 mg PO BIDDIURETIC [facility] Last Admin: 11/18/20 14:26 Dose: 2.5 mg Documented by: Metolazone (Metolazone 2.5 Mg Tab) 2.5 mg PO BID@0730,1330 [facility] Last Admin: 11/19/20 09:20 Dose: 2.5 mg Documented by: Metolazone (Metolazone 2.5 Mg Tab) 2.5 mg PO ONETIME ONE Stop: 11/18/20 17:53 Last Admin: 11/18/20 18:47 Dose: 2.5 mg Documented by: Non-Formulary Medication (Non-Formulary Medication 1 Each) 0 each TOP BID [facility] Last Admin: 11/16/20 16:37 Dose: Not Given Documented by: Pantoprazole Sodium (Pantoprazole 40 Mg Tab.Cr) 40 mg PO ACBREAKFAST [facility] Last Admin: 11/17/20 05:44 Dose: 40 mg Documented by: Warfarin Sodium (Warfarin 5 Mg Tab) 5 mg PO . [facility] Warfarin Sodium (Warfarin 2.5 Mg Tab) 2.5 mg PO .SUN.. [facility] Warfarin Sodium (Warfarin 2.5 Mg Tab) 2.5 mg PO ONETIME ONE Stop: 11/16/20 14:01 Last Admin: 11/16/20 14:16 Dose: 2.5 mg Documented by: Warfarin Sodium (Warfarin 2.5 Mg Tab) 2.5 mg PO ONETIME ONE Stop: 11/17/20 14:01 Last Admin: 11/17/20 14:19 Dose: 2.5 mg Documented by: Warfarin Sodium (Warfarin 5 Mg Tab) 5 mg PO ONETIME ONE Stop: 11/18/20 14:01 Last Admin: 11/18/20 14:26 Dose: 5 mg Documented by: Warfarin Sodium (Warfarin 2.5 Mg Tab) 2.5 mg PO ONETIME ONE Stop: 11/19/20 14:01 Last Admin: 11/19/20 13:54 Dose: 2.5 mg Documented by: - Exam Quality Assessment: Supplemental Oxygen General: Alert, Oriented, Cooperative, No Acute Distress Neck: No JVD Lungs: Clear to Auscultation, Normal Respiratory Effort Cardiovascular: Regular Rate, Regular Rhythm GI/Abdominal Exam: Soft Back Exam: Full Range of Motion Extremities: No Pedal Edema Skin: Intact Neurological: No New Focal Deficit Psy/Mental Status: Normal Affect - Patient Data Lab Results Last 24 hrs: Laboratory Results - last 24 hr 11/20/20 11/20/20 11/20/20 Range/Units 06:02 06:02 06:02 WBC 11.4 H (5.0-10.0) 10^3/uL RBC 4.60 (4.2-5.4) 10^6/uL Hgb 15.2 (12.0-16.0) g/dL Hct 46.3 (37.0-47.0) % MCV 100.7 H (80-100) fL MCH 33.0 (27.0-34.0) pg MCHC 32.8 L (33.0-35.0) g/dL Plt Count 180 (150-450) 10^3/uL PT 22.7 H (9.0-12.0) SEC INR 2.3 H (0.9-1.2) Sodium 137 (136-145) mmol/L Potassium 3.6 (3.5-5.1) mmol/L Chloride 96 L (98-107) mmol/L Carbon Dioxide 34 H (21-32) mmol/L Anion Gap 10.6 (7-13) mEq/L BUN 31 H (7-18) mg/dL Creatinine 1.55 H (0.55-1.02) mg/dL Est Cr Clr Drug Dosing 19.84 mL/min Estimated GFR (MDRD) 32 Glucose 112 H (70-99) mg/dL Calcium 10.0 (8.5-10.1) mg/dL Result Diagrams: 11/20/20 06:02 11/20/20 06:02 Joon Results Last 24 hrs: Microbiology 11/15/20 22:24 Aerobic Blood Culture - Preliminary Blood - Arm, Left NO GROWTH AFTER 4 DAYS Anaerobic Blood Culture - Preliminary NO GROWTH AFTER 4 DAYS 11/15/20 21:15 Aerobic Blood Culture - Preliminary Blood - Arm, Right NO GROWTH AFTER 4 DAYS Anaerobic Blood Culture - Preliminary NO GROWTH AFTER 4 DAYS Sepsis Event Note - Evaluation Sepsis Screening Result: No Definite Risk - Focused Exam Vital Signs: Vital Signs Temp Pulse Pulse Resp BP BP BP 11/20/20 09:00 66 115/63 11/20/20 08:00 98.2 F 66 18 115/63 11/20/20 04:00 97.4 F 66 20 140/50 L 11/20/20 00:45 97.5 F 64 20 115/75 Pulse Ox 11/20/20 09:00 11/20/20 08:00 95 11/20/20 04:00 95 11/20/20 00:45 97 - Problem List Review Problem List Initiated/Reviewed/Updated: Yes - My Orders Last 24 Hours: My Active Orders 11/19/20 10:35 Ambulate [RC] ASDIRECTED 11/19/20 18:00 Lucero Catheter Insertion [Insert Urinary Catheter] [OM.PC] Q24H 11/20/20 09:00 metOLazone [Zaroxolyn] 2.5 mg PO DAILY 11/20/20 14:00 Warfarin [Coumadin] 2.5 mg PO ONETIME ONE 11/20/20 18:00 Lucero Catheter Insertion [Insert Urinary Catheter] [OM.PC] Q24H 11/21/20 05:00 BASIC METABOLIC PANEL,BMP [CHEM] DAILY INR,PT,PROTHROMBIN TIME [COAG] DAILY 11/21/20 07:00 CXR [Chest 1V Frontal] [CR] Routine 11/21/20 18:00 Lucero Catheter Insertion [Insert Urinary Catheter] [OM.PC] Q24H 11/21/20 23:44 CBC W/O DIFF,HEMOGRAM [HEME] DAILY 11/22/20 18:00 Lucero Catheter Insertion [Insert Urinary Catheter] [OM.PC] Q24H 11/23/20 18:00 Lucero Catheter Insertion [Insert Urinary Catheter] [OM.PC] Q24H - Plan Plan:: Pt is 89 yo female patient was brought to the ED by EMS due to increased shortness of breath over the past week. The patient reports the past 2 days have been much worse. The patient was admitted to [facility] in [place] on 11/02/20 - 11/04/20 due to shortness of breath. During the visit in the hospital, the patient was given 40 mg of IV Lasix 2 times per day. On discharge, the patient's home Lasix was increased to 60 mg BID. The patient has a history of a. fib, gout, CKD, hypertension, obesity, and diastolic CHF with pleural ef fusions. The patient currently lives in [facility]. The patient reports she normally can walk from her room to the dining area for dinner, but had to have a ride part of the way yesterday and requested dinner in her room today due to the increased shortness of breath. Pt denies fever, cough, CP or exposure to COVID. Pt Acute CHF exacerbation: Possible Pneumonia Mild trop Leak: her Trop has been at the same level on previous visits. Now is trending down. The report of her last echo from Oct 02 2020 showed LVH with EF 65-70%. EKG today showed A fib with possible old inferior and ant VT. Chronic A fib on warfarin ? Intolerance to Aspirin: nose bleed? Pt has not taking aspirin for long time. Obesity CXR: seems to be about the same . awaiting report only mild response Lasix to 80 mg IV BID and Metolazone, but good response to Lasix drip at 5 mg/hr. Decrease Metolazone to 2.5 mg daily. Pt is on Spironolactone. Stop Diltiazem due to bradycardia and CHF. Ceftriaxone Zithromax taper O2: she is now on 0.5 L from 3 L Nebs increase ambulation. for CXR in AM Continue with home medications Metoprolol, Zocor, Aldactone and Diltiazem.
[2020-11-20] MEDS: Sodium Chloride 0.9% 10 ML Syringe FLUSH PRN ×3 (13:02→21:14)
[2020-11-20] MEDS ORDERED: Warfarin 2.5 MG Tab PO ONE (14:00)
[2020-11-20] MEDS ORDERED: Simethicone 80 MG Tab.Chew PO PRN (19:52)
[2020-11-20] MEDS: cefTRIAXone 1 GM in Sodium Chloride 0.9% 50 ML IV SCH (20:40)
[2020-11-20] MEDS: diphenhydrAMINE 25 MG Tab PO PRN (20:44)
[2020-11-20] MEDS: Acetaminophen 325 MG Tab PO PRN (20:44)
[2020-11-20] MEDS: Simvastatin 10 MG Tab PO SCH (20:44)
[2020-11-21] MEDS: Furosemide 100 MG in Sodium Chloride 0.9% 90 ML IV SCH (03:57)
[2020-11-21] MEDS: PANTOPRAZOLE 20 MG PO SCH (06:15)
[2020-11-21 06:41] LABS: ANION GAP 8.2 mEq/L (7-13)
[2020-11-21] MEDS ORDERED: Potassium Chloride 10 MEQ Tab.ER PO ONE (08:20)
[2020-11-21] MEDS: Potassium Chloride 10 MEQ Tab.ER PO SCH (08:56)
[2020-11-21] MEDS: Spironolactone 25 MG Tab PO SCH (09:00)
[2020-11-21] MEDS: Metolazone 2.5 MG Tab PO SCH (09:00)
[2020-11-21] MEDS: PARoxetine 20 MG Tab PO SCH (09:05)
[2020-11-21] MEDS: Metoprolol Succinate 25 MG Tab.ER PO SCH (09:06)
--- NOTE | 2020-11-21 09:20 | CR ---
PROCEDURE INFORMATION: Exam: XR Chest Exam date and time: 11/21/2020 9:01 AM Age: 89 years old Clinical indication: Other: Chf TECHNIQUE: Imaging protocol: XR of the chest. Views: 1 view. COMPARISON: CR Chest 1V Frontal 11/18/2020 7:57 AM, 11/15/2020 and 11/04/2020 FINDINGS: Lungs: Unchanged bilateral lower lobe airspace opacification. Pleural spaces: Unchanged bilateral costophrenic angle blunting. No pneumothorax. Heart/Mediastinum: Normal heart and cardio-mediastinal silhouette. Vasculature: Resolved mild central vessel enlargement. Bones/joints: Intact and normally aligned. No suspicious lesion. IMPRESSION: Resolved acute pulmonary edema but with unchanged bilateral pleural effusions and airspace opacification, likely mostly atelectasis although an infectious infiltrate cannot be excluded.
[2020-11-21] MEDS: Ondansetron 4 MG/2 ML SDV IVPUSH PRN ×2 (09:24→20:53)
--- NOTE | 2020-11-21 11:28 | PCM.PN ---
- General Info Date of Service: 11/21/20 Functional Status: Reports: Tolerating Diet - Review of Systems General: Denies: Fever Pulmonary: Reports: Shortness of Breath (improving) Cardiovascular: Denies: Chest Pain Gastrointestinal: Denies: Abdominal Pain Neurological: Denies: Confusion Psychiatric: Denies: Confusion - Patient Data Vitals - Most Recent: Last Vital Signs Temp 97.6 F 11/21/20 07:58 Pulse 81 11/21/20 09:06 Resp 20 11/21/20 07:58 BP 148/60 H 11/21/20 09:06 Pulse Ox 92 L 11/21/20 07:58 Weight - Most Recent: 233 lb 2 oz I&O - Last 24 Hours: Intake & Output 11/20/20 11/21/20 11/21/20 22:59 06:59 14:59 Intake Total 363 100 350 Output Total 750 1200 Balance -387 -1100 350 Lab Results Last 24 Hours: Laboratory Results - last 24 hr 11/21/20 11/21/20 11/21/20 Range/Units 05:45 05:45 05:45 WBC 9.0 (5.0-10.0) 10^3/uL RBC 4.46 (4.2-5.4) 10^6/uL Hgb 14.8 (12.0-16.0) g/dL Hct 45.1 (37.0-47.0) % MCV 101.1 H (80-100) fL MCH 33.2 (27.0-34.0) pg MCHC 32.8 L (33.0-35.0) g/dL Plt Count 184 (150-450) 10^3/uL PT 20.2 H (9.0-12.0) SEC INR 2.0 H (0.9-1.2) Sodium 138 (136-145) mmol/L Potassium 3.2 L (3.5-5.1) mmol/L Chloride 95 L (98-107) mmol/L Carbon Dioxide 38 H (21-32) mmol/L Anion Gap 8.2 (7-13) mEq/L BUN 35 H (7-18) mg/dL Creatinine 1.76 H (0.55-1.02) mg/dL Est Cr Clr Drug Dosing 17.47 mL/min Estimated GFR (MDRD) 27 Glucose 106 H (70-99) mg/dL Calcium 10.0 (8.5-10.1) mg/dL Joon Results Last 24 Hours: Microbiology 11/15/20 22:24 Aerobic Blood Culture - Final Blood - Arm, Left NO GROWTH AFTER 5 DAYS Anaerobic Blood Culture - Final NO GROWTH AFTER 5 DAYS 11/15/20 21:15 Aerobic Blood Culture - Final Blood - Arm, Right NO GROWTH AFTER 5 DAYS Anaerobic Blood Culture - Final NO GROWTH AFTER 5 DAYS Med Orders - Current: Current Medications Acetaminophen (Acetaminophen 325 Mg Tab) 650 mg PO Q4H PRN PRN Reason: Pain (Mild 1-3)/fever Last Admin: 11/20/20 20:44 Dose: 650 mg Documented by: Albuterol (Albuterol 0.083% 2.5 Mg/3 Ml Neb Soln) 2.5 mg NEB Q2H PRN PRN Reason: shortness of breath/wheezing Albuterol (Albuterol 6.7 Gm Inhaler) 0 gm INH Q4H PRN PRN Reason: Shortness of Breath Allopurinol (Allopurinol 100 Mg Tab) 50 mg PO Q48H [facility] Last Admin: 11/20/20 09:01 Dose: 50 mg Documented by: Bisacodyl (Bisacodyl 5 Mg Tab) 5 mg PO DAILY PRN PRN Reason: Constipation Calcitriol (Calcitriol 0.25 Mcg Cap) 0.5 mcg PO [id number]@0900 [facility] Last Admin: 11/19/20 09:19 Dose: 0.5 mcg Documented by: Diphenhydramine HCl (Diphenhydramine 25 Mg Tab) 25 mg PO BEDTIME PRN PRN Reason: Insomnia Last Admin: 11/20/20 20:44 Dose: 25 mg Documented by: Docusate Sodium (Docusate Sodium 100 Mg Cap) 100 mg PO BID PRN PRN Reason: Constipation Last Admin: 11/21/20 08:55 Dose: 100 mg Documented by: Ceftriaxone Sodium 1 gm/ (Sodium Chloride) 50 mls @ 100 mls/hr IV Q24H [facility] Last Infusion: 11/20/20 21:13 Dose: Infused Documented by: Furosemide 100 mg/ Sodium (Chloride) 100 mls @ 5 mls/hr IV CONTINUOUS YURI Last Admin: 11/21/20 03:57 Dose: 5 mg/hr, 5 mls/hr Documented by: Metolazone (Metolazone 2.5 Mg Tab) 2.5 mg PO DAILY [facility] Last Admin: 11/21/20 09:00 Dose: 2.5 mg Documented by: Metoprolol Succinate (Metoprolol Succinate 25 Mg Tab.Er) 75 mg PO DAILY [facility] Last Admin: 11/21/20 09:06 Dose: 75 mg Documented by: Nystatin (Nystatin Topical Powder 30 Gm Bottle) 0 gm TOP BID PRN PRN Reason: skin breakdown Last Admin: 11/16/20 01:12 Dose: 1 applic Documented by: Ondansetron HCl (Ondansetron 4 Mg/2 Ml Sdv) 4 mg IVPUSH Q4H PRN PRN Reason: Nausea/Vomiting Last Admin: 11/21/20 09:24 Dose: 4 mg Documented by: Paroxetine HCl (Paroxetine 20 Mg Tab) 30 mg PO DAILY [facility] Last Admin: 11/21/20 09:05 Dose: 30 mg Documented by: Pantoprazole 20 Mg Tab.Cr Pt Own Med* * 0 each PO ACBREAKFAST [facility] Last Admin: 11/21/20 06:15 Dose: 1 each Documented by: Potassium Chloride (Potassium Chloride 10 Meq Tab.Er) 10 meq PO DAILY [facility] Last Admin: 11/21/20 08:56 Dose: 10 meq Documented by: Simethicone (Simethicone 80 Mg Tab.Chew) 80 mg PO Q4H PRN PRN Reason: Gas Last Admin: 11/21/20 10:42 Dose: 80 mg Documented by: Simvastatin (Simvastatin 10 Mg Tab) 10 mg PO BEDTIME [facility] Last Admin: 11/20/20 20:44 Dose: 10 mg Documented by: Sodium Chloride (Sodium Chloride 0.9% 10 Ml Syringe) 10 ml FLUSH ASDIRECTED PRN PRN Reason: IV Use Last Admin: 11/20/20 21:14 Dose: 10 ml Documented by: Spironolactone (Spironolactone 25 Mg Tab) 25 mg PO DAILY [facility] Last Admin: 11/21/20 09:00 Dose: 25 mg Documented by: Warfarin Sodium (Pharmacy To Dose - Warfarin) 1 dose .XX ASDIRECTED [facility] Warfarin Sodium (Warfarin 2.5 Mg Tab) 2.5 mg PO ONETIME ONE Stop: 11/21/20 14:01 Discontinued Medications Allopurinol (Allopurinol 300 Mg Tab) 150 mg PO DAILY [facility] Last Admin: 11/16/20 08:43 Dose: 150 mg Documented by: Diltiazem HCl (Diltiazem 180 Mg Cap.Cd) 360 mg PO DAILY [facility] Last Admin: 11/18/20 08:16 Dose: 360 mg Documented by: Diltiazem HCl (Diltiazem 180 Mg Cap.Cd) 180 mg PO DAILY [facility] Furosemide (Furosemide 40 Mg/4 Ml Vial) 40 mg IVPUSH NOW ONE Stop: 11/15/20 22:14 Last Admin: 11/15/20 22:36 Dose: 40 mg Documented by: Furosemide (Furosemide 40 Mg/4 Ml Vial) 40 mg IVPUSH BIDDIURETIC [facility] Last Admin: 11/19/20 10:55 Dose: Not Given Documented by: Furosemide (Furosemide 40 Mg/4 Ml Vial) 80 mg IVPUSH BIDDIURETIC [facility] Last Admin: 11/18/20 14:21 Dose: 80 mg Documented by: Ceftriaxone Sodium 1 gm/ (Sodium Chloride) 50 mls @ 100 mls/hr IV ONETIME ONE Stop: 11/15/20 22:42 Last Admin: 11/15/20 22:38 Dose: 100 mls/hr Documented by: Azithromycin 500 mg/ Sodium (Chloride) 250 mls @ 250 mls/hr IV DAILY@1999 [facility] Last Admin: 11/19/20 20:01 Dose: 125 mls/hr Documented by: Furosemide 100 mg/ Sodium (Chloride) 100 mls @ 10 mls/hr IV CONTINUOUS [facility] Last Infusion: 11/18/20 22:05 Dose: 5 mg/hr, 5 mls/hr Documented by: Metolazone (Metolazone 2.5 Mg Tab) 2.5 mg PO BIDDIURETIC [facility] Last Admin: 11/18/20 14:26 Dose: 2.5 mg Documented by: Metolazone (Metolazone 2.5 Mg Tab) 2.5 mg PO BID@0730,1330 [facility] Last Admin: 11/19/20 09:20 Dose: 2.5 mg Documented by: Metolazone (Metolazone 2.5 Mg Tab) 2.5 mg PO ONETIME ONE Stop: 11/18/20 17:53 Last Admin: 11/18/20 18:47 Dose: 2.5 mg Documented by: Non-Formulary Medication (Non-Formulary Medication 1 Each) 0 each TOP BID [facility] Last Admin: 11/16/20 16:37 Dose: Not Given Documented by: Pantoprazole Sodium (Pantoprazole 40 Mg Tab.Cr) 40 mg PO ACBREAKFAST [facility] Last Admin: 11/17/20 05:44 Dose: 40 mg Documented by: Potassium Chloride (Potassium Chloride 10 Meq Tab.Er) 40 meq PO ONETIME ONE Stop: 11/21/20 08:21 Last Admin: 11/21/20 09:05 Dose: 40 meq Documented by: Warfarin Sodium (Warfarin 5 Mg Tab) 5 mg PO .MON.THUR [facility] Warfarin Sodium (Warfarin 2.5 Mg Tab) 2.5 mg PO .SUN..SA [facility] Warfarin Sodium (Warfarin 2.5 Mg Tab) 2.5 mg PO ONETIME ONE Stop: 11/16/20 14:01 Last Admin: 11/16/20 14:16 Dose: 2.5 mg Documented by: Warfarin Sodium (Warfarin 2.5 Mg Tab) 2.5 mg PO ONETIME ONE Stop: 11/17/20 14:01 Last Admin: 11/17/20 14:19 Dose: 2.5 mg Documented by: Warfarin Sodium (Warfarin 5 Mg Tab) 5 mg PO ONETIME ONE Stop: 11/18/20 14:01 Last Admin: 11/18/20 14:26 Dose: 5 mg Documented by: Warfarin Sodium (Warfarin 2.5 Mg Tab) 2.5 mg PO ONETIME ONE Stop: 11/19/20 14:01 Last Admin: 11/19/20 13:54 Dose: 2.5 mg Documented by: Warfarin Sodium (Warfarin 2.5 Mg Tab) 2.5 mg PO ONETIME ONE Stop: 11/20/20 14:01 Last Admin: 11/20/20 14:26 Dose: 2.5 mg Documented by: - Exam Quality Assessment: Supplemental Oxygen General: Oriented, Cooperative Lungs: Crackles (few) Cardiovascular: Irregular Rhythm Extremities: Normal Inspection Neurological: No New Focal Deficit Psy/Mental Status: Alert, Normal Affect - Patient Data Lab Results Last 24 hrs: Laboratory Results - last 24 hr 11/21/20 11/21/20 11/21/20 Range/Units 05:45 05:45 05:45 WBC 9.0 (5.0-10.0) 10^3/uL RBC 4.46 (4.2-5.4) 10^6/uL Hgb 14.8 (12.0-16.0) g/dL Hct 45.1 (37.0-47.0) % MCV 101.1 H (80-100) fL MCH 33.2 (27.0-34.0) pg MCHC 32.8 L (33.0-35.0) g/dL Plt Count 184 (150-450) 10^3/uL PT 20.2 H (9.0-12.0) SEC INR 2.0 H (0.9-1.2) Sodium 138 (136-145) mmol/L Potassium 3.2 L (3.5-5.1) mmol/L Chloride 95 L (98-107) mmol/L Carbon Dioxide 38 H (21-32) mmol/L Anion Gap 8.2 (7-13) mEq/L BUN 35 H (7-18) mg/dL Creatinine 1.76 H (0.55-1.02) mg/dL Est Cr Clr Drug Dosing 17.47 mL/min Estimated GFR (MDRD) 27 Glucose 106 H (70-99) mg/dL Calcium 10.0 (8.5-10.1) mg/dL Result Diagrams: 11/21/20 05:45 11/21/20 05:45 Joon Results Last 24 hrs: Microbiology 11/15/20 22:24 Aerobic Blood Culture - Final Blood - Arm, Left NO GROWTH AFTER 5 DAYS Anaerobic Blood Culture - Final NO GROWTH AFTER 5 DAYS 11/15/20 21:15 Aerobic Blood Culture - Final Blood - Arm, Right NO GROWTH AFTER 5 DAYS Anaerobic Blood Culture - Final NO GROWTH AFTER 5 DAYS Sepsis Event Note - Evaluation Sepsis Screening Result: No Definite Risk - Focused Exam Vital Signs: Vital Signs Temp Pulse Pulse Resp BP BP Pulse Ox 11/21/20 09:06 81 148/60 H 11/21/20 07:58 97.6 F 81 20 148/60 H 92 L 11/21/20 04:45 97.5 F 63 20 152/65 H 93 L 11/21/20 00:52 96.8 F L 69 20 110/74 90 L - Problem List Review Problem List Initiated/Reviewed/Updated: Yes - My Orders Last 24 Hours: My Active Orders 11/20/20 18:00 Lucero Catheter Insertion [Insert Urinary Catheter] [OM.PC] Q24H 11/20/20 19:52 Simethicone 80 mg PO Q4H PRN 11/21/20 14:00 Warfarin [Coumadin] 2.5 mg PO ONETIME ONE 11/21/20 18:00 Lucero Catheter Insertion [Insert Urinary Catheter] [OM.PC] Q24H 11/22/20 18:00 Lucero Catheter Insertion [Insert Urinary Catheter] [OM.PC] Q24H 11/23/20 18:00 Lucero Catheter Insertion [Insert Urinary Catheter] [OM.PC] Q24H - Plan Plan:: Pt is 89 yo female patient was brought to the ED by EMS due to increased shortness of breath over the past week. The patient reports the past 2 days have been much worse. The patient was admitted to [facility] in [place] on 11/02/20 - 11/04/20 due to shortness of breath. During the visit in the hospital, the patient was given 40 mg of IV Lasix 2 times per day. On discharge, the patient's home Lasix was increased to 60 mg BID. The patient has a history of a. fib, gout, CKD, hypertension, obesity, and diastolic CHF with pleural effusions. The patient currently lives in [facility]. The patient reports she normally can walk from her room to the dining area for dinner, but had to have a ride part of the way yesterday and requested dinner in her room today due to the increased shortness of breath. Pt denies fever, cough, CP or exposure to COVID. Pt Acute CHF exacerbation: Possible Pneumonia Mild trop Leak: her Trop has been at the same level on previous visits. Now is trending down. The report of her last echo from Oct 02 2020 showed LVH with EF 65-70%. EKG today showed A fib with possible old inferior and ant [place]. Chronic A fib on warfarin ? Intolerance to Aspirin: nose bleed? Pt has not taking aspirin for long time. Obesity CXR: seems to be about the same . awaiting report Only mild response Lasix to 80 mg IV BID and Metolazone, but good response to Lasix drip at 5 mg/hr and Metolazone to 2.5 mg daily. Pt is on Spironolactone. CXR showed improved pulmonary edema but B pleural effusion. Pt weight today is 233 from 249 Lbs. Her wt was 240 on 3/25/21 and 245 on . Continue with lasix drip. If no improvement in the next 2-3 days > may need pleural tap. Hypokalemia: K replacement. Stop Diltiazem due to bradycardia and CHF. Ceftriaxone Zithromax taper O2: she is now on 0.5 L from 3 L Nebs increase ambulation. Continue with home medications Metoprolol, Zocor, Aldactone and Diltiazem.
[2020-11-21] MEDS ORDERED: Magnesium Hydroxide 400 MG/5 ML Susp 30 ML Cup PO PRN (12:45)
[2020-11-21] MEDS ORDERED: Warfarin 2.5 MG Tab PO ONE (14:00)
[2020-11-21] MEDS: Simvastatin 10 MG Tab PO SCH (20:45)
[2020-11-21] MEDS: Acetaminophen 325 MG Tab PO PRN (20:52)
[2020-11-21] MEDS: diphenhydrAMINE 25 MG Tab PO PRN (20:53)
[2020-11-21] MEDS: cefTRIAXone 1 GM in Sodium Chloride 0.9% 50 ML IV SCH (20:53)
[2020-11-22] MEDS ORDERED: Furosemide 100 MG/10 ML SDV ONE (02:28)
[2020-11-22] MEDS: Furosemide 100 MG in Sodium Chloride 0.9% 90 ML IV SCH (03:51)
[2020-11-22] MEDS: PANTOPRAZOLE 20 MG PO SCH (05:59)
[2020-11-22] MEDS: Potassium Chloride 10 MEQ Tab.ER PO SCH (08:54)
[2020-11-22] MEDS: Calcitriol 0.25 MCG Cap PO SCH (08:54)
[2020-11-22] MEDS: PARoxetine 20 MG Tab PO SCH (08:55)
[2020-11-22] MEDS: Metolazone 2.5 MG Tab PO SCH (08:57)
[2020-11-22] MEDS: Spironolactone 25 MG Tab PO SCH (08:57)
[2020-11-22] MEDS: Metoprolol Succinate 25 MG Tab.ER PO SCH (08:58)
[2020-11-22] MEDS: Allopurinol 100 MG Tab PO SCH (09:02)
--- NOTE | 2020-11-22 09:48 | PCM.SN.2 ---
- Free Text/Narrative Note: START OF DOCTOR IVAN PROGRESS NOTE Subjective: At the present time the patient offers no complaints. She denies fever, rigors, nausea, vomiting, cough, wheeze, abdominal pain, chest pain. She currently rates her respiratory status as a 5 out of 10 if 10 is her baseline. I explained to the patient her current medical condition and plan of care and I have answered all of her questions Objective: General: -Alert -No acute distress -No dyspnea -No tachypnea -Obese Heart: -Regular rate -iRegular rhythm -No murmurs -No gallops -No rubs Lungs: -No wheeze -No rhonchi -No rales Abdomen: -Normal bowel sounds in all four quadrants -No rebound -No guarding -No tenderness Extremities: -2/4 pulse in all four extremities -No clubbing -No cyanosis -No edema Additional Details / Additional Findings / Exceptions / Miscellaneous: Pertinent Laboratory Results / Pertinent Radiology Results / Pertinent D iagnostic Results / Pertinent Vital Signs: Patient saturating 95% on 1 L, INR is 2. Other labs currently pending Assessment / Plan: Dyspnea secondary to diastolic CHF exacerbation with resultant pleural effusions Diastolic CHF. Zaroxolyn 2.5 mg p.o. daily plus K-Dur 10 M EQ p.o. daily plus metoprolol 75 mg p.o. daily with Aldactone 25 mg p.o. daily. Bilateral pleural effusions. This likely sequelae of diastolic CHF exacerbation. Zaroxolyn 2.5 mg p.o. daily K-Dur 10 EQ p.o. daily Pneumonia. Rocephin 1 g IV daily Elevated troponin. Patient has chronically elevated troponin. This may be secondary to diastolic CHF exacerbation. Will monitor patient on telemetry and check spot cardiac enzymes. Will monitor EKG periodically. Zocor 10 mg p.o. nightly. Patient allergic to aspirin Chronic kidney disease, baseline creatinine 1.7. Will monitor creatinine level intermittently. Calcitriol 0.5 mg p.o. q. Sunday through Sunday Hypokalemia. Will monitor potassium levels intermittently and supplement as necessary. K. Dur 10 M EQ p.o. daily Macrocytosis. Check TSH, free T4, B12, folate Obesity. Patient be counseled regarding left eye medication Paroxysmal atrial fibrillation. Telemetry monitoring. Toprol-XL 75 mg p.o. daily plus Coumadin p.o. to be dosed by pharmacy Gout. Allopurinol 50 mg p.o. every 48 hours Hypertension. Zaroxolyn 2.5 mg p.o. daily plus K-Dur 10 M EQ p.o. daily plus Toprol-XL 75 mg p.o. daily plus Aldactone 25 mg p.o. daily Hyperlipidemia. Zocor 10 mg p.o. nightly Degenerative disc disease COPD. DuoNeb every 6 hours Diverticulosis GERD Osteoarthritis Osteoporosis Anxiety Depression. Paxil 30 mg p.o. daily History of CVA. Zocor 10 mg p.o. nightly. Patient aspirin allergic DVT prophylaxis. Coumadin p.o. to be dosed by pharmacy Disposition: Anticipate discharge within 24 hours. I request physical therapy evaluation and discussed discharge planning with case management/social work END OF DOCTOR IVAN PROGRESS NOTE
[2020-11-22 10:17] LABS: ANION GAP 8.2 mEq/L (7-13)
[2020-11-22] MEDS: Folic Acid 1 MG Tab PO SCH (13:29)
[2020-11-22] MEDS: Albuterol/Ipratropium 3.0-0.5 MG/3 ML Neb Soln NEB SCH ×2 (13:39→18:03)
[2020-11-22] MEDS ORDERED: Potassium Chloride 10 MEQ Tab.ER PO ONE (14:00)
[2020-11-22] MEDS ORDERED: Warfarin 5 MG Tab PO ONE (14:00)
[2020-11-22] MEDS: Simvastatin 10 MG Tab PO SCH (20:55)
[2020-11-22] MEDS: cefTRIAXone 1 GM in Sodium Chloride 0.9% 50 ML IV SCH (20:59)
[2020-11-22] MEDS ORDERED: Potassium Chloride 10 MEQ Tab.ER PO SCH (21:00)
[2020-11-22] MEDS: diphenhydrAMINE 25 MG Tab PO PRN (21:03)
[2020-11-22] MEDS: Acetaminophen 325 MG Tab PO PRN (21:03)
[2020-11-23] MEDS: Albuterol/Ipratropium 3.0-0.5 MG/3 ML Neb Soln NEB SCH ×2 (01:04→07:58)
[2020-11-23] MEDS: PANTOPRAZOLE 20 MG PO SCH (05:41)
[2020-11-23 07:00] LABS: ANION GAP 6.8 mEq/L (7-13)
--- NOTE | 2020-11-23 07:45 | PCM.SN.2 ---
- Free Text/Narrative Note: START OF DOCTOR EMAMIS PROGRESS NOTE Subjective: The patient endorses no complaints at this time. She denies fever, rigors, nausea, vomiting, cough, wheeze, abdominal pain. Regarding her respiratory status she indicates that she feels more or less the same as she did on November 22, 2020. She is unable to quantify her respiratory status on a 0-to-10 scale. I explained to the patient her current medical condition and plan of care and have answered all of her questions Objective: General: -Alert -No acute distress -No dyspnea -No tachypnea Heart: -Regular rate -Regular rhythm -No murmurs -No gallops -No rubs Lungs: -No wheeze -No rhonchi -No rales Abdomen: -Normal bowel sounds in all four quadrants -No rebound -No guarding -No tenderness Extremities: -2/4 pulse in all four extremities -No clubbing -No cyanosis -No edema Additional Details / Additional Findings / Exceptions / Miscellaneous: Pertinent Laboratory Results / Pertinent Radiology Results / Pertinent Diagnostic Results / Pertinent Vital Signs: Patient saturating 94% on 1 L, sodium 135, creatinine 1.77 Assessment / Plan: Dyspnea secondary to diastolic CHF exacerbation with resultant pleural effusions Diastolic CHF. Zaroxolyn 2.5 mg p.o. daily plus K-Dur 40 M EQ p.o. daily plus metoprolol 75 mg p.o. daily with Aldactone 25 mg p.o. daily. Bilateral pleural effusions. This likely sequelae of diastolic CHF exacerbation. Zaroxolyn 2.5 mg p.o. daily K-Dur 40 EQ p.o. daily Pneumonia. Rocephin 1 g IV daily Hypercalcemia. Will monitor calcium levels intermittently. Check PTH, PTH related peptide, Bence-Childers protein, MADALYN level, 0.5 hydroxy vitamin D level, 1, 25 hydroxy vitamin D level Folate deficiency. Folic acid 1 mg p.o. daily Elevated troponin. Patient has chronically elevated troponin. This may be secondary to diastolic CHF exacerbation. Will monitor patient on telemetry and check spot cardiac enzymes. Will monitor EKG periodically. Zocor 10 mg p.o. nightly. Patient allergic to aspirin Chronic kidney disease, baseline creatinine 1.7. Will monitor creatinine level intermittently. Calcitriol 0.5 mg p.o. q. Sunday through Sunday Hypokalemia. Will monitor potassium levels intermittently and supplement as necessary. K. Dur 40 M EQ p.o. daily Macrocytosis. Check TSH, free T4, B12, folate Obesity. Patient be counseled regarding left eye medication Paroxysmal atrial fibrillation. Telemetry monitoring. Toprol-XL 75 mg p.o. daily plus Coumadin p.o. to be dosed by pharmacy Gout. Allopurinol 50 mg p.o. every 48 hours Hypertension. Zaroxolyn 2.5 mg p.o. daily plus K-Dur 40 M EQ p.o. daily plus Toprol-XL 75 mg p.o. daily plus Aldactone 25 mg p.o. daily Hyperlipidemia. Zocor 10 mg p.o. nightly Degenerative disc disease COPD. DuoNeb every 6 hours Diverticulosis GERD Osteoarthritis Osteoporosis Anxiety Depression. Paxil 30 mg p.o. daily History of CVA. Zocor 10 mg p.o. nightly. Patient aspirin allergic DVT prophylaxis. Coumadin p.o. to be dosed by pharmacy Disposition: Patient medically stable for discharge on the day of December 10, 2020. I will discuss with case management/social work END OF DOCTOR IVAN PROGRESS NOTE
[2020-11-23] MEDS: Folic Acid 1 MG Tab PO SCH (08:43)
[2020-11-23] MEDS: Calcitriol 0.25 MCG Cap PO SCH (08:43)
[2020-11-23] MEDS: Spironolactone 25 MG Tab PO SCH (08:44)
[2020-11-23] MEDS: PARoxetine 20 MG Tab PO SCH (08:44)
[2020-11-23] MEDS: Metolazone 2.5 MG Tab PO SCH (08:44)
[2020-11-23] MEDS: Metoprolol Succinate 25 MG Tab.ER PO SCH (08:45)
--- NOTE | 2020-11-23 09:16 | PCM.SN.2 ---
- Free Text/Narrative Note: START OF DOCTOR EMAMIS DISCHARGE SUMMARY Date of Admission: November 15, 2020 Date of Discharge: 9:14 AM November 23, 2020 Primary Diagnosis: Dyspnea secondary to diastolic CHF exacerbation with resultant pleural effusion Secondary Diagnosis: Diastolic CHF Bilateral pleural effusion Pneumonia Elevated troponin, patient has chronically elevated troponin Chronic kidney disease, baseline creatinine 1.7 Hypokalemia Macrocytosis Obesity Paroxysmal atrial fibrillation Gout Hypertension Hyperlipidemia Degenerative disc disease COPD Diverticulosis GERD Osteoarthritis Osteoporosis Anxiety Depression History of CVA Hypercalcemia Folate deficiency Consultations: No consultations were performed in person. I briefly discussed the case of the patient with cardiology in consultation on the transfer line Disposition: The patient will be advised to follow-up with her primary care physician or provider 5 to 7 days post discharge Discharge Medications: Proventil HFA: 90 mcg/spray: 2 puffs every 4 hours as needed shortness of breath or wheeze Allopurinol 50 mg p.o. every 48 hours Calcitriol 0.5 mg p.o. q. Sunday, Sunday, Sunday, , Sunday Folic acid 1 mg p.o. daily Metoprolol XL 75 mg p.o. daily Nystatin powder 60 g apply to affected area twice daily Paxil 30 mg p.o. daily Protonix 20 mg p.o. daily Fosamax 70 mg p.o. weekly Albuterol nebulized every 4 hours as needed shortness of breath or wheeze Coumadin 2.5 mg p.o. q. Sunday, Sunday, Sunday, Sunday, and Sunday Coumadin 5 mg p.o. q. Aldactone 25 mg p.o. daily Zocor 10 mg p.o. nightly Lasix 60 mg p.o. twice daily END OF DOCTOR EMAMIS DISCHARGE SUMMARY
[2020-11-23] MEDS ORDERED: Denosumab 60 MG/1 ML Syringe SUBCUT ONE (10:00)
--- NOTE | 2020-11-23 10:18 | PCM.SN.2 ---
- Free Text/Narrative Note: START OF DOCTOR EMAMIS DISCHARGE SUMMARY Date of Admission: November 15, 2020 Date of Discharge: 9:14 AM November 23, 2020 Primary Diagnosis: Dyspnea secondary to diastolic CHF exacerbation with resultant pleural effusion Secondary Diagnosis: Diastolic CHF Bilateral pleural effusion Pneumonia Elevated troponin, patient has chronically elevated troponin Chronic kidney disease, baseline creatinine 1.7 Hypokalemia Macrocytosis Obesity Paroxysmal atrial fibrillation Gout Hypertension Hyperlipidemia Degenerative disc disease COPD Diverticulosis GERD Osteoarthritis Osteoporosis Anxiety Depression History of CVA Hypercalcemia Folate deficiency Consultations: No consultations were performed in person. I briefly discussed the case of the patient with cardiology in consultation on the transfer line Disposition: The patient will be advised to follow-up with her primary care physician or provider 5 to 7 days post discharge Discharge Medications: Proventil HFA: 90 mcg/spray: 2 puffs every 4 hours as needed shortness of breath or wheeze Allopurinol 50 mg p.o. every 48 hours Calcitriol 0.5 mg p.o. q. Sunday, Sunday, Sunday, , Sunday Folic acid 1 mg p.o. daily Metoprolol XL 75 mg p.o. daily Nystatin powder 60 g apply to affected area twice daily Paxil 30 mg p.o. daily Protonix 20 mg p.o. daily Fosamax 70 mg p.o. weekly Albuterol nebulized every 4 hours as needed shortness of breath or wheeze Coumadin 2.5 mg p.o. q. Sunday, Sunday, Sunday, Sunday, and Sunday Coumadin 5 mg p.o. q. Aldactone 25 mg p.o. daily Zocor 10 mg p.o. nightly Lasix 60 mg p.o. twice daily Patient requires oxygen via nasal cannula at 2 L/min with activity for duration of at least 1 month END OF DOCTOR EMAMIS DISCHARGE SUMMARY
[2020-11-23 13:05] VITALS: BP 131/64; PULSE 86
== END 2020-11-23 14:30 | disposition home or self-care (01) | DRG 291 ==
LOC: DL.ED 20:32 → DL.MS 22:20
PROVIDERS: ADMIT Internal Medicine; ATTEND Internal Medicine
DX: I13.0 Hypertensive heart and chronic kidney disease with heart failure and stage 1 through stage 4 chronic kidney disease, or unspecified chronic kidney disease (principal); I50.9 Heart failure, unspecified; N18.9 Chronic kidney disease, unspecified; I50.33 Acute on chronic diastolic (congestive) heart failure; J18.9 Pneumonia, unspecified organism; R77.8 Other specified abnormalities of plasma proteins; N18.30 Chronic kidney disease, stage 3 unspecified; E87.6 Hypokalemia; D75.89 Other specified diseases of blood and blood-forming organs; R32 Unspecified urinary incontinence; E66.9 Obesity, unspecified; I48.0 Paroxysmal atrial fibrillation; M10.9 Gout, unspecified; E78.5 Hyperlipidemia, unspecified; J44.9 Chronic obstructive pulmonary disease, unspecified; K57.90 Diverticulosis of intestine, part unspecified, without perforation or abscess without bleeding; K21.9 Gastro-esophageal reflux disease without esophagitis; M19.90 Unspecified osteoarthritis, unspecified site; M81.0 Age-related osteoporosis without current pathological fracture; F41.9 Anxiety disorder, unspecified; F32.9 Major depressive disorder, single episode, unspecified; E83.52 Hypercalcemia; E53.8 Deficiency of other specified B group vitamins; H54.7 Unspecified visual loss; I48.91 Unspecified atrial fibrillation; E78.00 Pure hypercholesterolemia, unspecified; Z96.649 Presence of unspecified artificial hip joint; Z96.659 Presence of unspecified artificial knee joint; Z20.822 Contact with and (suspected) exposure to COVID-19; Z79.899 Other long term (current) drug therapy; Z88.6 Allergy status to analgesic agent; Z88.5 Allergy status to narcotic agent; Z88.8 Allergy status to other drugs, medicaments and biological substances; Z86.73 Personal history of transient ischemic attack (TIA), and cerebral infarction without residual deficits; Z90.49 Acquired absence of other specified parts of digestive tract; Z79.01 Long term (current) use of anticoagulants
CPT/HCPCS: 36415; 51702; 71045; 80048; 80053; 81001; 82164; 82306; 82607; 82746; 83605; 83735; 83880; 83970; 84100; 84439; 84443; 84484; 85025; 85027; 85379; 85610; 87040; 87086; 93005; 93010; 94618; 94640; 97116-GP; 97161-GP; 99284; 99285-25; A9270-GY; J0456; J0696; J0897; J1940; J2405; J7050; J7620-GY; U0002

== ENCOUNTER 2020-12-03 10:31 | Inpatient (IN) | payer MEDICARE, OTHER, MEDICAID ==
[2020-12-03 11:23] LABS: CHLORIDE,CL 95 mmol/L (98-107); SODIUM,NA 137 mmol/L (136-145)
--- NOTE | 2020-12-03 12:04 | CT ---
EXAMINATION: Head wo Cont SEX: Female AGE: 89 years CLINICAL HISTORY: 89-year-old hypertensive 226 pound diabetic female complaining of WEAKNESS. Comparison CT scan head October 2017 revealed "large ischemic stroke left middle cerebral artery distribution and focal atrophy right insular cortex/sylvian fissure suggesting old stroke". Reevaluate please. Scan technique: Volume acquisition of data emergency unenhanced CT scan of the head and brain obtained with the patient lying supine on the Siemens multislice scanner [place], [place]. All data archived in the PACS system for storage, reformatting axial/sagittal/coronal planes and study. Interpretation: 1.Signs of chronic atrophy. Hemispheric, Multi-infarct ischemic changes (R>L) demonstrated on previous exam 2018. 2. Dense midline falx, central pineal, and symmetric choroid plexus calcifications. 3. Symmetric clear pneumatization of the paranasal and mastoid sinuses. Uniformly thick bony calvarium. 4. No sign of skull fracture, underlying brain contusion or epidural/subdural hematoma. 5. No new supratentorial or posterior fossa mass lesion. No hydrocephalus. 6. No sign of acute intracerebral, intraventricular or subarachnoid bleed. 7. Cerebellum and brainstem unremarkable. No midline shift or tentorial herniation. 8. Large oval, extracranial, subcutaneous calcification occipital convexity, on the right. CONCLUSION: Multi-infarct ischemia disease. No new evidence of intracranial mass, hydrocephalus or bleed. CONCLUSION:
--- NOTE | 2020-12-03 12:09 | EDM.PDOC ---
ED HPI GENERAL MEDICAL PROBLEM - General Chief Complaint: General Time Seen by Provider: 12/03/20 10:50 Source of Information: Reports: Patient, EMS, EMS Notes Reviewed, RN, RN Notes Reviewed History Limitations: Reports: No Limitations - History of Present Illness INITIAL COMMENTS - FREE TEXT/NARRATIVE: Patient is an 89-year-old female who presents to the ER per [facility] ambulance service with complaint of "episodes" at [facility]. Patient has been recently hospitalized several times in the past month. Went back to her assisted living where her also lives, has had increased tiredness, needing more assistance with ambulation. Patient states she is generally able to ambulate on her own with walker and has not been able to do that recently. Daughter states increased sleeping, decreased appetite. Patient has recently seen her primary care Florencia who increased her Paxil for anxiety. 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 Patient has a history of congestive heart failure, kidney disease. Patient denies any recent chest pains, shortness of breath, fever or chills, nausea, vomiting, diarrhea. Patient states she does have some pain to the buttocks where she does have some open sores which have been being treated. Onset: Gradual - Related Data Allergies Allergy/AdvReac Type Severity Reaction Status Date / Time aspirin Allergy Nose Bleeds Verified 12/03/20 10:48 codeine Allergy Airway Verified 12/03/20 10:48 Tightness oxycodone Allergy Confusion Verified 12/03/20 10:48 zolpidem tartrate Allergy Other Verified 12/03/20 10:48 [From Anupama] Home Meds: Home Meds Alendronate Sodium [Fosamax] 70 mg PO WEEKLY 10/01/15 [History] Simvastatin [Zocor] 10 mg PO BEDTIME 10/01/15 [History] Spironolactone [Aldactone] 25 mg PO DAILY 10/01/15 [History] Warfarin [Coumadin] 5 mg PO .SUN.06/06/16 [History] Metoprolol Succinate [Toprol XL 50mg] 75 mg PO DAILY 01/05/19 [History] Albuterol Sulfate [Albuterol Sulfate Hfa] 2 puff INH Q4H PRN 11/02/20 [History] Calcitriol 0.5 mcg PO .MON.TU..F 11/02/20 [History] Warfarin Sodium [Jantoven] 2.5 mg PO .SUN..SUN.SUN.11/02/20 [History] Furosemide 60 mg PO BID #90 tablet 11/04/20 [Rx] Albuterol Sulfate [Albuterol Sulfate HFA] 8.5 gm INH Q4HRRT PRN 11/15/20 [History] Pantoprazole [ProTONIX] 20 mg PO DAILY 11/15/20 [History] Folic Acid 1 mg PO DAILY 30 Days #30 tablet 11/23/20 [Rx] allopurinoL [Zyloprim] 50 mg PO Q48H 30 Days #15 tablet 11/23/20 [Rx] Acetaminophen/Diphenhydramine [Tylenol Pm Ex-Strength Caplet] 2 each PO BEDTIME 12/03/20 [History] LORazepam [Ativan] 0.5 mg PO BID PRN 12/03/20 [History] PARoxetine [Paxil] 40 mg PO DAILY 12/03/20 [History] dilTIAZem HCL [Diltiazem 24Hr ER] 360 mg PO DAILY 12/03/20 [History] Past Medical History HEENT History: Reports: Impaired Vision Other HEENT History: wears glasses. Cardiovascular History: Reports: Afib, Heart Failure, High Cholesterol, Hypertension, SOB on Exertion Respiratory History: Reports: COPD Gastrointestinal History: Reports: Diverticulosis, GERD, Hemorrhoids Genitourinary History: Reports: Chronic Renal Insuffiency, Urinary Incontinence EXPLOSIVE MAN History: Reports: Musculoskeletal History: Reports: Arthritis, Gout, Osteoarthritis, Osteoporosis Neurological History: Reports: Headaches, Chronic Psychiatric History: Reports: Anxiety, Depression Endocrine/Metabolic History: Reports: Obesity/BMI 30+ Hematologic History: Reports: None Immunologic History: Reports: None Oncologic (Cancer) History: Reports: None Dermatologic History: Reports: Cellulitis, Other (See Below) Other Dermatologic History: sores to lower legs, lower abd,groin and upper arms - Infectious Disease History Infectious Disease History: Reports: Chicken Pox, Measles, Mumps, Shingles Other Infectious Disease History: had "Yellow jaundice" at age 15 - Past Surgical History Head Surgeries/Procedures: Reports: None Cardiovascular Surgical History: Reports: Vascular Surgery Other Cardiovascular Surgeries/Procedures: varicose vein stripped years ago bilaterally GI Surgical History: Reports: Appendectomy, Cholecystectomy, EGD Other GI Surgeries/Procedures: hemorrhoidectomy Female Surgical History: Reports: D&C Neurological Surgical History: Reports: None Musculoskeletal Surgical History: Reports: Hip Replacement, Knee Replacement Social & Family History - Family History Family Medical History: No Pertinent Family History HEENT: Reports: None Cardiac: Reports: None Respiratory: Reports: None GI: Reports: Diverticulitis Musculoskeletal: Reports: RA Neurological: Reports: Seizure Psychiatric: Reports: None Immunologic: Reports: None Dermatologic: Reports: None Oncologic: Reports: None - Tobacco Use Tobacco Use Status *Q: Never Tobacco User - Caffeine Use Caffeine Use: Reports: None - Recreational Drug Use Recreational Drug Use: No - Living Situation & Occupation Living situation: Reports: , Alone Occupation: Retired ED ROS GENERAL - Review of Systems Review Of Systems: Comprehensive ROS is negative, except as noted in HPI. ED EXAM, GENERAL - Physical Exam Exam: See Below Exam Limited By: Physical Impairment General Appearance: Alert, WD/WN, No Apparent Distress Eye Exam: Bilateral Eye: EOMI, Normal Inspection Ears: Normal External Exam, Hearing Grossly Normal Nose: Normal Inspection Throat/Mouth: Normal Inspection, Normal Voice, No Airway Compromise Head: Atraumatic, Normocephalic Neck: Normal Inspection, Supple, Non-Tender, Full Range of Motion Respiratory/Chest: Decreased Breath Sounds, Crackles (bases bilaterally) Cardiovascular: Normal Peripheral Pulses, No Edema, No Gallop, No JVD, No Rub, Systolic Murmur, Irregularly Irregular Peripheral Pulses: 2+: Radial (L), Radial (R), Dorsalis Pedis (L), Dorsalis Pedis (R) GI/Abdominal: Normal Bowel Sounds, Soft, Non-Tender (Female) Exam: Deferred Rectal (Female) Exam: Deferred Back Exam: Normal Inspection, Decreased Range of Motion Extremities: Normal Inspection, Non-Tender, No Pedal Edema, Normal Capillary Refill, Limited Range of Motion Neurological: Alert, Oriented, Normal Cognition, Slow to Respond Psychiatric: Normal Affect, Normal Mood Skin Exam: Warm, Dry, Intact, Normal Color, No Rash Lymphatic: No Adenopathy #1 Interpretation EKG Date: 12/03/20 Time: 10:44 Rhythm: A-Flutter Rate (Beats/Min): 59 QRS: RBBB Comparison: No Change #2 Interpretation EKG Date: 04/23/21 Time: 15:29 Rhythm: Other (sinus bradycardia) Rate (Beats/Min): 55 QRS: RBBB Comparison: No Change Course - Vital Signs Last Recorded V/S: Last Vital Signs Temp 98.0 F 12/03/20 15:12 Pulse 59 L 12/03/20 15:12 Resp 20 12/03/20 15:12 BP 121/55 L 12/03/20 15:12 Pulse Ox 97 12/03/20 15:12 - Orders/Labs/Meds Orders: Active Orders 24 hr Category Date Time Status Admission Diagnosis [ADT] Routine ADT 12/03/20 12:23 Ordered Admission Status [Patient Status] [ADT] Routine ADT 12/03/20 12:23 Active EKG Documentation Completion [RC] STAT Care 12/03/20 10:50 Active EKG Documentation Completion [RC] STAT Care 12/03/20 14:50 Active Labs: Laboratory Tests 12/03/20 12/03/20 12/03/20 Range/Units 10:50 10:50 11:43 WBC 8.3 (5.0-10.0) 10^3/uL RBC 4.44 (4.2-5.4) 10^6/uL Hgb 14.8 (12.0-16.0) g/dL Hct 44.3 (37.0-47.0) % MCV 99.8 (80-100) fL MCH 33.3 (27.0-34.0) pg MCHC 33.4 (33.0-35.0) g/dL Plt Count 183 (150-450) 10^3/uL Neut % (Auto) 72.1 (42.2-75.2) % Lymph % (Auto) 17.3 L (20.5-50.1) % [place] % (Auto) 9.7 H (2-8) % Eos % (Auto) 0.5 L (1.0-3.0) % Baso % (Auto) 0.4 (0.0-1.0) % Sodium 137 (136-145) mmol/L Potassium 3.0 L (3.5-5.1) mmol/L Chloride 95 L (98-107) mmol/L Carbon Dioxide 38 H (21-32) mmol/L Anion Gap 7.0 (7-13) mEq/L BUN 43 H (7-18) mg/dL Creatinine 1.74 H (0.55-1.02) mg/dL Est Cr Clr Drug Dosing TNP Estimated GFR (MDRD) 28 BUN/Creatinine Ratio 24.7 (No establ ref range) Glucose 94 (70-99) mg/dL Calcium 10.0 (8.5-10.1) mg/dL Magnesium 2.2 (1.8-2.4) mg/dL Total Bilirubin 1.0 (0.2-1.0) mg/dL AST 21 (15-37) U/L ALT 17 (14-59) U/L Alkaline Phosphatase 76 (46-116) U/L Troponin I 0.218 H* (0.000-0.056) ng/mL B-Natriuretic Peptide 525 H (0-100) pg/ml Total Protein 7.1 (6.4-8.2) g/dL Albumin 3.1 L (3.4-5.0) g/dL Globulin 4.0 Albumin/Globulin Ratio 0.78 SARS-CoV-2 RNA (JENNIFER) Negative (NEGATIVE) 12/03/20 Range/Units 14:53 WBC (5.0-10.0) 10^3/uL RBC (4.2-5.4) 10^6/uL Hgb (12.0-16.0) g/dL Hct (37.0-47.0) % MCV (80-100) fL MCH (27.0-34.0) pg MCHC (33.0-35.0) g/dL Plt Count (150-450) 10^3/uL Neut % (Auto) (42.2-75.2) % Lymph % (Auto) (20.5-50.1) % [place] % (Auto) (2-8) % Eos % (Auto) (1.0-3.0) % Baso % (Auto) (0.0-1.0) % Sodium (136-145) mmol/L Potassium (3.5-5.1) mmol/L Chloride (98-107) mmol/L Carbon Dioxide (21-32) mmol/L Anion Gap (7-13) mEq/L BUN (7-18) mg/dL Creatinine (0.55-1.02) mg/dL Est Cr Clr Drug Dosing Estimated GFR (MDRD) BUN/Creatinine Ratio (No establ ref range) Glucose (70-99) mg/dL Calcium (8.5-10.1) mg/dL Magnesium (1.8-2.4) mg/dL Total Bilirubin (0.2-1.0) mg/dL AST (15-37) U/L ALT (14-59) U/L Alkaline Phosphatase (46-116) U/L Troponin I 0.221 H* (0.000-0.056) ng/mL B-Natriuretic Peptide (0-100) pg/ml Total Protein (6.4-8.2) g/dL Albumin (3.4-5.0) g/dL Globulin Albumin/Globulin Ratio SARS-CoV-2 RNA (JENNIFER) (NEGATIVE) Meds: Medications Discontinued Medications Generic Name Dose Route Start Last Admin Trade Name Freq PRN Reason Stop Dose Admin Potassium Chloride 20 meq/ 100 mls @ 50 mls/hr 12/03/20 13:46 12/03/20 15:02 Premix IV 12/03/20 15:45 50 mls/hr ONETIME ONE Administration - Radiology Interpretation Free Text/Narrative:: Head CT without contrast: Multi-infarct ischemia disease. No no evidence of intracranial mass, hydrocephalus, or bleed. Chest xray: Chronic large bibasilar pleural effusions. Left upper lobe infiltrate. Chronic underlying right middle/lower lobe infiltrates and/or atelectasis. See radiologist report - Re-Assessments/Exams Free Text/Narrative Re-Assessment/Exam: 12/03/20 16:28 Discussed patient case with Dr. Castaneda who requested a 4 hour troponin and EKG be repeated. When this returned he asked that Cardiology be consulted. Consulted with Dr. Phan at [facility] who states the patient can be medically managed here. His suggestion was telemetry and discontinue the Diltiazem. Discussed patient case with Dr. Castaneda who states the patient can be admitted inpatient and he will see the patient on the medical floor. Departure - Departure Time of Disposition: 16:29 Disposition: Admitted As Inpatient 68 Condition: Fair Clinical Impression: Weakness, Hypokalemia CHF (congestive heart failure) Qualifiers: Heart failure type: unspecified Heart failure chronicity: acute on chronic Qualified Code(s): I50.9 - Heart failure, unspecified - Discharge Information *PRESCRIPTION DRUG MONITORING PROGRAM REVIEWED*: No *COPY OF PRESCRIPTION DRUG MONITORING REPORT IN PATIENT MICHAEL: No Referrals: PCP,None [Ordering Only Provider] - Forms: ED Department Discharge Sepsis Event Note (ED) - Evaluation Sepsis Screening Result: No Definite Risk - Focused Exam Vital Signs: Vital Signs Temp Pulse Pulse Pulse Resp BP BP 12/03/20 15:12 98.0 F 59 L 20 121/55 L 12/03/20 13:33 96.7 F L 62 55 L 14 132/58 L 12/03/20 10:45 96.7 F L 72 22 H 112/47 L BP Pulse Ox 12/03/20 15:12 97 12/03/20 13:33 128/49 L 98 12/03/20 10:45 99 - My Orders Last 24 Hours: My Active Orders 12/03/20 10:50 EKG Documentation Completion [RC] STAT 12/03/20 12:23 Admission Diagnosis [ADT] Routine Admission Status [Patient Status] [ADT] Routine 12/03/20 14:50 EKG Documentation Completion [RC] STAT - Assessment/Plan Last 24 Hours: My Active Orders 12/03/20 10:50 EKG Documentation Completion [RC] STAT 12/03/20 12:23 Admission Diagnosis [ADT] Routine Admission Status [Patient Status] [ADT] Routine 12/03/20 14:50 EKG Documentation Completion [RC] STAT
[2020-12-03] MEDS ORDERED: Potassium Chloride 20 MEQ in Premix Bag 1 BAG IV ONE (13:46)
--- NOTE | 2020-12-03 15:29 | CR ---
EXAMINATION: Chest 1V Frontal SEX: Female AGE: 89 years CLINICAL HISTORY: 89-year-old diabetic female with weakness/chest pain. Comparison CXR films and 21 November 2020. Interpretation: Abnormal. 1. Large dependent subpulmonic pleural effusions bilaterally. Underlying right middle and lower lobe atelectasis/infiltrates. 2. Patchy asymmetric left upper lobe infiltrate new since 21 November film. 3. Prominent cardiac silhouette relatively stable and unchanged since and 21 November films. No new pulmonary vascular congestion, cephalization of flow or alveolar edema. 4. No new lung mass or hilar lymphadenopathy. 5. No pneumothorax or pneumomediastinum. CONCLUSION: Chronic large bibasilar pleural effusions. Left upper lobe infiltrate. Chronic underlying right middle/lower lobe infiltrates and/or atelectasis.
[2020-12-03] MEDS ORDERED: Sodium Chloride 0.9% 10 ML Syringe FLUSH PRN (17:34)
[2020-12-03] MEDS ORDERED: atorvaSTATin 20 MG Tab PO ONE (17:42)
[2020-12-03] MEDS ORDERED: Albuterol 6.7 GM Inhaler INH PRN (17:44)
--- NOTE | 2020-12-03 17:54 | PCM.SN.2 ---
- Free Text/Narrative Note: START OF DOCTOR EMAMIS HISTORY AND PHYSICAL / CONSULTATION NOTE Chief Complaint: Shortness of breath History of Present Illness: The patient 82-year-old female who presents to [facility] of dyspnea. Per her [facility]/assisted living the patient had garbled speech and exhibited disorientation. Upon questioning the patient answers questions appropriately. The 12 hours leading up to her hospitalization she denies fever, rigors, nausea, vomiting, cough, wheeze, abdominal pain, diarrhea, myalgia, chest pain, dizziness, diaphoresis, palpitations, sensation of rapid heartbeat, sensation irregularity, diplopia, blurry vision, dysphasia, dysphagia, paresthesia/anesthesia/mycelia of any part of her body. She denies new onset of peripheral edema. She states her dyspnea started upon discharge from her last recent hospitalization. She presents for further evaluation Surgical History: Cholecystectomy, appendectomy, right hip surgery, right knee surgery, right lower extremity varicose vein stripping, left lower extremity varicose vein stripping, hemorrhoidectomy, D&C Family History: Stroke, hypertension Social History: Tobacco: Never Alcohol: Denies Caffeine: Tea Drugs: Never Allergies: Aspirin, Ambien, codeine, oxycodone Code Status: DNR, DNI Pertinent Laboratory Results / Pertinent Radiology Results / Pertinent Diagnostic Results / Pertinent Vital Signs: Blood pressure 132/58, pulse 82, respirations 22, temperature 9 6.7 degrees, 90% on 2 L, troponin 0 0.218, potassium 3, creatinine 1.74 Physical Examination: General: -Alert -No acute distress -No dyspnea -No tachypnea Head: -Atraumatic -Normocephalic Eyes: -Pupils equally round and reactive to light and accommodation -Extraocular muscles intact Neurological: -Cranial nerves II-XII intact Neck: -No jugular venous distention -No thyromegaly -No cervical lymphadenopathy Heart: -Regular rate -Regular rhythm -No murmurs -No gallops -No rubs Lungs: -No wheeze -No rhonchi -No rales -Distant breath sounds bilaterally Abdomen: -Normal bowel sounds in all four quadrants -No rebound -No guarding -No tenderness Extremities: -2/4 pulse in all four extremities -No clubbing -No cyanosis -No edema -No calf tenderness present bilaterally -Negative Homans sign bilaterally Musculoskeletal: -5/5 bilateral upper extremity strength -5/5 bilateral lower extremity strength -Sensorium of bilateral upper extremities are equal and intact -Sensorium of bilateral lower extremities are equal and intact Additional Details / Additional Findings / Exceptions / Miscellaneous: Assessment / Plan: Pneumonia. Azithromycin 500 g IV daily plus Rocephin 1 g IV daily Elevated troponin, query NSTEMI. Will monitor patient telemetry and checks her current enzymes. In the morning will check fasting lipid panel and recheck EKG. TSH and free T4 were recently checked and were within normal limits. Magnesium level within normal limits. Toprol-XL 75 mg p.o. daily plus Plavix and 5 mg p.o. daily plus Lipitor 40 mg p.o. nightly plus Nitropaste 1 inch every 6 hours. Cardiology was consulted in the emergency department and they have recommended medical management Bibasilar pleural effusions, chronic. Lasix 60 mg p.o. twice daily Gout. Allopurinol 50 mg p.o. every 48 hours Paroxysmal atrial fibrillation. Telemetry monitoring. Will monitor PT/INR periodically. Metoprolol 75 mg p.o. daily plus Coumadin 5 mg p.o. on Sunday and and Coumadin 2.5 mg p.o. q. Sunday, Sunday, Sunday, Sunday, and Sunday Chronic kidney disease, baseline creatinine of 1.7. Will monitor creatinine levels intermittently. Calcitriol 0.5 mg p.o. oh as directed Hypokalemia. Telemetry monitoring. Will monitor potassium levels intermittently and supplement as necessary Hypoparathyroidism Folate deficiency. Folic acid 1 mg p.o. daily COPD, O2 dependent 2 L CHF. Most recent echocardiogram from October 02, 2020 demonstrates ejection fraction of 65 to 70% with grade 2 diastolic dysfunction and moderate aortic stenosis. Toprol-XL 75 mg p.o. daily plus Lasix 60 mg p.o. twice daily plus Aldactone 5 mg p.o. daily GERD. Protonix 20 mg p.o. daily Hyperlipidemia. Lipitor 40 mg p.o. nightly. Check fasting lipid panel Hypertension. Paste 1 inch every 6 hours plus Lasix 60 mg p.o. twice daily plus Aldactone 5 mg p.o. daily with Toprol-XL 75 mg p.o. daily Obesity. Patient becomes regarding lifestyle modification Degenerative disc disease Diverticulosis Osteoarthritis Osteoporosis Anxiety Depression. Paxil 40 mg p.o. daily History of CVA. Plavix 75 mg p.o. daily plus Lipitor 40 mg p.o. nightly DVT prophylaxis. Will monitor PT/INR periodically. Coumadin 5 mg p.o. on Sunday and and Coumadin 2.5 mg p.o. q. Sunday, Sunday, Sunday, Sunday, and Sunday Disposition: I requested physical therapy and Occupational Therapy evaluate the patient for placement. I requested case management/social work also evaluate the patient for placement. Given patient's age and poor short and long-term prognosis, I request that hospice speak with the patient and her family regarding the services that may be offered END OF DOCTOR EMAMIS HISTORY AND PHYSICAL / CONSULTATION NOTE
[2020-12-03] MEDS: Nitroglycerin 2% Oint 1 GM UD Packet TOP SCH ×2 (18:42→23:17)
[2020-12-03] MEDS: Potassium Chloride 10 MEQ Tab.ER PO SCH ×3 (18:43→21:29)
[2020-12-03] MEDS: Furosemide 40 MG Tab PO SCH ×2 (18:43→21:30)
[2020-12-03] MEDS: Clopidogrel 75 MG Tab PO SCH (18:44)
[2020-12-03] MEDS: Allopurinol 100 MG Tab PO SCH (18:44)
[2020-12-03] MEDS: Warfarin 2.5 MG Tab PO SCH (18:44)
[2020-12-03] MEDS: Calcitriol 0.25 MCG Cap PO SCH (18:45)
[2020-12-03] MEDS: cefTRIAXone 1 GM in Sodium Chloride 0.9% 50 ML IV SCH (19:29)
[2020-12-03] MEDS: Azithromycin 500 MG in Sodium Chloride 0.9% 250 ML IV SCH (19:43)
[2020-12-03] MEDS: Acetaminophen 325 MG Tab PO PRN (22:01)
[2020-12-03] MEDS: diphenhydrAMINE 25 MG Tab PO PRN (22:01)
[2020-12-04 02:39] LABS: ANION GAP 7.6 mEq/L (7-13)
[2020-12-04] MEDS: Nitroglycerin 2% Oint 1 GM UD Packet TOP SCH ×3 (05:52→18:43)
[2020-12-04] MEDS ORDERED: Potassium Chloride 10 MEQ Tab.ER PO ONE (07:24)
--- NOTE | 2020-12-04 07:34 | PCM.SN.2 ---
- Free Text/Narrative Note: START OF DOCTOR IVAN PROGRESS NOTE Subjective: The patient Riana that her dyspnea has improved. She currently rates her respiratory status is an 8 out of 10 at times her baseline. Overnight she denies fever, rigors, nausea, vomiting, cough, wheeze, abdominal pain, chest pain, palpitations, sensation of rapid heartbeat, sensation near the heartbeat. She denies diplopia, blurry vision, dysphagia, dysphagia, paresthesias/myasthenia, anesthesia of any part of her body. I explained to the patient her current medical condition and plan of care and I have answered all of her questions Objective: General: -Alert -No acute distress -No dyspnea -No tachypnea -Obese Heart: -iRegular rate -Regular rhythm -No murmurs -No gallops -No rubs Lungs: -No wheeze -No rhonchi -Trace bibasilar rales Abdomen: -Normal bowel sounds in all four quadrants -No rebound -No guarding -No tenderness Extremities: -2/4 pulse in all four extremities -No clubbing -No cyanosis -No edema Additional Details / Additional Findings / Exceptions / Miscellaneous: Cranial nerves II through XII are intact. Eyes: Pupils equally round and reactive to light and accommodation, extraocular muscles are intact The patient has 5 out of 5 bilateral upper and lower extreme strength. Sensorium upper and lower extremities are equal and intact Pertinent Laboratory Results / Pertinent Radiology Results / Pertinent Diagnostic Results / Pertinent Vital Signs: Patient saturating a 6% on 2 L, pulse 56, INR 2.6, troponin I 0.66 Assessment / Plan: Pneumonia. Azithromycin 500 g IV daily plus Rocephin 1 g IV daily Urinary tract infection. Rocephin 1 g IV daily Elevated troponin, query NSTEMI. Will monitor patient telemetry and checks her current enzymes. In the morning will check fasting lipid panel and recheck EKG. TSH and free T4 were recently checked and were within normal limits. Magnesium level within normal limits. Toprol-XL 75 mg p.o. daily plus Plavix and 5 mg p.o. daily plus Lipitor 40 mg p.o. nightly plus Nitropaste 1 inch every 6 hours. Cardiology was consulted in the emergency department and they have recommended medical management Bibasilar pleural effusions, chronic. Lasix 60 mg p.o. twice daily Gout. Allopurinol 50 mg p.o. every 48 hours Paroxysmal atrial fibrillation. Telemetry monitoring. Will monitor PT/INR periodically. Metoprolol 75 mg p.o. daily plus Coumadin 5 mg p.o. on Sunday and and Coumadin 2.5 mg p.o. q. Sunday, Sunday, Sunday, Sunday, and Sunday Chronic kidney disease, baseline creatinine of 1.7. Will monitor creatinine levels intermittently. Calcitriol 0.5 mg p.o. oh as directed Hypokalemia. Telemetry monitoring. Will monitor potassium levels intermittently and supplement as necessary Hypoparathyroidism Folate deficiency. Folic acid 1 mg p.o. daily COPD, O2 dependent 2 L CHF. Most recent echocardiogram from October 02, 2020 demonstrates ejection fraction of 65 to 70% with grade 2 diastolic dysfunction and moderate aortic stenosis. Toprol-XL 75 mg p.o. daily plus Lasix 60 mg p.o. twice daily plus Aldactone 5 mg p.o. daily GERD. Protonix 20 mg p.o. daily Hyperlipidemia. Lipitor 40 mg p.o. nightly. Check fasting lipid panel Hypertension. Paste 1 inch every 6 hours plus Lasix 60 mg p.o. twice daily plus Aldactone 5 mg p.o. daily with Toprol-XL 75 mg p.o. daily Obesity. Patient becomes regarding lifestyle modification Degenerative disc disease Diverticulosis Osteoarthritis Osteoporosis Anxiety Depression. Paxil 40 mg p.o. daily History of CVA. Plavix 75 mg p.o. daily plus Lipitor 40 mg p.o. nightly DVT prophylaxis. Will monitor PT/INR periodically. Coumadin 5 mg p.o. on Sunday and and Coumadin 2.5 mg p.o. q. Sunday, Sunday, Sunday, Sunday, and Sunday Disposition: I requested physical therapy and Occupational Therapy evaluate the patient for placement. I requested case management/social work also evaluate the patient for placement. Given patient's age and poor short and long-term prognosis, I request that hospice speak with the patient and her family regarding the services that may be offered. Anticipate discharge on Sunday, December 06, 2020 END OF DOCTOR LOVE PROGRESS NOTE
[2020-12-04] MEDS: Metoprolol Succinate 50 MG Tab.ER PO SCH (09:35)
[2020-12-04] MEDS: Folic Acid 1 MG Tab PO SCH (09:35)
[2020-12-04] MEDS: Furosemide 40 MG Tab PO SCH ×2 (09:37→21:04)
[2020-12-04] MEDS: Pantoprazole 40 MG Tab.CR PO SCH (09:37)
[2020-12-04] MEDS: PARoxetine 20 MG Tab PO SCH (09:37)
[2020-12-04] MEDS: Clopidogrel 75 MG Tab PO SCH (09:37)
[2020-12-04] MEDS: Spironolactone 25 MG Tab PO SCH (09:39)
[2020-12-04] MEDS: Warfarin 2.5 MG Tab PO SCH (14:24)
[2020-12-04] MEDS: cefTRIAXone 1 GM in Sodium Chloride 0.9% 50 ML IV SCH (17:55)
[2020-12-04] MEDS: Azithromycin 500 MG in Sodium Chloride 0.9% 250 ML IV SCH (18:41)
[2020-12-04] MEDS: Acetaminophen 325 MG Tab PO PRN (21:04)
[2020-12-04] MEDS: diphenhydrAMINE 25 MG Tab PO PRN (21:04)
[2020-12-04] MEDS: LORazepam 0.5 MG Tab PO PRN (23:28)
[2020-12-04] MEDS: [UNRECOGNIZED DRUG - SUPPLY] TOP SCH (23:29)
[2020-12-05] MEDS: Folic Acid 1 MG Tab PO SCH (08:35)
[2020-12-05] MEDS: Pantoprazole 40 MG Tab.CR PO SCH (08:35)
[2020-12-05] MEDS: Clopidogrel 75 MG Tab PO SCH (08:35)
[2020-12-05] MEDS: PARoxetine 20 MG Tab PO SCH (08:36)
[2020-12-05] MEDS: Metoprolol Succinate 50 MG Tab.ER PO SCH (08:36)
[2020-12-05] MEDS: Spironolactone 25 MG Tab PO SCH ×2 (08:38→08:44)
[2020-12-05] MEDS: Furosemide 40 MG Tab PO SCH ×2 (08:38→22:15)
[2020-12-05] MEDS: [UNRECOGNIZED DRUG - SUPPLY] TOP SCH (11:00)
[2020-12-05] MEDS: Ondansetron 4 MG/2 ML SDV IVPUSH PRN (13:34)
[2020-12-05] MEDS: Warfarin 2.5 MG Tab PO SCH (14:05)
[2020-12-05] MEDS: cefTRIAXone 1 GM in Sodium Chloride 0.9% 50 ML IV SCH (17:02)
[2020-12-05] MEDS: Allopurinol 100 MG Tab PO SCH (17:04)
[2020-12-05] MEDS: Acetaminophen 325 MG Tab PO PRN ×2 (17:28→22:16)
[2020-12-05] MEDS: Azithromycin 500 MG in Sodium Chloride 0.9% 250 ML IV SCH (17:45)
--- NOTE | 2020-12-05 22:00 | PCM.PN ---
- General Info Date of Service: 12/05/20 Admission Dx/Problem (Free Text): Pneumonia Subjective Update: Susana is doing well. I did have a good talk with her yesterday with her daughter present, that it sounds like her living out in her current living environment could be difficult going forward. We discussed that with her decubitus ulcers on her buttocks, as well as her frequent nursing needs, that it might be time to start considering with her family basement and the higher level of care. She did seem to take this to heart, and today is somewhat more anxious and withdrawn. Nursing is suspecting that she is very anxious about moving and leaving her known environment. They report that she is still able to ambulate without too much difficulty, breathing does not seem to be any worse but really not any better either. - Patient Data Vitals - Most Recent: Last Vital Signs Temp 97.2 F 12/05/20 17:00 Pulse 72 12/05/20 17:00 Resp 20 12/05/20 12:41 BP 113/65 12/05/20 17:00 Pulse Ox 97 12/05/20 17:00 Weight - Most Recent: 223 lb I&O - Last 24 Hours: Intake & Output 12/05/20 12/05/20 12/05/20 06:59 14:59 22:59 Intake Total 300 350 Balance 300 350 Lab Results Last 24 Hours: Laboratory Results - last 24 hr 12/05/20 Range/Units 06:18 PT 34.7 H D (9.0-12.0) SEC INR 3.5 H (0.9-1.2) Med Orders - Current: Current Medications Acetaminophen (Acetaminophen 325 Mg Tab) 650 mg PO Q4H PRN PRN Reason: Pain (Mild 1-3)/fever Last Admin: 12/05/20 17:28 Dose: 650 mg Documented by: Albuterol (Albuterol 6.7 Gm Inhaler) 0 gm INH Q4H PRN PRN Reason: Shortness of Breath Allopurinol (Allopurinol 100 Mg Tab) 50 mg PO Q48H [facility] Last Admin: 12/05/20 17:04 Dose: 50 mg Documented by: Calcitriol (Calcitriol 0.25 Mcg Cap) 0.5 mcg PO MoTuWeThFr [facility] Last Admin: 12/03/20 18:45 Dose: 0.5 mcg Documented by: Clopidogrel Bisulfate (Clopidogrel 75 Mg Tab) 75 mg PO DAILY [facility] Last Admin: 12/05/20 08:35 Dose: 75 mg Documented by: Diphenhydramine HCl (Diphenhydramine 25 Mg Tab) 25 mg PO BEDTIME PRN PRN Reason: Insomnia Last Admin: 12/04/20 21:04 Dose: 25 mg Documented by: Folic Acid (Folic Acid 1 Mg Tab) 1 mg PO DAILY [facility] Last Admin: 12/05/20 08:35 Dose: 1 mg Documented by: Furosemide (Furosemide 40 Mg Tab) 60 mg PO BID [facility] Last Admin: 12/05/20 08:38 Dose: 60 mg Documented by: Azithromycin 500 mg/ Sodium (Chloride) 250 mls @ 250 mls/hr IV Q24H [facility] Last Admin: 12/05/20 17:45 Dose: 250 mls/hr Documented by: Ceftriaxone Sodium 1 gm/ (Sodium Chloride) 50 mls @ 100 mls/hr IV Q24H [facility] Last Admin: 12/05/20 17:02 Dose: 100 mls/hr Documented by: Lorazepam (Lorazepam 0.5 Mg Tab) 0.5 mg PO BID PRN PRN Reason: Anxiety Last Admin: 12/04/20 23:28 Dose: 0.5 mg Documented by: Metoprolol Succinate (Metoprolol Succinate 50 Mg Tab.Er) 75 mg PO DAILY [facility] Last Admin: 12/05/20 08:36 Dose: 75 mg Documented by: Ondansetron HCl (Ondansetron 4 Mg/2 Ml Sdv) 4 mg IVPUSH Q4H PRN PRN Reason: Nausea/Vomiting Last Admin: 12/05/20 13:34 Dose: 4 mg Documented by: Pantoprazole Sodium (Pantoprazole 40 Mg Tab.Cr) 20 mg PO DAILY [facility] Last Admin: 12/05/20 08:35 Dose: 20 mg Documented by: Paroxetine HCl (Paroxetine 20 Mg Tab) 40 mg PO DAILY [facility] Last Admin: 12/05/20 08:36 Dose: 40 mg Documented by: Patient Own Medication (Patient's Own Medication 1 Each) 1 each TOP BID [facility] Last Admin: 12/05/20 11:00 Dose: 1 each Documented by: Sodium Chloride (Sodium Chloride 0.9% 10 Ml Syringe) 10 ml FLUSH ASDIRECTED PRN PRN Reason: Keep Vein Open Last Admin: 12/03/20 19:43 Dose: 10 ml Documented by: Spironolactone (Spironolactone 25 Mg Tab) 25 mg PO DAILY [facility] Last Admin: 12/05/20 08:44 Dose: 25 mg Documented by: Warfarin Sodium (Warfarin 2.5 Mg Tab) 2.5 mg PO SuTuWeFrSa [facility] Last Admin: 12/05/20 14:05 Dose: 2.5 mg Documented by: Warfarin Sodium (Warfarin 5 Mg Tab) 5 mg PO MoTh [facility] Discontinued Medications Atorvastatin Calcium (Atorvastatin 20 Mg Tab) 40 mg PO ONETIME ONE Stop: 12/03/20 17:43 Last Admin: 12/03/20 18:44 Dose: 40 mg Documented by: Potassium Chloride 20 meq/ (Premix) 100 mls @ 50 mls/hr IV ONETIME ONE Stop: 12/03/20 15:45 Last Admin: 12/03/20 15:02 Dose: 50 mls/hr Documented by: Nitroglycerin (Nitroglycerin 2% Oint 1 Gm Ud Packet) 1 gm TOP Q6H [facility] Last Admin: 12/04/20 18:43 Dose: 1 gm Documented by: Potassium Chloride (Potassium Chloride 10 Meq Tab.Er) 40 meq PO Q2H [facility] Stop: 12/03/20 21:46 Last Admin: 12/03/20 21:29 Dose: 40 meq Documented by: Potassium Chloride (Potassium Chloride 10 Meq Tab.Er) 40 meq PO ONETIME ONE Stop: 12/04/20 07:25 Last Admin: 12/04/20 09:38 Dose: 40 meq Documented by: - Exam Physical Findings Comments:: General: Susana is an 89-year-old woman in no acute distress Oropharynx is clear, mucous membranes are moist Heart: Regular rate and rhythm, 1 out of 6 systolic murmur heard over the left sternal border Lungs: She still has quite a bit of rhonchi heard over both bases Nursing reports that her decubitus ulcers on her buttocks appear to be healing nicely; I did not get a chance to see those today. - Patient Data Lab Results Last 24 hrs: Laboratory Results - last 24 hr 12/05/20 Range/Units 06:18 PT 34.7 H D (9.0-12.0) SEC INR 3.5 H (0.9-1.2) Result Diagrams: 12/04/20 02:10 12/04/20 02:10 Sepsis Event Note - Evaluation Sepsis Screening Result: No Definite Risk - Focused Exam Vital Signs: Vital Signs Temp Pulse Resp BP Pulse Ox Pulse Ox 12/05/20 17:00 97.2 F 72 113/65 97 12/05/20 12:41 98.6 F 78 20 103/64 97 - Problem List & Annotations (1) Pneumonia SNOMED Code(s): 902933946 Code(s): J18.9 - PNEUMONIA, UNSPECIFIED ORGANISM Status: Acute Current Visit: No Qualifiers: Pneumonia type: due to unspecified organism Laterality: left Lung location: upper lobe of lung Qualified Code(s): J18.9 - Pneumonia, unspecified organism (2) Pleural effusion SNOMED Code(s): 29893458 Code(s): J90 - PLEURAL EFFUSION, NOT ELSEWHERE CLASSIFIED Status: Acute Current Visit: Yes (3) Chronic kidney disease SNOMED Code(s): 205491226 Code(s): N18.9 - CHRONIC KIDNEY DISEASE, UNSPECIFIED Status: Acute Current Visit: Yes - Problem List Review Problem List Initiated/Reviewed/Updated: Yes - My Orders Last 24 Hours: My Active Orders 12/04/20 21:00 Patient's Own Medication [Ptom] 1 each TOP BID 12/06/20 05:11 INR,PT,PROTHROMBIN TIME [COAG] AM RENAL FUNCTION PANEL,RFP [CHEM] AM - Assessment Assessment:: Assessment: 1. 89-year-old woman with lobar pneumonia 2. Bilateral pleural effusions 3. Mild to moderate dementia 4. Stage I decubitus ulcer of the buttocks, improving 5. Supratherapeutic INR 6. Chronic kidney disease stage II Plan: 1. Continue IV antibiotics 2. Recheck chest x-ray in a.m. to follow the above-noted effusions as well as her pneumonia 3. Recheck INR in a.m., may need to adjust her Coumadin dose 4. As we have started the discussion with her family, we will enlist social work's help to start the plans with family to at least take a look at other assisted living/senior care options for her going forward. The wounds on her buttocks are evidence that she is having challenges caring for herself i ndependently. As noted in the previous physician's notes, her cardiac status is such that a hospice consult is appropriate as well.
[2020-12-05] MEDS: diphenhydrAMINE 25 MG Tab PO PRN (22:16)
[2020-12-05] MEDS: LORazepam 0.5 MG Tab PO PRN (22:16)
[2020-12-06] MEDS: [UNRECOGNIZED DRUG - SUPPLY] TOP SCH ×3 (06:08→21:09)
--- NOTE | 2020-12-06 09:33 | CR ---
PROCEDURE INFORMATION: Exam: XR Chest Exam date and time: 12/06/2020 8:47 AM Age: 89 years old Clinical indication: Other: To follow pneumonia/pleural effusion TECHNIQUE: Imaging protocol: XR of the chest. Views: 2 views. COMPARISON: CR Chest 1V Frontal 12/03/2020 3:15 PM FINDINGS: Lungs: Bilateral atelectatic changes are stable. The patient has had superimposes part of apices bilaterally. Pleural spaces: Bilateral pleural effusions are stable. Heart/Mediastinum: Unremarkable. No cardiomegaly. Bones/joints: Unremarkable. IMPRESSION: Bilateral effusions and lower lobe infiltrates. Stable.
[2020-12-06] MEDS: Clopidogrel 75 MG Tab PO SCH (10:15)
[2020-12-06] MEDS: Pantoprazole 40 MG Tab.CR PO SCH (10:16)
[2020-12-06] MEDS: Spironolactone 25 MG Tab PO SCH (10:16)
[2020-12-06] MEDS: PARoxetine 20 MG Tab PO SCH (10:21)
[2020-12-06] MEDS: Folic Acid 1 MG Tab PO SCH (10:21)
[2020-12-06] MEDS: Metoprolol Succinate 50 MG Tab.ER PO SCH (10:35)
[2020-12-06] MEDS: Ondansetron 4 MG/2 ML SDV IVPUSH PRN (12:34)
[2020-12-06] MEDS ORDERED: Warfarin 5 MG Tab PO SCH (14:00)
[2020-12-06] MEDS: LORazepam 0.5 MG Tab PO PRN (14:50)
[2020-12-06] MEDS: Furosemide 40 MG Tab PO SCH (14:50)
[2020-12-06] MEDS: Azithromycin 500 MG in Sodium Chloride 0.9% 250 ML IV SCH (17:05)
[2020-12-06] MEDS: cefTRIAXone 1 GM in Sodium Chloride 0.9% 50 ML IV SCH (18:43)
[2020-12-06] MEDS: Calcitriol 0.25 MCG Cap PO SCH (19:12)
[2020-12-06] MEDS: diphenhydrAMINE 25 MG Tab PO PRN (21:07)
[2020-12-06] MEDS: Acetaminophen 325 MG Tab PO PRN (21:08)
[2020-12-07] MEDS: LORazepam 0.5 MG Tab PO PRN (01:29)
[2020-12-07] MEDS: Pantoprazole 40 MG Tab.CR PO SCH (08:10)
[2020-12-07] MEDS: Folic Acid 1 MG Tab PO SCH (08:11)
[2020-12-07] MEDS: Furosemide 40 MG Tab PO SCH ×2 (08:11→13:50)
[2020-12-07] MEDS: Clopidogrel 75 MG Tab PO SCH (08:13)
[2020-12-07] MEDS: Metoprolol Succinate 50 MG Tab.ER PO SCH (08:13)
[2020-12-07] MEDS: PARoxetine 20 MG Tab PO SCH (08:14)
[2020-12-07] MEDS: Spironolactone 25 MG Tab PO SCH (08:16)
[2020-12-07] MEDS ORDERED: Warfarin 2.5 MG Tab PO ONE (14:00)
[2020-12-07] MEDS: Calcitriol 0.25 MCG Cap PO SCH (17:23)
[2020-12-07] MEDS: Azithromycin 500 MG in Sodium Chloride 0.9% 250 ML IV SCH (17:24)
[2020-12-07] MEDS: cefTRIAXone 1 GM in Sodium Chloride 0.9% 50 ML IV SCH (18:30)
[2020-12-07] MEDS: [UNRECOGNIZED DRUG - SUPPLY] TOP SCH (18:35)
[2020-12-07] MEDS: diphenhydrAMINE 25 MG Tab PO PRN (20:42)
[2020-12-07] MEDS: Acetaminophen 325 MG Tab PO PRN (20:42)
--- NOTE | 2020-12-08 00:34 | PCM.PN ---
- General Info Date of Service: 12/06/20 Admission Dx/Problem (Free Text): Pneumonia Subjective Update: Susana is an 89-year-old woman who was been admitted here the past several days with a significant pneumonia. She also has severe coronary artery disease, and has developed a tachybradycardia syndrome. When she is up ambulating, she gets frequent vasovagal reactions, which have now made her afraid to get up and go to the bathroom on her own. This means that she is incontinent frequently throughout the day. Because she has been incontinent and wet, she has developed multiple decubitus ulcers of her coccyx area and buttocks. Nursing staff has been trying to work with her, but she refuses to do anything but sit in the recliner. We started the conversation with her couple of days ago about the fact that she is no longer appropriate for the assisted living that she has been at, that she will need more retirement care. - Patient Data Vitals - Most Recent: Last Vital Signs Temp 97.9 F 12/07/20 16:00 Pulse 63 12/07/20 16:00 Resp 20 12/07/20 16:00 BP 118/56 L 12/07/20 16:00 Pulse Ox 98 12/07/20 16:00 Weight - Most Recent: 226 lb I&O - Last 24 Hours: Intake & Output 12/07/20 12/07/20 12/08/20 14:59 22:59 06:59 Intake Total 1035 75 Balance 1035 75 Lab Results Last 24 Hours: Laboratory Results - last 24 hr 12/07/20 Range/Units 06:05 PT 27.0 H (9.0-12.0) SEC INR 2.7 H (0.9-1.2) Med Orders - Current: Current Medications Acetaminophen (Acetaminophen 325 Mg Tab) 650 mg PO Q4H PRN PRN Reason: Pain (Mild 1-3)/fever Last Admin: 12/07/20 20:42 Dose: 650 mg Documented by: Albuterol (Albuterol 6.7 Gm Inhaler) 0 gm INH Q4H PRN PRN Reason: Shortness of Breath Calcitriol (Calcitriol 0.25 Mcg Cap) 0.5 mcg PO MoTuWeThFr [facility] Last Admin: 12/07/20 17:23 Dose: 0.5 mcg Documented by: Clopidogrel Bisulfate (Clopidogrel 75 Mg Tab) 75 mg PO DAILY [facility] Last Admin: 12/07/20 08:13 Dose: 75 mg Documented by: Diphenhydramine HCl (Diphenhydramine 25 Mg Tab) 25 mg PO BEDTIME PRN PRN Reason: Insomnia Last Admin: 12/07/20 20:42 Dose: 25 mg Documented by: Folic Acid (Folic Acid 1 Mg Tab) 1 mg PO DAILY [facility] Last Admin: 12/07/20 08:11 Dose: 1 mg Documented by: Furosemide (Furosemide 40 Mg Tab) 60 mg PO BIDDIURETIC COUNT [facility]CLUD[facility] Last Admin: 12/07/20 13:50 Dose: 60 mg Documented by: Azithromycin 500 mg/ Sodium (Chloride) 250 mls @ 250 mls/hr IV Q24H [facility] Last Admin: 12/07/20 17:24 Dose: 250 mls/hr Documented by: Ceftriaxone Sodium 1 gm/ (Sodium Chloride) 50 mls @ 100 mls/hr IV Q24H [facility] Last Admin: 12/07/20 18:30 Dose: 100 mls/hr Documented by: Lorazepam (Lorazepam 0.5 Mg Tab) 0.5 mg PO BID PRN PRN Reason: Anxiety Last Admin: 12/07/20 01:29 Dose: 0.5 mg Documented by: Metoprolol Succinate (Metoprolol Succinate 50 Mg Tab.Er) 75 mg PO DAILY [facility] Last Admin: 12/07/20 08:13 Dose: 75 mg Documented by: Ondansetron HCl (Ondansetron 4 Mg/2 Ml Sdv) 4 mg IVPUSH Q4H PRN PRN Reason: Nausea/Vomiting Last Admin: 12/06/20 12:34 Dose: 4 mg Documented by: Pantoprazole Sodium (Pantoprazole 40 Mg Tab.Cr) 20 mg PO DAILY [facility] Last Admin: 12/07/20 08:10 Dose: 20 mg Documented by: Paroxetine HCl (Paroxetine 20 Mg Tab) 40 mg PO DAILY [facility] Last Admin: 12/07/20 08:14 Dose: 40 mg Documented by: Sodium Chloride (Sodium Chloride 0.9% 10 Ml Syringe) 10 ml FLUSH ASDIRECTED PRN PRN Reason: Keep Vein Open Last Admin: 12/03/20 19:43 Dose: 10 ml Documented by: Spironolactone (Spironolactone 25 Mg Tab) 25 mg PO DAILY [facility] Last Admin: 12/07/20 08:16 Dose: 25 mg Documented by: Warfarin Sodium (Pharmacy To Dose - Warfarin) 0 dose .XX ASDIRECTED [facility]CLUDES [facility] Discontinued Medications Allopurinol (Allopurinol 100 Mg Tab) 50 mg PO Q48H [facility] Last Admin: 12/05/20 17:04 Dose: 50 mg Documented by: Atorvastatin Calcium (Atorvastatin 20 Mg Tab) 40 mg PO ONETIME ONE Stop: 12/03/20 17:43 Last Admin: 12/03/20 18:44 Dose: 40 mg Documented by: Furosemide (Furosemide 40 Mg Tab) 60 mg PO BID [facility] Last Admin: 12/05/20 22:15 Dose: 60 mg Documented by: Potassium Chloride 20 meq/ (Premix) 100 mls @ 50 mls/hr IV ONETIME ONE Stop: 12/03/20 15:45 Last Admin: 12/03/20 15:02 Dose: 50 mls/hr Documented by: Azithromycin 500 mg/ Sodium (Chloride) 250 mls @ 250 mls/hr IV Q24H [facility] Last Admin: 12/05/20 17:45 Dose: 250 mls/hr Documented by: Ceftriaxone Sodium 1 gm/ (Sodium Chloride) 50 mls @ 100 mls/hr IV Q24H [facility] Last Admin: 12/05/20 17:02 Dose: 100 mls/hr Documented by: Nitroglycerin (Nitroglycerin 2% Oint 1 Gm Ud Packet) 1 gm TOP Q6H [facility] Last Admin: 12/04/20 18:43 Dose: 1 gm Documented by: Triad Hydrophilic Wound Dressing *Own Med* 1 each TOP BID [facility] Last Admin: 12/07/20 18:35 Dose: Not Given Documented by: Potassium Chloride (Potassium Chloride 10 Meq Tab.Er) 40 meq PO Q2H [facility] Stop: 12/03/20 21:46 Last Admin: 12/03/20 21:29 Dose: 40 meq Documented by: Potassium Chloride (Potassium Chloride 10 Meq Tab.Er) 40 meq PO ONETIME ONE Stop: 12/04/20 07:25 Last Admin: 12/04/20 09:38 Dose: 40 meq Documented by: Warfarin Sodium (Warfarin 2.5 Mg Tab) 2.5 mg PO SuTuWeFrSa [facility]CLUD[facility] Last Admin: 12/05/20 14:05 Dose: 2.5 mg Documented by: Warfarin Sodium (Warfarin 5 Mg Tab) 5 mg PO MoTh COUNT [facility]CLUD[facility] Warfarin Sodium (Warfarin 1 Mg Tab) 0.5 mg PO ONETIME ONE Stop: 12/06/20 14:01 Last Admin: 12/06/20 14:50 Dose: 0.5 mg Documented by: Warfarin Sodium (Warfarin 2.5 Mg Tab) 2.5 mg PO ONETIME ONE Stop: 12/07/20 14:01 Last Admin: 12/07/20 13:50 Dose: 2.5 mg Documented by: - Exam Physical Findings Comments:: General: Susana is an 89-year-old woman in no acute distress Oropharynx is clear, mucous membranes are moist Heart: Regular rate and rhythm, I do hear a couple of PVCs as I listen to her today Lungs: She still has some rhonchi and wheezing in her lower right base - Patient Data Lab Results Last 24 hrs: Laboratory Results - last 24 hr 12/07/20 Range/Units 06:05 PT 27.0 H (9.0-12.0) SEC INR 2.7 H (0.9-1.2) Result Diagrams: 12/04/20 02:10 12/06/20 06:00 Sepsis Event Note - Evaluation Sepsis Screening Result: No Definite Risk - Focused Exam Vital Signs: Vital Signs Temp Pulse Resp BP Pulse Ox 12/07/20 16:00 97.9 F 63 20 118/56 L 98 - Problem List & Annotations (1) Pneumonia SNOMED Code(s): 016450729 Code(s): J18.9 - PNEUMONIA, UNSPECIFIED ORGANISM Status: Acute Current Visit: No Qualifiers: Pneumonia type: due to unspecified organism Laterality: left Lung location: upper lobe of lung Qualified Code(s): J18.9 - Pneumonia, unspecified organism (2) Pleural effusion SNOMED Code(s): 13552039 Code(s): J90 - PLEURAL EFFUSION, NOT ELSEWHERE CLASSIFIED Status: Acute Current Visit: Yes (3) Chronic kidney disease SNOMED Code(s): 987605959 Code(s): N18.9 - CHRONIC KIDNEY DISEASE, UNSPECIFIED Status: Acute Current Visit: Yes (4) Decubitus ulcer SNOMED Code(s): 488574473 Code(s): L89.90 - PRESSURE ULCER OF UNSPECIFIED SITE, UNSPECIFIED STAGE Status: Acute Priority: High Current Visit: Yes Qualifiers: Pressure injury location: buttock Pressure injury stage: stage 2 (5) Decubitus ulcer SNOMED Code(s): 735839053 Code(s): L89.90 - PRESSURE ULCER OF UNSPECIFIED SITE, UNSPECIFIED STAGE Status: Acute Priority: High Current Visit: Yes Qualifiers: Pressure injury location: buttock Pressure injury stage: stage 1 - Problem List Review Problem List Initiated/Reviewed/Updated: Yes - My Orders Last 24 Hours: My Active Orders 12/07/20 11:56 Communication Order [RC] PER UNIT ROUTINE 12/08/20 06:00 INR,PT,PROTHROMBIN TIME [[facility]] DAILY 12/09/20 06:00 INR,PT,PROTHROMBIN TIME [[facility]] DAILY 12/10/20 06:00 INR,PT,PROTHROMBIN TIME [[facility]] DAILY 12/11/20 06:00 INR,PT,PROTHROMBIN TIME [[facility]] DAILY 12/12/20 06:00 INR,PT,PROTHROMBIN TIME [[facility]] DAILY 12/13/20 06:00 INR,PT,PROTHROMBIN TIME [[facility]] DAILY - Assessment Assessment:: Assessment: 1. 89-year-old woman with lobar pneumonia 2. Bilateral pleural effusions 3. Mild to moderate dementia 4. Stage I and II decubitus ulcers of the buttocks, stble 5. Supratherapeutic INR 6. Chronic kidney disease stage II Plan: 1. Continue IV antibiotics 2. Recheck INR in a.m., may need to adjust her Coumadin dose 3. Susana and her family seem to be now on board with her being placed at a retirement home. Susana is very upset that she will have to move, and she is very worried about living separate from her . Her has medical issues himself, but is not needing of a retirement placement at this time
--- NOTE | 2020-12-08 00:38 | PCM.PN ---
- General Info Date of Service: 12/07/20 Admission Dx/Problem (Free Text): Pneumonia Subjective Update: Susana's progress is overall stable over the last 24 to 48 hours. Nursing is still struggling with trying to get her to lay down on her bed frequently throughout the day to take pressure off of her buttocks. Nursing was able to take good photographs of her decubitus ulcers on her buttocks and coccyx area. It appears as though she has several stage I ulcers, as well as 2 stage II ulcers, 1 of which appears very close to becoming a stage III. Her breathing is overall improved, she is much more talkative and able to engage with us in conversation than she was previously - Patient Data Vitals - Most Recent: Last Vital Signs Temp 97.9 F 12/07/20 16:00 Pulse 63 12/07/20 16:00 Resp 20 12/07/20 16:00 BP 118/56 L 12/07/20 16:00 Pulse Ox 98 12/07/20 16:00 Weight - Most Recent: 226 lb I&O - Last 24 Hours: Intake & Output 12/07/20 12/07/20 12/08/20 14:59 22:59 06:59 Intake Total 1035 75 Balance 1035 75 Lab Results Last 24 Hours: Laboratory Results - last 24 hr 12/07/20 Range/Units 06:05 PT 27.0 H (9.0-12.0) SEC INR 2.7 H (0.9-1.2) Med Orders - Current: Current Medications Acetaminophen (Acetaminophen 325 Mg Tab) 650 mg PO Q4H PRN PRN Reason: Pain (Mild 1-3)/fever Last Admin: 12/07/20 20:42 Dose: 650 mg Documented by: Albuterol (Albuterol 6.7 Gm Inhaler) 0 gm INH Q4H PRN PRN Reason: Shortness of Breath Calcitriol (Calcitriol 0.25 Mcg Cap) 0.5 mcg PO MoTuWeThFr [facility] Last Admin: 12/07/20 17:23 Dose: 0.5 mcg Documented by: Clopidogrel Bisulfate (Clopidogrel 75 Mg Tab) 75 mg PO DAILY [facility] Last Admin: 12/07/20 08:13 Dose: 75 mg Documented by: Diphenhydramine HCl (Diphenhydramine 25 Mg Tab) 25 mg PO BEDTIME PRN PRN Reason: Insomnia Last Admin: 12/07/20 20:42 Dose: 25 mg Documented by: Folic Acid (Folic Acid 1 Mg Tab) 1 mg PO DAILY [facility] Last Admin: 12/07/20 08:11 Dose: 1 mg Documented by: Furosemide (Furosemide 40 Mg Tab) 60 mg PO BIDDIURETIC [facility] Last Admin: 12/07/20 13:50 Dose: 60 mg Documented by: Azithromycin 500 mg/ Sodium (Chloride) 250 mls @ 250 mls/hr IV Q24H [facility] Last Admin: 12/07/20 17:24 Dose: 250 mls/hr Documented by: Ceftriaxone Sodium 1 gm/ (Sodium Chloride) 50 mls @ 100 mls/hr IV Q24H [facility] Last Admin: 12/07/20 18:30 Dose: 100 mls/hr Documented by: Lorazepam (Lorazepam 0.5 Mg Tab) 0.5 mg PO BID PRN PRN Reason: Anxiety Last Admin: 12/07/20 01:29 Dose: 0.5 mg Documented by: Metoprolol Succinate (Metoprolol Succinate 50 Mg Tab.Er) 75 mg PO DAILY [facility] Last Admin: 12/07/20 08:13 Dose: 75 mg Documented by: Ondansetron HCl (Ondansetron 4 Mg/2 Ml Sdv) 4 mg IVPUSH Q4H PRN PRN Reason: Nausea/Vomiting Last Admin: 12/06/20 12:34 Dose: 4 mg Documented by: Pantoprazole Sodium (Pantoprazole 40 Mg Tab.Cr) 20 mg PO DAILY [facility] Last Admin: 12/07/20 08:10 Dose: 20 mg Documented by: Paroxetine HCl (Paroxetine 20 Mg Tab) 40 mg PO DAILY [facility] Last Admin: 12/07/20 08:14 Dose: 40 mg Documented by: Sodium Chloride (Sodium Chloride 0.9% 10 Ml Syringe) 10 ml FLUSH ASDIRECTED PRN PRN Reason: Keep Vein Open Last Admin: 12/03/20 19:43 Dose: 10 ml Documented by: Spironolactone (Spironolactone 25 Mg Tab) 25 mg PO DAILY [facility] Last Admin: 12/07/20 08:16 Dose: 25 mg Documented by: Warfarin Sodium (Pharmacy To Dose - Warfarin) 0 dose .XX ASDIRECTED [facility] Discontinued Medications Allopurinol (Allopurinol 100 Mg Tab) 50 mg PO Q48H [facility] Last Admin: 12/05/20 17:04 Dose: 50 mg Documented by: Atorvastatin Calcium (Atorvastatin 20 Mg Tab) 40 mg PO ONETIME ONE Stop: 12/03/20 17:43 Last Admin: 12/03/20 18:44 Dose: 40 mg Documented by: Furosemide (Furosemide 40 Mg Tab) 60 mg PO BID [facility] Last Admin: 12/05/20 22:15 Dose: 60 mg Documented by: Potassium Chloride 20 meq/ (Premix) 100 mls @ 50 mls/hr IV ONETIME ONE Stop: 12/03/20 15:45 Last Admin: 12/03/20 15:02 Dose: 50 mls/hr Documented by: Azithromycin 500 mg/ Sodium (Chloride) 250 mls @ 250 mls/hr IV Q24H [facility] Last Admin: 12/05/20 17:45 Dose: 250 mls/hr Documented by: Ceftriaxone Sodium 1 gm/ (Sodium Chloride) 50 mls @ 100 mls/hr IV Q24H [facility] Last Admin: 12/05/20 17:02 Dose: 100 mls/hr Documented by: Nitroglycerin (Nitroglycerin 2% Oint 1 Gm Ud Packet) 1 gm TOP Q6H [facility] Last Admin: 12/04/20 18:43 Dose: 1 gm Documented by: Triad Hydrophilic Wound Dressing *Own Med* 1 each TOP BID [facility] Last Admin: 12/07/20 18:35 Dose: Not Given Documented by: Potassium Chloride (Potassium Chloride 10 Meq Tab.Er) 40 meq PO Q2H [facility] Stop: 12/03/20 21:46 Last Admin: 12/03/20 21:29 Dose: 40 meq Documented by: Potassium Chloride (Potassium Chloride 10 Meq Tab.Er) 40 meq PO ONETIME ONE Stop: 12/04/20 07:25 Last Admin: 12/04/20 09:38 Dose: 40 meq Documented by: Warfarin Sodium (Warfarin 2.5 Mg Tab) 2.5 mg PO SuTuWeFrSa [facility] Last Admin: 12/05/20 14:05 Dose: 2.5 mg Documented by: Warfarin Sodium (Warfarin 5 Mg Tab) 5 mg PO MoTh [facility] Warfarin Sodium (Warfarin 1 Mg Tab) 0.5 mg PO ONETIME ONE Stop: 12/06/20 14:01 Last Admin: 12/06/20 14:50 Dose: 0.5 mg Documented by: Warfarin Sodium (Warfarin 2.5 Mg Tab) 2.5 mg PO ONETIME ONE Stop: 12/07/20 14:01 Last Admin: 12/07/20 13:50 Dose: 2.5 mg Documented by: - Exam Physical Findings Comments:: General: Susana is an 89-year-old woman in no acute distress. She is showing no signs of respiratory distress, no tachypnea or accessory muscle use Oropharynx is clear, mucous membranes are moist Neck: Supple, no lymphadenopathy Heart: Regular rate and rhythm, 1 out of 6 to 2 out of 6 systolic murmur heard throughout Lungs: Much clear to auscultation and her exam of 2 to 3 days ago. She still has some mild crackles and expiratory wheezing in both bases - Patient Data Lab Results Last 24 hrs: Laboratory Results - last 24 hr 12/07/20 Range/Units 06:05 PT 27.0 H (9.0-12.0) SEC INR 2.7 H (0.9-1.2) Result Diagrams: 12/04/20 02:10 12/06/20 06:00 Sepsis Event Note - Evaluation Sepsis Screening Result: No Definite Risk - Focused Exam Vital Signs: Vital Signs Temp Pulse Resp BP Pulse Ox 12/07/20 16:00 97.9 F 63 20 118/56 L 98 - Problem List & Annotations (1) Pneumonia SNOMED Code(s): 494785393 Code(s): J18.9 - PNEUMONIA, UNSPECIFIED ORGANISM Status: Acute Current Visit: No Qualifiers: Pneumonia type: due to unspecified organism Laterality: left Lung loca tion: upper lobe of lung Qualified Code(s): J18.9 - Pneumonia, unspecified organism (2) Pleural effusion SNOMED Code(s): 42073381 Code(s): J90 - PLEURAL EFFUSION, NOT ELSEWHERE CLASSIFIED Status: Acute Current Visit: Yes (3) Chronic kidney disease SNOMED Code(s): 704874884 Code(s): N18.9 - CHRONIC KIDNEY DISEASE, UNSPECIFIED Status: Acute Current Visit: Yes (4) Decubitus ulcer SNOMED Code(s): 069131194 Code(s): L89.90 - PRESSURE ULCER OF UNSPECIFIED SITE, UNSPECIFIED STAGE Status: Acute Priority: High Current Visit: Yes Qualifiers: Pressure injury location: buttock Pressure injury stage: stage 2 (5) Decubitus ulcer SNOMED Code(s): 833211890 Code(s): L89.90 - PRESSURE ULCER OF UNSPECIFIED SITE, UNSPECIFIED STAGE Status: Acute Priority: High Current Visit: Yes Qualifiers: Pressure injury location: buttock Pressure injury stage: stage 1 - Problem List Review Problem List Initiated/Reviewed/Updated: Yes - My Orders Last 24 Hours: My Active Orders 12/07/20 11:56 Communication Order [RC] PER UNIT ROUTINE 12/08/20 06:00 INR,PT,PROTHROMBIN TIME [COAG] DAILY 12/09/20 06:00 INR,PT,PROTHROMBIN TIME [COAG] DAILY 12/10/20 06:00 INR,PT,PROTHROMBIN TIME [COAG] DAILY 12/11/20 06:00 INR,PT,PROTHROMBIN TIME [COAG] DAILY 12/12/20 06:00 INR,PT,PROTHROMBIN TIME [COAG] DAILY 12/13/20 06:00 INR,PT,PROTHROMBIN TIME [COAG] DAILY - Assessment Assessment:: Assessment: 1. 89-year-old woman with lobar pneumonia 2. Bilateral pleural effusions 3. Mild to moderate dementia 4. Stage I and II decubitus ulcers of the buttocks, stable 5. Supratherapeutic INR 6. Chronic kidney disease stage II Plan: 1. Continue IV antibiotics 2. Recheck INR in a.m., may need to adjust her Coumadin dose 3. Our paraplanner has found her placement at the skilled nursing. They deemed her suitable for admission to their facility, we will discharge her here first thing in the morning, she will be admitted to the skilled nursing tomorrow.
[2020-12-08 07:49] VITALS: BP 126/59; PULSE 68
--- NOTE | 2020-12-08 08:14 | PCM.DCSUM1 ---
Discharge Summary - Hospital Course Free Text/Narrative:: Susana is an 89-year-old woman who was initially admitted for acute pneumonia. She has a history of chronic obstructive pulmonary disease, but also has a significant history of congestive heart failure. She had been having numerous episodes while living at the [facility], where she would become very shaky and weak while transferring herself to the bathroom. It sounds from the history that she was having some vasovagal reactions. Unfortunately, these episodes have now made her very fearful of transferring herself to the bathroom or going for any kind of walks. She has developed bilateral pneumonia as well as bilateral pleural effusions. She also unfortunately developed several decubitus ulcers of her buttocks and coccyx area. While admitted to the hospital here, her pneumonia did slowly resolve with IV antibiotics as well as some IV steroids. Unfortunately, nursing staff had a lot of difficulty convincing her to lay in bed frequently throughout the day to take pressure off of her buttocks to help her decubitus ulcer heal. She now has 3 lesions that are stage I, and 2 lesions that are stage II, 1 of which is very nearly stage III. Because of these issues, Susana and her family had several discussions about her future placement, - Discharge Data Discharge Date: 12/08/20 Discharge Disposition: DC/Tfer to SNF 03 Condition: Good - Referral to Home Health Primary Care Physician: Florencia Vizcarra NP - Discharge Diagnosis/Problem(s) (1) Pneumonia SNOMED Code(s): 861285529 ICD Code: J18.9 - PNEUMONIA, UNSPECIFIED ORGANISM Status: Acute Qualifiers: Pneumonia type: due to unspecified organism Laterality: left Lung location: upper lobe of lung Qualified Code(s): J18.9 - Pneumonia, unspecified organism (2) Pleural effusion SNOMED Code(s): 50948714 ICD Code: J90 - PLEURAL EFFUSION, NOT ELSEWHERE CLASSIFIED Status: Acute (3) Chronic kidney disease SNOMED Code(s): 619340208 ICD Code: N18.9 - CHRONIC KIDNEY DISEASE, UNSPECIFIED Status: Acute (4) Decubitus ulcer SNOMED Code(s): 989549652 ICD Code: L89.90 - PRESSURE ULCER OF UNSPECIFIED SITE, UNSPECIFIED STAGE Status: Acute Priority: High Qualifiers: Pressure injury location: buttock Pressure injury stage: stage 2 (5) Decubitus ulcer SNOMED Code(s): 367754389 ICD Code: L89.90 - PRESSURE ULCER OF UNSPECIFIED SITE, UNSPECIFIED STAGE Status: Acute Priority: High Qualifiers: Pressure injury location: buttock Pressure injury stage: stage 1 - Patient Summary/Data Consults: Consultations 12/03/20 17:42 Consult to Case Management/Director Of Compensation [CONS] Routine Consult to Hospice [CONS] Routine 12/03/20 17:43 OT Evaluation and Treatment [CONS] Routine PT Evaluation and Treatment [CONS] Routine - Discharge Plan *PRESCRIPTION DRUG MONITORING PROGRAM REVIEWED*: Not Applicable *COPY OF PRESCRIPTION DRUG MONITORING REPORT IN PATIENT MICHAEL: Not Applicable Prescriptions/Med Rec: Doxycycline Monohydrate 100 mg PO BID 7 Days #14 tablet Home Medications: Home Meds Alendronate Sodium [Fosamax] 70 mg PO WEEKLY 10/01/15 [History] Simvastatin [Zocor] 10 mg PO BEDTIME 10/01/15 [History] Spironolactone [Aldactone] 25 mg PO DAILY 10/01/15 [History] Warfarin [Coumadin] 5 mg PO .06/06/16 [History] Metoprolol Succinate [Toprol XL 50mg] 75 mg PO DAILY 01/05/19 [History] Albuterol Sulfate [Albuterol Sulfate Hfa] 2 puff INH Q4H PRN 11/02/20 [History] Calcitriol 0.5 mcg PO ..F 11/02/20 [History] Warfarin Sodium [Jantoven] 2.5 mg PO .11/02/20 [History] Furosemide 60 mg PO BID #90 tablet 11/04/20 [Rx] Pantoprazole [ProTONIX] 20 mg PO DAILY 11/15/20 [History] Folic Acid 1 mg PO DAILY 30 Days #30 tablet 11/23/20 [Rx] Acetaminophen 650 mg PO Q6H PRN 12/03/20 [History] LORazepam [Ativan] 0.5 mg PO BID PRN 12/03/20 [History] PARoxetine [Paxil] 40 mg PO DAILY 12/03/20 [History] Potassium Chloride [Klor-Con 10] 10 meq PO DAILY 12/03/20 [History] dilTIAZem HCL [Diltiazem 24Hr ER] 360 mg PO DAILY 12/03/20 [History] Arginine/Ascorbate Sod/Sarah AC [Arginaid Powder] 1 each PO BID PRN 12/04/20 [History] Patient's Own Medication [Ptom] 1 applic TOP BID 12/04/20 [History] Doxycycline Monohydrate 100 mg PO BID 7 Days #14 tablet 12/08/20 [Rx] Patient Handouts: Community-Acquired Pneumonia, Adult, [id number] Referrals: Florencia Vizcarra NP [Primary Care Provider] - - Discharge Summary/Plan Comment DC Time >30 min.: No Discharge Summary/Plan Comment: Discharge diagnoses: 1. 89-year-old woman with severe COPD with acute exacerbation, resolving 2. Recent history of early tachybradycardia syndrome 3. Multiple decubitus ulcers of the buttocks and coccyx area Discharge plan: 1. She is discharged to a local long-term 2. Doxycycline, 100 mg twice daily x7 days 3. She will need close wound care follow-up for those decubitus ulcers of her buttocks. - Patient Data Vitals - Most Recent: Last Vital Signs Temp 96.5 F L 12/08/20 07:48 Pulse 68 12/08/20 07:48 Resp 20 12/08/20 07:48 BP 126/59 L 12/08/20 07:48 Pulse Ox 99 12/08/20 07:48 Weight - Most Recent: 226 lb I&O - Last 24 hours: Intake & Output 12/07/20 12/08/20 12/08/20 22:59 06:59 14:59 Intake Total 325 200 Output Total 100 100 Balance 225 100 Lab Results - Last 24 hrs: Laboratory Results - last 24 hr 12/08/20 Range/Units 06:11 PT 20.3 H (9.0-12.0) SEC INR 2.0 H (0.9-1.2) Med Orders - Current: Current Medications Acetaminophen (Acetaminophen 325 Mg Tab) 650 mg PO Q4H PRN PRN Reason: Pain (Mild 1-3)/fever Last Admin: 12/07/20 20:42 Dose: 650 mg Documented by: Albuterol (Albuterol 6.7 Gm Inhaler) 0 gm INH Q4H PRN PRN Reason: Shortness of Breath Calcitriol (Calcitriol 0.25 Mcg Cap) 0.5 mcg PO MoTuWeThFr [facility] Last Admin: 12/07/20 17:23 Dose: 0.5 mcg Documented by: Clopidogrel Bisulfate (Clopidogrel 75 Mg Tab) 75 mg PO DAILY [facility] Last Admin: 12/07/20 08:13 Dose: 75 mg Documented by: Diphenhydramine HCl (Diphenhydramine 25 Mg Tab) 25 mg PO BEDTIME PRN PRN Reason: Insomnia Last Admin: 12/07/20 20:42 Dose: 25 mg Documented by: Folic Acid (Folic Acid 1 Mg Tab) 1 mg PO DAILY [facility] Last Admin: 12/07/20 08:11 Dose: 1 mg Documented by: Furosemide (Furosemide 40 Mg Tab) 60 mg PO BIDDIURETIC [facility] Last Admin: 12/07/20 13:50 Dose: 60 mg Documented by: Azithromycin 500 mg/ Sodium (Chloride) 250 mls @ 250 mls/hr IV Q24H [facility] Last Admin: 12/07/20 17:24 Dose: 250 mls/hr Documented by: Ceftriaxone Sodium 1 gm/ (Sodium Chloride) 50 mls @ 100 mls/hr IV Q24H [facility] Last Admin: 12/07/20 18:30 Dose: 100 mls/hr Documented by: Lorazepam (Lorazepam 0.5 Mg Tab) 0.5 mg PO BID PRN PRN Reason: Anxiety Last Admin: 12/07/20 01:29 Dose: 0.5 mg Documented by: Metoprolol Succinate (Metoprolol Succinate 50 Mg Tab.Er) 75 mg PO DAILY [facility] Last Admin: 12/07/20 08:13 Dose: 75 mg Documented by: Ondansetron HCl (Ondansetron 4 Mg/2 Ml Sdv) 4 mg IVPUSH Q4H PRN PRN Reason: Nausea/Vomiting Last Admin: 12/06/20 12:34 Dose: 4 mg Documented by: Pantoprazole Sodium (Pantoprazole 40 Mg Tab.Cr) 20 mg PO DAILY [facility] Last Admin: 12/07/20 08:10 Dose: 20 mg Documented by: Paroxetine HCl (Paroxetine 20 Mg Tab) 40 mg PO DAILY [facility] Last Admin: 12/07/20 08:14 Dose: 40 mg Documented by: Sodium Chloride (Sodium Chloride 0.9% 10 Ml Syringe) 10 ml FLUSH ASDIRECTED PRN PRN Reason: Keep Vein Open Last Admin: 12/03/20 19:43 Dose: 10 ml Documented by: Spironolactone (Spironolactone 25 Mg Tab) 25 mg PO DAILY [facility] Last Admin: 12/07/20 08:16 Dose: 25 mg Documented by: Warfarin Sodium (Pharmacy To Dose - Warfarin) 0 dose .XX ASDIRECTED [facility] Discontinued Medications Allopurinol (Allopurinol 100 Mg Tab) 50 mg PO Q48H [facility] Last Admin: 12/05/20 17:04 Dose: 50 mg Documented by: Atorvastatin Calcium (Atorvastatin 20 Mg Tab) 40 mg PO ONETIME ONE Stop: 12/03/20 17:43 Last Admin: 12/03/20 18:44 Dose: 40 mg Documented by: Furosemide (Furosemide 40 Mg Tab) 60 mg PO BID [facility] Last Admin: 12/05/20 22:15 Dose: 60 mg Documented by: Potassium Chloride 20 meq/ (Premix) 100 mls @ 50 mls/hr IV ONETIME ONE Stop: 12/03/20 15:45 Last Admin: 12/03/20 15:02 Dose: 50 mls/hr Documented by: Azithromycin 500 mg/ Sodium (Chloride) 250 mls @ 250 mls/hr IV Q24H [facility] Last Admin: 12/05/20 17:45 Dose: 250 mls/hr Documented by: Ceftriaxone Sodium 1 gm/ (Sodium Chloride) 50 mls @ 100 mls/hr IV Q24H [facility] Last Admin: 12/05/20 17:02 Dose: 100 mls/hr Documented by: Nitroglycerin (Nitroglycerin 2% Oint 1 Gm Ud Packet) 1 gm TOP Q6H [facility] Last Admin: 12/04/20 18:43 Dose: 1 gm Documented by: Triad Hydrophilic Wound Dressing *Own Med* 1 each TOP BID [facility] Last Admin: 12/07/20 18:35 Dose: Not Given Documented by: Potassium Chloride (Potassium Chloride 10 Meq Tab.Er) 40 meq PO Q2H [facility] Stop: 12/03/20 21:46 Last Admin: 12/03/20 21:29 Dose: 40 meq Documented by: Potassium Chloride (Potassium Chloride 10 Meq Tab.Er) 40 meq PO ONETIME ONE Stop: 12/04/20 07:25 Last Admin: 12/04/20 09:38 Dose: 40 meq Documented by: Warfarin Sodium (Warfarin 2.5 Mg Tab) 2.5 mg PO SuTuWeFrSa [facility] Last Admin: 12/05/20 14:05 Dose: 2.5 mg Documented by: Warfarin Sodium (Warfarin 5 Mg Tab) 5 mg PO [facility] Warfarin Sodium (Warfarin 1 Mg Tab) 0.5 mg PO ONETIME ONE Stop: 12/06/20 14:01 Last Admin: 12/06/20 14:50 Dose: 0.5 mg Documented by: Warfarin Sodium (Warfarin 2.5 Mg Tab) 2.5 mg PO ONETIME ONE Stop: 12/07/20 14:01 Last Admin: 12/07/20 13:50 Dose: 2.5 mg Documented by:
[2020-12-08] MEDS: Metoprolol Succinate 50 MG Tab.ER PO SCH (09:20)
[2020-12-08] MEDS: Folic Acid 1 MG Tab PO SCH (09:20)
[2020-12-08] MEDS: PARoxetine 20 MG Tab PO SCH (09:20)
[2020-12-08] MEDS: Spironolactone 25 MG Tab PO SCH (09:20)
[2020-12-08] MEDS: Furosemide 40 MG Tab PO SCH (09:21)
[2020-12-08] MEDS: Clopidogrel 75 MG Tab PO SCH (09:21)
[2020-12-08] MEDS: Pantoprazole 40 MG Tab.CR PO SCH (09:21)
== END 2020-12-08 10:10 | DRG 194 ==
LOC: DL.ED 10:31 → DL.MS 12:13 → UNDOADMIN 12:23 → DL.MS 12:23 → DL.ED 12:40 → DL.MS 17:26
PROVIDERS: ADMIT Internal Medicine; ATTEND Family Medicine
DX: J18.9 Pneumonia, unspecified organism (principal); I13.0 Hypertensive heart and chronic kidney disease with heart failure and stage 1 through stage 4 chronic kidney disease, or unspecified chronic kidney disease; R53.1 Weakness; J44.1 Chronic obstructive pulmonary disease with (acute) exacerbation; N39.0 Urinary tract infection, site not specified; I48.91 Unspecified atrial fibrillation; J44.0 Chronic obstructive pulmonary disease with (acute) lower respiratory infection; J91.8 Pleural effusion in other conditions classified elsewhere; J44.9 Chronic obstructive pulmonary disease, unspecified; I50.32 Chronic diastolic (congestive) heart failure; K57.90 Diverticulosis of intestine, part unspecified, without perforation or abscess without bleeding; L89.159 Pressure ulcer of sacral region, unspecified stage; N18.9 Chronic kidney disease, unspecified; L89.322 Pressure ulcer of left buttock, stage 2; L89.312 Pressure ulcer of right buttock, stage 2; Z66 Do not resuscitate; M10.9 Gout, unspecified; I48.0 Paroxysmal atrial fibrillation; E87.6 Hypokalemia; E20.9 Hypoparathyroidism, unspecified; E53.8 Deficiency of other specified B group vitamins; K21.9 Gastro-esophageal reflux disease without esophagitis; H54.7 Unspecified visual loss; E78.00 Pure hypercholesterolemia, unspecified; E66.9 Obesity, unspecified; F03.90 Unspecified dementia, unspecified severity, without behavioral disturbance, psychotic disturbance, mood disturbance, and anxiety; E78.5 Hyperlipidemia, unspecified; M19.90 Unspecified osteoarthritis, unspecified site; M81.0 Age-related osteoporosis without current pathological fracture; F41.9 Anxiety disorder, unspecified; F32.9 Major depressive disorder, single episode, unspecified; Z96.649 Presence of unspecified artificial hip joint; Z96.659 Presence of unspecified artificial knee joint; Z20.822 Contact with and (suspected) exposure to COVID-19; Z79.899 Other long term (current) drug therapy; Z79.01 Long term (current) use of anticoagulants; Z90.49 Acquired absence of other specified parts of digestive tract; Z68.36 Body mass index [BMI] 36.0-36.9, adult; Z98.890 Other specified postprocedural states; Z88.6 Allergy status to analgesic agent; Z88.5 Allergy status to narcotic agent; Z88.8 Allergy status to other drugs, medicaments and biological substances; Z86.73 Personal history of transient ischemic attack (TIA), and cerebral infarction without residual deficits
CPT/HCPCS: 36415; 70450; 71045; 71046; 80048; 80053; 80061; 80069; 81001; 83735; 83880; 84484; 85018; 85025; 85610; 93005; 93010; 97162-GP; 97166-GO; 99284; 99285-25; A9270-GY; J0456; J0696; J2405; J3480; J7050; U0002